=== PATIENT | female | born 1940 | race Caucasian/White ===

== ENCOUNTER 2018-08-02 14:37 | Inpatient (IN) | payer BC, MEDICARE ==
[2018-08-02] MEDS ORDERED: MAG HYDROX/AL HYDROX/SIMETH 30 ML, HYOSCYAMINE ELIXIR 10 ML, CIMETIDINE HCL 300 MG, LID... PO STA ×4 (14:54)
--- NOTE | 2018-08-02 15:10 | ED ---
General Adult HPI - General Chief complaint: Abdominal Pain Stated complaint: Abd Pain Time Seen by Provider: 08/02/18 14:54 Source: patient, EMS Mode of arrival: EMS Limitations: no limitations - History of Present Illness Initial comments: Dictation was produced using [employer] dictation software. please excuse any grammatical, word or spelling errors. Chief Complaint: 77-year-old female presents with a chief complaint of reflux symptoms. History of Present Illness: Patient is 77-year-old female she presents with worsening reflux symptoms for the last 3 weeks. Patient states that her symptoms are localized to her epigastric substernal area. She states to burning sensation. She does report that it feels like a heavy pressure over her epigastric substernal area. She has a 70 history of coronary artery disease st atus post stent. Patient does also have a history of hiatal hernia. She reports that her symptoms have been increasing in frequency and intensity over the last 3 weeks. She states she's been drinking coffee this morning which made her symptoms worse. She also states that she ate a breakfast sausage which also made her symptoms worse. She reports that she usually experiences improvement of her symptoms after drinking water however this did not improve. Patient denies any associated diaphoresis, clamminess of the skin, nausea or radiation of symptoms at the back or upper extremities. The ROS documented in this emergency department record has been reviewed and confirmed by me. Those systems with pertinent positive or negative responses have been documented in the HPI. All other systems are other negative and/or noncontributory. PHYSICAL EXAM: General Impression: Alert and oriented x3, not in acute distress HEENT: Normocephalic atraumatic, extra-ocular movements intact, pupils equal and reactive to light bilaterally, mucous membranes moist. Cardiovascular: Heart regular rate and rhythm, S1&S2 audible, no murmurs, rubs or gallops Chest: Lungs clear to auscultation bilaterally, no rhonchi, no wheeze, no rales Abdomen: Bowel sounds present, abdomen soft, non-tender, non-distended, no organomegaly Musculoskeletal: Pulses present and equal in all extremities, no peripheral e anabella Motor: no focal deficits noted Neurological: CN II-XII grossly intact, no focal motor or sensory deficits noted Skin: Intact with no visualized rashes Psych: Normal affect and mood ED course: 77-year-old female chief complaint of reflux type symptoms. She does have history of coronary artery disease. She does report atypical chest pain with typical features. As upon arrival are within acceptable limits. Patient's well-appearing at this time. She does report symptoms at this time.Lab data evaluation obtained. CBC, coag panel unremarkable. Metabolic panel is negative. Patient does have elevated troponin of 0.05. Chest x-ray is nonacute. Clinical presentation is concerning for an STEMI versus unstable angina. Patient still having some mild symptoms. Patient given aspirin and started on heparin and given Nitropaste. Patient is understandable and agreeable to being admitted to the hospital with cardiology consultation. EKG interpretation: Ventricular rate 57, sinus. Cardiac,. Interval 16, QS 84, QTC 410. No MN prolongation, no QTC prolongation, no ST or T-wave changes noted. Overall, this EKG is unremarkable - Related Data Home Medications Medication Instructions Recorded Confirmed Aspirin EC [Ecotrin Low Dose] 81 - 162 mg PO QID PRN 08/02/18 08/02/18 Davey Complex 1 tab PO DAILY 08/02/18 08/02/18 Fexofenadine HCl [Ute Allergy] 180 mg PO DAILY PRN 08/02/18 08/02/18 Metoprolol Succinate (ER) [Toprol 25 mg PO DAILY 08/02/18 08/02/18 XL] Multivitamin [Multivitamins Adult 2 tab PO DAILY 08/02/18 08/02/18 Gummies] Naproxen Sodium [Aleve] 220 mg PO DAILY PRN 08/02/18 08/02/18 Pantoprazole Sodium [Protonix] 40 mg PO DAILY 08/02/18 08/02/18 Ubidecarenone [Co Q-10] 200 mg PO DAILY 08/02/18 08/02/18 Allergies Allergy/AdvReac Type Severity Reaction Status Date / Time codeine AdvReac Nausea & Verified 08/02/18 16:24 Vomiting Review of Systems ROS Statement: Those systems with pertinent positive or pertinent negative responses have been documented in the HPI. ROS Other: All systems not noted in ROS Statement are negative. Past Medical History Past Medical History: Hyperlipidemia, Hypertension History of Any Multi-Drug Resistant Organisms: None Reported Past Surgical History: Adenoidectomy, Cholecystectomy, Heart Catheterization With Stent, Hysterectomy Past Psychological History: No Psychological Hx Reported Smoking Status: Never smoker Past Alcohol Use History: None Reported Past Drug Use History: None Reported General Exam Limitations: no limitations Course Vital Signs 08/02/18 08/02/18 14:47 16:41 Temperature 97.4 F L Pulse Rate 62 58 L Respiratory 16 16 Rate Blood Pressure 157/104 138/87 O2 Sat by Pulse 100 99 Oximetry Medical Decision Making - Lab Data Result diagrams: 08/02/18 15:20 08/02/18 15:20 Lab Results 08/02/18 08/02/18 08/02/18 Range/Units 15:20 15:20 15:20 WBC 4.3 (3.8-10.6) k/uL RBC 4.25 (3.80-5.40) m/uL Hgb 11.9 (11.4-16.0) gm/dL Hct 35.8 (34.0-46.0) % MCV 84.3 (80.0-100.0) fL MCH 28.0 (25.0-35.0) pg MCHC 33.2 (31.0-37.0) g/dL RDW 15.9 H (11.5-15.5) % Plt Count 293 (150-450) k/uL Neutrophils % 57 % Lymphocytes % 32 % Monocytes % 6 % Eosinophils % 1 % Basophils % 1 % Neutrophils # 2.4 (1.3-7.7) k/uL Lymphocytes # 1.4 (1.0-4.8) k/uL Monocytes # 0.3 (0-1.0) k/uL Eosinophils # 0.1 (0-0.7) k/uL Basophils # 0.0 (0-0.2) k/uL PT 9.7 (9.0-12.0) sec INR 0.9 (<1.2) APTT 25.1 (22.0-30.0) sec Sodium 138 (137-145) mmol/L Potassium 3.8 (3.5-5.1) mmol/L Chloride 104 (98-107) mmol/L Carbon Dioxide 25 (22-30) mmol/L Anion Gap 9 mmol/L BUN 22 H (7-17) mg/dL Creatinine 0.85 (0.52-1.04) mg/dL Est GFR (CKD-EPI)AfAm 77 (>60 ml/min/1.73 sqM) Est GFR (CKD-EPI)NonAf 67 (>60 ml/min/1.73 sqM) Glucose 95 (74-99) mg/dL Calcium 9.9 (8.4-10.2) mg/dL Magnesium 1.8 (1.6-2.3) mg/dL Total Bilirubin 0.4 (0.2-1.3) mg/dL AST 20 (14-36) U/L ALT 14 (9-52) U/L Alkaline Phosphatase 66 (38-126) U/L Troponin I (0.000-0.034) ng/mL Total Protein 6.9 (6.3-8.2) g/dL Albumin 4.2 (3.5-5.0) g/dL 08/02/18 Range/Units 15:20 WBC (3.8-10.6) k/uL RBC (3.80-5.40) m/uL Hgb (11.4-16.0) gm/dL Hct (34.0-46.0) % MCV (80.0-100.0) fL MCH (25.0-35.0) pg MCHC (31.0-37.0) g/dL RDW (11.5-15.5) % Plt Count (150-450) k/uL Neutrophils % % Lymphocytes % % Monocytes % % Eosinophils % % Basophils % % Neutrophils # (1.3-7.7) k/uL Lymphocytes # (1.0-4.8) k/uL Monocytes # (0-1.0) k/uL Eosinophils # (0-0.7) k/uL Basophils # (0-0.2) k/uL PT (9.0-12.0) sec INR (<1.2) APTT (22.0-30.0) sec Sodium (137-145) mmol/L Potassium (3.5-5.1) mmol/L Chloride (98-107) mmol/L Carbon Dioxide (22-30) mmol/L Anion Gap mmol/L BUN (7-17) mg/dL Creatinine (0.52-1.04) mg/dL Est GFR (CKD-EPI)AfAm (>60 ml/min/1.73 sqM) Est GFR (CKD-EPI)NonAf (>60 ml/min/1.73 sqM) Glucose (74-99) mg/dL Calcium (8.4-10.2) mg/dL Magnesium (1.6-2.3) mg/dL Total Bilirubin (0.2-1.3) mg/dL AST (14-36) U/L ALT (9-52) U/L Alkaline Phosphatase (38-126) U/L Troponin I 0.050 H* (0.000-0.034) ng/mL Total Protein (6.3-8.2) g/dL Albumin (3.5-5.0) g/dL Disposition Clinical Impression: NSTEMI (non-ST elevated myocardial infarction) Disposition: ADMITTED IP TO THIS HOSP Condition: Fair Referrals: Jose Miller MD [Primary Care Provider] - 1-2 days Decision Time: 16:59
[2018-08-02 15:29] LABS: Basophils % (A) 1 %; Eosinophils # (A) 0.1 k/uL (0-0.7); Eosinophils % (A) 1 %; HCT 35.8 % (34.0-46.0); HGB 11.9 gm/dL (11.4-16.0); Lymphocytes # (A) 1.4 k/uL (1.0-4.8); Lymphocytes % (A) 32 %; MCHC 33.2 g/dL (31.0-37.0); MCV 84.3 fL (80.0-100.0); Mean Platelet Volume 6.9; Monocytes # (A) 0.3 k/uL (0-1.0); Monocytes % (A) 6 %; Neutrophils # (A) 2.4 k/uL (1.3-7.7); Neutrophils % (A) 57 %; Platelet Count 293 k/uL (150-450); RBC 4.25 m/uL (3.80-5.40); RDW 15.9 % (11.5-15.5); WBC 4.3 k/uL (3.8-10.6)
[2018-08-02 15:41] LABS: INR 0.9 (<1.2); Partial Thromboplastin Time 25.1 sec (22.0-30.0); Prothrombin Time 9.7 sec (9.0-12.0)
--- NOTE | 2018-08-02 15:41 | XR ---
EXAMINATION TYPE: XR chest 2V DATE OF EXAM: 08/02/2018 COMPARISON: NONE HISTORY: Epigastric pain and chest pain TECHNIQUE: Frontal and lateral views of the chest are obtained. FINDINGS: There is no focal air space opacity, pleural effusion, or pneumothorax seen. The cardiac silhouette size is within normal limits. Mild multilevel degenerative change of the spine are seen. The osseous structures are intact. Surgical clips are present within the left breast. IMPRESSION: No acute cardiopulmonary process.
[2018-08-02 15:42] LABS: Albumin 4.2 g/dL (3.5-5.0); Calcium 9.9 mg/dL (8.4-10.2); Magnesium 1.8 mg/dL (1.6-2.3); Potassium 3.8 mmol/L (3.5-5.1); Total Bilirubin 0.4 mg/dL (0.2-1.3); Total Protein 6.9 g/dL (6.3-8.2)
[2018-08-02] MEDS ORDERED: ASPIRIN 81 MG PO STA (16:11)
[2018-08-02] MEDS ORDERED: HEPARIN SODIUM,PORCINE 5,000 UNIT/ML 1 ML VIAL IV PRN (16:11)
[2018-08-02] MEDS ORDERED: HEPARIN SODIUM,PORCINE 5,000 UNIT/ML 1 ML VIAL IV ONE (16:11)
[2018-08-02] MEDS ORDERED: HEPARIN SOD,PORK IN 0.45% NACL 25,000 UNIT in 0.45% NACL 1 250ML.BAG IV SCH (16:15)
[2018-08-02] MEDS ORDERED: NITROGLYCERIN OINT 1 INCH/GM PACKET TOPICAL STA (16:58)
[2018-08-02] MEDS ORDERED: NITROGLYCERIN SL TABS 0.4 MG TAB SUBLINGUAL PRN (16:59)
[2018-08-03 05:59] LABS: Cholesterol 226 mg/dL (<200); HDL Cholesterol 42 mg/dL (40-60); LDL Cholesterol,Calculated 159 mg/dL (0-99); Triglycerides 126 mg/dL (<150)
[2018-08-03] MEDS: PANTOPRAZOLE 40 MG TABLET PO SCH (06:31)
[2018-08-03] MEDS ORDERED: METOPROLOL SUCCINATE (ER) 25 MG TAB.ER.24H PO SCH (09:00)
[2018-08-03] MEDS: ASPIRIN 325 MG TAB PO SCH (09:19)
--- NOTE | 2018-08-03 11:39 | P.CRDCN ---
History of Present Illness Consult date: 08/03/18 History of present illness: This is a 77-year-old female with history of hypertension and hypercholesterolemia and previous stent placement done about several years ago who follows with Dr. VIELKA Landrum regularly. In fact she has seen him about a week ago and she was doing fine at the time. Over the last week. Patient has been having intermittent chest discomfort in the epigastric and chest area. At times she wakes up at night with intermittent pains which she felt could be related to her hiatal hernia. However, last night patient had a prolonged chest tightness that did not go away. Patient was brought to the emergency room by paramedics. She was treated with a GI cocktail in the emergency room without much improvement. Subsequently she was put on Nitropaste with improvement of symptoms. Her cardiac enzymes showed elevation of troponin values suggestive of possible non-STEMI/unstable angina. Patient is advised to have a cardiac catheterization for definitive diagnosis. Meanwhile patient will continue on beta blockers, nitrates, aspirin and heparin. Review of Systems As per the chart Past Medical History Past Medical History: Cancer, Chest Pain / Angina, GERD/Reflux, Hyperlipidemia, Hypertension Additional Past Medical History / Comment(s): hernia, skin cancer (arm, leg, nose, face) with removal - states they took a lymph node also. History of Any Multi-Drug Resistant Organisms: None Reported Past Surgical History: Adenoidectomy, Cholecystectomy, Heart Catheterization With Stent, Hysterectomy Additional Past Surgical History / Comment(s): 1 stent 2002. Past Anesthesia/Blood Transfusion Reactions: No Reported Reaction Additional Past Anesthesia/Blood Transfusion Reaction / Comment(s): no blood transfusion. Date of Last Stent Placement:: 2002 Past Psychological History: No Psychological Hx Reported Smoking Status: Never smoker Past Alcohol Use History: None Reported Past Drug Use History: None Reported Medications and Allergies Home Medications Medication Instructions Recorded Confirmed Type Aspirin EC [Ecotrin Low Dose] 81 - 162 mg PO QID PRN 08/02/18 08/02/18 History Davey Complex 1 tab PO DAILY 08/02/18 08/02/18 History Fexofenadine HCl [Ute Allergy] 180 mg PO DAILY PRN 08/02/18 08/02/18 History Metoprolol Succinate (ER) [Toprol 25 mg PO DAILY 08/02/18 08/02/18 History XL] Multivitamin [Multivitamins Adult 2 tab PO DAILY 08/02/18 08/02/18 History Gummies] Naproxen Sodium [Aleve] 220 mg PO DAILY PRN 08/02/18 08/02/18 History Pantoprazole Sodium [Protonix] 40 mg PO DAILY 08/02/18 08/02/18 History Ubidecarenone [Co Q-10] 200 mg PO DAILY 08/02/18 08/02/18 History Allergies Allergy/AdvReac Type Severity Reaction Status Date / Time codeine AdvReac Nausea & Verified 08/02/18 16:24 Vomiting Physical Exam Vitals: Vital Signs Temp Pulse Pulse Resp BP BP Pulse Ox 08/03/18 04:00 52 L 18 114/63 99 08/02/18 23:40 56 L 17 96/52 96 08/02/18 21:03 98 08/02/18 20:00 98.2 F 59 L 17 134/61 98 08/02/18 19:16 98.1 F 51 L 18 154/79 100 08/02/18 18:25 97.8 F 61 18 145/79 99 08/02/18 16:41 58 L 16 138/87 99 08/02/18 14:47 97.4 F L 62 16 157/104 100 Intake and Output 08/02/18 08/03/18 08/03/18 22:59 06:59 14:59 Intake Total 54.966 52.783 Output Total 400 Balance 54.966 52.783 -400 Intake: Intake, IV Titration 54.966 52.783 Amount Heparin Sod,Pork in 0.45% 54.966 52.783 NaCl 25,000 unit In 0.45 % NaCl 1 250ml.bag @ 12 UNITS/KG/HR 8.818 mls/hr IV .Q24H [facility] Rx#: [id number] Output: Urine 400 Other: Voiding Method Toilet # Voids 1 1 Weight 74.1 kg GENERAL EXAM: Patient is alert and oriented and doesn't appear to be in any acute distress HEENT: Normocephalic. Normal reaction of pupils, equal size, normal range of extraocular motion. No erythema or exudates in the throat. NECK: No masses, no nuchal rigidity. CHEST: No chest wall deformity. LUNGS: Equal air entry with no crackles or wheeze. HEART: S1 and S2 normal with no audible mumurs or gallops. Regular rhythm, femorals equal on both sides.. ABDOMEN: No hepatosplenomegaly, normal bowel sounds, no guarding or rigidity. SKIN: No rashes CENTRAL NERVOUS SYSTEM: No focal deficits. EXTREMITIES: No cyanosis, clubbing or edema. Results 08/02/18 15:20 08/02/18 15:20 Cardiac Enzymes 08/02/18 08/02/18 08/02/18 Range/Units 15:20 15:20 22:05 AST 20 (14-36) U/L Troponin I 0.050 H* 1.780 H* (0.000-0.034) ng/mL 08/03/18 08/03/18 Range/Units 04:11 05:33 AST (14-36) U/L Troponin I 3.040 H* 2.950 H* (0.000-0.034) ng/mL Coagulation 08/02/18 08/02/18 08/03/18 Range/Units 15:20 22:05 05:33 PT 9.7 (9.0-12.0) sec APTT 25.1 82.2 H 46.8 H (22.0-30.0) sec Lipids 08/03/18 Range/Units 05:33 Triglycerides 126 (<150) mg/dL Cholesterol 226 H (<200) mg/dL HDL Cholesterol 42 (40-60) mg/dL CBC 08/02/18 Range/Units 15:20 WBC 4.3 (3.8-10.6) k/uL RBC 4.25 (3.80-5.40) m/uL Hgb 11.9 (11.4-16.0) gm/dL Hct 35.8 (34.0-46.0) % Plt Count 293 (150-450) k/uL Comprehensive Metabolic Panel 08/02/18 Range/Units 15:20 Sodium 138 (137-145) mmol/L Potassium 3.8 (3.5-5.1) mmol/L Chloride 104 (98-107) mmol/L Carbon Dioxide 25 (22-30) mmol/L BUN 22 H (7-17) mg/dL Creatinine 0.85 (0.52-1.04) mg/dL Glucose 95 (74-99) mg/dL Calcium 9.9 (8.4-10.2) mg/dL AST 20 (14-36) U/L ALT 14 (9-52) U/L Alkaline Phosphatase 66 (38-126) U/L Total Protein 6.9 (6.3-8.2) g/dL Albumin 4.2 (3.5-5.0) g/dL Current Medications Generic Name Dose Route Start Last Admin Trade Name Gianq PRN Reason Stop Dose Admin Aspirin 325 mg 08/03/18 09:00 08/03/18 09:19 Aspirin PO 325 mg DAILY MICHAEL Administration Heparin Sodium (Porcine) 0 unit 08/02/18 16:11 Heparin IV PER PROTOCOL PRN Low PTT Protocol Heparin Sodium/Sodium Chloride 250 mls @ 8.818 mls/hr 08/02/18 16:15 08/03/18 06:04 25,000 unit/ Sodium Chloride IV 12 units/kg/hr .Q24H MICHAEL 8.818 mls/hr Titration Protocol 12 UNITS/KG/HR Metoprolol Succinate 25 mg 08/03/18 09:00 08/03/18 09:19 Toprol Xl PO 25 mg DAILY MICHAEL Administration Nitroglycerin 0.4 mg 08/02/18 16:59 Nitrostat SUBLINGUAL Q5M PRN Chest Pain Pantoprazole Sodium 40 mg 08/03/18 07:30 08/03/18 06:31 Protonix PO 40 mg [id number] MICHAEL Administration Intake and Output 08/02/18 08/03/18 08/03/18 22:59 06:59 14:59 Intake Total 54.966 52.783 Output Total 400 Balance 54.966 52.783 -400 Intake: Intake, IV Titration 54.966 52.783 Amount Heparin Sod,Pork in 0.45% 54.966 52.783 NaCl 25,000 unit In 0.45 % NaCl 1 250ml.bag @ 12 UNITS/KG/HR 8.818 mls/hr IV .Q24H [facility] Rx#: [id number] Output: Urine 400 Other: Voiding Method Toilet # Voids 1 1 Weight 74.1 kg 08/02/18 15:20 08/02/18 15:20 EKG Interpretations (text) Sinus rhythm Assessment and Plan (1) Ischemic heart disease Current Visit: Yes Status: Acute Code(s): I25.9 - CHRONIC ISCHEMIC HEART DISEASE, UNSPECIFIED SNOMED Code(s): 647018472 (2) NSTEMI (non-ST elevated myocardial infarction) Current Visit: Yes Status: Acute Code(s): I21.4 - NON-ST ELEVATION (NSTEMI) MYOCARDIAL INFARCTION SNOMED Code(s): 23588274 (3) Essential hypertension Current Visit: Yes Status: Acute Code(s): I10 - ESSENTIAL (PRIMARY) HYPERTENSION SNOMED Code(s): 00200072 (4) Hypercholesterolemia Current Visit: Yes Status: Acute Code(s): E78.00 - PURE HYPERCHOLESTEROLEMIA, UNSPECIFIED SNOMED Code(s): 53874954 Plan: This patient with history of hypertension, hypercholesteremia, and also previous ischemic heart disease came to the hospital with prolonged chest pain and abnormal cardiac enzymes. She is being scheduled for cardiac cath for definitive diagnosis. Further recommendations depend upon the findings on the cath.
[2018-08-03] MEDS: NITROGLYCERIN OINT 1 INCH/GM PACKET TOPICAL SCH ×3 (12:18→23:01)
[2018-08-03] MEDS ORDERED: fentaNYL (PF) 50 MCG/ML 2 ML AMP ONE (12:40)
[2018-08-03] MEDS ORDERED: VERAPAMIL 2.5 MG/ML 2 ML AMP ONE (12:40)
[2018-08-03] MEDS ORDERED: SODIUM CHLORIDE 0.9% 1,000 ML IV ONE (12:45)
[2018-08-03] MEDS ORDERED: fentaNYL (PF) 50 MCG/ML 2 ML AMP IVP ONE (12:51)
[2018-08-03] MEDS ORDERED: MIDAZOLAM (PF) 2 MG/2 ML VIAL IVP ONE (12:52)
[2018-08-03] MEDS: LIDOCAINE 2% SYG (PF) 100 MG/5 ML MISCELLANE ONE ×2 (12:56→13:18)
[2018-08-03] MEDS ORDERED: LIDOCAINE 2% INJ 20 MG/ML SQ ONE (12:56)
[2018-08-03] MEDS ORDERED: HEPARIN SODIUM 1,000 UN/ML (10ML VL) ONE (12:58)
[2018-08-03] MEDS: VERAPAMIL SYRINGE (5 MG/10 ML) INTRAARTER ONE ×2 (13:00→13:19)
[2018-08-03] MEDS ORDERED: HEPARIN SODIUM 1,000 UN/ML (10ML VL) IV ONE (13:01)
[2018-08-03] MEDS ORDERED: NITROGLYCERIN OINT 1 INCH/GM PACKET TOPICAL ONE ×2 (13:19→13:22)
[2018-08-03] MEDS ORDERED: NITROGLYCERIN SL TABS 0.4 MG TAB SUBLINGUAL ONE ×2 (13:19→13:22)
[2018-08-03] MEDS ORDERED: IOPAMIDOL-370 125ML BTL INJ ONE (13:39)
[2018-08-03] MEDS ORDERED: RX INFO: IV CONTRAST WAS GIVEN 1 EACH MISC MISCELLANE PRN (13:41)
[2018-08-03] MEDS ORDERED: HYDROcodone/APAP 5-325MG 1 EACH TAB PO PRN (15:20)
[2018-08-03] MEDS: CYCLOBENZAPRINE 10 MG TAB PO PRN (16:02)
[2018-08-03] MEDS: SODIUM CHLORIDE 0.9% 1,000 ML IV SCH (16:03)
--- NOTE | 2018-08-03 16:16 | P.HPIM ---
History of Present Illness H&P Date: 08/03/18 Chief Complaint: Chest pain 77-year-old female with history of hypertension and hypercholesterolemia and previous stent placement done about several years ago who follows with Dr. VIELKA Landrum regularly. In fact she has seen him about a week ago and she was doing fine at the time. Over the last week. Patient has been having intermittent chest discomfort in the epigastric and chest area. At times she wakes up at night with intermittent pains which she felt could be related to her hiatal hernia. However, last night patient had a prolonged chest tightness that did not go away. Patient was brought to the emergency room by paramedics. She was treated with a GI cocktail in the emergency room without much improvement. Subsequently she was put on Nitropaste with improvement of symptoms. Her cardiac enzymes showed elevation of troponin values suggestive of possible non- STEMI/unstable angina. Patient is advised to have a cardiac catheterization for definitive diagnosis. Meanwhile patient will continue on beta blockers, nitrates, aspirin and heparin. Review of Systems Constitutional: Denies chills, Denies fever Eyes: denies blurred vision Ears, nose, mouth and throat: Denies epistaxis, Denies headache, Denies hoarseness Cardiovascular: Reports chest pain, Reports shortness of breath, Denies edema, Denies rapid heart beat Respiratory: Denies cough with sputum Gastrointestinal: Denies abdominal pain, Denies nausea, Denies vomiting Genitourinary: Denies dysuria, Denies hematuria Musculoskeletal: Denies frequent falls Integumentary: Denies color changes, Denies rash, Denies sores Past Medical History Past Medical History: Cancer, Chest Pain / Angina, GERD/Reflux, Hyperlipidemia, Hypertension Additional Past Medical History / Comment(s): hernia, skin cancer (arm, leg, nose, face) with removal - states they took a lymph node also. History of Any Multi-Drug Resistant Organisms: None Reported Past Surgical History: Adenoidectomy, Cholecystectomy, Heart Catheterization With Stent, Hysterectomy Additional Past Surgical History / Comment(s): 1 stent 2002. Past Anesthesia/Blood Transfusion Reactions: No Reported Reaction Additional Past Anesthesia/Blood Transfusion Reaction / Comment(s): no blood transfusion. Date of Last Stent Placement:: 2002 Past Psychological History: No Psychological Hx Reported Smoking Status: Never smoker Past Alcohol Use History: None Reported Past Drug Use History: None Reported Medications and Allergies Home Medications Medication Instructions Recorded Confirmed Type Aspirin EC [Ecotrin Low Dose] 81 - 162 mg PO QID PRN 08/02/18 08/02/18 History Davey Complex 1 tab PO DAILY 08/02/18 08/02/18 History Fexofenadine HCl [Ute Allergy] 180 mg PO DAILY PRN 08/02/18 08/02/18 History Metoprolol Succinate (ER) [Toprol 25 mg PO DAILY 08/02/18 08/02/18 History XL] Multivitamin [Multivitamins Adult 2 tab PO DAILY 08/02/18 08/02/18 History Gummies] Naproxen Sodium [Aleve] 220 mg PO DAILY PRN 08/02/18 08/02/18 History Pantoprazole Sodium [Protonix] 40 mg PO DAILY 08/02/18 08/02/18 History Ubidecarenone [Co Q-10] 200 mg PO DAILY 08/02/18 08/02/18 History Allergies Allergy/AdvReac Type Severity Reaction Status Date / Time codeine AdvReac Nausea & Verified 08/02/18 16:24 Vomiting Physical Exam Vitals: Vital Signs Temp Pulse Pulse Resp BP BP Pulse Ox 08/03/18 04:00 52 L 18 114/63 99 08/02/18 23:40 56 L 17 96/52 96 08/02/18 21:03 98 08/02/18 20:00 98.2 F 59 L 17 134/61 98 08/02/18 19:16 98.1 F 51 L 18 154/79 100 08/02/18 18:25 97.8 F 61 18 145/79 99 08/02/18 16:41 58 L 16 138/87 99 08/02/18 14:47 97.4 F L 62 16 157/104 100 Intake and Output 08/02/18 08/03/18 08/03/18 22:59 06:59 14:59 Intake Total 54.966 52.783 Output Total 400 Balance 54.966 52.783 -400 Intake: Intake, IV Titration 54.966 52.783 Amount Heparin Sod,Pork in 0.45% 54.966 52.783 NaCl 25,000 unit In 0.45 % NaCl 1 250ml.bag @ 12 UNITS/KG/HR 8.818 mls/hr IV .Q24H [facility] Rx#: [id number] Output: Urine 400 Other: Voiding Method Toilet # Voids 1 1 Weight 74.1 kg GENERAL EXAM: Patient is alert and oriented and doesn't appear to be in any acute distress HEENT: Normocephalic. Normal reaction of pupils, equal size, normal range of extraocular motion. No erythema or exudates in the throat. NECK: No masses, no nuchal rigidity. CHEST: No chest wall deformity. LUNGS: Equal air entry with no crackles or wheeze. HEART: S1 and S2 normal with no audible mumurs or gallops. Regular rhythm, femorals equal on both sides.. ABDOMEN: No hepatosplenomegaly, normal bowel sounds, no guarding or rigidity. SKIN: No rashes CENTRAL NERVOUS SYSTEM: No focal deficits. EXTREMITIES: No cyanosis, clubbing or edema. Results CBC & Chem 7: 08/02/18 15:20 08/02/18 15:20 Labs: Abnormal Lab Results - Last 24 Hours (Table) 08/02/18 08/02/18 08/02/18 Range/Units 15:20 15:20 15:20 RDW 15.9 H (11.5-15.5) % APTT (22.0-30.0) sec BUN 22 H (7-17) mg/dL Troponin I 0.050 H* (0.000-0.034) ng/mL Cholesterol (<200) mg/dL LDL Cholesterol, Calc (0-99) mg/dL 08/02/18 08/02/18 08/03/18 Range/Units 22:05 22:05 04:11 RDW (11.5-15.5) % APTT 82.2 H (22.0-30.0) sec BUN (7-17) mg/dL Troponin I 1.780 H* 3.040 H* (0.000-0.034) ng/mL Cholesterol (<200) mg/dL LDL Cholesterol, Calc (0-99) mg/dL 08/03/18 08/03/18 08/03/18 Range/Units 05:33 05:33 05:33 RDW (11.5-15.5) % APTT 46.8 H (22.0-30.0) sec BUN (7-17) mg/dL Troponin I 2.950 H* (0.000-0.034) ng/mL Cholesterol 226 H (<200) mg/dL LDL Cholesterol, Calc 159 H (0-99) mg/dL Thrombosis Risk Factor Assmnt - Choose All That Apply Any of the Below Risk Factors Present?: Yes Each Factor Represents 1 point: Medical pt on bed rest, Obesity (BMI >25) Other Risk Factors: Yes Each Risk Factor Represents 3 Points: Age 75 years or older Other congenital or acquired thrombophilia - If yes, enter type in comment: No Thrombosis Risk Factor Assessment Total Risk Factor Score: 5 Thrombosis Risk Factor Assessment Level: High Risk Assessment and Plan Assessment: 1. Non-ST elevation OH - Patient is status post cardiac catheterization showing triple-vessel disease; cardiothoracic surgery is consulted for further recommendations - Patient remains on IV heparin per protocol; continue with aspirin and beta blockers and statin therapy in form of Lipitor 80 mg daily at bedtime - Nitro-Bid ointment 1 inch every 6 hours 2. Hypertension; fairly controlled on home dose of metoprolol 25 mg daily and lisinopril 5 mg daily 3. Hyperlipidemia - Repeat lipid profile shows a total cholesterol of 226 - Statin therapy initiated with Lipitor 80 mg by mouth daily at bedtime 4. Gastroesophageal reflux disease; continue with home dose of Protonix 5. DVT prophylaxis; IV heparin infusion CODE STATUS; full code
[2018-08-03] MEDS: HEPARIN SOD,PORK IN 0.45% NACL 25,000 UNIT in 0.45% NACL 1 250ML.BAG IV SCH ×2 (17:48→17:51)
[2018-08-03] MEDS ORDERED: MD COMMUNICATION TO PHARMACY 1 EACH MISC PO ONE ×2 (18:03)
--- NOTE | 2018-08-03 18:08 | P.CARDCATH ---
Date of Procedure: 08/03/18 Preoperative Diagnosis: Non-STEMI Postoperative Diagnosis: Triple-vessel disease Procedure(s) Performed: Left heart catheterization without left ventriculography Description of Procedure: HISTORY: This is a 77-year-old female with history of ischemic heart disease with a previous stent placement of the proximal LAD, hypertension and hypercholesterolemia who was admitted to the hospital with prolonged chest pains which are recurrent and abnormal troponin values consistent with non-ST elevation [place]. Patient is advised to have a cardiac catheterization for definitive diagnosis. CONSENT:I have discussed the risks, benefits and alternative therapies for the above-mentioned procedure and for both sedation/analgesia as well as necessary blood product administration, if indicated, as they pertain to this patient. The patient has indicated understanding and acceptance of the risks and procedures discussed. PROCEDURE: Patient was brought to the lab in a fasting state. Patient was given some IV sedation. The right wrist is infiltrated with lidocaine and right radial artery was entered using Seldinger technique. A 6-Croat[place] catheter was left in place and selective coronary arteriography was performed. Patient tole rated the procedure well. TR band was applied for hemostasis. No immediate complications were noted and patient was transferred to selective care in a stable condition Conscious Sedation: Versed 1mg Fentanyl 25 g Duration 22minutes HEMODYNAMICS: Aortic pressure is about 120/70. Left ventricular end-diastolic pressure is about 16-18. There was no gradient across the aortic valve SELECTIVE CORONARY ARTERIOGRAPHY: LEFT MAIN: Normal length and free of any significant occlusive disease. Whole left coronary system is heavily calcified THE LEFT ANTERIOR DESCENDING CORONARY ARTERY:. This is a good caliber vessel with about 50% stenosis involving the proximal LAD at the site of previous stent placement. There is about 90% stenosis of the mid LAD. Beyond that the vessel seemed to be free of any significant focal occlusive disease THE LEFT CIRCUMFLEX AND IS CORONARY ARTERY: This is a good caliber vessel giving rise to good-sized OM branch. There is diffuse plaque in the proximal circumflex. There is about 70% stenosis of the proximal portion of the OM branch. There is about 95% to 99% stenosis of the distal circumflex before the PLV branch new THE RIGHT CORONARY ARTERY: This is also calcified with about 70-80% stenosis involving the proximal portion. LEFT VENTRICULOGRAPHY: Not performed FINAL IMPRESSION:. Severe triple-vessel disease with a moderate disease involving the proximal LAD and critical lesion involving the mid LAD, critical lesion involving the OM branch and distal circumflex and also critical lesion involving the proximal RCA PLAN: Pains are reviewed with the Dr. Pulliam. At this point a surgical opinion is requested for possible bypass surgery. Multivessel angioplasty and stent placement felt to be difficult and associated with high risk PROGNOSIS: Continue current medical therapy with beta blockers, nitrates, heparin and aspirin. Obtain surgical consult. Echocardiogram
[2018-08-03 19:18] LABS: INR 0.9 (<1.2); Partial Thromboplastin Time 30.5 sec (22.0-30.0); Prothrombin Time 9.8 sec (9.0-12.0)
[2018-08-03 19:20] LABS: Magnesium 1.9 mg/dL (1.6-2.3)
[2018-08-03] MEDS: MUPIROCIN 2% OINT 22 GM TUBE NASAL SCH (20:56)
[2018-08-03] MEDS: METOPROLOL SUCCINATE (ER) 25 MG TAB.ER.24H PO SCH (20:56)
[2018-08-04 01:44] LABS: Hemoglobin A1C 5.7 % (4.0-6.0)
[2018-08-04 01:59] LABS: Hepatitis A Antibody IgM Non-Reactive (Non-Reactive); Hepatitis B Core IgM Non-Reactive (Non-Reactive)
[2018-08-04] MEDS: SODIUM CHLORIDE 0.9% 1,000 ML IV SCH ×2 (03:55→17:40)
[2018-08-04 06:30] LABS: Basophils % (A) 0 %; Eosinophils # (A) 0.1 k/uL (0-0.7); Eosinophils % (A) 2 %; HCT 33.1 % (34.0-46.0); HGB 10.9 gm/dL (11.4-16.0); Lymphocytes # (A) 1.7 k/uL (1.0-4.8); Lymphocytes % (A) 31 %; MCH 27.9 pg (25.0-35.0); MCHC 32.8 g/dL (31.0-37.0); Mean Platelet Volume 6.7; Monocytes # (A) 0.3 k/uL (0-1.0); Monocytes % (A) 5 %; Neutrophils # (A) 3.3 k/uL (1.3-7.7); Neutrophils % (A) 60 %; Platelet Count 252 k/uL (150-450); RBC 3.89 m/uL (3.80-5.40); RDW 13.4 % (11.5-15.5); WBC 5.5 k/uL (3.8-10.6)
[2018-08-04] MEDS: NITROGLYCERIN OINT 1 INCH/GM PACKET TOPICAL SCH ×4 (06:37→23:24)
[2018-08-04] MEDS: PANTOPRAZOLE 40 MG TABLET PO SCH (06:37)
[2018-08-04] MEDS: ATORVASTATIN 80 MG TAB PO SCH (08:17)
[2018-08-04] MEDS: MUPIROCIN 2% OINT 22 GM TUBE NASAL SCH ×2 (08:17→21:19)
[2018-08-04] MEDS: METOPROLOL SUCCINATE (ER) 25 MG TAB.ER.24H PO SCH ×2 (08:17→20:06)
[2018-08-04] MEDS: LISINOPRIL 5 MG TAB PO SCH (08:17)
[2018-08-04] MEDS: ASPIRIN 325 MG TAB PO SCH (08:17)
[2018-08-04 08:35] LABS: Albumin 3.7 g/dL (3.5-5.0); Calcium 10.1 mg/dL (8.4-10.2); Potassium 4.5 mmol/L (3.5-5.1); Total Bilirubin 0.6 mg/dL (0.2-1.3); Total Protein 6.2 g/dL (6.3-8.2)
[2018-08-04 09:05] LABS: Appearance,Urine Clear (Clear); Bilirubin,Urine Negative (Negative); Blood,Urine Negative (Negative); Color,Urine Yellow; Glucose,Urine (UA) Negative (Negative); Ketones,Urine Negative (Negative); Leukocyte Esterase,Urine Trace (Negative); Mucus,Urine Rare /hpf; Nitrite,Urine Negative (Negative); Protein,Urine Negative (Negative); RBC,Urine 1 /hpf (0-5); Specific Gravity,Urine 1.021 (1.001-1.035); Urobilinogen,Urine <2.0 mg/dL (<2.0); WBC,Urine 2 /hpf (0-5)
--- NOTE | 2018-08-04 10:15 | P.PN ---
Subjective Progress Note Date: 08/04/18 This is a 77-year-old female with history of hypertension and hypercholesterolemia and previous stent placement done about several years ago who follows with Dr. VIELKA Landrum regularly. In fact she has seen him about a week ago and she was doing fine at the time. Over the last week. Patient has been having intermittent chest discomfort in the epigastric and chest area. At times she wakes up at night with intermittent pains which she felt could be related to her hiatal hernia. However, last night patient had a prolonged chest tightness that did not go away. Patient was brought to the emergency room by paramedics. She was treated with a GI cocktail in the emergency room without much improvement. Subsequently she was put on Nitropaste with improvement of symptoms. Her cardiac enzymes showed elevation of troponin values suggestive of possible non-STEMI/unstable angina. Patient is advised to have a cardiac catheterization for definitive diagnosis. Meanwhile patient will continue on beta blockers, nitrates, aspirin and heparin. 08/04: Yesterday, patient underwent heart catheterization that revealed severe triple vessel disease with moderate disease involving the proximal LAD and critical lesion involving the mid LAD, critical lesion involving the OM branch and distal circumflex and also critical lesion involving the proximal RCA. Consult has been admitted for cardiothoracic surgery with tentative plan for surgery on Sunday. This morning, patient is complaining of feeling nasal congestion as she has not taken her Ute which will resume. Consult with Dr. Pérez will be added. Echocardiogram is pending. TSH is 3.150. Triglycerides 126, cholesterol 226, HDL 42 and LDL 159. Objective - Vital Signs Vital signs: Vital Signs Temp 99.7 F H 08/03/18 20:00 Pulse 58 L 08/04/18 08:00 Resp 16 08/04/18 08:00 BP 130/65 08/04/18 08:00 Pulse Ox 95 08/04/18 08:00 Intake & Output 08/03/18 08/04/18 08/04/18 18:59 06:59 18:59 Intake Total 315.367 63.631 120 Output Total 400 300 Balance -84.633 -236.369 120 Weight 74.642 kg Intake: IV 75 Intake, IV Titration 0.367 63.631 Amount Heparin Sod,Pork in 0.45% 0.367 63.631 NaCl 25,000 unit In 0.45 % NaCl 1 250ml.bag @ 13.7 UNITS/KG/HR 10.067 mls/ hr IV .Q24H [facility] Rx#: [id number] Oral 240 120 Output: Urine 400 300 Other: Voiding Method Toilet Toilet # Voids 0 # Bowel Movements 0 - Exam GENERAL EXAM: Patient is alert and oriented and doesn't appear to be in any acute distress HEENT: Normocephalic. Normal reaction of pupils, equal size, normal range of extraocular motion. No erythema or exudates in the throat. NECK: No masses, no nuchal rigidity. CHEST: No chest wall deformity. LUNGS: Equal air entry with no crackles or wheeze. HEART: S1 and S2 normal with no audible mumurs or gallops. Regular rhythm, femorals equal on both sides.. ABDOMEN: No hepatosplenomegaly, normal bowel sounds, no guarding or rigidity. SKIN: No rashes CENTRAL NERVOUS SYSTEM: No focal deficits. EXTREMITIES: No cyanosis, clubbing or edema. - Labs CBC & Chem 7: 08/04/18 06:01 08/04/18 06:01 Labs: Abnormal Lab Results - Last 24 Hours (Table) 08/03/18 08/03/18 08/04/18 Range/Units 18:33 23:39 06:01 Hgb 10.9 L (11.4-16.0) gm/dL Hct 33.1 L (34.0-46.0) % APTT 30.5 H 45.4 H (22.0-30.0) sec Chloride (98-107) mmol/L Glucose (74-99) mg/dL Troponin I (0.000-0.034) ng/mL Total Protein (6.3-8.2) g/dL Ur Leukocyte Esterase (Negative) Urine Mucus (None) /hpf 08/04/18 08/04/18 08/04/18 Range/Units 06:01 06:01 06:01 Hgb (11.4-16.0) gm/dL Hct (34.0-46.0) % APTT 64.0 H (22.0-30.0) sec Chloride 110 H (98-107) mmol/L Glucose 111 H (74-99) mg/dL Troponin I 1.460 H* (0.000-0.034) ng/mL Total Protein 6.2 L (6.3-8.2) g/dL Ur Leukocyte Esterase (Negative) Urine Mucus (None) /hpf 08/04/18 Range/Units 06:30 Hgb (11.4-16.0) gm/dL Hct (34.0-46.0) % APTT (22.0-30.0) sec Chloride (98-107) mmol/L Glucose (74-99) mg/dL Troponin I (0.000-0.034) ng/mL Total Protein (6.3-8.2) g/dL Ur Leukocyte Esterase Trace H (Negative) Urine Mucus Rare H (None) /hpf Microbiology - Last 24 Hours (Table) 08/03/18 18:30 Nasal Screen MRSA/MSSA - Preliminary Nasal Swab Assessment and Plan Plan: (1) Ischemic heart disease Current Visit: Yes Status: Acute Code(s): I25.9 - CHRONIC ISCHEMIC HEART DISEASE, UNSPECIFIED SNOMED Code(s): 540809896 (2) NSTEMI (non-ST elevated myocardial infarction) with triple-vessel disease Current Visit: Yes Status: Acute Code(s): I21.4 - NON-ST ELEVATION (NSTEMI) MYOCARDIAL INFARCTION SNOMED Code(s): 42485451 (3) Essential hypertension Current Visit: Yes Status: Acute Code(s): I10 - ESSENTIAL (PRIMARY) HYPERTEN MAUREEN SNOMED Code(s): 82368990 (4) Hypercholesterolemia Current Visit: Yes Status: Acute Code(s): E78.00 - PURE HYPERCHOLESTEROLEMIA, UNSPECIFIED SNOMED Code(s): 23000728 Plan: Consult with cardiothoracic surgery with plan for surgical intervention on Sunday. Consult with Dr. Pérez for pulmonary coverage. Continue heparin drip, metoprolol succinate 25 mg twice daily, atorvastatin 80 mg daily, lisinopril 5 mg daily, aspirin 325 mg daily. There is practitioner has been reviewed, I agree with documented findings and plan of care. Patient was seen and examined.
--- NOTE | 2018-08-04 10:40 | US ---
EXAMINATION TYPE: US carotid duplex BILAT DATE OF EXAM: 08/04/2018 COMPARISON: NONE CLINICAL HISTORY: Pre-Op Cardiac Surgery. EXAM MEASUREMENTS: RIGHT: Peak Systolic Velocity (PSV) cm/sec ----- Right CCA: 90.0 ----- Right ICA: 75.3 ----- Right ECA: 107.9 ICA/CCA ratio: 0.8 RIGHT: End Diastole cm/sec ----- Right CCA: 17.1 ----- Right ICA: 20.3 ----- Right ECA: 14.9 LEFT: Peak Systolic Velocity (PSV) cm/sec ----- Left CCA: 81.5 ----- Left ICA: 70.6 ----- Left ECA: 72.9 ICA/CCA ratio: 0.9 LEFT: End Diastole cm/sec ----- Left CCA: 19.3 ----- Left ICA: 15.0 ----- Left ECA: 7.1 VERTEBRALS (direction of flow): Right Vertebral: Antegrade Left Vertebral: Antegrade Rhythm: Arrhythmia Mild atherosclerotic changes with no significant velocity elevations. IMPRESSION: I DO NOT SEE EVIDENCE OF A HEMODYNAMICALLY SIGNIFICANT STENOSIS IN EITHER CAROTID SYSTEM. Criteria for Assigning % of Stenosis / Diameter reduction (Estimation based on the indirect measurements of the internal carotid artery velocities (ICA PSV). 1. Normal (no stenosis)=ICA PSV < 125 cm/s: ratio < 2.0: ICA EDV<40 cm/s. 2. Less than 50% stenosis=ICA PSV < 125 cm/s: ratio < 2.0: ICA EDV<40 cm/s. 3. 50 to 69% stenosis=ICA PSV of 125 to 230 cm/s: ration 2.0 ? 4.0: ICA EDV 40-100 cm/s. 4. Greater than 70% stenosis to near occlusion= ICA PSV > 230 cm/s: ratio > 4.0: ICA EDV > 100 cm/s. 5. Near occlusion= ICA PSV velocities may be low or undetectable: variable ratio and ICA EDV. 6. Total occlusion=unable to detect flow.
[2018-08-04] MEDS: IPRATROPIUM-ALBUTEROL 3 ML NEB INHALATION SCH ×3 (10:56→21:13)
--- NOTE | 2018-08-04 11:01 | P.GSCN ---
History of Present Illness Consult date: 08/04/18 Reason for Consult: Triple-vessel coronary artery disease, non-STEMI. Requesting physician: Vlad Au History of present illness: This is a 77-year-old female patient who is followed by Dr. Jose Miller on an outpatient basis. She is a past medical history significant for coronary artery disease with a stent placed to her mid left anterior descending coronary artery in 2002, hypertension, hyperlipidemia, gastroesophageal reflux disease, hiatal hernia and melanoma skin cancer to her left arm which was removed in September 2017. The patient reports that for the last week she has been having episodes of epigastric type pain and pressure, nausea and episodes of lightheadedness. She denies any syncope, vomiting, diaphoresis, or palpitations. She also reports that due to her history of hiatal hernia she was associating this discomfort with indigestion. The patient is also complaining of some sinus co ngestion and lung congestion with frequent cough. Currently the patient denies any complaints of pain or shortness of breath. Due to the above-mentioned symptoms she presented to the emergency department here at [facility] via EMS. She was initially treated with a GI cocktail in the emergency department with no improvements to her symptoms. For further evaluation the patient underwent a 12-lead EKG which showed sinus bradycardia with heart rate of 57 BPM. Nitro paste was initiated which did give some improvements to her symptoms. Her lab work demonstrated a WBC count of 4.3, hemoglobin 11.9, platelets 293, BUN 22, creatinine 0.85 and an elevated troponin of 0.50 which peaked at 3.040. Due to her presenting symptoms and elevated troponins a consult was placed to Dr. Au from [facility]ology associates. Dr. Dr. Au evaluated the patient and an urgent cardiac catheterization was recommended. After obtaining consent performed a left heart catheterization without left ventriculography which demonstrated her left main coronary artery to be free from any significant occlusive disease, a 50% stenosis involving the proximal left anterior descending coronary artery, a 90% stenosis to her mid left anterior descending coronary artery at the site of her previous stent placement, diffuse plaque in the proximal circumflex coronary artery, a 70% stenosis to the proximal portion of the obtuse marginal branch, a 95 to 99% stenosis to the distal circumflex coronary artery and a 70-80% stenosis involving the proximal portion of her right coronary artery. Subsequently due to her cardiac catheterization findings a consult was placed to Dr. Steph Zelaya from cardiothoracic surgery for further evaluation and recommendations on myocardial revascularization surgery. Review of Systems A 14 point review of systems was completed and was negative except as mentioned in the HPI. Past Medical History Past Medical History: Cancer, Chest Pain / Angina, GERD/Reflux, Hyperlipidemia, Hypertension, Skin Disorder Additional Past Medical History / Comment(s): hernia, skin cancer (arm, leg, nose, face) with removal - states they took a lymph node also. States she had melanoma removed from her left arm in September 2017. History of Any Multi-Drug Resistant Organisms: None Reported Past Surgical History: Adenoidectomy, Cholecystectomy, Heart Catheterization With Stent, Hysterectomy Additional Past Surgical History / Comment(s): 1 stent 2002. Bilateral cataract surgery, skin cancer removed from her left arm, right leg, right ear and to her face. Past Anesthesia/Blood Transfusion Reactions: No Reported Reaction Additional Past Anesthesia/Blood Transfusion Reaction / Comm: no blood transfusion. Date of Last Stent Placement:: 2002 Past Psychological History: Anxiety Smoking Status: Former smoker (She reports she quit smoking at age 17) Past Alcohol Use History: Occasional (She drinks about 3 glasses of wine a month.) Past Drug Use History: None Reported - Past Family History Mother Family Medical History: Myocardial Infarction (VT) (Myocardial infarction at age 97) Father Family Medical History: Myocardial Infarction (VT) Additional Family Medical History / Comment(s): Her father at age 55 from a myocardial infarction. Medications and Allergies Home Medications Medication Instructions Recorded Confirmed Type Aspirin EC [Ecotrin Low Dose] 81 - 162 mg PO QID PRN 08/02/18 08/02/18 History Davey Complex 1 tab PO DAILY 08/02/18 08/02/18 History Fexofenadine HCl [Ute Allergy] 180 mg PO DAILY PRN 08/02/18 08/02/18 History Metoprolol Succinate (ER) [Toprol 25 mg PO DAILY 08/02/18 08/02/18 History XL] Multivitamin [Multivitamins Adult 2 tab PO DAILY 08/02/18 08/02/18 History Gummies] Naproxen Sodium [Aleve] 220 mg PO DAILY PRN 08/02/18 08/02/18 History Pantoprazole Sodium [Protonix] 40 mg PO DAILY 08/02/18 08/02/18 History Ubidecarenone [Co Q-10] 200 mg PO DAILY 08/02/18 08/02/18 History Allergies Allergy/AdvReac Type Severity Reaction Status Date / Time codeine AdvReac Nausea & Verified 08/02/18 16:24 Vomiting Surgical - Exam Vital Signs Temp Pulse Resp BP Pulse Ox 97.4 F L 62 16 157/104 100 08/02/18 14:47 08/02/18 14:47 08/02/18 14:47 08/02/18 14:47 08/02/18 14:47 - General well developed, well nourished, no distress, no pain, obese - Eyes PERRL, normal ocular movement - ENT normal pinna, normal nares, normal mucosa, decreased hearing (Decreased hearing to her left ear) - Neck Neck is supple, no lymphadenopathy. No thyroidomegaly. no masses, trachea midline, no venous distension carotid bruit: right - Respiratory Lung sounds with few scattered crackles throughout, diminished bilateral bases. Respirations are symmetrical and nonlabored. Achieving 1850 mL on her incentive spirometry. - Cardiovascular Regular rhythm and rate. S1 and S2 present, negative for S3 or gallop, positive systolic murmur 3/6 heard best to her right sternal border. No edema present. - Abdomen Abdomen is soft, nontender and nondistended. Active bowel sounds all 4, quadrant. No guarding or rigidity. No organomegaly. - Genitourinary Deferred - Rectum Deferred - Integumentary no rash, no growths, no abnormal pigmentation - Neurologic normal coordination, normal sensation - Musculoskeletal normal gait, normal posture - Psychiatric oriented to time, oriented to person, oriented to place, speech is normal, memory intact Results - Labs 08/04/18 06:01 08/04/18 06:01 Abnormal Lab Results - Last 24 Hours (Table) 08/03/18 08/03/18 08/04/18 Range/Units 18:33 23:39 06:01 Hgb 10.9 L (11.4-16.0) gm/dL Hct 33.1 L (34.0-46.0) % APTT 30.5 H 45.4 H (22.0-30.0) sec Chloride (98-107) mmol/L Glucose (74-99) mg/dL Troponin I (0.000-0.034) ng/mL Total Protein (6.3-8.2) g/dL Ur Leukocyte Esterase (Negative) Urine Mucus (None) /hpf 08/04/18 08/04/18 08/04/18 Range/Units 06:01 06:01 06:01 Hgb (11.4-16.0) gm/dL Hct (34.0-46.0) % APTT 64.0 H (22.0-30.0) sec Chloride 110 H (98-107) mmol/L Glucose 111 H (74-99) mg/dL Troponin I 1.460 H* (0.000-0.034) ng/mL Total Protein 6.2 L (6.3-8.2) g/dL Ur Leukocyte Esterase (Negative) Urine Mucus (None) /hpf 08/04/18 Range/Units 06:30 Hgb (11.4-16.0) gm/dL Hct (34.0-46.0) % APTT (22.0-30.0) sec Chloride (98-107) mmol/L Glucose (74-99) mg/dL Troponin I (0.000-0.034) ng/mL Total Protein (6.3-8.2) g/dL Ur Leukocyte Esterase Trace H (Negative) Urine Mucus Rare H (None) /hpf Microbiology - Last 24 Hours (Table) 08/03/18 18:30 Nasal Screen MRSA/MSSA - Preliminary Nasal Swab Diabetes panel 08/03/18 08/04/18 Range/Units 18:33 06:01 Sodium 138 (137-145) mmol/L Potassium 4.5 (3.5-5.1) mmol/L Chloride 110 H (98-107) mmol/L Carbon Dioxide 24 (22-30) mmol/L BUN 14 (7-17) mg/dL Creatinine 0.94 (0.52-1.04) mg/dL Glucose 111 H (74-99) mg/dL Hemoglobin A1c 5.7 (4.0-6.0) % Calcium 10.1 (8.4-10.2) mg/dL AST 31 (14-36) U/L ALT 21 (9-52) U/L Alkaline Phosphatase 71 (38-126) U/L Total Protein 6.2 L (6.3-8.2) g/dL Albumin 3.7 (3.5-5.0) g/dL Thyroid panel 08/03/18 Range/Units 18:33 TSH 3.150 (0.465-4.680) mIU/L Calcium panel 08/04/18 Range/Units 06:01 Calcium 10.1 (8.4-10.2) mg/dL Albumin 3.7 (3.5-5.0) g/dL Pituitary panel 08/03/18 08/04/18 Range/Units 18:33 06:01 Sodium 138 (137-145) mmol/L Potassium 4.5 (3.5-5.1) mmol/L Chloride 110 H (98-107) mmol/L Carbon Dioxide 24 (22-30) mmol/L BUN 14 (7-17) mg/dL Creatinine 0.94 (0.52-1.04) mg/dL Glucose 111 H (74-99) mg/dL Calcium 10.1 (8.4-10.2) mg/dL TSH 3.150 (0.465-4.680) mIU/L Adrenal panel 08/04/18 Range/Units 06:01 Sodium 138 (137-145) mmol/L Potassium 4.5 (3.5-5.1) mmol/L Chloride 110 H (98-107) mmol/L Carbon Dioxide 24 (22-30) mmol/L BUN 14 (7-17) mg/dL Creatinine 0.94 (0.52-1.04) mg/dL Glucose 111 H (74-99) mg/dL Calcium 10.1 (8.4-10.2) mg/dL Total Bilirubin 0.6 (0.2-1.3) mg/dL AST 31 (14-36) U/L ALT 21 (9-52) U/L Alkaline Phosphatase 71 (38-126) U/L Total Protein 6.2 L (6.3-8.2) g/dL Albumin 3.7 (3.5-5.0) g/dL - Imaging Chest x-ray: report reviewed, image reviewed EKG: image reviewed Assessment and Plan Assessment: 1. Severe triple-vessel coronary artery disease 2. Non-ST elevated myocardial infarction 3. Ischemic heart disease 4. History of coronary artery disease with previous stent placement to her mid left anterior setting coronary artery in 2002 5. Hypertension 6. Hyperlipidemia 7. Gastroesophageal reflux disease 8. History of hiatal hernia 9. History of skin cancer Plan: The patient was seen and examined at the bedside on the cardiac stepdown unit. Her chart and diagnostics were reviewed. Her case was discussed in detail with Dr. Steph Zelaya from cardiothoracic surgery. The usual perioperative course was discussed in detail with the patient and her daughter. Preop testing and preoperative teaching has been initiated. Current recommendations are to continue to maximize medical therapy with aspirin, statin, beta taina and heparin drip. Once her preoperative testing has been collected and reviewed a STS risk score will be calculated. We will also obtain a [address] Pérez from pulmonary medicine has been consulted for preoperative pulmonary evaluation. Encourage use of her incentive spirometry every hour while awake. The patient does have a systolic murmur heard best to her right sternal border, 2-D echocardiogram report pending. She also has a right carotid bruit, carotid duplex study report pending. Once her preoperative testing has been completed, the risks and benefits of myocardial revascularization surgery will be discussed with the patient and her family and she will potentially be scheduled for myocardial vascularization surgery. Thank you Dr. Au for this consult and we look forward to working with you in the care of your patient. Time with Patient: Greater than 30
--- NOTE | 2018-08-04 11:03 | P.CNPUL ---
History of Present Illness Consult date: 08/04/18 Chief complaint: Symptomatic multivessel coronary artery disease, possible bypass surgery History of present illness: 77-year-old female patient who presented with some intermittent chest pain and the patient ruled in for an acute non-STEMI. The patient underwent a cardiac catheterization and the patient was found to have extensive triple-vessel disease. She is known to have hypertension and hyperlipidemia and she has undergone previous coronary stenting. The plan is to proceed with cardiac bypass surgery and for that reason a pulmonary consultation was requested. She is a nonsmoker. Most of asthma. Most of emphysema. No long-term oxygen use. She has involvement of ALLERGIES and the patient typically gets worse during this time of the year for which she takes Zyrtec. She is quite congested at this point in time she describes nasal congestion and some occasional cough . No pleurisy and no hemoptysis. The patient has no focal airspace disease on the chest x-ray that was done time of admission and currently she is on room air oxygen. Was at 10.9. Troponin peaked at 2.9. Review of Systems Constitutional: Denies chills, Denies fever Eyes: denies as per HPI, denies blurred vision, denies bulging eye, denies decreased vision, denies diplopia, denies discharge, denies dry eye, denies irritation, denies itching, denies pain, denies photophobia, denies loss of peripheral vision, denies loss of vision, denies tunnel vision/blind spots Ears: deny: decreased hearing, ear discharge, earache, tinnitus Ears, nose, mouth and throat: Reports nasal congestion, Reports nasal discharge, Reports sinus pressure Breasts: absent: as per HPI, change in shape, gynecomastia, masses, nipple discharge, pain, skin changes, swelling Cardiovascular: Reports chest pain Respiratory: Reports dyspnea Gastrointestinal: Reports as per HPI Genitourinary: Reports as per HPI Musculoskeletal: Reports as per HPI Musculoskeletal: absent: ankle pain, ankle stiffness, ankle swelling, as per HPI, elbow pain, elbow stiffness, elbow swelling, foot pain, foot stiffness, foot swelling, hand pain, hand stiffness, hand swelling, hip pain, hip stiffness, hip swelling, knee pain, knee stiffness, knee swelling, shoulder pain, shoulder stiffness, shoulder swelling, wrist pain, wrist stiffness, wrist swelling Integumentary: Reports as per HPI Neurological: Reports as per HPI Psychiatric: Reports as per HPI Endocrine: Reports as per HPI Hematologic/Lymphatic: Reports as per HPI Past Medical History Past Medical History: Cancer, Chest Pain / Angina, GERD/Reflux, Hyperlipidemia, Hypertension, Skin Disorder Additional Past Medical History / Comment(s): hernia, skin cancer (arm, leg, nose, face) with removal - states they took a lymph node also. States she had melanoma removed from her left arm in September 2017. History of Any Multi-Drug Resistant Organisms: None Reported Past Surgical History: Adenoidectomy, Cholecystectomy, Heart Catheterization With Stent, Hysterectomy Additional Past Surgical History / Comment(s): 1 stent 2002. Bilateral cataract surgery, skin cancer removed from her left arm, right leg, right ear and to her face. Past Anesthesia/Blood Transfusion Reactions: No Reported Reaction Additional Past Anesthesia/Blood Transfusion Reaction / Comment(s): no blood transfusion. Date of Last Stent Placement:: 2002 Past Psychological History: Anxiety Smoking Status: Former smoker (She reports she quit smoking at age 17) Past Alcohol Use History: Occasional (She drinks about 3 glasses of wine a month.) Past Drug Use History: None Reported - Past Family History Mother Family Medical History: Myocardial Infarction (VT) (Myocardial infarction at age 97) Father Family Medical History: Myocardial Infarction (VT) Additional Family Medical History / Comment(s): Her father at age 55 from a myocardial infarction. Medications and Allergies Home Medications Medication Instructions Recorded Confirmed Type Aspirin EC [Ecotrin Low Dose] 81 - 162 mg PO QID PRN 08/02/18 08/02/18 History Davey Complex 1 tab PO DAILY 08/02/18 08/02/18 History Fexofenadine HCl [Ute Allergy] 180 mg PO DAILY PRN 08/02/18 08/02/18 History Metoprolol Succinate (ER) [Toprol 25 mg PO DAILY 08/02/18 08/02/18 History XL] Multivitamin [Multivitamins Adult 2 tab PO DAILY 08/02/18 08/02/18 History Gummies] Naproxen Sodium [Aleve] 220 mg PO DAILY PRN 08/02/18 08/02/18 History Pantoprazole Sodium [Protonix] 40 mg PO DAILY 08/02/18 08/02/18 History Ubidecarenone [Co Q-10] 200 mg PO DAILY 08/02/18 08/02/18 History Allergies Allergy/AdvReac Type Severity Reaction Status Date / Time codeine AdvReac Nausea & Verified 08/02/18 16:24 Vomiting Physical Exam Vitals: Vital Signs Temp Pulse Resp BP Pulse Ox 08/04/18 08:00 58 L 16 130/65 95 08/04/18 03:53 59 L 15 114/55 94 L 08/03/18 23:26 54 L 15 102/58 94 L 08/03/18 20:00 99.7 F H 57 L 18 111/53 95 08/03/18 17:55 55 L 18 158/81 95 08/03/18 16:55 62 18 157/73 95 08/03/18 16:00 51 L 08/03/18 15:55 54 L 18 145/65 99 08/03/18 15:25 54 L 18 148/70 95 08/03/18 14:55 51 L 18 148/69 95 08/03/18 14:40 51 L 18 134/64 94 L 08/03/18 14:25 51 L 18 130/66 95 08/03/18 14:10 53 L 18 138/67 95 08/03/18 11:30 98.6 F 66 18 128/71 95 Intake and Output 08/03/18 08/04/18 08/04/18 22:59 06:59 14:59 Intake Total 256.165 47.833 120 Output Total 300 Balance 256.165 -252.167 120 Intake: Intake, IV Titration 16.165 47.833 Amount Heparin Sod,Pork in 0.45% 16.165 47.833 NaCl 25,000 unit In 0.45 % NaCl 1 250ml.bag @ 13.7 UNITS/KG/HR 10.067 mls/ hr IV .Q24H [facility] Rx#: [id number] Oral 240 120 Output: Urine 300 Other: Voiding Method Toilet Toilet # Voids 1 0 # Bowel Movements 0 Weight 74.642 kg The patient appeared well nourished and normally developed. Vital signs as documented. Head exam is unremarkable. No scleral icterus or corneal arcus noted. Neck is without jugular venous distension, thyromegaly, or carotid bruits. Carotid upstrokes are brisk bilaterally. Lungs are clear to auscultation and percussion. Cardiac exam reveals the PMI to be normally sized and situated. Rhythm is regular. First and second heart sounds normal. No murmurs, rubs or gallops. Abdominal exam reveals normal bowel sounds, no masses, no organomegaly and no aortic enlargement. Extremities are nonedematous and both femoral and pedal pulses are normal.Examination of the skin revealed no evidence of significant rashes, suspicious appearing nevi or other concerning lesions. Results - Laboratory Findings CBC and BMP: 08/04/18 06:01 08/04/18 06:01 PT/INR, D-dimer PT 9.8 sec (9.0-12.0) 08/03/18 18:33 INR 0.9 (<1.2) 08/03/18 18:33 Abnormal lab findings: Abnormal Labs 08/02/18 08/02/18 08/02/18 15:20 15:20 15:20 Hgb Hct RDW 15.9 H APTT Chloride BUN 22 H Glucose Troponin I 0.050 H* Total Protein Cholesterol LDL Cholesterol, Calc Ur Leukocyte Esterase Urine Mucus 08/02/18 08/02/18 08/03/18 22:05 22:05 04:11 Hgb Hct RDW APTT 82.2 H Chloride BUN Glucose Troponin I 1.780 H* 3.040 H* Total Protein Cholesterol LDL Cholesterol, Calc Ur Leukocyte Esterase Urine Mucus 08/03/18 08/03/18 08/03/18 05:33 05:33 05:33 Hgb Hct RDW APTT 46.8 H Chloride BUN Glucose Troponin I 2.950 H* Total Protein Cholesterol 226 H LDL Cholesterol, Calc 159 H Ur Leukocyte Esterase Urine Mucus 08/03/18 08/03/18 08/04/18 18:33 23:39 06:01 Hgb 10.9 L Hct 33.1 L RDW APTT 30.5 H 45.4 H Chloride BUN Glucose Troponin I Total Protein Cholesterol LDL Cholesterol, Calc Ur Leukocyte Esterase Urine Mucus 08/04/18 08/04/18 08/04/18 06:01 06:01 06:01 Hgb Hct RDW APTT 64.0 H Chloride 110 H BUN Glucose 111 H Troponin I 1.460 H* Total Protein 6.2 L Cholesterol LDL Cholesterol, Calc Ur Leukocyte Esterase Urine Mucus 08/04/18 06:30 Hgb Hct RDW APTT Chloride BUN Glucose Troponin I Total Protein Cholesterol LDL Cholesterol, Calc Ur Leukocyte Esterase Trace H Urine Mucus Rare H - Diagnostic Findings Chest x-ray: image reviewed Assessment and Plan Plan: 1 multivessel symptomatic coronary artery disease post acute non-STEMI. Cardiac catheterization was done and the patient was found to have left main coronary artery to be free from any significant occlusive disease, a 50% stenosis involving the proximal left anterior descending coronary artery, a 90% stenosis to her mid left anterior descending coronary artery at the site of her previous stent placement, diffuse plaque in the proximal circumflex coronary artery, a 70% stenosis to the proximal portion of the obtuse marginal branch, a 95 to 99% stenosis to the distal circumflex coronary artery and a 70-80% stenosis involving the proximal portion of her right coronary artery. Subsequently due to her cardiac catheterization findings a consult was placed to Dr. Steph Zelaya from cardiothoracic surgery for further evaluation and recommendations on myocardial revascularization surgery. 2 acute non-STEMI 3 environmental ALLERGIES with postnasal drainage 4 hypertension 5 hyperlipidemia 6 history of melanoma resected back in September 2017 Plan Add Zyrtec. Give the patient does of IV Solu-Medrol. Start the patient on DuoNeb about treatments around the clock. Proceed with a bedside spirometry. Provide the patient incentive spirometer. CT surgery evaluation regarding possibility of cardiac revascularization surgery. We'll continue to follow. Preop workup is in progress.
[2018-08-04] MEDS ORDERED: ALPRAZolam 0.25 MG TAB PO PRN (11:30)
[2018-08-04] MEDS: methylPREDNISolone SOD SUCCI 125 MG/2 ML VIAL IV SCH ×2 (11:43→20:06)
[2018-08-04] MEDS: LORATADINE 10 MG TAB PO SCH (11:45)
--- NOTE | 2018-08-04 14:54 | P.PN ---
Subjective Progress Note Date: 08/04/18 Principal diagnosis: Severe triple-vessel coronary artery disease 08/04/2018: Yesterday, patient underwent heart catheterization that revealed severe triple vessel disease with moderate disease involving the proximal LAD and critical lesion involving the mid LAD, critical lesion involving the OM branch and distal circumflex and also critical lesion involving the proximal RCA. Consult has been admitted for cardiothoracic surgery with tentative plan for surgery on Sunday. This morning, patient is complaining of feeling nasal congestion as she has not taken her Ute which will resume. Consult with Dr. Pérez will be added. Echocardiogram is pending. TSH is 3.150. Triglycerides 126, cholesterol 226, HDL 42 and LDL 159. Objective - Vital Signs Vital signs: Vital Signs Temp 99.7 F H 08/03/18 20:00 Pulse 60 08/04/18 11:10 Resp 16 08/04/18 08:00 BP 130/65 08/04/18 08:00 Pulse Ox 95 08/04/18 08:00 Intake & Output 08/03/18 08/04/18 08/04/18 18:59 06:59 18:59 Intake Total 315.367 63.631 120 Output Total 400 300 Balance -84.633 -236.369 120 Weight 74.642 kg Intake: IV 75 Intake, IV Titration 0.367 63.631 Amount Heparin Sod,Pork in 0.45% 0.367 63.631 NaCl 25,000 unit In 0.45 % NaCl 1 250ml.bag @ 13.7 UNITS/KG/HR 10.067 mls/ hr IV .Q24H [facility] Rx#: [id number] Oral 240 120 Output: Urine 400 300 Other: Voiding Method Toilet Toilet # Voids 0 # Bowel Movements 0 - Exam HEENT: Normocephalic. Normal reaction of pupils, equal size, normal range of extraocular motion. No erythema or exudates in the throat. NECK: No masses, no nuchal rigidity. CHEST: No chest wall deformity. LUNGS: Equal air entry with no crackles or wheeze. HEART: S1 and S2 normal with no audible mumurs or gallops. Regular rhythm, femorals equal on both sides.. ABDOMEN: No hepatosplenomegaly, normal bowel sounds, no guarding or rigidity. SKIN: No rashes CENTRAL NERVOUS SYSTEM: No focal deficits. EXTREMITIES: No cyanosis, clubbing or edema. - Labs CBC & Chem 7: 08/04/18 06:01 08/04/18 06:01 Labs: Abnormal Lab Results - Last 24 Hours (Table) 08/03/18 08/03/18 08/04/18 Range/Units 18:33 23:39 06:01 Hgb 10.9 L (11.4-16.0) gm/dL Hct 33.1 L (34.0-46.0) % APTT 30.5 H 45.4 H (22.0-30.0) sec Chloride (98-107) mmol/L Glucose (74-99) mg/dL Troponin I (0.000-0.034) ng/mL Total Protein (6.3-8.2) g/dL Ur Leukocyte Esterase (Negative) Urine Mucus (None) /hpf 08/04/18 08/04/18 08/04/18 Range/Units 06:01 06:01 06:01 Hgb (11.4-16.0) gm/dL Hct (34.0-46.0) % APTT 64.0 H (22.0-30.0) sec Chloride 110 H (98-107) mmol/L Glucose 111 H (74-99) mg/dL Troponin I 1.460 H* (0.000-0.034) ng/mL Total Protein 6.2 L (6.3-8.2) g/dL Ur Leukocyte Esterase (Negative) Urine Mucus (None) /hpf 08/04/18 Range/Units 06:30 Hgb (11.4-16.0) gm/dL Hct (34.0-46.0) % APTT (22.0-30.0) sec Chloride (98-107) mmol/L Glucose (74-99) mg/dL Troponin I (0.000-0.034) ng/mL Total Protein (6.3-8.2) g/dL Ur Leukocyte Esterase Trace H (Negative) Urine Mucus Rare H (None) /hpf Microbiology - Last 24 Hours (Table) 08/03/18 18:30 Nasal Screen MRSA/MSSA - Preliminary Nasal Swab Assessment and Plan Assessment: 1. Non-ST elevation MS - Patient is status post cardiac catheterization showing triple-vessel disease; cardiothoracic surgery is consulted for further recommendations - Patient remains on IV heparin per protocol; continue with aspirin and beta blockers and statin therapy in form of Lipitor 80 mg daily at bedtime - Nitro-Bid ointment 1 inch every 6 hours 2. Hypertension; fairly controlled on home dose of metoprolol 25 mg daily and lisinopril 5 mg daily 3. Hyperlipidemia - Repeat lipid profile shows a total cholesterol of 226 - Statin therapy initiated with Lipitor 80 mg by mouth daily at bedtime 4. Gastroesophageal reflux disease; continue with home dose of Protonix 5. DVT prophylaxis; IV heparin infusion CODE STATUS; full code Time with Patient: Greater than 30
[2018-08-04] MEDS: HEPARIN SOD,PORK IN 0.45% NACL 25,000 UNIT in 0.45% NACL 1 250ML.BAG IV SCH (17:35)
[2018-08-05] MEDS: SODIUM CHLORIDE 0.9% 1,000 ML IV SCH (06:27)
[2018-08-05] MEDS: PANTOPRAZOLE 40 MG TABLET PO SCH (06:38)
[2018-08-05] MEDS: NITROGLYCERIN OINT 1 INCH/GM PACKET TOPICAL SCH ×4 (06:38→22:29)
[2018-08-05 07:03] LABS: Basophils % (A) 0 %; Eosinophils % (A) 0 %; HCT 32.9 % (34.0-46.0); HGB 10.9 gm/dL (11.4-16.0); Lymphocytes # (A) 1.2 k/uL (1.0-4.8); Lymphocytes % (A) 16 %; MCH 27.9 pg (25.0-35.0); MCHC 33.3 g/dL (31.0-37.0); MCV 83.9 fL (80.0-100.0); Mean Platelet Volume 7.3; Monocytes # (A) 0.2 k/uL (0-1.0); Monocytes % (A) 2 %; Neutrophils # (A) 6.2 k/uL (1.3-7.7); Neutrophils % (A) 82 %; Platelet Count 265 k/uL (150-450); RBC 3.92 m/uL (3.80-5.40); RDW 14.4 % (11.5-15.5); WBC 7.5 k/uL (3.8-10.6)
[2018-08-05 07:33] LABS: Calcium 10.2 mg/dL (8.4-10.2); Potassium 4.1 mmol/L (3.5-5.1)
[2018-08-05] MEDS: IPRATROPIUM-ALBUTEROL 3 ML NEB INHALATION SCH ×4 (07:44→20:06)
[2018-08-05] MEDS: LORATADINE 10 MG TAB PO SCH (08:59)
[2018-08-05] MEDS: ASPIRIN 325 MG TAB PO SCH (09:03)
[2018-08-05] MEDS: METOPROLOL SUCCINATE (ER) 25 MG TAB.ER.24H PO SCH ×2 (09:03→21:13)
[2018-08-05] MEDS: LISINOPRIL 5 MG TAB PO SCH (09:04)
[2018-08-05] MEDS: ATORVASTATIN 80 MG TAB PO SCH (09:04)
[2018-08-05] MEDS: MUPIROCIN 2% OINT 22 GM TUBE NASAL SCH ×2 (09:04→21:13)
--- NOTE | 2018-08-05 13:17 | ECHOF ---
Referral Reason:Chest pain and cardiomyopathy MEASUREMENTS -------- HEIGHT: 152.4 cm WEIGHT: 75.3 kg BP: 146/68 IVSd: 1.4 cm (0.6 - 1.1) LVIDd: 4.6 cm (3.9 - 5.3) LVPWd: 0.9 cm (0.6 - 1.1) IVSs: 1.9 cm LVIDs: 3.0 cm LVPWs: 1.4 cm LA Diam: 3.6 cm (2.7 - 3.8) Ao Diam: 2.8 cm (2.0 - 3.7) AV Cusp: 1.9 cm (1.5 - 2.6) LA Diam: 3.5 cm (2.7 - 3.8) MV EXCURSION: 11.714 mm (> 18.000) MV EF SLOPE: 69 mm/s (70 - 150) EPSS: 0.6 cm MV E Scott: 1.16 m/s MV DecT: 417 ms MV A Scott: 1.03 m/s MV E/A Ratio: 1.13 AV maxP.24 mmHg AV meanP.37 mmHg RAP: 10.00 mmHg RVSP: 32.13 mmHg FINDINGS -------- Sinus rhythm. This was a technically good study. The left ventricular size is normal. There is borderline concentric left ventricular hypertrophy. Overall left ventricular systolic function is normal with, an EF between 55 - 60 %. The right ventricle is normal in size. The left atrium is normal in size. The right atrial size is normal. Interatrial and interventricular septum intact. There is mild aortic valve sclerosis. There is no evidence of aortic regurgitation. There is mild aortic stenosis present. Peak/mean gradient across the Aortic Valve is 18.24mmHg / 8.37mmHg. Mild mitral annular calcification present. Mild mitral regurgitation is present. Mild tricuspid regurgitation present. There is no evidence of pulmonary hypertension. The right v entricular systolic pressure, as measured by Doppler, is 32.13mmHg. Trace/mild (physiologic) pulmonic regurgitation. There is no pericardial effusion. CONCLUSIONS -------- 1. Sinus rhythm. 2. This was a technically good study. 3. The left ventricular size is normal. 4. There is borderline concentric left ventricular hypertrophy. 5. Overall left ventricular systolic function is normal with, an EF between 55 - 60 %. 6. The left atrium is normal in size. 7. There is mild aortic valve sclerosis. 8. There is mild aortic stenosis present. 9. Peak/mean gradient across the Aortic Valve is 18.24mmHg / 8.37mmHg. 10. Mild mitral annular calcification present. 11. Mild mitral regurgitation is present. 12. Mild tricuspid regurgitation present. 13. There is no evidence of pulmonary hypertension. 14. Trace/mild (physiologic) pulmonic regurgitation. 15. There is no pericardial effusion. TRACK SURFACING MACHINE OPERATOR: Scott Cleveland RDCS T
[2018-08-05] MEDS ORDERED: MD COMMUNICATION TO PHARMACY 1 EACH MISC PO ONE ×2 (14:13)
--- NOTE | 2018-08-05 14:19 | P.PN ---
Subjective Progress Note Date: 08/05/18 Principal diagnosis: Symptomatic multivessel coronary artery disease 77-year-old female patient who presented with some intermittent chest pain and the patient ruled in for an acute non-STEMI. The patient underwent a cardiac catheterization and the patient was found to have extensive triple-vessel disease. She is known to have hypertension and hyperlipidemia and she has unde rgone previous coronary stenting. The plan is to proceed with cardiac bypass surgery and for that reason a pulmonary consultation was requested. She is a nonsmoker. Most of asthma. Most of emphysema. No long-term oxygen use. She has involvement of ALLERGIES and the patient typically gets worse during this time of the year for which she takes Zyrtec. She is quite congested at this point in time she describes nasal congestion and some occasional cough . No pleurisy and no hemoptysis. The patient has no focal airspace disease on the chest x-ray that was done time of admission and currently she is on room air oxygen. Was at 10.9. Troponin peaked at 2.9. The patient is seen today 08/05/2018 in follow-up on the cardiac care unit. She is sitting up at the bedside. Awake and alert in no acute distress. She is breathing quite a bit easier today as compared to yesterday. Did receive 2 doses of IV Solu-Medrol. Receiving bronchodilators. Denies any chest pain. Remains on a heparin drip. The plan is for probable bypass surgery tomorrow. FEV1 value 106%. Carotid Doppler showed no significant stenosis. A cardiogram reveals preserved left ventricular systolic function with ejection fraction 55- 60%. No significant valvular disease. White count 7.5. Hemoglobin 10.9. Crea tinine 0.76. Objective - Vital Signs Vital signs: Vital Signs Temp 98.0 F 08/04/18 20:00 Pulse 72 08/05/18 12:10 Resp 16 08/05/18 12:00 BP 129/69 08/05/18 12:00 Pulse Ox 100 08/05/18 12:00 Intake & Output 08/04/18 08/05/18 08/05/18 18:59 06:59 18:59 Intake Total 1186.369 200 304.33 Output Total 900 1450 850 Balance 286.369 -1250 -545.67 Weight 75.6 kg Intake: Intake, IV Titration 866.369 179.33 Amount Heparin Sod,Pork in 0.45% 186.369 179.33 NaCl 25,000 unit In 0.45 % NaCl 1 250ml.bag @ 13.7 UNITS/KG/HR 10.067 mls/ hr IV .Q24H [facility] Rx#: [id number] Sodium Chloride 0.9% 1, 600 000 ml @ 0 mls/hr IV .[facility] Rx#:[id number] Sodium Chloride 0.9% 1, 80 000 ml @ 75 mls/hr IV . [id number] [facility] Rx#:[id number] Oral 320 200 125 Output: Urine 900 1450 850 Other: Voiding Method Toilet Toilet # Voids 0 1 # Bowel Movements 0 0 - Exam GENERAL EXAM: Alert, active, comfortable in no apparent distress. On room air. Saturation 100%. HEAD: Normocephalic. EYES: Normal reaction of pupils, equal size. NOSE: Clear with pink turbinates. THROAT: No erythema or exudates. NECK: No masses, no JVD. CHEST: No chest wall deformity. LUNGS: Equal air entry with no crackles, wheeze, rhonchi or dullness. CVS: S1 and S2 normal with an audible murmur, regular rhythm. ABDOMEN: No hepatosplenomegaly, normal bowel sounds, no guarding or rigidity. SPINE: No scoliosis or deformity SKIN: No rashes CENTRAL NERVOUS SYSTEM: No focal deficits, tone is normal in all 4 extremities. EXTREMITIES: There is no peripheral edema. No clubbing, no cyanosis. Peripheral pulses are intact. - Labs CBC & Chem 7: 08/05/18 05:55 08/05/18 05:55 Labs: Abnormal Lab Results - Last 24 Hours (Table) 08/05/18 08/05/18 08/05/18 Range/Units 05:55 05:55 07:56 Hgb 10.9 L (11.4-16.0) gm/dL Hct 32.9 L (34.0-46.0) % APTT 110.7 H* (22.0-30.0) sec Chloride 110 H (98-107) mmol/L Carbon Dioxide 21 L (22-30) mmol/L BUN 18 H (7-17) mg/dL Glucose 134 H (74-99) mg/dL Microbiology - Last 24 Hours (Table) 08/04/18 06:30 Urine Culture - Preliminary Urine,Voided Assessment and Plan Assessment: Impression: 1 multivessel symptomatic coronary artery disease post acute non-STEMI. Cardiac catheterization was done and the patient was found to have left main coronary artery to be free from any significant occlusive disease, a 50% stenosis involving the proximal left anterior descending coronary artery, a 90% stenosis to her mid left anterior descending coronary artery at the site of her previous stent placement, diffuse plaque in the proximal circumflex coronary artery, a 70% stenosis to the proximal portion of the obtuse marginal branch, a 95 to 99% stenosis to the distal circumflex coronary artery and a 70-80% stenosis involving the proximal portion of her right coronary artery. Subsequently due to her cardiac catheterization findings a consult was placed to Dr. Steph Zelaya from cardiothoracic surgery for further evaluation and recommendations on myocardial revascularization surgery. 2 acute non-STEMI 3 environmental ALLERGIES with postnasal drainage 4 hypertension 5 hyperlipidemia 6 history of melanoma resected back in September 2017 Plan: The patient was seen and evaluated by Dr. Garcia. Bedside spirometry reviewed. FEV1 value 106%. The plan is for possible coronary revascularization surgery tomorrow. We'll follow her in the immediate postoperative stage and plan to extubate within 6 hours if possible. She has been educated regarding the use of the incentive spirometer and cough and deep breathing exercises. Will increase her activity as tolerated. We'll continue to follow. I, the cosigning physician, performed a history & physical examination of the patient. Lungs sounds are clear. Maintaining good O2 saturations in the 90s on room air. I discussed the assessment and plan of care with my nurse practitioner, Elvia Leonard. I attest to the above note as dictated by her.
--- NOTE | 2018-08-05 14:36 | P.PN ---
Subjective Progress Note Date: 08/05/18 Principal diagnosis: Triple-vessel coronary artery disease, non-ST elevated myocardial infarction this admission, hypertension, hyperlipidemia, gastroesophageal reflux disease, hiatal hernia, history of coronary artery disease with stent placement to her mid left anterior descending coronary artery in 2002, family history of early onset coronary artery disease with her father being diagnosed at age 55 with a myocardial infarction and history of melanoma skin cancer to her left arm which was removed in September 2017. The patient is currently sitting up to bedside edge. She denies any complaints of pain or shortness of breath. She reports her ALLERGY-type symptoms and nasal congestion is much improved this morning. She did receive 2 doses of 60 mg IV Solu-Medrol ordered by Dr. Pérez from pulmonary medicine. Oxygen saturations 98% on room air, she is achieving 2000 mL on her incentive spirometry. Heparin drip remains infusing per protocol. Objective - Vital Signs Vital signs: Vital Signs Temp 98.0 F 08/04/18 20:00 Pulse 72 08/05/18 08:00 Resp 16 08/05/18 08:00 BP 145/74 08/05/18 08:00 Pulse Ox 98 08/05/18 08:00 Intake & Output 08/04/18 08/05/18 08/05/18 18:59 06:59 18:59 Intake Total 1186.369 200 304.33 Output Total 900 1450 450 Balance 286.369 -1250 -145.67 Weight 75.6 kg Intake: Intake, IV Titration 866.369 179.33 Amount Heparin Sod,Pork in 0.45% 186.369 179.33 NaCl 25,000 unit In 0.45 % NaCl 1 250ml.bag @ 13.7 UNITS/KG/HR 10.067 mls/ hr IV .Q24H [facility] Rx#: [id number] Sodium Chloride 0.9% 1, 600 000 ml @ 0 mls/hr IV .STK -[facility] Rx#:[id number] Sodium Chloride 0.9% 1, 80 000 ml @ 75 mls/hr IV . [id number] [facility] Rx#:[id number] Oral 320 200 125 Output: Urine 900 1450 450 Other: Voiding Method Toilet # Voids 0 1 # Bowel Movements 0 0 - Constitutional General appearance: Present: cooperative, no acute distress, obese - Respiratory Details: Lung sounds are essentially clear throughout. Respirations are symmetrical and nonlabored. Oxygen saturation 98% on room air. Chief in 2010 L on her incentive spirometry. - Cardiovascular Details: Regular rhythm and rate. S1 and S2 present, negative for S3, positive systolic murmur 3/6 her best to her right sternal border. No edema present. Remote telemetry showing normal sinus rhythm heart rate 64. - Gastrointestinal Gastrointestinal Comment(s): Abdomen is soft, nontender nondistended. Active bowel sounds all 4 abdominal quadrants. No guarding or rigidity. No organomegaly. - Genitourinary Genitourinary Comment(s): Voiding clear yellow urine. - Integumentary Integumentary Comment(s): Skin is warm and dry. No clubbing or cyanosis present. No rash or abnormal pigmentation present. - Neurologic Neurologic: Present: CNII-XII intact - Musculoskeletal Musculoskeletal: Present: gait normal, strength equal bilaterally - Psychiatric Psychiatric: Present: A&O x's 3, appropriate affect, intact judgment & insight - Allied health notes Allied health notes reviewed: nursing - Labs CBC & Chem 7: 08/05/18 05:55 08/05/18 05:55 Labs: Abnormal Lab Results - Last 24 Hours (Table) 08/05/18 08/05/18 08/05/18 Range/Units 05:55 05:55 07:56 Hgb 10.9 L (11.4-16.0) gm/dL Hct 32.9 L (34.0-46.0) % APTT 110.7 H* (22.0-30.0) sec Chloride 110 H (98-107) mmol/L Carbon Dioxide 21 L (22-30) mmol/L BUN 18 H (7-17) mg/dL Glucose 134 H (74-99) mg/dL Microbiology - Last 24 Hours (Table) 08/04/18 06:30 Urine Culture - Preliminary Urine,Voided - Imaging and Cardiology Carotid duplex results reviewed and noted, vein mapping results reviewed and noted. Assessment and Plan Assessment: 1. Severe triple-vessel coronary artery disease 2. Non-ST elevated myocardial infarction 3. Ischemic heart disease 4. History of coronary artery disease with previous stent placement to her mid left anterior setting coronary artery in 2002 5. Hypertension 6. Hyperlipidemia 7. Gastroesophageal reflux disease 8. History of hiatal hernia 9. History of skin cancer 10. Right carotid bruit Plan: 1. Myocardial revascularization preoperative teaching and preoperative testing in progress. 2. Encourage use of their incentive spirometry every hour while awake. 3. GI and DVT prophylaxis. 4. 5 m to walk test completed time 1:3.50 seconds, time 2: 3.48 seconds, time 3:3.28 seconds. 5. 2-D echocardiogram results reviewed, Normal LV systolic function with an EF 55-60%, Mild MR, Mild TR. 6. STS risk score has been calculated and discussed with the patient, and the patient will be scheduled for myocardial revascularization surgery with LEONEL THOMAS and intraoperative TRISTON to be performed by Dr. Martin tomorrow 08/06/2018. 7. Encourage activity as tolerated. 8. Preoperative FEV1 has been completed and show a predicted value of 106%. 9. More recommendations to follow based on patient's clinical course. Time with Patient: Greater than 30
--- NOTE | 2018-08-05 14:47 | P.PN ---
Subjective Progress Note Date: 08/05/18 This is a 77-year-old female with history of hypertension and hypercholesterolemia and previous stent placement done about several years ago who follows with Dr. VIELKA Landrum regularly. In fact she has seen him about a week ago and she was doing fine at the time. Over the last week. Patient has been having intermittent chest discomfort in the epigastric and chest area. At times she wakes up at night with intermittent pains which she felt could be related to her hiatal hernia. However, last night patient had a prolonged chest tightness that did not go away. Patient was brought to the emergency room by paramedics. She was treated with a GI cocktail in the emergency room without much improvement. Subsequently she was put on Nitropaste with improvement of symptoms. Her cardiac enzymes showed elevation of troponin values suggestive of possible non-STEMI/unstable angina. Patient is advised to have a cardiac catheterization for definitive diagnosis. Meanwhile patient will continue on beta blockers, nitrates, aspirin and heparin. Patient underwent heart catheterization that revealed severe triple vessel disease with moderate disease involving the proximal LAD and critical lesion involving the mid LAD, critical lesion involving the OM branch and distal circumflex and also critical lesion involving the proximal RCA. Consult has been requested for cardiothoracic surgery with tentative plan for surgery on Sunday. This morning, patient is complaining of feeling nasal congestion Echocardiogram is pending. Objective - Vital Signs Vital signs: Vital Signs Temp 98.0 F 08/04/18 20:00 Pulse 72 08/05/18 12:10 Resp 16 08/05/18 12:00 BP 129/69 08/05/18 12:00 Pulse Ox 100 08/05/18 12:00 Intake & Output 08/04/18 08/05/18 08/05/18 18:59 06:59 18:59 Intake Total 1186.369 200 304.33 Output Total 900 1450 850 Balance 286.369 -1250 -545.67 Weight 75.6 kg Intake: Intake, IV Titration 866.369 179.33 Amount Heparin Sod,Pork in 0.45% 186.369 179.33 NaCl 25,000 unit In 0.45 % NaCl 1 250ml.bag @ 13.7 UNITS/KG/HR 10.067 mls/ hr IV .Q24H [facility] Rx#: [id number] Sodium Chloride 0.9% 1, 600 000 ml @ 0 mls/hr IV .[facility]on[facility] Rx#:[id number] Sodium Chloride 0.9% 1, 80 000 ml @ 75 mls/hr IV . [id number] [facility] Rx#:[id number] Oral 320 200 125 Output: Urine 900 1450 850 Other: Voiding Method Toilet Toilet # Voids 0 1 # Bowel Movements 0 0 - Exam GENERAL EXAM: Patient is alert and oriented and doesn't appear to be in any acute distress HEENT: Normocephalic. Normal reaction of pupils, equal size, normal range of extraocular motion. No erythema or exudates in the throat. NECK: No masses, no nuchal rigidity. CHEST: No chest wall deformity. LUNGS: Equal air entry with no crackles or wheeze. HEART: S1 and S2 normal with no audible mumurs or gallops. Regular rhythm, femorals equal on both sides.. ABDOMEN: No hepatosplenomegaly, normal bowel sounds, no guarding or rigidity. SKIN: No rashes CENTRAL NERVOUS SYSTEM: No focal deficits. EXTREMITIES: No cyanosis, clubbing or edema. - Labs CBC & Chem 7: 08/05/18 05:55 08/05/18 05:55 Labs: Abnormal Lab Results - Last 24 Hours (Table) 08/04/18 08/05/18 08/05/18 Range/Units 06:01 05:55 05:55 Hgb 10.9 L (11.4-16.0) gm/dL Hct 32.9 L (34.0-46.0) % APTT (22.0-30.0) sec Chloride 110 H (98-107) mmol/L Carbon Dioxide 21 L (22-30) mmol/L BUN 18 H (7-17) mg/dL Glucose 134 H (74-99) mg/dL Crossmatch See Detail 08/05/18 Range/Units 07:56 Hgb (11.4-16.0) gm/dL Hct (34.0-46.0) % APTT 110.7 H* (22.0-30.0) sec Chloride (98-107) mmol/L Carbon Dioxide (22-30) mmol/L BUN (7-17) mg/dL Glucose (74-99) mg/dL Crossmatch Microbiology - Last 24 Hours (Table) 06/16/19 06:30 Urine Culture - Preliminary Urine,Voided Gram Neg Bacilli Assessment and Plan Plan: 1 multivessel symptomatic coronary artery disease post acute non-STEMI. Cardiac catheterization was done and the patient was found to have left main coronary artery to be free from any significant occlusive disease, a 50% stenosis involving the proximal left anterior descending coronary artery, a 90% stenosis to her mid left anterior descending coronary artery at the site of her previous stent placement, diffuse plaque in the proximal circumflex coronary artery, a 70% stenosis to the proximal portion of the obtuse marginal branch, a 95 to 99% stenosis to the distal circumflex coronary artery and a 70-80% stenosis involving the proximal portion of her right coronary artery. Subsequently due to her cardiac catheterization findings a consult was placed to Dr. Steph Zelaya from cardiothoracic surgery for further evaluation and recommendations on jose cardial revascularization surgery. 2 acute non-STEMI 3 environmental ALLERGIES with postnasal drainage 4 hypertension 5 hyperlipidemia 6 history of melanoma resected back in September 2017 Plan We will review the echo. Patient will be scheduled to undergo coronary artery bypass grafting surgery tomorrow. We will continue to follow. DNP note has been reviewed, I agree with a documented findings and plan of care. Patient was seen and examined.
--- NOTE | 2018-08-05 20:01 | PN ---
PROGRESS NOTE DATE OF SERVICE: 08/05/2018 This 77-year-old woman was admitted with chest pain. She underwent cardiac catheterization which showed triple-vessel disease. The patient is slated to undergo CABG tomorrow by Cardiothoracic Surgery. No chest pain. No palpitations. No fever. Patient is on bronchodilators. Pulmonary is following the patient closely. The patient is followed by Dr. Jose Miller in the outpatient setting. On exam, alert and oriented x3. Pulse 58, blood pressure 129/69, respiration 16, temperature normal, pulse ox 100% on room air. HEENT: Conjunctivae normal. Oral mucosa moist. NECK: No jugular venous distention. No carotid bruit. No lymph node enlargement. CARDIOVASCULAR SYSTEM: S1, S2 muffled. RESPIRATORY SYSTEM: Breath sounds diminished at the bases. A few scattered rhonchi. No crackles. ABDOMEN: Soft, non-tender. LEGS: No edema. No swelling. NERVOUS SYSTEM: No focal deficit. LABS: WBC 7.5, hemoglobin 10.9. Sodium 140, potassium 4.1. Troponins are noted. ASSESSMENT: 1. Acute fhc-[id number]-elevation myocardial infarction, status post cardiac catheterization showing triple-vessel coronary disease for coronary artery bypass grafting. 2. Hypertension. 3. Hyperlipidemia. 4. Gastroesophageal reflux disease. 5. Anemia; normocytic anemia of chronic disease, present on admission. 6. History of hernia. 7. History of skin cancer. 8. Adenoidectomy. 9. History of coronary artery disease, stent. 10.History of anxiety. 11.Remote history of nicotine dependence. RECOMMENDATIONS AND DISCUSSION: I recommend to continue current medications, continue with the monitoring, symptomatic treatment. Optimize the bronchodilator treatment. Continue the rest of the medications. Closely monitor. Incentive spirometry. Further recommendations to follow. MMODL / IJN: [id number] /
[2018-08-06] MEDS ORDERED: DEXTROSE 5% IN WATER 1,000 ML with POTASSIUM CHLORIDE 110 MEQ, MAGNESIUM SULFATE 16 MEQ... IV SCH ×5 (05:00)
[2018-08-06] MEDS ORDERED: DEXTROSE 5% IN WATER 1,000 ML with POTASSIUM CHLORIDE 25 MEQ, SODIUM CHLORIDE 2.5MEQ/ML... IV SCH ×6 (05:00)
[2018-08-06] MEDS ORDERED: PHENYLEPHRINE 40 MG in SODIUM CHLORIDE 0.9% 250 ML IV ONE (05:00)
[2018-08-06] MEDS ORDERED: ATORVASTATIN 10 MG TAB PO ONE (05:00)
[2018-08-06] MEDS ORDERED: HEPARIN SODIUM 1,000 UN/ML (10ML VL) IV ONE (05:00)
[2018-08-06] MEDS ORDERED: ceFAZolin 1,000 MG in SODIUM CHLORIDE 0.9% IRRIGATIO 1,000 ML IRRIGATION ONE (05:00)
[2018-08-06] MEDS ORDERED: NOREPINEPHRINE 4 MG in SODIUM CHLORIDE 0.9% 250 ML IV SCH (05:00)
[2018-08-06] MEDS ORDERED: PROTAMINE SULFATE 250 MG in EMPTY BAG 1 BAG IV ONE (05:00)
[2018-08-06] MEDS ORDERED: CHLORHEXIDINE GLUCONATE 15 ML CUP MUCOUS MEM ONE (05:00)
[2018-08-06] MEDS ORDERED: SODIUM BICARB 8.4% 50 ML SYR (1 MEQ/ML) IV ONE (05:00)
[2018-08-06] MEDS ORDERED: CLEVIDIPINE BUTYRATE 25 MG in EMPTY BAG 1 BAG IV SCH ×2 (05:00→15:30)
[2018-08-06] MEDS ORDERED: MANNITOL 25% 12.5 GM/50 ML VIAL IV ONE ×2 (05:00)
[2018-08-06] MEDS ORDERED: ASPIRIN 325 MG TAB PO ONE (05:00)
[2018-08-06] MEDS ORDERED: PROPOFOL 1,000 MG in EMPTY BAG 1 BAG IV PRN (05:00)
[2018-08-06] MEDS ORDERED: ceFAZolin 2 GM in SODIUM CHLORIDE 0.9% 30 ML IVPB ONE (05:00)
[2018-08-06] MEDS ORDERED: ALBUMIN HUMAN 25% 50 ML in EMPTY BAG 1 BAG IVPB ONE (05:00)
[2018-08-06] MEDS ORDERED: CALCIUM CHLORIDE 100 MG/ML 10 ML SYRINGE IVP ONE (05:00)
[2018-08-06] MEDS ORDERED: ceFAZolin 2,000 MG in SODIUM CHLORIDE 0.9% 30 ML IVPB ONE (05:00)
[2018-08-06] MEDS ORDERED: MAGNESIUM SULFATE SYG 4.06 MEQ/ML SYRINGE IV ONE (05:00)
[2018-08-06] MEDS ORDERED: METOPROLOL TARTRATE 12.5 MG TAB PO ONE (05:00)
[2018-08-06] MEDS ORDERED: NITROGLYCERIN-D5W PMX 25 MG/250 ML BTL IV ONE (05:00)
[2018-08-06] MEDS ORDERED: PROTAMINE SULFATE 10 MG/ML 25 ML VIAL IV ONE ×2 (05:00→08:02)
[2018-08-06] MEDS ORDERED: INSULIN REGULAR 100 UNIT in SODIUM CHLORIDE 0.9% 100 ML IV SCH ×2 (05:00→17:15)
[2018-08-06] MEDS ORDERED: PAPAVERINE 360 MG in SODIUM CHLORIDE 0.9% 90 ML IV ONE (05:00)
[2018-08-06] MEDS ORDERED: HEPARIN SODIUM,PORCINE 5,000 UNIT in SODIUM CHLORIDE 0.9% 500 ML 500 ML IV ONE (05:00)
[2018-08-06] MEDS ORDERED: PHENYLEPHRINE 10 MG/ML VIAL IV ONE (05:00)
[2018-08-06] MEDS ORDERED: ALBUMIN HUMAN 5% 500 ML in EMPTY BAG 1 BAG IVPB ONE ×6 (05:00)
[2018-08-06] MEDS ORDERED: TRANEXAMIC ACID 2,000 MG in SODIUM CHLORIDE 0.9% 80 ML IV ONE (05:00)
[2018-08-06 05:59] LABS: Basophils % (A) 0 %; Eosinophils # (A) 0.1 k/uL (0-0.7); Eosinophils % (A) 0 %; HCT 33.3 % (34.0-46.0); HGB 10.6 gm/dL (11.4-16.0); Lymphocytes # (A) 1.9 k/uL (1.0-4.8); Lymphocytes % (A) 19 %; MCH 27.6 pg (25.0-35.0); MCV 86.3 fL (80.0-100.0); Mean Platelet Volume 7.3; Monocytes # (A) 0.4 k/uL (0-1.0); Monocytes % (A) 4 %; Neutrophils # (A) 7.6 k/uL (1.3-7.7); Neutrophils % (A) 76 %; Platelet Count 291 k/uL (150-450); RBC 3.85 m/uL (3.80-5.40); RDW 14.3 % (11.5-15.5); WBC 10.1 k/uL (3.8-10.6)
[2018-08-06 06:14] LABS: Albumin 4.1 g/dL (3.5-5.0); Calcium 10.2 mg/dL (8.4-10.2); Potassium 3.7 mmol/L (3.5-5.1); Total Bilirubin 0.4 mg/dL (0.2-1.3); Total Protein 6.7 g/dL (6.3-8.2)
[2018-08-06] MEDS ORDERED: LACTATED RINGERS 1,000 ML IV ONE (06:32)
[2018-08-06] MEDS ORDERED: NITROGLYCERIN-D5W PMX 50 MG/250 ML BOTTLE IV ONE (08:02)
[2018-08-06] MEDS ORDERED: TRANEXAMIC ACID 1,000 MG/10 ML VIAL ONE (08:02)
[2018-08-06] MEDS ORDERED: WATER FOR INJECTION, STERILE 10 ML VIAL IV ONE (08:02)
[2018-08-06] MEDS ORDERED: VECURONIUM 10 MG VIAL IV ONE (08:02)
[2018-08-06] MEDS ORDERED: HEPARIN SODIUM,PORCINE 10,000 UNIT/ML 1 ML VIAL ONE (08:02)
[2018-08-06] MEDS ORDERED: SODIUM CHLORIDE 0.9% IRRIG 1,000 ML BTL IRRIGATION ONE (08:02)
[2018-08-06] MEDS ORDERED: SODIUM CHLORIDE 0.9% 250 ML BAG ONE (08:02)
[2018-08-06] MEDS ORDERED: ALBUMIN HUMAN 5% (12.5gm) 250 ML BOTTLE IVPB ONE (08:02)
[2018-08-06] MEDS ORDERED: fentaNYL (PF) 50 MCG/ML 2 ML AMP ONE (08:02)
[2018-08-06] MEDS ORDERED: MAGNESIUM SULFATE 4 MEQ/ML 10ML VIAL ONE (08:02)
[2018-08-06] MEDS ORDERED: GENTAMICIN 40 MG/ML 2 ML VIAL ONE (08:02)
[2018-08-06] MEDS ORDERED: fentaNYL (PF) 50 MCG/ML 50 ML VIAL ONE (08:02)
[2018-08-06] MEDS ORDERED: MIDAZOLAM 2 MG/2 ML VIAL ONE (08:02)
[2018-08-06] MEDS ORDERED: ELECTROLYTE-R (PH 7.4) 1,000 ML IV.SOLN IV ONE (08:02)
[2018-08-06] MEDS ORDERED: PROPOFOL 10 MG/ML 20 ML VIAL IV ONE (08:02)
[2018-08-06] MEDS ORDERED: LIDOCAINE 1% INJ 10MG/ML (20 ML MDV) ONE (08:02)
[2018-08-06] MEDS ORDERED: ePHEDrine SULFATE/0.9% NACL/PF 50 MG/5 ML SYRINGE IV ONE (08:02)
[2018-08-06] MEDS: IPRATROPIUM-ALBUTEROL 3 ML NEB INHALATION SCH ×5 (08:04→20:20)
[2018-08-06 08:57] LABS: ABG Glucose Whole Blood 99 mg/dL (75-99); ABG HCO3 22 mmol/L (21-25); ABG Hematocrit 31 % (34.0-46.0); ABG Ionized Calcium 5.1 mg/dL (4.5-5.3); ABG Lactic Acid Whole Blood 1.7 mmol/L (0.5-1.6); ABG PCO2 32 mmHg (35-45); ABG PH 7.46 (7.35-7.45); ABG PO2 390 mmHg (83-108); ABG Potassium Whole Blood 3.9 mmol/L (3.4-4.5); ABG Sodium Whole Blood 140 mmol/L (135-146); ABG TCO2 23 mmol/L (19-24)
[2018-08-06 10:11] LABS: ABG Base Excess -2.8 mmol/L; ABG Glucose Whole Blood 106 mg/dL (75-99); ABG HCO3 22 mmol/L (21-25); ABG Hematocrit 29 % (34.0-46.0); ABG Ionized Calcium 5.3 mg/dL (4.5-5.3); ABG Lactic Acid Whole Blood 1.4 mmol/L (0.5-1.6); ABG PCO2 39 mmHg (35-45); ABG PH 7.36 (7.35-7.45); ABG PO2 230 mmHg (83-108); ABG Potassium Whole Blood 3.9 mmol/L (3.4-4.5); ABG Sodium Whole Blood 140 mmol/L (135-146); ABG TCO2 24 mmol/L (19-24)
[2018-08-06 11:20] LABS: ABG Base Excess -3.4 mmol/L; ABG Glucose Whole Blood 191 mg/dL (75-99); ABG HCO3 22 mmol/L (21-25); ABG Ionized Calcium 4.7 mg/dL (4.5-5.3); ABG Lactic Acid Whole Blood 1.5 mmol/L (0.5-1.6); ABG PCO2 40 mmHg (35-45); ABG PH 7.35 (7.35-7.45); ABG PO2 331 mmHg (83-108); ABG Potassium Whole Blood 4.6 mmol/L (3.4-4.5); ABG Sodium Whole Blood 134 mmol/L (135-146); ABG TCO2 23 mmol/L (19-24)
[2018-08-06 11:55] LABS: ABG Base Excess -3.7 mmol/L; ABG Glucose Whole Blood 165 mg/dL (75-99); ABG HCO3 22 mmol/L (21-25); ABG Ionized Calcium 4.9 mg/dL (4.5-5.3); ABG PCO2 44 mmHg (35-45); ABG PH 7.31 (7.35-7.45); ABG PO2 299 mmHg (83-108); ABG Potassium Whole Blood 4.7 mmol/L (3.4-4.5); ABG Sodium Whole Blood 136 mmol/L (135-146); ABG TCO2 24 mmol/L (19-24)
[2018-08-06 12:26] LABS: ABG Base Excess -1.5 mmol/L; ABG Glucose Whole Blood 131 mg/dL (75-99); ABG HCO3 24 mmol/L (21-25); ABG Ionized Calcium 4.8 mg/dL (4.5-5.3); ABG PCO2 47 mmHg (35-45); ABG PH 7.33 (7.35-7.45); ABG PO2 384 mmHg (83-108); ABG Potassium Whole Blood 4.4 mmol/L (3.4-4.5); ABG Sodium Whole Blood 139 mmol/L (135-146); ABG TCO2 26 mmol/L (19-24)
[2018-08-06 13:33] LABS: ABG Hematocrit 23 % (34.0-46.0)
[2018-08-06 13:34] LABS: ABG Hematocrit 23 % (34.0-46.0); ABG Lactic Acid Whole Blood 2.3 mmol/L (0.5-1.6)
[2018-08-06 13:34] LABS: ABG Hematocrit 23 % (34.0-46.0)
[2018-08-06 13:41] LABS: ABG Base Excess -0.7 mmol/L; ABG Glucose Whole Blood 74 mg/dL (75-99); ABG HCO3 24 mmol/L (21-25); ABG Hematocrit 25 % (34.0-46.0); ABG Ionized Calcium 5.4 mg/dL (4.5-5.3); ABG Lactic Acid Whole Blood 1.9 mmol/L (0.5-1.6); ABG PCO2 37 mmHg (35-45); ABG PH 7.42 (7.35-7.45); ABG PO2 187 mmHg (83-108); ABG Sodium Whole Blood 138 mmol/L (135-146); ABG TCO2 25 mmol/L (19-24)
[2018-08-06] MEDS ORDERED: AMIODARONE 360 MG in DEXTROSE 5% IN WATER 200 ML IV PRN ×2 (14:26)
[2018-08-06] MEDS ORDERED: Phosphorus Replacement Protoco 1 EACH MISC MISCELLANE PRN (14:26)
[2018-08-06] MEDS ORDERED: BENZOCAINE/MENTHOL LOZENG 1 EACH LOZENGE MUCOUS MEM PRN (14:26)
[2018-08-06] MEDS ORDERED: AMIODARONE 300 MG in DEXTROSE 5% IN WATER 250 ML IV PRN ×2 (14:26)
[2018-08-06] MEDS ORDERED: ONDANSETRON 4 MG/2 ML VIAL IVP PRN (14:26)
[2018-08-06] MEDS ORDERED: PROPOFOL 1,000 MG in EMPTY BAG 1 BAG IV SCH (14:26)
[2018-08-06] MEDS ORDERED: CALCIUM GLUCONATE 2 GM in SODIUM CHLORIDE 0.9% 100 ML IVPB PRN (14:26)
[2018-08-06] MEDS ORDERED: Magnesium Replacement Protocol 1 EACH MISC MISCELLANE PRN (14:26)
[2018-08-06] MEDS ORDERED: Potassium Replacement Protocol 1 EACH MISC MISCELLANE PRN (14:26)
[2018-08-06] MEDS ORDERED: IPRATROPIUM-ALBUTEROL 3 ML NEB INHALATION PRN (14:26)
[2018-08-06] MEDS ORDERED: DEXTROSE 5% IN WATER 100 ML with AMIODARONE 150 MG IV PRN (14:26)
--- NOTE | 2018-08-06 14:53 | P.ANPRN ---
Procedure Note - Anesthesia - Invasive Line Central Line Time Out Performed: Yes Date of Procedure: 08/06/18 Location of Patient Procedure: PreOp Preparation: Sterile Prep, Sterile Dressing Ultrasound Used: Yes Narrative: Informed consent obtained. Central line placement per sterile protocol utilized. Right Internal jugular vein cannulated under aseptic precautions. 3cc 1% li docaine infiltrated initially after cleaning with iodine based prep and draping. Ultrasound used to locate the vein and selginger technique used. 9Fr introduced sheath inserted and after the finding the needle with remotely piloted vehicle controller needle/catheter. After the insertion of PA Catheter the line is dressed with biopatch and tegaderm. Patient tolerated the procedure well. [place] [facility] Date of Procedure: 08/06/18 Location of Patient Procedure: PreOp Preparation: Sterile Prep, Sterile Dressing Ultrasound Used: Yes Narrative: Central line placement per sterile protocol utilized. 8Ff PA catheter threaded through the Right IJ introducer sheath under asepsis with continuous waveform monitoring. Catheter at 48 cms lizz. Arterial Line Date of Procedure: 08/06/18 Location of Patient Procedure: PreOp Preparation: Sterile Prep, Sterile Dressing Arterial Line Location: Radial Narrative: Informed consent obtained from the patient. Procedure was performed under complete aseptic precautions. The right wrist is slightly extended and placed on a roll of cloth. Radial artery palpated and appeared to have a intact collateral circulation. Front of the wrist was cleaned with ChloraPrep. It was draped and 2 mL of 1% lidocaine was infiltrated and ability into the front of the wrist. A 20-gauge two and half inch Arrow arterial catheter was inserted and a bright red blood/back was noticed. It was connected to the pressure monitoring line and the flashback was confirmed. The line was sutured into the skin. Tegaderm dressing was applied. Patient tolerated the procedure very well with no apparent complications.
[2018-08-06 14:54] LABS: Glucose,Whole Blood 72 mg/dL (75-99)
--- NOTE | 2018-08-06 14:57 | P.VSCSTY ---
Greater Saphenous Vein Mapping This is bilateral lower extremity greater saphenous vein mapping. Date of service 08/03/2018 Vein quality and ultrasound appearance no wall changes or endoluminal thrombus are seen.. Vein size groin right 7.3 x 5.8 groin left 7.8 x 6.3 High thigh right 3.5 x 3.1 high thigh left 6.6 x 6.2 Mid thigh right 2.8 x 2.9 mid thigh left 4.3 x 4.6 Above-knee right 3.9 x 3.4 above-knee left 3.8 x 4.1 Below knee right 2.9 x 2.5 below-knee left 2.9 x 3.6 Mid calf right 2.7 x 2.3 mid calf left to 2.1 x 1.6 Ankle right 2.7 x 2.3 ankle left 1.7 x 1.6 Impression usable bilateral greater saphenous vein. Lower leg on the left may be a bit small for use..
--- NOTE | 2018-08-06 14:58 | P.ARTDOP ---
Arterial Doppler LOWER EXTREMITY ARTERIAL DOPPLER: DATE OF SERVICE: 08/04/2018 Reason for study: Preop CABG. Doppler waveforms: Multiphasic bilaterally throughout. Pulse volume recording: []. Pressure gradients: None. Ankle-brachial indices: Greater than 1 bilaterally. Toe pressures: [] on the right, [] on the left Impression: Normal study.
--- NOTE | 2018-08-06 14:58 | P.PN ---
Progress Note - Text Procedure performed: Transesophageal echocardiography Indication for the procedure: Coronary artery bypass graft surgery, ischemia monitoring, assessment of valvular function, intracardiac air monitoring, assessment of regional wall motion abnormalities and hemodynamic monitoring. Probe insertion: Under general anesthesia, uneventful. Pre-bypass findings: Left ventricle normal in dimension and LV ejection fraction is approximately 55 - 60%. Mild LVH present. No regional wall motion abnormalities seen. Left atrium Normal in size. No thrombus seen in the appendage. Right atrium normal in size. No patent foramen ovale or ASD seen. Right ventricle normal in structure and function. Aortic valve appears to be calcified (sclerosis) .No Aortic Regurgitation seen. Peak gradient 6 mm of Hg and Mean gradient of 4 mm of Hg Mitral valve normal in anatomy. Mild mitral regurgitation seen. Trivial tricuspid regurgitation seen. Pulmonic valve appears to be normal. Descending aorta grade 2 atheroma seen. No pericardial effusion seen. Post-bypass findings: LV ejection fraction is 55-60%. No new regional wall motion abnormalities seen. Rest of the examination is same as pre-bypass.The rest of the exam is same as pre-bypass.
[2018-08-06 15:02] LABS: Ionized Calcium 5.8 mg/dL (4.5-5.3)
[2018-08-06 15:04] LABS: Basophils % (A) 0 %; Eosinophils # (A) 0.1 k/uL (0-0.7); Eosinophils % (A) 2 %; HCT 24.4 % (34.0-46.0); Lymphocytes # (A) 1.3 k/uL (1.0-4.8); Lymphocytes % (A) 29 %; MCH 27.9 pg (25.0-35.0); MCV 87.1 fL (80.0-100.0); Monocytes # (A) 0.2 k/uL (0-1.0); Monocytes % (A) 4 %; Neutrophils # (A) 2.9 k/uL (1.3-7.7); Neutrophils % (A) 65 %; Platelet Count 160 k/uL (150-450); RDW 14.4 % (11.5-15.5); WBC 4.5 k/uL (3.8-10.6)
[2018-08-06] MEDS: LORATADINE 10 MG TAB PO SCH (15:04)
[2018-08-06] MEDS: NITROGLYCERIN-D5W PMX 50 MG in DEXTROSE/WATER 1 250ML.BAG IV SCH (15:04)
[2018-08-06 15:05] LABS: ABG Base Excess -3.9 mmol/L; ABG HCO3 22 mmol/L (21-25); ABG Oxygen Saturation 99.5 % (94-97); ABG PCO2 42 mmHg (35-45); ABG PH 7.33 (7.35-7.45); ABG PO2 284 mmHg (83-108); ABG TCO2 23 mmol/L (19-24); Allen Test Performed? Yes
[2018-08-06] MEDS: ceFAZolin IN SWFI 2 GM/20 ML SYRINGE IVP SCH ×2 (15:05→23:32)
[2018-08-06] MEDS: LACTATED RINGERS 1,000 ML IV SCH (15:05)
[2018-08-06 15:09] LABS: Albumin 2.7 g/dL (3.5-5.0); Calcium 8.9 mg/dL (8.4-10.2); Magnesium 2.6 mg/dL (1.6-2.3); Potassium 4.2 mmol/L (3.5-5.1); Total Bilirubin 0.8 mg/dL (0.2-1.3); Total Protein 4.6 g/dL (6.3-8.2)
[2018-08-06 15:10] LABS: HGB 7.8 gm/dL (11.4-16.0)
[2018-08-06 15:12] LABS: Prothrombin Time 10.7 sec (9.0-12.0)
[2018-08-06 15:23] LABS: Glucose,Whole Blood 89 mg/dL (75-99)
--- NOTE | 2018-08-06 15:38 | XR ---
EXAMINATION TYPE: XR chest 1V portable DATE OF EXAM: 08/06/2018 COMPARISON: Prior chest x-ray 08/02/2018 HISTORY: Postop cardiac surgery TECHNIQUE: Single frontal view of the chest is obtained. FINDINGS: Patient is post median sternotomy. Endotracheal tube shows the distal tip in close proximi ty to the fday level. Orogastric tube is in place, distal aspect courses to the region of the stoma ch but is not included. Epicardial pacing leads, median sternal drains, left chest tube, right jugula r central sheath and coaxial [place]-[employer] catheter are in place. There is retrocardiac density with obsc ured left hemidiaphragm. No sizable pneumothorax. Patchy bibasilar density is noted most typical of s ubsegmental atelectatic change. Heart size is likely stable. Patient is rotated. Surgical clips are p resent over the left breast. IMPRESSION: Endotracheal tube in close proximity to the fady. Report relayed to intensive care uni t at the time of interpretation to Pat. Expiratory rotated exam. Probable left lower lobe atelectas is and associated effusion.
[2018-08-06 16:22] LABS: Glucose,Whole Blood 130 mg/dL (75-99)
[2018-08-06 16:53] LABS: ABG Base Excess -0.1 mmol/L; ABG HCO3 25 mmol/L (21-25); ABG PCO2 40 mmHg (35-45); ABG PO2 89 mmHg (83-108); ABG TCO2 26 mmol/L (19-24); Allen Test Performed? Yes
--- NOTE | 2018-08-06 17:14 | P.PN ---
Subjective Progress Note Date: 08/06/18 Principal diagnosis: Symptomatic multivessel coronary artery disease 77-year-old female patient who presented with some intermittent chest pain and the patient ruled in for an acute non-STEMI. The patient underwent a cardiac catheterization and the patient was found to have extensive triple-vessel disease. She is known to have hypertension and hyperlipidemia and she has unde rgone previous coronary stenting. The plan is to proceed with cardiac bypass surgery and for that reason a pulmonary consultation was requested. She is a nonsmoker. Most of asthma. Most of emphysema. No long-term oxygen use. She has involvement of ALLERGIES and the patient typically gets worse during this time of the year for which she takes Zyrtec. She is quite congested at this point in time she describes nasal congestion and some occasional cough . No pleurisy and no hemoptysis. The patient has no focal airspace disease on the chest x-ray that was done time of admission and currently she is on room air oxygen. Was at 10.9. Troponin peaked at 2.9. The patient is seen today 08/05/2018 in follow-up on the cardiac care unit. She is sitting up at the bedside. Awake and alert in no acute distress. She is breathing quite a bit easier today as compared to yesterday. Did receive 2 doses of IV Solu-Medrol. Receiving bronchodilators. Denies any chest pain. Remains on a heparin drip. The plan is for probable bypass surgery tomorrow. FEV1 value 106%. Carotid Doppler showed no significant stenosis. A cardiogram reveals preserved left ventricular systolic function with ejection fraction 55- 60%. No significant valvular disease. White count 7.5. Hemoglobin 10.9. Crea tinine 0.76. The patient is seen today 08/06/2018 in follow-up in the intensive care unit in the postoperative period. She did undergo a coronary artery bypass surgery including a THOMAS to the LAD, saphenous vein grafts to the OM1, OM 2, PDA. She is currently intubated on mechanical ventilator with settings of SIMV at a rate of 12, tidal volume 350, FiO2 100% and a PEEP of 5. FiO2 gradually being decreased. Blood gases reveal a P O2 of 284, pCO2 42, pH 7.33. White count 4.5. Hemoglobin 7.4. Sodium 138. Potassium 4.2. Creatinine 0.82. AST 621, ALT 312. PA pressure 27/12. CVP 8. Cardiac output 4.6. Cardiac index 2.7. Currently in sinus rhythm. Chest x-ray reveals left lower lobe atelectasis/effusion. Mediastinal and left pleural chest tubes in place. Lactated Ringer's at 50 MLS per hour. Nitroglycerin drip at 5 g/m. Hemodynamically stable. Objective - Vital Signs Vital signs: Vital Signs Temp 96.8 F L 08/06/18 16:00 Pulse 80 08/06/18 16:00 Resp 18 08/06/18 16:00 BP 131/61 08/06/18 06:26 Pulse Ox 99 08/06/18 16:00 Intake & Output 08/05/18 08/06/18 08/06/18 18:59 06:59 18:59 Intake Total 1084.33 200 42.267 Output Total 1300 1900 2375 Balance -215.67 -1700 -2332.733 Weight 75.6 kg Intake: IV 200 42 LR 30 Pressure Bags 9 Intake, IV Titration 779.33 0.267 Amount Clevidipine Butyrate 25 0.267 mg In Empty Bag 1 bag @ 1 MG/HR 2 mls/hr IV .Q24H MICHAEL Rx#:[id number] Heparin Sod,Pork in 0.45% 179.33 NaCl 25,000 unit In 0.45 % NaCl 1 250ml.bag @ 13.7 UNITS/KG/HR 10.067 mls/ hr IV .Q24H MICHAEL Rx#: [id number] Sodium Chloride 0.9% 1, 600 000 ml @ 75 mls/hr IV . [id number] MICHAEL Rx#:[id number] Oral 305 Output: Urine 1300 1900 1175 Estimated Blood Loss 1200 Other: Voiding Method Toilet Toilet # Voids 1 # Bowel Movements 0 ABP, PAP, CO, CI - Last Documented Arterial Blood Pressure 101/50 Pulmonary Artery Pressure 34/18 Cardiac Output 4.6 Cardiac Index 2.7 - Exam GENERAL EXAM: Intubated, sedated on the mechanical ventilator. HEAD: Normocephalic. EYES: Normal reaction of pupils, equal size. NOSE: Clear with pink turbinates. THROAT: No erythema or exudates. NECK: No masses, no JVD. CHEST: Sternal dressing dry and intact. Heart hugger in place. Pacer wires in place. Chest tubes in place. LUNGS: Equal air entry with crackles in the left base CVS: S1 and S2 normal with an audible murmur, regular rhythm. ABDOMEN: No hepatosplenomegaly, normal bowel sounds, no guarding or rigidity. SPINE: No scoliosis or deformity SKIN: No rashes CENTRAL NERVOUS SYSTEM: Sedated tone is normal in all 4 extremities. EXTREMITIES: There is no peripheral edema. No clubbing, no cyanosis. Peripheral pulses are intact. - Labs CBC & Chem 7: 08/06/18 14:43 08/06/18 14:43 Labs: Abnormal Lab Results - Last 24 Hours (Table) 08/04/18 08/05/18 08/06/18 Range/Units 06:01 17:06 05:33 RBC (3.80-5.40) m/uL Hgb (11.4-16.0) gm/dL Hct (34.0-46.0) % APTT 55.9 H (22.0-30.0) sec ABG pH (7.35-7.45) ABG pCO2 (35-45) mmHg ABG pO2 (83-108) mmHg ABG Total CO2 (19-24) mmol/L ABG O2 Saturation (94-97) % ABG Hematocrit (34.0-46.0) % ABG Sodium (135-146) mmol/L ABG Potassium (3.4-4.5) mmol/L ABG Ionized Calcium (4.5-5.3) mg/dL ABG Glucose (75-99) mg/dL ABG Lactic Acid (0.5-1.6) mmol/L Hemoglobin (11.4-16.0) gm/dL Chloride 108 H (98-107) mmol/L BUN 22 H (7-17) mg/dL Glucose (74-99) mg/dL POC Glucose (mg/dL) (75-99) mg/dL Ionized Calcium Khloe (4.5-5.3) mg/dL Magnesium (1.6-2.3) mg/dL AST 58 H (14-36) U/L ALT (9-52) U/L Total Protein (6.3-8.2) g/dL Albumin (3.5-5.0) g/dL Arterial Blood Potassium (3.4-4.5) mmol/L Arterial Blood Glucose (75-99) mg/dL Crossmatch See Detail 08/06/18 08/06/18 08/06/18 Range/Units 05:33 08:58 10:12 RBC (3.80-5.40) m/uL Hgb 10.6 L (11.4-16.0) gm/dL Hct 33.3 L (34.0-46.0) % APTT (22.0-30.0) sec ABG pH 7.46 H (7.35-7.45) ABG pCO2 32 L (35-45) mmHg ABG pO2 390 H 230 H (83-108) mmHg ABG Total CO2 (19-24) mmol/L ABG O2 Saturation 100.0 H 100.0 H (94-97) % ABG Hematocrit 31 L 29 L (34.0-46.0) % ABG Sodium (135-146) mmol/L ABG Potassium (3.4-4.5) mmol/L ABG Ionized Calcium (4.5-5.3) mg/dL ABG Glucose 106 H (75-99) mg/dL ABG Lactic Acid 1.7 H (0.5-1.6) mmol/L Hemoglobin 10.2 L 9.6 L (11.4-16.0) gm/dL Chloride (98-107) mmol/L BUN (7-17) mg/dL Glucose (74-99) mg/dL POC Glucose (mg/dL) (75-99) mg/dL Ionized Calcium Khloe (4.5-5.3) mg/dL Magnesium (1.6-2.3) mg/dL AST (14-36) U/L ALT (9-52) U/L Total Protein (6.3-8.2) g/dL Albumin (3.5-5.0) g/dL Arterial Blood Potassium (3.4-4.5) mmol/L Arterial Blood Glucose 106 H (75-99) mg/dL Crossmatch 08/06/18 08/06/18 08/06/18 Range/Units 10:21 11:56 12:26 RBC (3.80-5.40) m/uL Hgb (11.4-16.0) gm/dL Hct (34.0-46.0) % APTT (22.0-30.0) sec ABG pH 7.31 L 7.33 L (7.35-7.45) ABG pCO2 47 H (35-45) mmHg ABG pO2 331 H 299 H 384 H (83-108) mmHg ABG Total CO2 26 H (19-24) mmol/L ABG O2 Saturation 100.0 H 100.0 H 100.0 H (94-97) % ABG Hematocrit 23 L 23 L 23 L (34.0-46.0) % ABG Sodium 134 L (135-146) mmol/L ABG Potassium 4.6 H 4.7 H (3.4-4.5) mmol/L ABG Ionized Calcium (4.5-5.3) mg/dL ABG Glucose 191 H 165 H 131 H (75-99) mg/dL ABG Lactic Acid 2.0 H 2.3 H* (0.5-1.6) mmol/L Hemoglobin 7.4 L 7.5 L 7.5 L (11.4-16.0) gm/dL Chloride (98-107) mmol/L BUN (7-17) mg/dL Glucose (74-99) mg/dL POC Glucose (mg/dL) (75-99) mg/dL Ionized Calcium Khloe (4.5-5.3) mg/dL Magnesium (1.6-2.3) mg/dL AST (14-36) U/L ALT (9-52) U/L Total Protein (6.3-8.2) g/dL Albumin (3.5-5.0) g/dL Arterial Blood Potassium 4.6 H 4.7 H (3.4-4.5) mmol/L Arterial Blood Glucose 191 H 165 H 131 H (75-99) mg/dL Crossmatch 08/06/18 08/06/18 08/06/18 Range/Units 13:42 14:42 14:43 RBC 2.80 L (3.80-5.40) m/uL Hgb 7.8 L D (11.4-16.0) gm/dL Hct 24.4 L (34.0-46.0) % APTT (22.0-30.0) sec ABG pH (7.35-7.45) ABG pCO2 (35-45) mmHg ABG pO2 187 H (83-108) mmHg ABG Total CO2 25 H (19-24) mmol/L ABG O2 Saturation 100.0 H (94-97) % ABG Hematocrit 25 L (34.0-46.0) % ABG Sodium (135-146) mmol/L ABG Potassium (3.4-4.5) mmol/L ABG Ionized Calcium 5.4 H (4.5-5.3) mg/dL ABG Glucose 74 L (75-99) mg/dL ABG Lactic Acid 1.9 H (0.5-1.6) mmol/L Hemoglobin 8.1 L (11.4-16.0) gm/dL Chloride (98-107) mmol/L BUN (7-17) mg/dL Glucose (74-99) mg/dL POC Glucose (mg/dL) 72 L (75-99) mg/dL Ionized Calcium Khloe (4.5-5.3) mg/dL Magnesium (1.6-2.3) mg/dL AST (14-36) U/L ALT (9-52) U/L Total Protein (6.3-8.2) g/dL Albumin (3.5-5.0) g/dL Arterial Blood Potassium (3.4-4.5) mmol/L Arterial Blood Glucose 74 L (75-99) mg/dL Crossmatch 08/06/18 08/06/18 08/06/18 Range/Units 14:43 14:43 15:03 RBC (3.80-5.40) m/uL Hgb (11.4-16.0) gm/dL Hct (34.0-46.0) % APTT 34.0 H (22.0-30.0) sec ABG pH 7.33 L (7.35-7.45) ABG pCO2 (35-45) mmHg ABG pO2 284 H (83-108) mmHg ABG Total CO2 (19-24) mmol/L ABG O2 Saturation 99.5 H (94-97) % ABG Hematocrit (34.0-46.0) % ABG Sodium (135-146) mmol/L ABG Potassium (3.4-4.5) mmol/L ABG Ionized Calcium (4.5-5.3) mg/dL ABG Glucose (75-99) mg/dL ABG Lactic Acid (0.5-1.6) mmol/L Hemoglobin (11.4-16.0) gm/dL Chloride 110 H (98-107) mmol/L BUN 18 H (7-17) mg/dL Glucose 66 L (74-99) mg/dL POC Glucose (mg/dL) (75-99) mg/dL Ionized Calcium Khloe 5.8 H (4.5-5.3) mg/dL Magnesium 2.6 H (1.6-2.3) mg/dL AST 621 H (14-36) U/L ALT 312 H (9-52) U/L Total Protein 4.6 L (6.3-8.2) g/dL Albumin 2.7 L (3.5-5.0) g/dL Arterial Blood Potassium (3.4-4.5) mmol/L Arterial Blood Glucose (75-99) mg/dL Crossmatch 08/06/18 Range/Units 16:11 RBC (3.80-5.40) m/uL Hgb (11.4-16.0) gm/dL Hct (34.0-46.0) % APTT (22.0-30.0) sec ABG pH (7.35-7.45) ABG pCO2 (35-45) mmHg ABG pO2 (83-108) mmHg ABG Total CO2 (19-24) mmol/L ABG O2 Saturation (94-97) % ABG Hematocrit (34.0-46.0) % ABG Sodium (135-146) mmol/L ABG Potassium (3.4-4.5) mmol/L ABG Ionized Calcium (4.5-5.3) mg/dL ABG Glucose (75-99) mg/dL ABG Lactic Acid (0.5-1.6) mmol/L Hemoglobin (11.4-16.0) gm/dL Chloride (98-107) mmol/L BUN (7-17) mg/dL Glucose (74-99) mg/dL POC Glucose (mg/dL) 130 H (75-99) mg/dL Ionized Calcium Khloe (4.5-5.3) mg/dL Magnesium (1.6-2.3) mg/dL AST (14-36) U/L ALT (9-52) U/L Total Protein (6.3-8.2) g/dL Albumin (3.5-5.0) g/dL Arterial Blood Potassium (3.4-4.5) mmol/L Arterial Blood Glucose (75-99) mg/dL Crossmatch Microbiology - Last 24 Hours (Table) 08/04/18 06:30 Urine Culture - Final Urine,Voided Escherichia coli 08/03/18 18:30 Nasal Screen MRSA/MSSA - Final Nasal Swab Assessment and Plan Assessment: Impression: 1 multivessel symptomatic coronary artery disease post acute non-STEMI. Status post coronary artery bypass grafting utilizing a THOMAS to the LAD, saphenous vein grafts to the OM1, OM 2, PDA. Postoperative day #0. 2 acute non-STEMI 3 environmental ALLERGIES with postnasal drainage 4 hypertension 5 hyperlipidemia 6 history of melanoma resected back in September 2017 Plan: The patient was seen and evaluated by Dr. Garcia. Postop chest x-ray, ABGs and labs reviewed. Currently intubated on mechanical ventilator. We will utilize the early extubation protocol as tolerated. Continue to monitor her here closely in the intensive care unit. We'll continue to follow and make further recommendations based on her clinical status. I, the cosigning physician, performed a history & physical examination of the patient. Lungs sounds crackles in the left base. Maintaining good O2 saturations in the 90s on 50% FiO2 intubated on mechanical ventilator. I discussed the assessment and plan of care with my nurse practitioner, Elvia Leonard. I attest to the above note as dictated by her.
[2018-08-06 17:15] LABS: Glucose,Whole Blood 144 mg/dL (75-99)
[2018-08-06 17:46] LABS: Basophils % (A) 0 %; Eosinophils # (A) 0.1 k/uL (0-0.7); Eosinophils % (A) 1 %; HCT 28.1 % (34.0-46.0); Lymphocytes # (A) 1.1 k/uL (1.0-4.8); Lymphocytes % (A) 22 %; MCH 27.6 pg (25.0-35.0); MCHC 32.9 g/dL (31.0-37.0); MCV 83.9 fL (80.0-100.0); Mean Platelet Volume 7.5; Monocytes # (A) 0.3 k/uL (0-1.0); Monocytes % (A) 6 %; Neutrophils # (A) 3.4 k/uL (1.3-7.7); Neutrophils % (A) 70 %; Platelet Count 187 k/uL (150-450); RBC 3.36 m/uL (3.80-5.40)
[2018-08-06] MEDS: KETOROLAC 30 MG/ML 1 ML VIAL IVP SCH ×2 (17:52→23:31)
[2018-08-06 18:05] LABS: HGB 9.3 gm/dL (11.4-16.0)
[2018-08-06 18:17] LABS: Glucose,Whole Blood 136 mg/dL (75-99)
[2018-08-06] MEDS: ACETAMINOPHEN IV (For NPO) 1,000 MG in EMPTY BAG 1 BAG IVPB SCH ×2 (19:09→23:32)
[2018-08-06 19:19] LABS: Glucose,Whole Blood 123 mg/dL (75-99)
[2018-08-06] MEDS: MUPIROCIN 2% OINT 22 GM TUBE NASAL SCH (19:59)
[2018-08-06 20:27] LABS: Basophils % (A) 0 %; Eosinophils % (A) 1 %; HCT 27.6 % (34.0-46.0); Lymphocytes # (A) 1.1 k/uL (1.0-4.8); Lymphocytes % (A) 20 %; MCHC 32.5 g/dL (31.0-37.0); MCV 86.2 fL (80.0-100.0); Mean Platelet Volume 8.8; Monocytes # (A) 0.3 k/uL (0-1.0); Monocytes % (A) 5 %; Neutrophils # (A) 3.7 k/uL (1.3-7.7); Neutrophils % (A) 72 %; Platelet Count 191 k/uL (150-450); RDW 14.3 % (11.5-15.5); WBC 5.2 k/uL (3.8-10.6)
[2018-08-06 20:29] LABS: Glucose,Whole Blood 120 mg/dL (75-99)
[2018-08-06 21:19] LABS: Glucose,Whole Blood 130 mg/dL (75-99)
[2018-08-06 22:20] LABS: Glucose,Whole Blood 118 mg/dL (75-99)
[2018-08-06 23:07] LABS: Glucose,Whole Blood 128 mg/dL (75-99)
--- NOTE | 2018-08-06 23:13 | PN ---
PROGRESS NOTE DATE OF SERVICE: 08/06/2018 This 77-year-old woman who was admitted with triple-vessel disease underwent CABG x4 today. The patient was extubated today. No chest pain. No palpitations. No fever. The patient is on insulin drip at 0.5 units/hour. On exam, alert and oriented x3. Pulse 67, blood pressure 124/53, respiration 15, temperature normal, pulse ox 97% on 2 L. HEENT: Conjunctivae normal. NECK: No jugular venous distention. CARDIOVASCULAR SYSTEM: S1, S2 muffled. RESPIRATORY SYSTEM: Breath sounds diminished at the bases. A few scattered rhonchi. ABDOMEN: Soft. NERVOUS SYSTEM: No focal deficit. LABS: WBC 5.2, hemoglobin 9.0. Accu-Cheks noted: 136 and 123. ASSESSMENT: 1. Acute eif-CC-xputynq-elevation myocardial infarction, present on admission, status post cardiac catheterization and triple-vessel disease and status post coronary artery bypass grafting x4. 2. Hypertension. 3. Hyperlipidemia. 4. Gastroesophageal reflux disease. 5. Anemia; normocytic anemia of chronic disease, present on admission. 6. History of hernia. 7. History of skin cancer. 8. History of adenoidectomy. 9. History of coronary artery disease, stent. 10.History of anxiety. 11.Remote history of nicotine dependence. RECOMMENDATIONS AND DISCUSSION: I recommend to continue current medications, continue with the monitoring, symptomatic treatment. Otherwise at this time I recommend continuing with insulin drip. Monitor blood sugars closely. Incentive spirometer. Bronchodilators. The rest of the medications per Cardiothoracic Surgery. Closely monitor in ICU. Further recommendations to follow. MMODL / IJN: [id number] /
[2018-08-06] MEDS: HEPARIN SODIUM,PORCINE 5,000 UNIT/ML 1 ML VIAL SQ SCH (23:31)
[2018-08-06 23:56] LABS: Glucose,Whole Blood 136 mg/dL (75-99)
[2018-08-07] MEDS ORDERED: HYDROcodone/APAP 5-325MG 1 EACH TAB PO PRN ×2 (02:12→16:27)
[2018-08-07 02:13] LABS: Glucose,Whole Blood 120 mg/dL (75-99)
[2018-08-07] MEDS: HYDROcodone/APAP 5-325MG 1 EACH TAB PO PRN ×4 (02:22→20:40)
[2018-08-07] MEDS: ALBUMIN HUMAN 5% 250 ML in EMPTY BAG 1 BAG IVPB PRN ×5 (02:54→08:38)
[2018-08-07 04:12] LABS: Glucose,Whole Blood 112 mg/dL (75-99)
[2018-08-07 04:16] LABS: Ionized Calcium 5.3 mg/dL (4.5-5.3)
[2018-08-07 04:18] LABS: Basophils % (A) 0 %; Eosinophils % (A) 1 %; HCT 24.1 % (34.0-46.0); HGB 7.7 gm/dL (11.4-16.0); Lymphocytes % (A) 24 %; MCH 27.7 pg (25.0-35.0); MCV 86.6 fL (80.0-100.0); Mean Platelet Volume 7.6; Monocytes # (A) 0.2 k/uL (0-1.0); Monocytes % (A) 6 %; Neutrophils # (A) 2.8 k/uL (1.3-7.7); Neutrophils % (A) 68 %; Platelet Count 155 k/uL (150-450); RBC 2.79 m/uL (3.80-5.40); RDW 14.5 % (11.5-15.5); WBC 4.2 k/uL (3.8-10.6)
[2018-08-07 04:30] LABS: Calcium 8.9 mg/dL (8.4-10.2); Potassium 4.7 mmol/L (3.5-5.1); Total Bilirubin 0.5 mg/dL (0.2-1.3)
[2018-08-07] MEDS: NITROGLYCERIN-D5W PMX 50 MG in DEXTROSE/WATER 1 250ML.BAG IV SCH (06:12)
[2018-08-07] MEDS: KETOROLAC 30 MG/ML 1 ML VIAL IVP SCH (06:16)
[2018-08-07 06:21] LABS: Glucose,Whole Blood 102 mg/dL (75-99)
--- NOTE | 2018-08-07 07:58 | OP ---
OPERATIVE REPORT DATE OF SURGERY: 08/06/2018 PREOPERATIVE DIAGNOSIS: Coronary artery disease. POSTOPERATIVE DIAGNOSIS: Coronary artery disease. PROCEDURE: 1. Coronary artery bypass grafting x4 vessels (left internal mammary artery to left anterior descending artery, saphenous vein graft to obtuse marginal artery, saphenous vein graft to distal OM, saphenous vein graft to distal RCA). 2. Endoscopic vein harvest right greater saphenous vein. 3. Epiaortic ultrasound. 4. Transesophageal echocardiogram. SURGEON: Aaron Martin MD. ALUM MIXER: 1. YVETTE Bear. 2. Rob Jacobo NP. ANESTHESIA: General. SPECIMEN: None. COMPLICATIONS: None. INDICATION: The patient is a 77-year-old female with a past medical history significant for GERD, hyperlipidemia, hypertension, melanoma, and a remote history of tobacco use who presented to the hospital with epigastric pain and pressure along with nausea. Workup revealed a non ST elevation myocardial infarction. Cardiac catheterization revealed multivessel coronary artery disease. A coronary artery bypass was recommended. The risks, benefits, and alternatives to this procedure were discussed with the patient and her grandson. All their questions answered. Consent was obtained. FINDINGS: The left internal mammary artery was a good conduit with brisk flow. The saphenous vein was a good conduit. The left anterior descending artery measured 1.3 mm and contained diffuse disease. The OM1 measured 1.5 mm and contained diffuse disease. The distal obtuse marginal artery branch measured 1.3 mm. The right coronary artery measured 1.5 mm. The PDA was too small for bypass. PROCEDURE IN DETAIL: The patient was taken to the operating room and placed supine on the operating table. After the induction of general anesthesia, she was prepped and draped in the usual sterile fashion. Preoperative transesophageal echocardiogram confirmed a preserved ejection fraction with trace to mild mitral regurgitation. A median sternotomy was performed. The left internal mammary artery was harvested in the standard fashion taking care to clip all branches. Intravenous heparin was administered. The vessel was transected distally revealing brisk flow. Simultaneously, greater saphenous vein was harvested from the right lower extremity using endoscopic technique. All branches were tied. Both the mammary artery and vein were good conduits. A pericardial cradle was created. The ascending aorta was palpated. There was no significant calcific plaque noted. Epiaortic ultrasound was then performed on the ascending aorta. Again no calcific plaque or atheromatous disease was identified. An arterial cannula was placed in the distal ascending aorta. A venous scan was placed through the right atrial appendage and directed into the IVC. Both antegrade and retrograde catheters were placed as well. The patient was then placed on cardiopulmonary bypass with good decompression of the heart. The aortic cross- clamp was applied. Cold blood potassium cardioplegia was delivered in both antegrade and retrograde fashion to achieve arrest of the heart. Of note, cardioplegia was delivered every 15 to 20 minutes while the patient remained under cross-clamp. We began by inspecting the inferior wall. No significant posterior descending artery amenable for bypass was identified. The distal right coronary artery was then dissected free. A small arteriotomy was created. This vessel accepted 1.5 mm probe. Using the saphenous vein in a reverse fashion, an end-to-side anastomosis was created. This was performed using running 7-0 Prolene suture. The graft was hemostatic and had good flow. Next, the lateral wall was inspected. The OM1 was identified. It was dissected free. It did contain diffuse areas of calcific disease. A soft spot for bypass was chosen. This vessel accepted a 1 mm probe. Using saphenous vein in a reverse fashion, an end-to-side anastomosis was created. This was performed using running 7-0 Prolene suture. The graft was hemostatic and had good flow. Next, the distal obtuse marginal artery branch was identified. It was dissected free. A small arteriotomy was created. Using saphenous vein in a reverse fashion, an end-to-side anastomosis was created. This was performed using running 7-0 Prolene suture. The graft was hemostatic and had good flow. Finally the left anterior descending artery was identified. It contained diffuse calcific disease throughout its course. A soft spot amenable for bypass was noted in its mid region. Using the left internal mammary artery, an end-to-side anastomosis was created. This was performed using running 8-0 Prolene suture. The graft was hemostatic. The mammary pedicle was then tacked down to the anterior surface of the heart. Attention was then turned to the proximal anastomoses. These were all performed in an end-to-side fashion using running 6-0 Prolene sutures to the ascending aorta. One liter of warm blood was delivered in retrograde fashion. Both lidocaine and magnesium were administered as well. The aortic cross-clamp was removed. The vein grafts were de-aired in the standard fashion. Temporary atrial and ventricular pacing wires were placed and brought through the skin. The retrograde catheter was removed. The patient was then weaned off cardiopulmonary bypass. She without difficulty. Followup transesophageal echocardiogram confirmed good left ventricular ejection fraction and no change in valvular pathology. Protamine was administered. There were no adverse reactions. The remaining cannulas were then removed. The mediastinum was copiously irrigated with warm saline solution. All surgical sites were inspected and appeared to be hemostatic. Soft tissues were reapproximated over the ascending aorta as well as over the apex of the heart. Straight 32-[place] chest tubes were placed and directed into the left pleural space as well as the mediastinum. These were all secured to the skin using sutures. The sternum was then reapproximated using stainless steel wires in a figure-of- eight fashion. At the completion of the closure, the sternum was well aligned. The remainder of the wound was then closed in layers. A sterile dressing was applied. The patient appeared to tolerate the procedure well. There were no immediate complications. She returned to the ICU in critical but stable condition. She did not require any pressor support and did not receive any blood products. MMODL / IJN: [id number] / MTDD
[2018-08-07] MEDS: IPRATROPIUM-ALBUTEROL 3 ML NEB INHALATION SCH ×4 (08:06→19:04)
[2018-08-07 08:24] LABS: Glucose,Whole Blood 92 mg/dL (75-99)
[2018-08-07] MEDS: PANTOPRAZOLE 40 MG TABLET PO SCH ×2 (08:25→18:32)
[2018-08-07] MEDS: HEPARIN SODIUM,PORCINE 5,000 UNIT/ML 1 ML VIAL SQ SCH ×2 (08:25→16:12)
[2018-08-07] MEDS: ASPIRIN 325 MG TAB PO SCH (08:25)
[2018-08-07] MEDS: ceFAZolin IN SWFI 2 GM/20 ML SYRINGE IVP SCH (08:25)
[2018-08-07] MEDS: CLOPIDOGREL 75 MG TAB PO SCH (08:25)
[2018-08-07] MEDS: METOPROLOL TARTRATE 12.5 MG TAB PO SCH ×2 (08:26→20:44)
[2018-08-07] MEDS: LORATADINE 10 MG TAB PO SCH (08:26)
[2018-08-07] MEDS: MUPIROCIN 2% OINT 22 GM TUBE NASAL SCH ×2 (08:26→20:49)
--- NOTE | 2018-08-07 08:45 | XR ---
EXAMINATION TYPE: XR chest 1V portable DATE OF EXAM: 08/07/2018 Comparison: 08/06/2018 Clinical History: 77-year-old female Post Operative Cardiac Surgery Findings: Right IJ [place]-Ag catheter with tip at the proximal right main pulmonary artery. Mediastinal drains are present with left-sided chest tube. No appreciable pneumothorax. Heart upper limits of normal in size with patchy bibasilar densities. Additional strands of atelectasis at the left midlung. Patient has been extubated in the interval. Impression: Interval extubation. Bibasilar patchy and strandy areas of atelectasis.
[2018-08-07] MEDS ORDERED: PANTOPRAZOLE 40 MG/10 ML VIAL IVP SCH (09:00)
[2018-08-07] MEDS ORDERED: BISACODYL 10 MG SUPP RECTAL PRN (09:00)
[2018-08-07] MEDS ORDERED: MAGNESIUM HYDROXIDE 2,400 MG/10 ML CUP PO PRN (09:00)
[2018-08-07] MEDS ORDERED: ATORVASTATIN 40 MG TAB PO SCH (09:00)
[2018-08-07 09:29] VITALS: BMI 34.8
[2018-08-07 10:09] LABS: Glucose,Whole Blood 115 mg/dL (75-99)
--- NOTE | 2018-08-07 10:23 | P.PN ---
Subjective Progress Note Date: 08/07/18 Principal diagnosis: Triple-vessel coronary artery disease, non-ST elevated myocardial infarction this admission, hypertension, hyperlipidemia, gastroesophageal reflux disease, hiatal hernia, history of coronary artery disease with stent placement to her mid left anterior descending coronary artery in 2002, family history of early onset coronary artery disease with her father being diagnosed at age 55 with a myocardial infarction and history of melanoma skin cancer to her left arm which was removed in September 2017. POD #1 coronary artery bypass grafting 4 vessels with placement of her left internal mammary artery to her left anterior descending coronary artery, a reverse greater saphenous vein graft to the obtuse marginal coronary artery, a reverse greater saphenous vein graft to the distal obtuse marginal coronary artery and a reverse greater saphenous vein graft to the distal right coronary artery. Endoscopic vein harvest of the right greater saphenous vein, int raoperative transesophageal echocardiogram and epi-aortic ultrasound. Postoperative elevation in her transaminase liver enzymes, an unexpected outcome of surgery. Postoperative acute blood loss anemia, an expected outcome due to her cardiopulmonary bypass and hemodilution. The patient is sitting up to the bedside chair in the intensive care unit in no acute distress. She is complaining of surgical type pain to her chest tube insertion sites rating her pain 6 out of 10 on the pain scale. Denies any complaints of shortness of breath. She remains hemodynamically stable and is currently on no inotropic or pressor support. Currently she is on a DDD pacing mode at a heart rate of 80, her underlying rhythm is sinus bradycardia rhythm with occasional junctional rhythm heart rate 55. Current cardiac output 3.8, cardiac index 2.2, PA pressures 31/12, CVP is 8. She did have some low urine output and some hypotension this morning which was treated with 500 mL of albumin. She is on 2 L nasal cannula with oxygen saturations 98%. Achieving 1000 mL on her incentive spirometry. Objective - Vital Signs Vital signs: Vital Signs Temp 98.2 F 08/07/18 08:00 Pulse 80 08/07/18 08:16 Resp 15 08/07/18 08:00 BP 95/54 08/07/18 08:00 Pulse Ox 96 08/07/18 08:00 Intake & Output 08/06/18 08/07/18 08/07/18 18:59 06:59 18:59 Intake Total 238.230 907.624 138 Output Total 2895 1044 35 Balance -2656.770 -136.376 103 Weight 80.9 kg 80.9 kg Intake: IV 230 901 138 CO/CI 90 270 20 LR 110 550 100 Pressure Bags 27 81 18 Intake, IV Titration 8.230 6.624 Amount Clevidipine Butyrate 25 0.267 mg In Empty Bag 1 bag @ 1 MG/HR 2 mls/hr IV .Q24H MICHAEL Rx#:[id number] Insulin Regular 100 unit 0.025 6.624 In Sodium Chloride 0.9% 100 ml @ Per Protocol IV .Q0M MICHAEL Rx#:[id number] Propofol 1,000 mg In 7.938 Empty Bag 1 bag @ Titrate IV .Q0M MICHAEL Rx#: [id number] Output: Chest Tube Drainage 90 274 30 Chest Tube Left Left 30 104 0 Pleural/Mediastinal Chest Tube Mediastinal 60 170 30 Urine 1605 770 5 Estimated Blood Loss 1200 Other: Voiding Method Indwelling Catheter Indwelling Catheter ABP, PAP, CO, CI - Last Documented Arterial Blood Pressure 79/39 Pulmonary Artery Pressure 28/11 Cardiac Output 4.6 Cardiac Index 2.7 - Constitutional General appearance: Present: cooperative, no acute distress, obese - Respiratory Details: Lung sounds are essentially clear throughout, diminished bilateral bases. Respirations are symmetrical and nonlabored. Oxygen saturation are 98% on 2 L nasal cannula. The tubing 1000 mL on her incentive spirometry. Left pleural and mediastinal chest tubes in place to low continuous wall suction -20 cm H2O. No air leak is present. Draining thin serosanguineous drainage. Mediastinal chest tubes drained 300 mL output since surgery. Left pleural chest tube drained 160 mL output since surgery. - Cardiovascular Details: Regular rhythm and rate. S1 and S2 present, negative for S3, gallop or murmur. Sternum is stable. Bedside telemetry showing DDD paced rhythm at 80. Underlying rhythm showing sinus bradycardia with some occasional junctional beats heart rate in the 50s. Atrial and ventricular epicardial pacemaker wires intact and connected to back up pacemaker generator. Right IJ [place]-Ag and Cordis ca theter in place and functioning. Right radial arterial line in place and functioning. Knee-high JESUS MANUEL hose and sequential compression devices in place to bilateral lower extremities. - Gastrointestinal Gastrointestinal Comment(s): Abdomen is soft, nontender and nondistended. Active bowel sounds all 4 abdominal quadrants. No guarding or rigidity. No organomegaly. Passing flatus. Tolerating oral intake. - Genitourinary Genitourinary Comment(s): Arias catheter for accurate I&O draining clear jada urine. 315 mL output in the last 8 hours. - Integumentary Integumentary Comment(s): Skin is warm and dry. No clubbing or cyanosis is present. Midline sternal incision is clean, dry and approximated. No drainage or redness is present. Exofin dressing is clean, dry and intact. Right lower extremity EVH site is clean, dry and approximated. No drainage or redness is present. No rash or abnormal pigmentation is present. - Neurologic Neurologic: Present: CNII-XII intact - Musculoskeletal Musculoskeletal: Present: gait normal, generalized weakness, strength equal bilaterally - Psychiatric Psychiatric: Present: appropriate affect, intact judgment & insight - Allied health notes Allied health notes reviewed: nursing - Labs CBC & Chem 7: 08/07/18 04:00 08/07/18 04:00 Labs: Abnormal Lab Results - Last 24 Hours (Table) 08/04/18 08/06/18 08/06/18 Range/Units 06:01 08:58 10:12 RBC (3.80-5.40) m/uL Hgb (11.4-16.0) gm/dL Hct (34.0-46.0) % APTT (22.0-30.0) sec ABG pH 7.46 H (7.35-7.45) ABG pCO2 32 L (35-45) mmHg ABG pO2 390 H 230 H (83-108) mmHg ABG Total CO2 (19-24) mmol/L ABG O2 Saturation 100.0 H 100.0 H (94-97) % ABG Hematocrit 31 L 29 L (34.0-46.0) % ABG Sodium (135-146) mmol/L ABG Potassium (3.4-4.5) mmol/L ABG Ionized Calcium (4.5-5.3) mg/dL ABG Glucose 106 H (75-99) mg/dL ABG Lactic Acid 1.7 H (0.5-1.6) mmol/L Hemoglobin 10.2 L 9.6 L (11.4-16.0) gm/dL Sodium (137-145) mmol/L Chloride (98-107) mmol/L BUN (7-17) mg/dL Glucose (74-99) mg/dL POC Glucose (mg/dL) (75-99) mg/dL Ionized Calcium Khloe (4.5-5.3) mg/dL Magnesium (1.6-2.3) mg/dL AST (14-36) U/L ALT (9-52) U/L Total Protein (6.3-8.2) g/dL Albumin (3.5-5.0) g/dL Arterial Blood Potassium (3.4-4.5) mmol/L Arterial Blood Glucose 106 H (75-99) mg/dL Crossmatch See Detail 08/06/18 08/06/18 08/06/18 Range/Units 10:21 11:56 12:26 RBC (3.80-5.40) m/uL Hgb (11.4-16.0) gm/dL Hct (34.0-46.0) % APTT (22.0-30.0) sec ABG pH 7.31 L 7.33 L (7.35-7.45) ABG pCO2 47 H (35-45) mmHg ABG pO2 331 H 299 H 384 H (83-108) mmHg ABG Total CO2 26 H (19-24) mmol/L ABG O2 Saturation 100.0 H 100.0 H 100.0 H (94-97) % ABG Hematocrit 23 L 23 L 23 L (34.0-46.0) % ABG Sodium 134 L (135-146) mmol/L ABG Potassium 4.6 H 4.7 H (3.4-4.5) mmol/L ABG Ionized Calcium (4.5-5.3) mg/dL ABG Glucose 191 H 165 H 131 H (75-99) mg/dL ABG Lactic Acid 2.0 H 2.3 H* (0.5-1.6) mmol/L Hemoglobin 7.4 L 7.5 L 7.5 L (11.4-16.0) gm/dL Sodium (137-145) mmol/L Chloride (98-107) mmol/L BUN (7-17) mg/dL Glucose (74-99) mg/dL POC Glucose (mg/dL) (75-99) mg/dL Ionized Calcium Khloe (4.5-5.3) mg/dL Magnesium (1.6-2.3) mg/dL AST (14-36) U/L ALT (9-52) U/L Total Protein (6.3-8.2) g/dL Albumin (3.5-5.0) g/dL Arterial Blood Potassium 4.6 H 4.7 H (3.4-4.5) mmol/L Arterial Blood Glucose 191 H 165 H 131 H (75-99) mg/dL Crossmatch 08/06/18 08/06/18 08/06/18 Range/Units 13:42 14:42 14:43 RBC 2.80 L (3.80-5.40) m/uL Hgb 7.8 L D (11.4-16.0) gm/dL Hct 24.4 L (34.0-46.0) % APTT (22.0-30.0) sec ABG pH (7.35-7.45) ABG pCO2 (35-45) mmHg ABG pO2 187 H (83-108) mmHg ABG Total CO2 25 H (19-24) mmol/L ABG O2 Saturation 100.0 H (94-97) % ABG Hematocrit 25 L (34.0-46.0) % ABG Sodium (135-146) mmol/L ABG Potassium (3.4-4.5) mmol/L ABG Ionized Calcium 5.4 H (4.5-5.3) mg/dL ABG Glucose 74 L (75-99) mg/dL ABG Lactic Acid 1.9 H (0.5-1.6) mmol/L Hemoglobin 8.1 L (11.4-16.0) gm/dL Sodium (137-145) mmol/L Chloride (98-107) mmol/L BUN (7-17) mg/dL Glucose (74-99) mg/dL POC Glucose (mg/dL) 72 L (75-99) mg/dL Ionized Calcium Khloe (4.5-5.3) mg/dL Magnesium (1.6-2.3) mg/dL AST (14-36) U/L ALT (9-52) U/L Total Protein (6.3-8.2) g/dL Albumin (3.5-5.0) g/dL Arterial Blood Potassium (3.4-4.5) mmol/L Arterial Blood Glucose 74 L (75-99) mg/dL Crossmatch 08/06/18 08/06/18 08/06/18 Range/Units 14:43 14:43 15:03 RBC (3.80-5.40) m/uL Hgb (11.4-16.0) gm/dL Hct (34.0-46.0) % APTT 34.0 H (22.0-30.0) sec ABG pH 7.33 L (7.35-7.45) ABG pCO2 (35-45) mmHg ABG pO2 284 H (83-108) mmHg ABG Total CO2 (19-24) mmol/L ABG O2 Saturation 99.5 H (94-97) % ABG Hematocrit (34.0-46.0) % ABG Sodium (135-146) mmol/L ABG Potassium (3.4-4.5) mmol/L ABG Ionized Calcium (4.5-5.3) mg/dL ABG Glucose (75-99) mg/dL ABG Lactic Acid (0.5-1.6) mmol/L Hemoglobin (11.4-16.0) gm/dL Sodium (137-145) mmol/L Chloride 110 H (98-107) mmol/L BUN 18 H (7-17) mg/dL Glucose 66 L (74-99) mg/dL POC Glucose (mg/dL) (75-99) mg/dL Ionized Calcium Khloe 5.8 H (4.5-5.3) mg/dL Magnesium 2.6 H (1.6-2.3) mg/dL AST 621 H (14-36) U/L ALT 312 H (9-52) U/L Total Protein 4.6 L (6.3-8.2) g/dL Albumin 2.7 L (3.5-5.0) g/dL Arterial Blood Potassium (3.4-4.5) mmol/L Arterial Blood Glucose (75-99) mg/dL Crossmatch 08/06/18 08/06/18 08/06/18 Range/Units 16:11 16:51 17:04 RBC (3.80-5.40) m/uL Hgb (11.4-16.0) gm/dL Hct (34.0-46.0) % APTT (22.0-30.0) sec ABG pH (7.35-7.45) ABG pCO2 (35-45) mmHg ABG pO2 (83-108) mmHg ABG Total CO2 26 H (19-24) mmol/L ABG O2 Saturation (94-97) % ABG Hematocrit (34.0-46.0) % ABG Sodium (135-146) mmol/L ABG Potassium (3.4-4.5) mmol/L ABG Ionized Calcium (4.5-5.3) mg/dL ABG Glucose (75-99) mg/dL ABG Lactic Acid (0.5-1.6) mmol/L Hemoglobin (11.4-16.0) gm/dL Sodium (137-145) mmol/L Chloride (98-107) mmol/L BUN (7-17) mg/dL Glucose (74-99) mg/dL POC Glucose (mg/dL) 130 H 144 H (75-99) mg/dL Ionized Calcium Khloe (4.5-5.3) mg/dL Magnesium (1.6-2.3) mg/dL AST (14-36) U/L ALT (9-52) U/L Total Protein (6.3-8.2) g/dL Albumin (3.5-5.0) g/dL Arterial Blood Potassium (3.4-4.5) mmol/L Arterial Blood Glucose (75-99) mg/dL Crossmatch 08/06/18 08/06/18 08/06/18 Range/Units 17:24 18:06 19:07 RBC 3.36 L (3.80-5.40) m/uL Hgb 9.3 L D (11.4-16.0) gm/dL Hct 28.1 L (34.0-46.0) % APTT (22.0-30.0) sec ABG pH (7.35-7.45) ABG pCO2 (35-45) mmHg ABG pO2 (83-108) mmHg ABG Total CO2 (19-24) mmol/L ABG O2 Saturation (94-97) % ABG Hematocrit (34.0-46.0) % ABG Sodium (135-146) mmol/L ABG Potassium (3.4-4.5) mmol/L ABG Ionized Calcium (4.5-5.3) mg/dL ABG Glucose (75-99) mg/dL ABG Lactic Acid (0.5-1.6) mmol/L Hemoglobin (11.4-16.0) gm/dL Sodium (137-145) mmol/L Chloride (98-107) mmol/L BUN (7-17) mg/dL Glucose (74-99) mg/dL POC Glucose (mg/dL) 136 H 123 H (75-99) mg/dL Ionized Calcium Khloe (4.5-5.3) mg/dL Magnesium (1.6-2.3) mg/dL AST (14-36) U/L ALT (9-52) U/L Total Protein (6.3-8.2) g/dL Albumin (3.5-5.0) g/dL Arterial Blood Potassium (3.4-4.5) mmol/L Arterial Blood Glucose (75-99) mg/dL Crossmatch 08/06/18 08/06/18 08/06/18 Range/Units 20:15 20:16 21:08 RBC 3.20 L (3.80-5.40) m/uL Hgb 9.0 L (11.4-16.0) gm/dL Hct 27.6 L (34.0-46.0) % APTT (22.0-30.0) sec ABG pH (7.35-7.45) ABG pCO2 (35-45) mmHg ABG pO2 (83-108) mmHg ABG Total CO2 (19-24) mmol/L ABG O2 Saturation (94-97) % ABG Hematocrit (34.0-46.0) % ABG Sodium (135-146) mmol/L ABG Potassium (3.4-4.5) mmol/L ABG Ionized Calcium (4.5-5.3) mg/dL ABG Glucose (75-99) mg/dL ABG Lactic Acid (0.5-1.6) mmol/L Hemoglobin (11.4-16.0) gm/dL Sodium (137-145) mmol/L Chloride (98-107) mmol/L BUN (7-17) mg/dL Glucose (74-99) mg/dL POC Glucose (mg/dL) 120 H 130 H (75-99) mg/dL Ionized Calcium Khloe (4.5-5.3) mg/dL Magnesium (1.6-2.3) mg/dL AST (14-36) U/L ALT (9-52) U/L Total Protein (6.3-8.2) g/dL Albumin (3.5-5.0) g/dL Arterial Blood Potassium (3.4-4.5) mmol/L Arterial Blood Glucose (75-99) mg/dL Crossmatch 08/06/18 08/06/18 08/06/18 Range/Units 22:09 22:54 23:45 RBC (3.80-5.40) m/uL Hgb (11.4-16.0) gm/dL Hct (34.0-46.0) % APTT (22.0-30.0) sec ABG pH (7.35-7.45) ABG pCO2 (35-45) mmHg ABG pO2 (83-108) mmHg ABG Total CO2 (19-24) mmol/L ABG O2 Saturation (94-97) % ABG Hematocrit (34.0-46.0) % ABG Sodium (135-146) mmol/L ABG Potassium (3.4-4.5) mmol/L ABG Ionized Calcium (4.5-5.3) mg/dL ABG Glucose (75-99) mg/dL ABG Lactic Acid (0.5-1.6) mmol/L Hemoglobin (11.4-16.0) gm/dL Sodium (137-145) mmol/L Chloride (98-107) mmol/L BUN (7-17) mg/dL Glucose (74-99) mg/dL POC Glucose (mg/dL) 118 H 128 H 136 H (75-99) mg/dL Ionized Calcium Khloe (4.5-5.3) mg/dL Magnesium (1.6-2.3) mg/dL AST (14-36) U/L ALT (9-52) U/L Total Protein (6.3-8.2) g/dL Albumin (3.5-5.0) g/dL Arterial Blood Potassium (3.4-4.5) mmol/L Arterial Blood Glucose (75-99) mg/dL Crossmatch 08/07/18 08/07/18 08/07/18 Range/Units 02:02 04:00 04:00 RBC 2.79 L (3.80-5.40) m/uL Hgb 7.7 L (11.4-16.0) gm/dL Hct 24.1 L (34.0-46.0) % APTT (22.0-30.0) sec ABG pH (7.35-7.45) ABG pCO2 (35-45) mmHg ABG pO2 (83-108) mmHg ABG Total CO2 (19-24) mmol/L ABG O2 Saturation (94-97) % ABG Hematocrit (34.0-46.0) % ABG Sodium (135-146) mmol/L ABG Potassium (3.4-4.5) mmol/L ABG Ionized Calcium (4.5-5.3) mg/dL ABG Glucose (75-99) mg/dL ABG Lactic Acid (0.5-1.6) mmol/L Hemoglobin (11.4-16.0) gm/dL Sodium 134 L (137-145) mmol/L Chloride (98-107) mmol/L BUN (7-17) mg/dL Glucose 105 H (74-99) mg/dL POC Glucose (mg/dL) 120 H (75-99) mg/dL Ionized Calcium Khloe (4.5-5.3) mg/dL Magnesium (1.6-2.3) mg/dL AST 306 H (14-36) U/L ALT 253 H (9-52) U/L Total Protein 5.0 L (6.3-8.2) g/dL Albumin 3.0 L (3.5-5.0) g/dL Arterial Blood Potassium (3.4-4.5) mmol/L Arterial Blood Glucose (75-99) mg/dL Crossmatch 08/07/18 08/07/18 Range/Units 04:01 06:09 RBC (3.80-5.40) m/uL Hgb (11.4-16.0) gm/dL Hct (34.0-46.0) % APTT (22.0-30.0) sec ABG pH (7.35-7.45) ABG pCO2 (35-45) mmHg ABG pO2 (83-108) mmHg ABG Total CO2 (19-24) mmol/L ABG O2 Saturation (94-97) % ABG Hematocrit (34.0-46.0) % ABG Sodium (135-146) mmol/L ABG Potassium (3.4-4.5) mmol/L ABG Ionized Calcium (4.5-5.3) mg/dL ABG Glucose (75-99) mg/dL ABG Lactic Acid (0.5-1.6) mmol/L Hemoglobin (11.4-16.0) gm/dL Sodium (137-145) mmol/L Chloride (98-107) mmol/L BUN (7-17) mg/dL Glucose (74-99) mg/dL POC Glucose (mg/dL) 112 H 102 H (75-99) mg/dL Ionized Calcium Khloe (4.5-5.3) mg/dL Magnesium (1.6-2.3) mg/dL AST (14-36) U/L ALT (9-52) U/L Total Protein (6.3-8.2) g/dL Albumin (3.5-5.0) g/dL Arterial Blood Potassium (3.4-4.5) mmol/L Arterial Blood Glucose (75-99) mg/dL Crossmatch Microbiology - Last 24 Hours (Table) 08/04/18 06:30 Urine Culture - Final Urine,Voided Escherichia coli - Imaging and Cardiology Chest x-ray: report reviewed, image reviewed Assessment and Plan Assessment: 1. Severe triple-vessel coronary artery disease, status post urgent coronary artery bypass grafting 4 vessels 2. Non-ST elevated myocardial infarction 3. Ischemic heart disease 4. History of coronary artery disease with previous stent placement to her mid left anterior setting coronary artery in 2002 5. Hypertension 6. Hyperlipidemia 7. Gastroesophageal reflux disease 8. History of hiatal hernia 9. History of skin cancer 10. Right carotid bruit 11. Postoperative elevation in her transaminases liver enzymes, an unexpected outcome 12. Postoperative acute blood loss anemia, an expected outcome Plan: 1. Continue aspirin and Plavix. Hold beta taina this morning due to her bradycardia. 2. Wean O2 as tolerated. Encourage use of their incentive spirometry every hour while awake. 3. GI and DVT prophylaxis. 4. Hold Lipitor today as her liver enzymes are elevated. Once her liver enzy mes have normalized we will restart her on the Lipitor. 5. Remove [place]-Ag catheter, keep right IJ Cordis and placed to continuous CVP monitoring. 6. Remove right radial arterial line. 7. Increase activity as tolerated. PT/OT/cardiac rehab following. 8. albumin 5% 500 mL 1 now for low urine output and hypotension. 9. Bronchodilator management per pulmonology service. 10. Keep mediastinal and left pleural chest tubes, Arias catheter and A/V epicardial pacemaker wires in place for now. 11. Insulin management per primary care service. 12. Pain control per current medication regimen. Discontinue Toradol. 13. More recommendations to follow based on patient's clinical course. Time with Patient: Greater than 30
[2018-08-07] MEDS: LACTATED RINGERS 1,000 ML IV SCH (11:13)
--- NOTE | 2018-08-07 13:33 | P.PN ---
Subjective Progress Note Date: 08/07/18 Principal diagnosis: Triple-vessel coronary artery disease, non-ST elevation myocardial infarction, status post CABG 4 vessels postoperative day #1 77-year-old female with non-ST elevation myocardial infarction on admission, hypertension, GERD, coronary artery disease, patient underwent four-vessel CABG, and I saw her yesterday while on mechanical ventilation. Patient was extubated uneventfully within a few hours after she arrived to the ICU. Her postoperative course has been basically uneventful. Except for slightly elevated liver enzymes/transaminases. And this was unexpected. Patient is relatively asymptomatic, she is in the ICU, sitting at a bedside chair, has minimal pain at the surgical site, and the tube insertion sites. Denies any shortness of breath, she is hemodynamically stable not requiring any inotropes or process. Cardiac output is 3.8 cardiac index is 2.2. CVP is 8. Urine output has been marginal, patient was given 500 mL of albumin. And that seems to be helping. Objective - Vital Signs Vital signs: Vital Signs Temp 98.2 F 08/07/18 08:00 Pulse 77 08/07/18 11:35 Resp 18 08/07/18 10:00 BP 104/58 08/07/18 10:00 Pulse Ox 98 08/07/18 10:00 Intake & Output 08/06/18 08/07/18 08/07/18 18:59 06:59 18:59 Intake Total 238.230 907.624 213 Output Total 2895 1044 185 Balance -2656.770 -136.376 28 Weight 80.9 kg 80.9 kg Intake: IV 230 901 213 CO/CI 90 270 20 LR 110 550 160 Pressure Bags 27 81 33 Intake, IV Titration 8.230 6.624 0 Amount Clevidipine Butyrate 25 0.267 mg In Empty Bag 1 bag @ 1 MG/HR 2 mls/hr IV .Q24H MICHAEL Rx#:[id number] Insulin Regular 100 unit 0.025 6.624 0 In Sodium Chloride 0.9% 100 ml @ Per Protocol IV .Q0M MICHAEL Rx#:[id number] Propofol 1,000 mg In 7.938 Empty Bag 1 bag @ Titrate IV .Q0M MICHAEL Rx#: [id number] Output: Chest Tube Drainage 90 274 80 Chest Tube Left Left 30 104 20 Pleural/Mediastinal Chest Tube Mediastinal 60 170 60 Urine 1605 770 105 Estimated Blood Loss 1200 Other: Voiding Method Indwelling Catheter Indwelling Catheter Indwelling Catheter ABP, PAP, CO, CI - Last Documented Arterial Blood Pressure 112/102 Pulmonary Artery Pressure 34/15 Cardiac Output 4.6 Cardiac Index 2.7 - Exam Physical Exam: Revealed a 77-year-old female in no distress. On 2 L nasal can nula, O2 saturation is 98%. Head: Atraumatic, normocephalic. HEENT:[Neck is supple.] [No neck masses.] [No thyromegaly.] [No JVD.] Moist mucous membranes noted. Chest: [Diminished breath sounds at the bases, no crackles or rhonchi or wheezes.] Cardiac Exam: Regular rhythm and rate. S1 and S2 present, negative for S3, gallop or murmur. Sternum is stable. Bedside telemetry showing DDD paced rhythm at 80. Underlying rhythm showing sinus bradycardia with some occasional junctional beats heart rate in the 50s. Atrial and ventricular epicardial pacemaker wires intact and connected to back up pacemaker generator. Right IJ [place]-Ag and Cordis catheter in place and functioning. Abdomen: [Soft, nontender, no megaly, no rebound, no guarding, normal bowel sounds.] Extremities: [No clubbing, no edema, no cyanosis.] Neurological Exam: [No focal neurologic deficit.], Alert oriented 3. - Labs CBC & Chem 7: 08/07/18 04:00 08/07/18 04:00 Labs: Abnormal Lab Results - Last 24 Hours (Table) 08/04/18 08/06/18 08/06/18 Range/Units 06:01 08:58 10:12 RBC (3.80-5.40) m/uL Hgb (11.4-16.0) gm/dL Hct (34.0-46.0) % APTT (22.0-30.0) sec ABG pH 7.46 H (7.35-7.45) ABG pCO2 32 L (35-45) mmHg ABG pO2 390 H 230 H (83-108) mmHg ABG Total CO2 (19-24) mmol/L ABG O2 Saturation 100.0 H 100.0 H (94-97) % ABG Hematocrit 31 L 29 L (34.0-46.0) % ABG Sodium (135-146) mmol/L ABG Potassium (3.4-4.5) mmol/L ABG Ionized Calcium (4.5-5.3) mg/dL ABG Glucose 106 H (75-99) mg/dL ABG Lactic Acid 1.7 H (0.5-1.6) mmol/L Hemoglobin 10.2 L 9.6 L (11.4-16.0) gm/dL Sodium (137-145) mmol/L Chloride (98-107) mmol/L BUN (7-17) mg/dL Glucose (74-99) mg/dL POC Glucose (mg/dL) (75-99) mg/dL Ionized Calcium Khloe (4.5-5.3) mg/dL Magnesium (1.6-2.3) mg/dL AST (14-36) U/L ALT (9-52) U/L Total Protein (6.3-8.2) g/dL Albumin (3.5-5.0) g/dL Arterial Blood Potassium (3.4-4.5) mmol/L Arterial Blood Glucose 106 H (75-99) mg/dL Crossmatch See Detail 08/06/18 08/06/18 08/06/18 Range/Units 10:21 11:56 12:26 RBC (3.80-5.40) m/uL Hgb (11.4-16.0) gm/dL Hct (34.0-46.0) % APTT (22.0-30.0) sec ABG pH 7.31 L 7.33 L (7.35-7.45) ABG pCO2 47 H (35-45) mmHg ABG pO2 331 H 299 H 384 H (83-108) mmHg ABG Total CO2 26 H (19-24) mmol/L ABG O2 Saturation 100.0 H 100.0 H 100.0 H (94-97) % ABG Hematocrit 23 L 23 L 23 L (34.0-46.0) % ABG Sodium 134 L (135-146) mmol/L ABG Potassium 4.6 H 4.7 H (3.4-4.5) mmol/L ABG Ionized Calcium (4.5-5.3) mg/dL ABG Glucose 191 H 165 H 131 H (75-99) mg/dL ABG Lactic Acid 2.0 H 2.3 H* (0.5-1.6) mmol/L Hemoglobin 7.4 L 7.5 L 7.5 L (11.4-16.0) gm/dL Sodium (137-145) mmol/L Chloride (98-107) mmol/L BUN (7-17) mg/dL Glucose (74-99) mg/dL POC Glucose (mg/dL) (75-99) mg/dL Ionized Calcium Khloe (4.5-5.3) mg/dL Magnesium (1.6-2.3) mg/dL AST (14-36) U/L ALT (9-52) U/L Total Protein (6.3-8.2) g/dL Albumin (3.5-5.0) g/dL Arterial Blood Potassium 4.6 H 4.7 H (3.4-4.5) mmol/L Arterial Blood Glucose 191 H 165 H 131 H (75-99) mg/dL Crossmatch 08/06/18 08/06/18 08/06/18 Range/Units 13:42 14:42 14:43 RBC 2.80 L (3.80-5.40) m/uL Hgb 7.8 L D (11.4-16.0) gm/dL Hct 24.4 L (34.0-46.0) % APTT (22.0-30.0) sec ABG pH (7.35-7.45) ABG pCO2 (35-45) mmHg ABG pO2 187 H (83-108) mmHg ABG Total CO2 25 H (19-24) mmol/L ABG O2 Saturation 100.0 H (94-97) % ABG Hematocrit 25 L (34.0-46.0) % ABG Sodium (135-146) mmol/L ABG Potassium (3.4-4.5) mmol/L ABG Ionized Calcium 5.4 H (4.5-5.3) mg/dL ABG Glucose 74 L (75-99) mg/dL ABG Lactic Acid 1.9 H (0.5-1.6) mmol/L Hemoglobin 8.1 L (11.4-16.0) gm/dL Sodium (137-145) mmol/L Chloride (98-107) mmol/L BUN (7-17) mg/dL Glucose (74-99) mg/dL POC Glucose (mg/dL) 72 L (75-99) mg/dL Ionized Calcium Khloe (4.5-5.3) mg/dL Magnesium (1.6-2.3) mg/dL AST (14-36) U/L ALT (9-52) U/L Total Protein (6.3-8.2) g/dL Albumin (3.5-5.0) g/dL Arterial Blood Potassium (3.4-4.5) mmol/L Arterial Blood Glucose 74 L (75-99) mg/dL Crossmatch 08/06/18 08/06/18 08/06/18 Range/Units 14:43 14:43 15:03 RBC (3.80-5.40) m/uL Hgb (11.4-16.0) gm/dL Hct (34.0-46.0) % APTT 34.0 H (22.0-30.0) sec ABG pH 7.33 L (7.35-7.45) ABG pCO2 (35-45) mmHg ABG pO2 284 H (83-108) mmHg ABG Total CO2 (19-24) mmol/L ABG O2 Saturation 99.5 H (94-97) % ABG Hematocrit (34.0-46.0) % ABG Sodium (135-146) mmol/L ABG Potassium (3.4-4.5) mmol/L ABG Ionized Calcium (4.5-5.3) mg/dL ABG Glucose (75-99) mg/dL ABG Lactic Acid (0.5-1.6) mmol/L Hemoglobin (11.4-16.0) gm/dL Sodium (137-145) mmol/L Chloride 110 H (98-107) mmol/L BUN 18 H (7-17) mg/dL Glucose 66 L (74-99) mg/dL POC Glucose (mg/dL) (75-99) mg/dL Ionized Calcium Khloe 5.8 H (4.5-5.3) mg/dL Magnesium 2.6 H (1.6-2.3) mg/dL AST 621 H (14-36) U/L ALT 312 H (9-52) U/L Total Protein 4.6 L (6.3-8.2) g/dL Albumin 2.7 L (3.5-5.0) g/dL Arterial Blood Potassium (3.4-4.5) mmol/L Arterial Blood Glucose (75-99) mg/dL Crossmatch 08/06/18 08/06/18 08/06/18 Range/Units 16:11 16:51 17:04 RBC (3.80-5.40) m/uL Hgb (11.4-16.0) gm/dL Hct (34.0-46.0) % APTT (22.0-30.0) sec ABG pH (7.35-7.45) ABG pCO2 (35-45) mmHg ABG pO2 (83-108) mmHg ABG Total CO2 26 H (19-24) mmol/L ABG O2 Saturation (94-97) % ABG Hematocrit (34.0-46.0) % ABG Sodium (135-146) mmol/L ABG Potassium (3.4-4.5) mmol/L ABG Ionized Calcium (4.5-5.3) mg/dL ABG Glucose (75-99) mg/dL ABG Lactic Acid (0.5-1.6) mmol/L Hemoglobin (11.4-16.0) gm/dL Sodium (137-145) mmol/L Chloride (98-107) mmol/L BUN (7-17) mg/dL Glucose (74-99) mg/dL POC Glucose (mg/dL) 130 H 144 H (75-99) mg/dL Ionized Calcium Khloe (4.5-5.3) mg/dL Magnesium (1.6-2.3) mg/dL AST (14-36) U/L ALT (9-52) U/L Total Protein (6.3-8.2) g/dL Albumin (3.5-5.0) g/dL Arterial Blood Potassium (3.4-4.5) mmol/L Arterial Blood Glucose (75-99) mg/dL Crossmatch 08/06/18 08/06/18 08/06/18 Range/Units 17:24 18:06 19:07 RBC 3.36 L (3.80-5.40) m/uL Hgb 9.3 L D (11.4-16.0) gm/dL Hct 28.1 L (34.0-46.0) % APTT (22.0-30.0) sec ABG pH (7.35-7.45) ABG pCO2 (35-45) mmHg ABG pO2 (83-108) mmHg ABG Total CO2 (19-24) mmol/L ABG O2 Saturation (94-97) % ABG Hematocrit (34.0-46.0) % ABG Sodium (135-146) mmol/L ABG Potassium (3.4-4.5) mmol/L ABG Ionized Calcium (4.5-5.3) mg/dL ABG Glucose (75-99) mg/dL ABG Lactic Acid (0.5-1.6) mmol/L Hemoglobin (11.4-16.0) gm/dL Sodium (137-145) mmol/L Chloride (98-107) mmol/L BUN (7-17) mg/dL Glucose (74-99) mg/dL POC Glucose (mg/dL) 136 H 123 H (75-99) mg/dL Ionized Calcium Khloe (4.5-5.3) mg/dL Magnesium (1.6-2.3) mg/dL AST (14-36) U/L ALT (9-52) U/L Total Protein (6.3-8.2) g/dL Albumin (3.5-5.0) g/dL Arterial Blood Potassium (3.4-4.5) mmol/L Arterial Blood Glucose (75-99) mg/dL Crossmatch 08/06/18 08/06/18 08/06/18 Range/Units 20:15 20:16 21:08 RBC 3.20 L (3.80-5.40) m/uL Hgb 9.0 L (11.4-16.0) gm/dL Hct 27.6 L (34.0-46.0) % APTT (22.0-30.0) sec ABG pH (7.35-7.45) ABG pCO2 (35-45) mmHg ABG pO2 (83-108) mmHg ABG Total CO2 (19-24) mmol/L ABG O2 Saturation (94-97) % ABG Hematocrit (34.0-46.0) % ABG Sodium (135-146) mmol/L ABG Potassium (3.4-4.5) mmol/L ABG Ionized Calcium (4.5-5.3) mg/dL ABG Glucose (75-99) mg/dL ABG Lactic Acid (0.5-1.6) mmol/L Hemoglobin (11.4-16.0) gm/dL Sodium (137-145) mmol/L Chloride (98-107) mmol/L BUN (7-17) mg/dL Glucose (74-99) mg/dL POC Glucose (mg/dL) 120 H 130 H (75-99) mg/dL Ionized Calcium Khloe (4.5-5.3) mg/dL Magnesium (1.6-2.3) mg/dL AST (14-36) U/L ALT (9-52) U/L Total Protein (6.3-8.2) g/dL Albumin (3.5-5.0) g/dL Arterial Blood Potassium (3.4-4.5) mmol/L Arterial Blood Glucose (75-99) mg/dL Crossmatch 08/06/18 08/06/18 08/06/18 Range/Units 22:09 22:54 23:45 RBC (3.80-5.40) m/uL Hgb (11.4-16.0) gm/dL Hct (34.0-46.0) % APTT (22.0-30.0) sec ABG pH (7.35-7.45) ABG pCO2 (35-45) mmHg ABG pO2 (83-108) mmHg ABG Total CO2 (19-24) mmol/L ABG O2 Saturation (94-97) % ABG Hematocrit (34.0-46.0) % ABG Sodium (135-146) mmol/L ABG Potassium (3.4-4.5) mmol/L ABG Ionized Calcium (4.5-5.3) mg/dL ABG Glucose (75-99) mg/dL ABG Lactic Acid (0.5-1.6) mmol/L Hemoglobin (11.4-16.0) gm/dL Sodium (137-145) mmol/L Chloride (98-107) mmol/L BUN (7-17) mg/dL Glucose (74-99) mg/dL POC Glucose (mg/dL) 118 H 128 H 136 H (75-99) mg/dL Ionized Calcium Khloe (4.5-5.3) mg/dL Magnesium (1.6-2.3) mg/dL AST (14-36) U/L ALT (9-52) U/L Total Protein (6.3-8.2) g/dL Albumin (3.5-5.0) g/dL Arterial Blood Potassium (3.4-4.5) mmol/L Arterial Blood Glucose (75-99) mg/dL Crossmatch 08/07/18 08/07/18 08/07/18 Range/Units 02:02 04:00 04:00 RBC 2.79 L (3.80-5.40) m/uL Hgb 7.7 L (11.4-16.0) gm/dL Hct 24.1 L (34.0-46.0) % APTT (22.0-30.0) sec ABG pH (7.35-7.45) ABG pCO2 (35-45) mmHg ABG pO2 (83-108) mmHg ABG Total CO2 (19-24) mmol/L ABG O2 Saturation (94-97) % ABG Hematocrit (34.0-46.0) % ABG Sodium (135-146) mmol/L ABG Potassium (3.4-4.5) mmol/L ABG Ionized Calcium (4.5-5.3) mg/dL ABG Glucose (75-99) mg/dL ABG Lactic Acid (0.5-1.6) mmol/L Hemoglobin (11.4-16.0) gm/dL Sodium 134 L (137-145) mmol/L Chloride (98-107) mmol/L BUN (7-17) mg/dL Glucose 105 H (74-99) mg/dL POC Glucose (mg/dL) 120 H (75-99) mg/dL Ionized Calcium Khloe (4.5-5.3) mg/dL Magnesium (1.6-2.3) mg/dL AST 306 H (14-36) U/L ALT 253 H (9-52) U/L Total Protein 5.0 L (6.3-8.2) g/dL Albumin 3.0 L (3.5-5.0) g/dL Arterial Blood Potassium (3.4-4.5) mmol/L Arterial Blood Glucose (75-99) mg/dL Crossmatch 08/07/18 08/07/18 08/07/18 Range/Units 04:01 06:09 09:58 RBC (3.80-5.40) m/uL Hgb (11.4-16.0) gm/dL Hct (34.0-46.0) % APTT (22.0-30.0) sec ABG pH (7.35-7.45) ABG pCO2 (35-45) mmHg ABG pO2 (83-108) mmHg ABG Total CO2 (19-24) mmol/L ABG O2 Saturation (94-97) % ABG Hematocrit (34.0-46.0) % ABG Sodium (135-146) mmol/L ABG Potassium (3.4-4.5) mmol/L ABG Ionized Calcium (4.5-5.3) mg/dL ABG Glucose (75-99) mg/dL ABG Lactic Acid (0.5-1.6) mmol/L Hemoglobin (11.4-16.0) gm/dL Sodium (137-145) mmol/L Chloride (98-107) mmol/L BUN (7-17) mg/dL Glucose (74-99) mg/dL POC Glucose (mg/dL) 112 H 102 H 115 H (75-99) mg/dL Ionized Calcium Khloe (4.5-5.3) mg/dL Magnesium (1.6-2.3) mg/dL AST (14-36) U/L ALT (9-52) U/L Total Protein (6.3-8.2) g/dL Albumin (3.5-5.0) g/dL Arterial Blood Potassium (3.4-4.5) mmol/L Arterial Blood Glucose (75-99) mg/dL Crossmatch Microbiology - Last 24 Hours (Table) 08/04/18 06:30 Urine Culture - Final Urine,Voided Escherichia coli Assessment and Plan Assessment: Impression: 1 status post CABG 4, postoperative day #1. 2 non-ST elevation myocardial infarction 3 multiple comorbidities including hypertension, hiatal hernia, GERD without esophagitis, and coronary artery disease. 4 postoperative atelectasis, expected after CABG. Recommendation: Continue incentive spirometry. Wean O2 as tolerated. Encourage deep coughing and deep breathing, early ambulation, GI and DVT prophylaxis, aspirin and Plavix, increase activity as tolerated, continue bronchodilators, and daily assessment of chest x-ray, pain control, will continue to follow. Time with Patient: Less than 30
[2018-08-07] MEDS ORDERED: HYDROcodone/APAP 5-325MG 1 EACH TAB PO STA (16:25)
[2018-08-07] MEDS ORDERED: FUROSEMIDE 10 MG/ML 2 ML VIAL IV STA (16:30)
--- NOTE | 2018-08-07 16:31 | PN ---
PROGRESS NOTE DATE OF SERVICE: 08/07/2018 This 77 -year-old woman was admitted after triple vessel disease, had CAD/CABG x4. The patient being closely monitored. The patient is still on insulin drip. No chest pain. No palpitations. Blood sugars are well controlled with 102/92. PHYSICAL EXAM: Alert and oriented x3. Pulse 80. Blood pressure 107/60, respiration 18, temperature 98.2, pulse ox 99% on room air. HEENT: Conjunctivae normal. NECK: No jugular venous distention. CARDIOVASCULAR: S1, S2 muffled. RESPIRATORY: Breath sounds diminished at the bases. A few scattered rhonchi and crackles. ABDOMEN is soft, nontender. LEGS are no edema. No swelling. CENTRAL NERVOUS SYSTEM: No focal deficits. LAB STUDIES: WBC 4.8, hemoglobin 7.7, sodium is 134, and AST 306 and ALT is 253. ASSESSMENT: 1. Acute non ST segment elevation myocardial infarction present on admission, status post cardiac catheterization, triple-vessel disease and status post acute coronary artery bypass grafting x4. 2. Hypertension. 3. Hyperlipidemia. 4. Gastroesophageal reflux disease. 5. Anemia, normocytic anemia of chronic disease, present on admission. 6. History of hernia. 7. History of skin cancer. 8. History of adenoidectomy. 9. History of coronary artery disease, stent. 10.History of anxiety. 11.Remote history of nicotine dependence. 12.Elevated LFTs. RECOMMENDATIONS AND DISCUSSION: Continue current medications, management and symptomatic treatment. Continue to monitor. Otherwise, at this time, recommend to continue with incentive spirometer, bronchodilators. Stop the insulin drip and Accu-Cheks a.c. and at bedtime and continue to monitor. Closely follow with multiple consultants. Further recommendations to follow. MMODL / IJN: [id number] /
--- NOTE | 2018-08-07 17:09 | P.PN ---
Subjective Progress Note Date: 08/07/18 This is a 77-year-old female with history of ischemic heart disease with previous stent placement of the proximal LAD who came to the hospital with complaints of a chest pain and unstable angina. Patient had a cardiac catheterization and was found to have triple-vessel disease. Patient underwent aorto coronary bypass surgery yesterday. Patient is sitting up in the chair. No arrhythmias. He will dynamically relatively stable. Urine output is on the low side. Patient is going to get albumin. Patient seemed to be atrial pacing. Otherwise clinically stable Objective - Vital Signs Vital signs: Vital Signs Temp 98.1 F 08/07/18 16:00 Pulse 80 08/07/18 16:03 Resp 11 L 08/07/18 16:00 BP 112/62 08/07/18 16:00 Pulse Ox 99 08/07/18 16:00 Intake & Output 08/06/18 08/07/18 08/07/18 18:59 06:59 18:59 Intake Total 238.230 907.624 397 Output Total 2895 1044 490 Balance -2656.770 -136.376 -93 Weight 80.9 kg 80.9 kg Intake: IV 230 901 397 CO/CI 90 270 20 LR 110 550 320 Pressure Bags 27 81 57 Intake, IV Titration 8.230 6.624 0 Amount Clevidipine Butyrate 25 0.267 mg In Empty Bag 1 bag @ 1 MG/HR 2 mls/hr IV .Q24H MICHAEL Rx#:[id number] Insulin Regular 100 unit 0.025 6.624 0 In Sodium Chloride 0.9% 100 ml @ Per Protocol IV .Q0M MICHAEL Rx#:[id number] Propofol 1,000 mg In 7.938 Empty Bag 1 bag @ Titrate IV .Q0M MICHAEL Rx#: [id number] Output: Chest Tube Drainage 90 274 230 Chest Tube Left Left 30 104 80 Pleural/Mediastinal Chest Tube Mediastinal 60 170 150 Urine 1605 770 260 Estimated Blood Loss 1200 Other: Voiding Method Indwelling Catheter Indwelling Catheter Indwelling Catheter ABP, PAP, CO, CI - Last Documented Arterial Blood Pressure 112/102 Pulmonary Artery Pressure 34/15 Cardiac Output 4.6 Cardiac Index 2.7 - Exam GENERAL EXAM: Patient is alert and oriented and doesn't appear to be in any acute distress HEENT: Normocephalic. Normal reaction of pupils, equal size, normal range of extraocular motion. No erythema or exudates in the throat. NECK: No masses, no nuchal rigidity. CHEST: Postsurgical LUNGS: Diminished breath sounds HEART: S1 and S2 normal with no audible mumurs or gallops. Regular rhythm, femorals equal on both sides.. ABDOMEN: No hepatosplenomegaly, normal bowel sounds, no guarding or rigidity. SKIN: No rashes CENTRAL NERVOUS SYSTEM: No focal deficits. EXTREMITIES: No cyanosis, clubbing or edema. - Labs CBC & Chem 7: 08/07/18 04:00 08/07/18 04:00 Labs: Abnormal Lab Results - Last 24 Hours (Table) 08/04/18 08/06/18 08/06/18 Range/Units 06:01 17:04 17:24 RBC 3.36 L (3.80-5.40) m/uL Hgb 9.3 L D (11.4-16.0) gm/dL Hct 28.1 L (34.0-46.0) % Sodium (137-145) mmol/L Glucose (74-99) mg/dL POC Glucose (mg/dL) 144 H (75-99) mg/dL AST (14-36) U/L ALT (9-52) U/L Total Protein (6.3-8.2) g/dL Albumin (3.5-5.0) g/dL Crossmatch See Detail 08/06/18 08/06/18 08/06/18 Range/Units 18:06 19:07 20:15 RBC 3.20 L (3.80-5.40) m/uL Hgb 9.0 L (11.4-16.0) gm/dL Hct 27.6 L (34.0-46.0) % Sodium (137-145) mmol/L Glucose (74-99) mg/dL POC Glucose (mg/dL) 136 H 123 H (75-99) mg/dL AST (14-36) U/L ALT (9-52) U/L Total Protein (6.3-8.2) g/dL Albumin (3.5-5.0) g/dL Crossmatch 08/06/18 08/06/18 08/06/18 Range/Units 20:16 21:08 22:09 RBC (3.80-5.40) m/uL Hgb (11.4-16.0) gm/dL Hct (34.0-46.0) % Sodium (137-145) mmol/L Glucose (74-99) mg/dL POC Glucose (mg/dL) 120 H 130 H 118 H (75-99) mg/dL AST (14-36) U/L ALT (9-52) U/L Total Protein (6.3-8.2) g/dL Albumin (3.5-5.0) g/dL Crossmatch 08/06/18 08/06/18 08/07/18 Range/Units 22:54 23:45 02:02 RBC (3.80-5.40) m/uL Hgb (11.4-16.0) gm/dL Hct (34.0-46.0) % Sodium (137-145) mmol/L Glucose (74-99) mg/dL POC Glucose (mg/dL) 128 H 136 H 120 H (75-99) mg/dL AST (14-36) U/L ALT (9-52) U/L Total Protein (6.3-8.2) g/dL Albumin (3.5-5.0) g/dL Crossmatch 08/07/18 08/07/18 08/07/18 Range/Units 04:00 04:00 04:01 RBC 2.79 L (3.80-5.40) m/uL Hgb 7.7 L (11.4-16.0) gm/dL Hct 24.1 L (34.0-46.0) % Sodium 134 L (137-145) mmol/L Glucose 105 H (74-99) mg/dL POC Glucose (mg/dL) 112 H (75-99) mg/dL AST 306 H (14-36) U/L ALT 253 H (9-52) U/L Total Protein 5.0 L (6.3-8.2) g/dL Albumin 3.0 L (3.5-5.0) g/dL Crossmatch 08/07/18 08/07/18 Range/Units 06:09 09:58 RBC (3.80-5.40) m/uL Hgb (11.4-16.0) gm/dL Hct (34.0-46.0) % Sodium (137-145) mmol/L Glucose (74-99) mg/dL POC Glucose (mg/dL) 102 H 115 H (75-99) mg/dL AST (14-36) U/L ALT (9-52) U/L Total Protein (6.3-8.2) g/dL Albumin (3.5-5.0) g/dL Crossmatch Assessment and Plan (1) Ischemic heart disease Current Visit: Yes Status: Acute Code(s): I25.9 - CHRONIC ISCHEMIC HEART DIS EASE, UNSPECIFIED SNOMED Code(s): 774001174 (2) NSTEMI (non-ST elevated myocardial infarction) Current Visit: Yes Status: Acute Code(s): I21.4 - NON-ST ELEVATION (NSTEMI) MYOCARDIAL INFARCTION SNOMED Code(s): 18034658 (3) Essential hypertension Current Visit: Yes Status: Acute Code(s): I10 - ESSENTIAL (PRIMARY) HYPERTENSION SNOMED Code(s): 39869320 (4) Hypercholesterolemia Current Visit: Yes Status: Acute Code(s): E78.00 - PURE HYPERCHOLESTEROLEMIA, UNSPECIFIED SNOMED Code(s): 41245435 Plan: Patient is status post bypass surgery. Clinically stable. Increase activity as tolerated. Patient is going to get albumin. Further comminution depend upon the clinical course.
[2018-08-07] MEDS: INSULIN ASPART (NovoLOG) 100 UNIT/ML VIAL SQ SCH ×2 (17:22→20:46)
[2018-08-07 17:31] LABS: Glucose,Whole Blood 128 mg/dL (75-99)
[2018-08-07] MEDS: SENNOSIDES-DOCUSATE SODIUM 1 EACH TAB PO SCH (20:40)
[2018-08-07 20:54] LABS: Glucose,Whole Blood 121 mg/dL (75-99)
[2018-08-08] MEDS: HEPARIN SODIUM,PORCINE 5,000 UNIT/ML 1 ML VIAL SQ SCH ×4 (00:12→23:42)
[2018-08-08] MEDS: HYDROcodone/APAP 5-325MG 1 EACH TAB PO PRN ×5 (03:32→21:02)
[2018-08-08 04:47] LABS: Basophils % (A) 0 %; Eosinophils # (A) 0.2 k/uL (0-0.7); Eosinophils % (A) 3 %; HGB 7.2 gm/dL (11.4-16.0); Lymphocytes # (A) 1.2 k/uL (1.0-4.8); Lymphocytes % (A) 23 %; MCH 28.1 pg (25.0-35.0); MCHC 32.8 g/dL (31.0-37.0); MCV 85.6 fL (80.0-100.0); Mean Platelet Volume 8.2; Monocytes # (A) 0.2 k/uL (0-1.0); Monocytes % (A) 5 %; Neutrophils # (A) 3.5 k/uL (1.3-7.7); Neutrophils % (A) 68 %; Platelet Count 146 k/uL (150-450); RBC 2.57 m/uL (3.80-5.40); WBC 5.2 k/uL (3.8-10.6)
[2018-08-08 04:53] LABS: Ionized Calcium 5.1 mg/dL (4.5-5.3)
[2018-08-08 05:00] LABS: ALT 92 U/L (9-52); AST 84 U/L (14-36); African American GFR (CKD) >90 (>60 ml/min/1.73 sqM); Alkaline Phosphatase 91 U/L (38-126); Anion Gap 5 mmol/L; Blood Urea Nitrogen 15 mg/dL (7-17); Calcium 8.6 mg/dL (8.4-10.2); Carbon Dioxide 26 mmol/L (22-30); Chloride 102 mmol/L (98-107); Glucose 110 mg/dL (74-99); Sodium 133 mmol/L (137-145); Total Bilirubin 0.5 mg/dL (0.2-1.3); Total Protein 4.8 g/dL (6.3-8.2)
[2018-08-08] MEDS: INSULIN ASPART (NovoLOG) 100 UNIT/ML VIAL SQ SCH ×4 (07:04→21:03)
[2018-08-08 07:08] LABS: Glucose,Whole Blood 99 mg/dL (75-99)
[2018-08-08] MEDS: IPRATROPIUM-ALBUTEROL 3 ML NEB INHALATION SCH ×4 (07:47→20:55)
[2018-08-08] MEDS: MULTIVITAMINS, THERA 1 EACH TAB PO SCH (08:20)
[2018-08-08] MEDS: ASPIRIN 325 MG TAB PO SCH (08:20)
[2018-08-08] MEDS: CLOPIDOGREL 75 MG TAB PO SCH (08:20)
[2018-08-08] MEDS: LORATADINE 10 MG TAB PO SCH (08:20)
[2018-08-08] MEDS: PANTOPRAZOLE 40 MG TABLET PO SCH ×2 (08:20→18:02)
[2018-08-08] MEDS: ASCORBIC ACID 500 MG TAB PO SCH ×2 (08:20→18:01)
[2018-08-08] MEDS: FERROUS SULFATE 325 MG TAB PO SCH ×2 (08:20→18:01)
[2018-08-08] MEDS: MUPIROCIN 2% OINT 22 GM TUBE NASAL SCH ×2 (08:21→21:04)
--- NOTE | 2018-08-08 08:27 | XR ---
EXAMINATION TYPE: XR chest 1V portable DATE OF EXAM: 08/08/2018 COMPARISON: 08/07/2018 HISTORY: Postoperative cardiac surgery TECHNIQUE: Single frontal view of the chest is obtained. FINDINGS: Heart is enlarged and left-sided chest tube. Postsurgical changes are seen with mediastina l drain and. Bilateral consolidation small effusion. No pneumothorax or overt failure. IMPRESSION: 1. Bilateral infiltrate and small effusion. 2. [place]-Ag catheter has been removed with no sizable pneumothorax.
[2018-08-08] MEDS ORDERED: FUROSEMIDE 10 MG/ML 2 ML VIAL IV ONE (09:09)
--- NOTE | 2018-08-08 09:28 | P.PN ---
Subjective Progress Note Date: 08/08/18 This is a 77-year-old female with history of ischemic heart disease with previous stent placement of the proximal LAD who came to the hospital with complaints of a chest pain and unstable angina. Patient had a cardiac catheterization and was found to have triple-vessel disease. Patient underwent aorto coronary bypass surgery yesterday. Patient is sitting up in the chair. No arrhythmias. He will dynamically relatively stable. Urine output is on the low side. Patient is going to get albumin. Patient seemed to be atrial pacing. Otherwise clinically stable. 08/08/2018: This 77-year-old female has undergone aortic coronary bypass surgery. Seemed to be clinically stable. Sitting up in the chair. Complains of soreness in the chest. Doesn't appear in acute distress. Patient's cardiac rhythm seemed to be accelerated junctional rhythm. Urine output is good. Liver enzymes have improved overall. Patient seemed to be stable. We'll going to keep her off beta blockers for now. Objective - Vital Signs Vital signs: Vital Signs Temp 98.1 F 08/08/18 08:00 Pulse 78 08/08/18 09:00 Resp 23 08/08/18 09:00 BP 110/57 08/08/18 09:00 Pulse Ox 96 08/08/18 09:00 Intake & Output 08/07/18 08/08/18 08/08/18 18:59 06:59 18:59 Intake Total 484 408 84 Output Total 1595 694 75 Balance -1111 -286 9 Weight 80.9 kg 83.2 kg Intake: IV 484 308 84 CO/CI 20 LR 395 275 75 Pressure Bags 69 33 9 Intake, IV Titration 0 Amount Insulin Regular 100 unit 0 In Sodium Chloride 0.9% 100 ml @ Per Protocol IV .Q0M [facility] Rx#:[id number] Oral 100 Output: Chest Tube Drainage 270 60 15 Chest Tube Left Left 90 30 5 Pleural/Mediastinal Chest Tube Mediastinal 180 30 10 Urine 1325 634 60 Other: Voiding Method Indwelling Catheter Indwelling Catheter ABP, PAP, CO, CI - Last Documented Arterial Blood Pressure 112/102 Pulmonary Artery Pressure 34/15 Cardiac Output 4.6 Cardiac Index 2.7 - Exam GENERAL EXAM: Patient is alert and oriented and doesn't appear to be in any acute distress HEENT: Normocephalic. Normal reaction of pupils, equal size, normal range of extraocular motion. No erythema or exudates in the throat. NECK: No masses, no nuchal rigidity. CHEST: Postsurgical LUNGS: Diminished breath sounds HEART: S1 and S2 normal with no audible mumurs or gallops. Regular rhythm, femorals equal on both sides.. ABDOMEN: No hepatosplenomegaly, normal bowel sounds, no guarding or rigidity. SKIN: No rashes CENTRAL NERVOUS SYSTEM: No focal deficits. EXTREMITIES: No cyanosis, clubbing or edema. - Labs CBC & Chem 7: 08/08/18 04:40 08/08/18 04:40 Labs: Abnormal Lab Results - Last 24 Hours (Table) 08/07/18 08/07/18 08/07/18 Range/Units 09:58 17:18 20:44 RBC (3.80-5.40) m/uL Hgb (11.4-16.0) gm/dL Hct (34.0-46.0) % Plt Count (150-450) k/uL Sodium (137-145) mmol/L Glucose (74-99) mg/dL POC Glucose (mg/dL) 115 H 128 H 121 H (75-99) mg/dL AST (14-36) U/L ALT (9-52) U/L Total Protein (6.3-8.2) g/dL Albumin (3.5-5.0) g/dL 08/08/18 08/08/18 Range/Units 04:40 04:40 RBC 2.57 L (3.80-5.40) m/uL Hgb 7.2 L (11.4-16.0) gm/dL Hct 22.0 L (34.0-46.0) % Plt Count 146 L (150-450) k/uL Sodium 133 L (137-145) mmol/L Glucose 110 H (74-99) mg/dL POC Glucose (mg/dL) (75-99) mg/dL AST 84 H (14-36) U/L ALT 92 H (9-52) U/L Total Protein 4.8 L (6.3-8.2) g/dL Albumin 3.0 L (3.5-5.0) g/dL Assessment and Plan (1) Ischemic heart disease Current Visit: Yes Status: Acute Code(s): I25.9 - CHRONIC ISCHEMIC HEART DISEASE, UNSPECIFIED SNOMED Code(s): 366553800 (2) NSTEMI (non-ST elevated myocardial infarction) Current Visit: Yes Status: Acute Code(s): I21.4 - NON-ST ELEVATION (NSTEMI) MYOCARDIAL INFARCTION SNOMED Code(s): 15590972 (3) Essential hypertension Current Visit: Yes Status: Acute Code(s): I10 - ESSENTIAL (PRIMARY) HYPERTENSION SNOMED Code(s): 57062296 (4) Hypercholesterolemia Current Visit: Yes Status: Acute Code(s): E78.00 - PURE HYPERCHOLESTEROLEMIA, UNSPECIFIED SNOMED Code(s): 40045602 Plan: Patient is status post bypass surgery. Clinically doing well. Patient is seemed to be in accelerated junctional rhythm. We'll continue current medical therapy. we'll hold beta taina. Incentive spirometry and increase activity as tolerated
--- NOTE | 2018-08-08 09:35 | P.PN ---
Subjective Progress Note Date: 08/08/18 Principal diagnosis: Triple-vessel coronary artery disease, non-ST elevated myocardial infarction this admission with history of coronary artery disease with stent placement to her mid left anterior descending coronary artery in 2002, hypertension, hyperlipidemia, previous tobacco dependance with preoperative FEV1 106% of predicted, gastroesophageal reflux disease, hiatal hernia, family history of premature coronary artery disease with her father being diagnosed at age 55 with a myocardial infarction, history of melanoma skin cancer to her left arm which was removed in September 2017, and obesity. Preoperative urine culture positive for E coli. POD #2 coronary artery bypass grafting 4 vessels with left internal mammary artery to the left anterior descending coronary artery, reverse greater saphenous vein graft to the obtuse marginal coronary artery, reverse greater sa phenous vein graft to the distal obtuse marginal coronary artery and reverse greater saphenous vein graft to the distal right coronary artery. Endoscopic vein harvest of the right greater saphenous vein, intraoperative transesophageal echocardiogram and epi-aortic ultrasound. Postoperative transaminitis, unexpected outcome of surgery. Postoperative acute blood loss anemia, expected outcome due to cardiopulmonary bypass and hemodilution. The patient is currently sitting up in a recliner in no acute distress. Does complain of postsurgical type pain but rarely requests pain medication. Denies shortness of breath. She did have some hypotension and low urine output yesterday which was treated with IV albumin in the morning and low-dose Lasix in the evening. She was A/V paced this morning with rate 80 bpm, currently her pacemaker is set at AAI mode with backup rate 50 bpm, accelerated junctional rhythm on telemetry with rate in the 70s and stable blood pressure. She is actively attempting incentive spirometry with strong cough. She is on no inotropes or pressors Objective - Vital Signs Vital signs: Vital Signs Temp 98.2 F 08/08/18 04:00 Pulse 83 08/08/18 07:00 Resp 20 08/08/18 07:00 BP 130/60 08/08/18 07:00 Pulse Ox 97 08/08/18 07:00 Intake & Output 08/07/18 08/08/18 08/08/18 18:59 06:59 18:59 Intake Total 484 408 28 Output Total 1596 694 75 Balance -1111 -286 -47 Weight 80.9 kg 83.2 kg Intake: IV 484 308 28 CO/CI 20 LR 395 275 25 Pressure Bags 69 33 3 Intake, IV Titration 0 Amount Insulin Regular 100 unit 0 In Sodium Chloride 0.9% 100 ml @ Per Protocol IV .Q0M [facility] Rx#:[id number] Oral 100 Output: Chest Tube Drainage 270 60 15 Chest Tube Left Left 90 30 5 Pleural/Mediastinal Chest Tube Mediastinal 180 30 10 Urine 1325 634 60 Other: Voiding Method Indwelling Catheter Indwelling Catheter ABP, PAP, CO, CI - Last Documented Arterial Blood Pressure 112/102 Pulmonary Artery Pressure 34/15 Cardiac Output 4.6 Cardiac Index 2.7 - Constitutional General appearance: Present: cooperative, no acute distress, obese - Respiratory Details: Lungs sounds clear but diminished bilaterally. Respirations even, nonlabored. Currently on 2 L nasal cannula with oxygen saturation 97%. Only able to achieve 500 mL on incentive spirometry. Strong cough. Mediastinal chest tube to continuous wall suction, 20 mL serosanguineous drainage, 250 mL the last 24 hours. Left pleural chest tube to continuous wall suction, 20 mL serosanguineous drainage overnight, 200 mL in the last hours. No air leaks present. - Cardiovascular Details: S1, S2 present. Regular rate and rhythm, accelerated junctional on telemetry. Sternum stable. A/V epicardial pacemaker wires present, connected to generator, AAI mode with backup rate 50 bpm. Palpable peripheral pulses bilaterally. No edema present. No calf pain or tenderness noted. Right internal jugular Cordis present. Heart hugger in place with patient demonstrating appropriate use. Antiembolism stockings, SCDs present. - Gastrointestinal Gastrointestinal Comment(s): Abdomen soft, nontender, nondistended. Active bowel sounds present 4 quadrants. Tolerating clear liquid diet. Positive flatus, negative bowel movement. - Genitourinary Genitourinary Comment(s): Arias present draining clear, yellow urine. Output overnight 25-45 mL per hour with 1.2 L diuresis after IV Lasix last night. - Integumentary Integumentary Comment(s): Skin is warm and dry with evidence of good perfusion. Anterior chest incision well approximated and covered with dry intact dressing. Right lower extremity EVH site well approximated with Dermabond. - Neurologic Neurologic: Present: CNII-XII intact - Musculoskeletal Musculoskeletal: Present: gait normal, strength equal bilaterally - Psychiatric Psychiatric: Present: A&O x's 3, appropriate affect, intact judgment & insight - Allied health notes Allied health notes reviewed: nursing - Labs CBC & Chem 7: 08/08/18 04:40 08/08/18 04:40 Labs: Abnormal Lab Results - Last 24 Hours (Table) 08/07/18 08/07/18 08/07/18 Range/Units 09:58 17:18 20:44 RBC (3.80-5.40) m/uL Hgb (11.4-16.0) gm/dL Hct (34.0-46.0) % Plt Count (150-450) k/uL Sodium (137-145) mmol/L Glucose (74-99) mg/dL POC Glucose (mg/dL) 115 H 128 H 121 H (75-99) mg/dL AST (14-36) U/L ALT (9-52) U/L Total Protein (6.3-8.2) g/dL Albumin (3.5-5.0) g/dL 08/08/18 08/08/18 Range/Units 04:40 04:40 RBC 2.57 L (3.80-5.40) m/uL Hgb 7.2 L (11.4-16.0) gm/dL Hct 22.0 L (34.0-46.0) % Plt Count 146 L (150-450) k/uL Sodium 133 L (137-145) mmol/L Glucose 110 H (74-99) mg/dL POC Glucose (mg/dL) (75-99) mg/dL AST 84 H (14-36) U/L ALT 92 H (9-52) U/L Total Protein 4.8 L (6.3-8.2) g/dL Albumin 3.0 L (3.5-5.0) g/dL - Imaging and Cardiology Chest x-ray: image reviewed Assessment and Plan Assessment: 1. Severe triple-vessel coronary artery disease, status post urgent coronary artery bypass grafting 4 vessels 2. Non-ST elevated myocardial infarction 3. Ischemic heart disease 4. History of coronary artery disease with previous stent placement to mid LAD in 2002 5. Hypertension 6. Hyperlipidemia 7. Previous tobacco dependence with preoperative FEV1 106% of predicted 8. Gastroesophageal reflux disease 9. History of hiatal hernia 10. History of skin cancer with removal 11. Family history of premature coronary artery disease 12. Obesity 13. Preoperative urine culture positive for E. coli 14. Postoperative transaminitis 15. Postoperative acute blood loss anemia Plan: 1. Continue aspirin, Plavix. Will continue to hold beta taina therapy while junctional rhythm. Continue to hold Lipitor secondary to elevated liver enzymes, will re-institute once liver enzymes normalize. 2. Wean O2 as tolerated. Encourage incentive spirometry 10 times every hour while awake. 3. Increase activity, ambulate as tolerated. PT/OT/cardiac rehab following. 4. Bronchodilators per pulmonology. 5. Will monitor daily labs and x-rays. Electrolyte replacement per protocol. No transfusion. 6. Pain control current medication regimen. Will re-add IV Toradol. 7. Insulin management per primary care service. 8. Will add iron, vitamin C, multivitamin. Will give 20 mg IV lasix. 9. Will discontinue mediastinal chest tubes. Continue left pleural chest tube for another 24 hours. 10. Will discontinue Arias catheter. Bladder scan every 6 hours, may straight cath for greater than 300 mL. 11. GI/DVT prophylaxis. 12. Likely will place transfer orders for 3 [facility] cardiac stepdown. 13. More recommendations to follow as patient progresses. Time with Patient: Greater than 30
--- NOTE | 2018-08-08 11:50 | P.PN ---
Subjective Progress Note Date: 08/08/18 Principal diagnosis: Triple-vessel coronary artery disease, non-ST elevation myocardial infarction, status post CABG 4 vessels postoperative day #2 77-year-old female with non-ST elevation myocardial infarction on admission, hypertension, GERD, coronary artery disease, patient underwent four-vessel CABG, and I saw her yesterday while on mechanical ventilation. Patient was extubated uneventfully within a few hours after she arrived to the ICU. Her postoperative course has been basically uneventful. Except for slightly elevated liver enzymes/transaminases. And this was unexpected. Patient is relatively asymptomatic, she is in the ICU, sitting at a bedside chair, has minimal pain at the surgical site, and the tube insertion sites. Denies any shortness of breath, she is hemodynamically stable not requiring any inotropes or process. Cardiac output is 3.8 cardiac index is 2.2. CVP is 8. Urine output has been marginal, patient was given 500 mL of albumin. And that seems to be helping. Patient was reevaluated today on 08/08/2018, presently sitting in a recliner, in no distress, she is status post CABG postoperative day #2. Has no specific complaints except for minimal pain secondary to surgery. Patient responded well to albumin and fluids for low urine output and hypertension yesterday. Patient is hemodynamically stable, doing fairly with incentive spirometry. She is not requiring any inotropes or process. Hemoglobin is a bit low at 7.2, being add ressed by surgery on the case. Electrodes are normal. Chest x-ray showed minimal atelectasis and small effusion. Strongly doubt infiltrate. Objective - Vital Signs Vital signs: Vital Signs Temp 98.1 F 08/08/18 08:00 Pulse 73 08/08/18 11:36 Resp 17 08/08/18 11:00 BP 111/56 08/08/18 11:00 Pulse Ox 94 L 08/08/18 11:00 Intake & Output 08/07/18 08/08/18 08/08/18 18:59 06:59 18:59 Intake Total 484 408 107 Output Total 1591 672 595 Balance -1111 -286 -488 Weight 80.9 kg 83.2 kg Intake: IV 484 308 107 CO/CI 20 LR 395 275 95 Pressure Bags 69 33 12 Intake, IV Titration 0 Amount Insulin Regular 100 unit 0 In Sodium Chloride 0.9% 100 ml @ Per Protocol IV .Q0M [facility] Rx#:[id number] Oral 100 Output: Chest Tube Drainage 270 60 35 Chest Tube Left Left 90 30 5 Pleural/Mediastinal Chest Tube Mediastinal 180 30 30 Urine 1325 634 560 Other: Voiding Method Indwelling Catheter Indwelling Catheter ABP, PAP, CO, CI - Last Documented Arterial Blood Pressure 112/102 Pulmonary Artery Pressure 34/15 Cardiac Output 4.6 Cardiac Index 2.7 - Exam Physical Exam: Revealed a 77-year-old female in no distress. On 2 L nasal cannu la, O2 saturation is 98%. Head: Atraumatic, normocephalic. HEENT:[Neck is supple.] [No neck masses.] [No thyromegaly.] [No JVD.] Moist mucous membranes noted. Chest: [Diminished breath sounds at the bases, no crackles or rhonchi or wheezes.] Cardiac Exam: Regular rhythm and rate. S1 and S2 present, negative for S3, gallop or murmur. Sternum is stable. Abdomen: [Soft, nontender, no megaly, no rebound, no guarding, normal bowel sounds.] Extremities: [No clubbing, no edema, no cyanosis.] Neurological Exam: [No focal neurologic deficit.], Alert oriented 3. - Labs CBC & Chem 7: 08/08/18 04:40 08/08/18 04:40 Labs: Abnormal Lab Results - Last 24 Hours (Table) 08/07/18 08/07/18 08/08/18 Range/Units 17:18 20:44 04:40 RBC 2.57 L (3.80-5.40) m/uL Hgb 7.2 L (11.4-16.0) gm/dL Hct 22.0 L (34.0-46.0) % Plt Count 146 L (150-450) k/uL Sodium (137-145) mmol/L Glucose (74-99) mg/dL POC Glucose (mg/dL) 128 H 121 H (75-99) mg/dL AST (14-36) U/L ALT (9-52) U/L Total Protein (6.3-8.2) g/dL Albumin (3.5-5.0) g/dL 08/08/18 Range/Units 04:40 RBC (3.80-5.40) m/uL Hgb (11.4-16.0) gm/dL Hct (34.0-46.0) % Plt Count (150-450) k/uL Sodium 133 L (137-145) mmol/L Glucose 110 H (74-99) mg/dL POC Glucose (mg/dL) (75-99) mg/dL AST 84 H (14-36) U/L ALT 92 H (9-52) U/L Total Protein 4.8 L (6.3-8.2) g/dL Albumin 3.0 L (3.5-5.0) g/dL Assessment and Plan Assessment: Impression: 1 status post CABG 4, postoperative day #2 2 non-ST elevation myocardial infarction 3 multiple comorbidities including hypertension, hiatal hernia, GERD without es ophagitis, and coronary artery disease. 4 postoperative atelectasis, expected after CABG. Recommendation: 1 continue aspirin and Plavix. 2 increase activity and ambulate continue incentive spirometry 3 continue bronchodilators 4 continue pain control 5 continue GI and DVT prophylaxis 6 continue to monitor and address sugars as per insulin protocol. 7 continue to monitor daily chest x-ray 8 continue to monitor labs on a daily basis, 9 we'll continue to follow. Time with Patient: Less than 30
[2018-08-08 12:03] LABS: Glucose,Whole Blood 117 mg/dL (75-99)
--- NOTE | 2018-08-08 16:11 | PN ---
PROGRESS NOTE DATE OF SERVICE: 08/08/2018 This 77-year-old woman who was admitted after CAD, CABG is improving significantly. Chest tubes have been removed. No chest pain. No palpitations. No fever. The patient is off insulin drip and on sliding scale at this time. Blood sugar has been well controlled at 99 and 117. On exam, alert and oriented x3. Pulse 93, blood pressure 133/66, respirations 17, temperature 98.6, pulse ox 94% on 2 L. HEENT: Conjunctivae normal. NECK: No jugular venous distention. CARDIOVASCULAR SYSTEM: S1, S2 muffled. RESPIRATORY SYSTEM: Breath sounds diminished at the bases. A few scattered rhonchi and crackles. ABDOMEN: Soft. NERVOUS SYSTEM: No focal deficit. LABS: WBC 5.2, hemoglobin 7.2. ASSESSMENT: 1. Acute [id number]-elevation myocardial infarction, present on admission, status post cardiac catheterization, triple-vessel disease, status post coronary artery bypass grafting. 2. Hypertension. 3. Hyperlipidemia. 4. Gastroesophageal reflux disease. 5. Anemia; normocytic anemia of chronic disease, present on admission. 6. History of hernia. 7. History of skin cancer. 8. History of adenoidectomy. 9. History of coronary artery disease, stent. 10.History of anxiety. 11.Remote history of nicotine dependence. 12.Elevated liver function tests. 13.Escherichia coli urinary tract infection. RECOMMENDATIONS AND DISCUSSION: I recommend to continue current medications, continue with the monitoring, symptomatic treatment. Will continue to monitor. Otherwise, I would also recommend antibiotics for UTI. Further recommendations to follow. MMODL / IJN: [id number] /
[2018-08-08 17:15] LABS: Glucose,Whole Blood 117 mg/dL (75-99)
[2018-08-08 18:20] LABS: Basophils % (A) 0 %; Eosinophils # (A) 0.1 k/uL (0-0.7); Eosinophils % (A) 2 %; HCT 24.9 % (34.0-46.0); HGB 8.3 gm/dL (11.4-16.0); Lymphocytes # (A) 1.9 k/uL (1.0-4.8); Lymphocytes % (A) 26 %; MCH 28.4 pg (25.0-35.0); MCHC 33.4 g/dL (31.0-37.0); MCV 85.1 fL (80.0-100.0); Mean Platelet Volume 7.8; Monocytes # (A) 0.2 k/uL (0-1.0); Monocytes % (A) 3 %; Neutrophils # (A) 4.8 k/uL (1.3-7.7); Neutrophils % (A) 67 %; Platelet Count 233 k/uL (150-450); RBC 2.92 m/uL (3.80-5.40); RDW 13.8 % (11.5-15.5); WBC 7.2 k/uL (3.8-10.6)
[2018-08-08 20:46] LABS: Glucose,Whole Blood 149 mg/dL (75-99)
[2018-08-08] MEDS: SENNOSIDES-DOCUSATE SODIUM 1 EACH TAB PO SCH (21:02)
[2018-08-09] MEDS: HYDROcodone/APAP 5-325MG 1 EACH TAB PO PRN ×5 (01:02→20:37)
[2018-08-09 02:34] LABS: Glucose,Whole Blood 123 mg/dL (75-99)
[2018-08-09] MEDS: SODIUM CHLORIDE 0.9% 1,000 ML IV SCH ×2 (04:46→04:53)
[2018-08-09] MEDS: PANTOPRAZOLE 40 MG TABLET PO SCH ×2 (04:50→07:11)
[2018-08-09] MEDS: ASPIRIN 325 MG TAB PO SCH ×2 (04:50→08:27)
[2018-08-09] MEDS: NITROGLYCERIN OINT 1 INCH/GM PACKET TOPICAL SCH (04:50)
[2018-08-09] MEDS: ATORVASTATIN 80 MG TAB PO SCH (04:51)
[2018-08-09] MEDS: METOPROLOL SUCCINATE (ER) 25 MG TAB.ER.24H PO SCH (04:51)
[2018-08-09] MEDS: MUPIROCIN 2% OINT 22 GM TUBE NASAL SCH ×2 (04:51→08:36)
[2018-08-09] MEDS: METOPROLOL TARTRATE 12.5 MG TAB PO SCH ×3 (04:53→20:37)
[2018-08-09] MEDS: LACTATED RINGERS 1,000 ML IV SCH (04:54)
[2018-08-09 06:12] LABS: HCT 26.3 % (34.0-46.0); HGB 8.6 gm/dL (11.4-16.0); MCH 28.1 pg (25.0-35.0); MCHC 32.9 g/dL (31.0-37.0); MCV 85.3 fL (80.0-100.0); Mean Platelet Volume 7.6; Platelet Count 281 k/uL (150-450); RBC 3.08 m/uL (3.80-5.40); RDW 13.8 % (11.5-15.5); WBC 8.7 k/uL (3.8-10.6)
[2018-08-09 06:20] LABS: Calcium 9.4 mg/dL (8.4-10.2); Potassium 4.1 mmol/L (3.5-5.1)
[2018-08-09] MEDS: INSULIN ASPART (NovoLOG) 100 UNIT/ML VIAL SQ SCH ×3 (06:38→17:50)
[2018-08-09 06:49] LABS: Glucose,Whole Blood 99 mg/dL (75-99)
[2018-08-09] MEDS: FERROUS SULFATE 325 MG TAB PO SCH (07:11)
[2018-08-09] MEDS: ASCORBIC ACID 500 MG TAB PO SCH ×2 (07:11→18:18)
[2018-08-09 08:17] LABS: ALT 99 U/L (9-52); AST 63 U/L (14-36)
--- NOTE | 2018-08-09 08:26 | P.PN ---
Subjective Progress Note Date: 08/09/18 Principal diagnosis: Triple-vessel coronary artery disease, non-ST elevated myocardial infarction this admission with history of coronary artery disease with stent placement to her mid left anterior descending coronary artery in 2002, hypertension, hyperlipidemia, previous tobacco dependance with preoperative FEV1 106% of predicted, gastroesophageal reflux disease, hiatal hernia, family history of premature coronary artery disease with her father being diagnosed at age 55 with a myocardial infarction, history of melanoma skin cancer to her left arm which was removed in September 2017, and obesity. Preoperative urine culture positive for E coli, possible contamination as patient has no urinary tract symptoms, no leukocytosis, has remained afebrile. POD #3 coronary artery bypass grafting 4 vessels with left internal mammary artery to the left anterior descending coronary artery, reverse greater saphenous vein graft to the obtuse marginal coronary artery, reverse greater saphenous vein graft to the distal obtuse marginal coronary artery and reverse greater saphenous vein graft to the distal right coronary artery. Endoscopic vein harvest of the right greater saphenous vein, intraoperative transesophageal echocardiogram and epi-aortic ultrasound. Postoperative transaminitis, unexpected outcome of surgery. Postoperative acute blood loss anemia, expected outcome due to cardiopulmonary bypass and hemodilution. The patient is currently sitting up in the recliner in the intensive care unit in no acute distress. States her post surgical pain gets better every day. Denies shortness of breath. She did ambulate in the hallway 3 times yesterday. Vital signs remain stable on no inotropes or pressors. Mediastinal chest tubes, Cordis, Arias catheter were discontinued yesterday. Currently in normal sinus rhythm. Transfer orders were placed yesterday for 3 S. cardiac stepdown unit, awaiting bed placement. No new complaints. Objective - Vital Signs Vital signs: Vital Signs Temp 98.1 F 08/09/18 05:00 Pulse 94 08/09/18 07:00 Resp 19 08/09/18 07:00 BP 109/55 08/09/18 07:00 Pulse Ox 96 08/09/18 06:00 Intake & Output 08/08/18 08/09/18 08/09/18 18:59 06:59 18:59 Intake Total 130 1610 Output Total 1475 935 Balance -1345 675 Intake: IV 130 20 Invasive Line 5 20 LR 115 Pressure Bags 15 Intake, IV Titration 90 Amount Albumin Human 5% 250 ml 0 In Empty Bag 1 bag @ 250 mls/hr IVPB Q1HR PRN Rx#: [id number] Amiodarone 300 mg In 0 Dextrose 5% in Water 250 ml @ 0.5 MG/MIN 25 mls/hr IV .Q10H PRN Rx#: [id number] Calcium Gluconate 2 gm In 0 Sodium Chloride 0.9% 100 ml @ 100 mls/hr IVPB ONCE PRN Rx#:[id number] Sodium Chloride 0.9% 1, 40 000 ml @ 0 mls/hr IV .[facility] Rx#:[id number] cefTRIAXone 1 gm In 50 Sodium Chloride 0.9% 50 ml @ 100 mls/hr IVPB Q24H [facility] Rx#:[id number] Oral 1500 Output: Chest Tube Drainage 65 35 Chest Tube Left Left 35 35 Pleural/Mediastinal Chest Tube Mediastinal 30 Urine 1410 900 Other: Voiding Method Bedside Commode # Voids 1 ABP, PAP, CO, CI - Last Documented Arterial Blood Pressure 112/102 Pulmonary Artery Pressure 34/15 Cardiac Output 4.6 Cardiac Index 2.7 - Constitutional General appearance: Present: cooperative, no acute distress, obese - Respiratory Details: Lungs sounds clear but diminished bilaterally. Respirations even, nonlabored. Currently on 2 L nasal cannula with oxygen saturation 98%. Only able to achieve 500 mL on incentive spirometry. Strong cough. Left pleural chest tube to continuous wall suction, 10 mL serosanguineous drainage overnight, 90 mL in the last hours. No air leaks present. - Cardiovascular Details: S1, S2 present. Regular rate and rhythm, sinus rhythm on telemetry. Sternum stable. A/V epicardial pacemaker wires present, grounded. Palpable peripheral pulses bilaterally. No edema present. No calf pain or tenderness noted. Heart hugger in place with patient demonstrating appropriate use. Antiembolism stockings, SCDs present. - Gastrointestinal Gastrointestinal Comment(s): Abdomen soft, nontender, nondistended. Active bowel sounds present 4 quadrants. Tolerating clear liquid diet. Positive flatus, negative bowel movement. - Genitourinary Genitourinary Comment(s): Arias discontinued yesterday. Patient continues to void 150-200 mL at a time. - Integumentary Integumentary Comment(s): Skin is warm and dry with evidence of good perfusion. Anterior chest incision well approximated and covered with dry intact dressing. Right lower extremity EVH site well approximated with Dermabond. - Neurologic Neurologic: Present: CNII-XII intact - Musculoskeletal Musculoskeletal: Present: gait normal, strength equal bilaterally - Psychiatric Psychiatric: Present: A&O x's 3, appropriate affect, intact judgment & insight - Allied health notes Allied health notes reviewed: nursing - Labs CBC & Chem 7: 08/09/18 05:46 08/09/18 05:46 Labs: Abnormal Lab Results - Last 24 Hours (Table) 08/08/18 08/08/18 08/08/18 Range/Units 11:51 17:03 17:55 RBC 2.92 L (3.80-5.40) m/uL Hgb 8.3 L (11.4-16.0) gm/dL Hct 24.9 L (34.0-46.0) % Sodium (137-145) mmol/L Chloride (98-107) mmol/L Glucose (74-99) mg/dL POC Glucose (mg/dL) 117 H 117 H (75-99) mg/dL 08/08/18 08/09/18 08/09/18 Range/Units 20:35 02:22 05:46 RBC 3.08 L (3.80-5.40) m/uL Hgb 8.6 L (11.4-16.0) gm/dL Hct 26.3 L (34.0-46.0) % Sodium (137-145) mmol/L Chloride (98-107) mmol/L Glucose (74-99) mg/dL POC Glucose (mg/dL) 149 H 123 H (75-99) mg/dL 08/09/18 Range/Units 05:46 RBC (3.80-5.40) m/uL Hgb (11.4-16.0) gm/dL Hct (34.0-46.0) % Sodium 132 L (137-145) mmol/L Chloride 97 L (98-107) mmol/L Glucose 101 H (74-99) mg/dL POC Glucose (mg/dL) (75-99) mg/dL - Imaging and Cardiology Chest x-ray: image reviewed Assessment and Plan Assessment: 1. Severe triple-vessel coronary artery disease, status post urgent coronary artery bypass grafting 4 vessels 2. Non-ST elevated myocardial infarction 3. Ischemic heart disease 4. History of coronary artery disease with previous stent placement to mid LAD in 2002 5. Hypertension 6. Hyperlipidemia 7. Previous tobacco dependence with preoperative FEV1 106% of predicted 8. Gastroesophageal reflux disease 9. History of hiatal hernia 10. History of skin cancer with removal 11. Family history of premature coronary artery disease 12. Obesity 13. Preoperative urine culture positive for E. coli 14. Postoperative transaminitis 15. Postoperative acute blood loss anemia Plan: 1. Continue aspirin, Plavix. Will restart low-dose beta taina. Continue to hold Lipitor secondary to elevated liver enzymes, will re-institute once liver enzymes normalize. 2. Wean O2 as tolerated. Encourage incentive spirometry 10 times every hour while awake. 3. Increase activity, ambulate as tolerated. PT/OT/cardiac rehab following. 4. Bronchodilators per pulmonology. 5. Will monitor daily labs and x-rays. Electrolyte replacement per protocol. No transfusion. 6. Pain control current medication regimen. 7. Insulin management per primary care service. 8. Will discontinue left pleural chest tube. 9. GI/DVT prophylaxis. 10. Transfer orders placed yesterday for 3 S. cardiac stepdown unit, may transfer when bed available. 11. Discharge planning in progress. Anticipate discharge to home with home care in the next 48 hours. 12. More recommendations to follow as patient progresses. Time with Patient: Greater than 30
[2018-08-09] MEDS: MULTIVITAMINS, THERA 1 EACH TAB PO SCH (08:27)
[2018-08-09] MEDS: CLOPIDOGREL 75 MG TAB PO SCH (08:27)
[2018-08-09] MEDS: LORATADINE 10 MG TAB PO SCH (08:27)
[2018-08-09] MEDS: HEPARIN SODIUM,PORCINE 5,000 UNIT/ML 1 ML VIAL SQ SCH ×2 (08:28→15:05)
[2018-08-09] MEDS: KETOROLAC 30 MG/ML 1 ML VIAL IVP SCH ×3 (08:35→18:46)
[2018-08-09] MEDS: IPRATROPIUM-ALBUTEROL 3 ML NEB INHALATION SCH ×4 (08:39→20:35)
--- NOTE | 2018-08-09 09:04 | XR ---
EXAMINATION TYPE: XR chest 1V portable DATE OF EXAM: 08/09/2018 COMPARISON: Prior chest x-ray 08/08/2018 HISTORY: Status post coronary artery bypass graft TECHNIQUE: Single frontal view of the chest is obtained. FINDINGS: Patient is post median sternotomy, left chest tube remains in place. Median sternal drains are no longer seen. Patchy subsegmental atelectatic changes are present at the lung bases. No sizabl e pneumothorax or pleural effusion. Lung volumes are low and the patient is rotated. Heart remains en larged. IMPRESSION: Interval drain removal. Atelectasis, cardiomegaly, postop changes.
[2018-08-09 12:14] LABS: Glucose,Whole Blood 129 mg/dL (75-99)
[2018-08-09] MEDS ORDERED: FUROSEMIDE 10 MG/ML 2 ML VIAL IV STA (14:27)
--- NOTE | 2018-08-09 16:57 | P.PN ---
Subjective Progress Note Date: 08/09/18 Principal diagnosis: Symptomatic multivessel coronary artery disease 77-year-old female patient who presented with some intermittent chest pain and the patient ruled in for an acute non-STEMI. The patient underwent a cardiac catheterization and the patient was found to have extensive triple-vessel disease. She is known to have hypertension and hyperlipidemia and she has unde rgone previous coronary stenting. The plan is to proceed with cardiac bypass surgery and for that reason a pulmonary consultation was requested. She is a nonsmoker. Most of asthma. Most of emphysema. No long-term oxygen use. She has involvement of ALLERGIES and the patient typically gets worse during this time of the year for which she takes Zyrtec. She is quite congested at this point in time she describes nasal congestion and some occasional cough . No pleurisy and no hemoptysis. The patient has no focal airspace disease on the chest x-ray that was done time of admission and currently she is on room air oxygen. Was at 10.9. Troponin peaked at 2.9. The patient is seen today 08/05/2018 in follow-up on the cardiac care unit. She is sitting up at the bedside. Awake and alert in no acute distress. She is breathing quite a bit easier today as compared to yesterday. Did receive 2 doses of IV Solu-Medrol. Receiving bronchodilators. Denies any chest pain. Remains on a heparin drip. The plan is for probable bypass surgery tomorrow. FEV1 value 106%. Carotid Doppler showed no significant stenosis. A cardiogram reveals preserved left ventricular systolic function with ejection fraction 55- 60%. No significant valvular disease. White count 7.5. Hemoglobin 10.9. Crea tinine 0.76. The patient is seen today 08/06/2018 in follow-up in the intensive care unit in the postoperative period. She did undergo a coronary artery bypass surgery including a THOMAS to the LAD, saphenous vein grafts to the OM1, OM 2, PDA. She is currently intubated on mechanical ventilator with settings of SIMV at a rate of 12, tidal volume 350, FiO2 100% and a PEEP of 5. FiO2 gradually being decreased. Blood gases reveal a P O2 of 284, pCO2 42, pH 7.33. White count 4.5. Hemoglobin 7.4. Sodium 138. Potassium 4.2. Creatinine 0.82. AST 621, ALT 312. PA pressure 27/12. CVP 8. Cardiac output 4.6. Cardiac index 2.7. Currently in sinus rhythm. Chest x-ray reveals left lower lobe atelectasis/effusion. Mediastinal and left pleural chest tubes in place. Lactated Ringer's at 50 MLS per hour. Nitroglycerin drip at 5 g/m. Hemodynamically stable. The patient is seen today 08/09/2018 and follow-up on the selective care unit. She is currently sitting up in a chair at the bedside. She is awake and alert in no acute distress. She is maintaining good O2 saturations in the mid 90s on room air. She's afebrile. Hemodynamically stable. Chest x-ray reveals interval drain removals. There is atelectasis, cardiomegaly and some postop changes. Stable. Urine culture was positive for E. coli. White count 8.7. Hemoglobin 8.6. Platelet count 281,000. Creatinine 0.83. She remains on bronchodilators. On ceftriaxone. Working well with the incentive spirometer. Ambulating with assistance. Objective - Vital Signs Vital signs: Vital Signs Temp 98.0 F 08/09/18 15:02 Pulse 80 08/09/18 15:02 Resp 16 08/09/18 15:02 BP 98/53 08/09/18 15:02 Pulse Ox 95 08/09/18 15:02 Intake & Output 08/08/18 08/09/18 08/09/18 18:59 06:59 18:59 Intake Total 130 1610 500 Output Total 1475 935 Balance -1345 675 500 Weight 77.8 kg Intake: IV 130 20 Invasive Line 5 20 LR 115 Pressure Bags 15 Intake, IV Titration 90 Amount Albumin Human 5% 250 ml 0 In Empty Bag 1 bag @ 250 mls/hr IVPB Q1HR PRN Rx#: [id number] Amiodarone 300 mg In 0 Dextrose 5% in Water 250 ml @ 0.5 MG/MIN 25 mls/hr IV .Q10H PRN Rx#: [id number] Calcium Gluconate 2 gm In 0 Sodium Chloride 0.9% 100 ml @ 100 mls/hr IVPB ONCE PRN Rx#:[id number] Sodium Chloride 0.9% 1, 40 000 ml @ 0 mls/hr IV .[facility] Rx#:[id number] cefTRIAXone 1 gm In 50 Sodium Chloride 0.9% 50 ml @ 100 mls/hr IVPB Q24H [facility] Rx#:[id number] Oral 1500 500 Output: Chest Tube Drainage 65 35 Chest Tube Left Left 35 35 Pleural/Mediastinal Chest Tube Mediastinal 30 Urine 1410 900 Other: Voiding Method Bedside Commode Toilet # Voids 1 2 ABP, PAP, CO, CI - Last Documented Arterial Blood Pressure 112/102 Pulmonary Artery Pressure 34/15 Cardiac Output 4.6 Cardiac Index 2.7 - Exam GENERAL EXAM: Very pleasant 77-year-old female patient. Awake, alert, no acute distress. On room air. HEAD: Normocephalic. EYES: Normal reaction of pupils, equal size. NOSE: Clear with pink turbinates. THROAT: No erythema or exudates. NECK: No masses, no JVD. CHEST: Sternal dressing dry and intact. Heart hugger in place. LUNGS: Equal air entry with crackles in the left base CVS: S1 and S2 normal with an audible murmur, regular rhythm. ABDOMEN: No hepatosplenomegaly, normal bowel sounds, no guarding or rigidity. SPINE: No scoliosis or deformity SKIN: No rashes CENTRAL NERVOUS SYSTEM: No focal deficits, tone is normal in all 4 extremities. EXTREMITIES: There is no peripheral edema. No clubbing, no cyanosis. Peripheral pulses are intact. - Labs CBC & Chem 7: 08/09/18 05:46 08/09/18 05:46 Labs: Abnormal Lab Results - Last 24 Hours (Table) 08/08/18 08/08/18 08/08/18 Range/Units 17:03 17:55 20:35 RBC 2.92 L (3.80-5.40) m/uL Hgb 8.3 L (11.4-16.0) gm/dL Hct 24.9 L (34.0-46.0) % Sodium (137-145) mmol/L Chloride (98-107) mmol/L Glucose (74-99) mg/dL POC Glucose (mg/dL) 117 H 149 H (75-99) mg/dL AST (14-36) U/L ALT (9-52) U/L 08/09/18 08/09/18 08/09/18 Range/Units 02:22 05:46 05:46 RBC 3.08 L (3.80-5.40) m/uL Hgb 8.6 L (11.4-16.0) gm/dL Hct 26.3 L (34.0-46.0) % Sodium 132 L (137-145) mmol/L Chloride 97 L (98-107) mmol/L Glucose 101 H (74-99) mg/dL POC Glucose (mg/dL) 123 H (75-99) mg/dL AST (14-36) U/L ALT (9-52) U/L 08/09/18 08/09/18 Range/Units 05:46 12:12 RBC (3.80-5.40) m/uL Hgb (11.4-16.0) gm/dL Hct (34.0-46.0) % Sodium (137-145) mmol/L Chloride (98-107) mmol/L Glucose (74-99) mg/dL POC Glucose (mg/dL) 129 H (75-99) mg/dL AST 63 H (14-36) U/L ALT 99 H (9-52) U/L Assessment and Plan Assessment: Impression: 1 multivessel symptomatic coronary artery disease post acute non-STEMI. Status post coronary artery bypass grafting utilizing a THOMAS to the LAD, saphenous vein grafts to the OM1, OM 2, PDA. 2 acute non-STEMI 3 environmental ALLERGIES with postnasal drainage 4 hypertension 5 hyperlipidemia 6 history of melanoma resected back in September 2017 7 urinary tract infection secondary to E. coli. Plan: The patient was seen and evaluated by Dr. Garcia. Chest x-ray and labs re viewed. The patient is doing well from a pulmonary standpoint. On room air. Working well with the incentive spirometer. Increase her activity as tolerated. We'll continue to follow and make further recommendations based on her clinical status. I, the cosigning physician, performed a history & physical examination of the patient. Lungs sounds crackles in the left base. Maintaining good O2 saturations in the 90s on room air. I discussed the assessment and plan of care with my nurse practitioner, Elvia Leonard. I attest to the above note as dictated by her.
[2018-08-09 17:01] LABS: Glucose,Whole Blood 115 mg/dL (75-99)
--- NOTE | 2018-08-09 17:41 | PN ---
PROGRESS NOTE DATE OF SERVICE: 08/09/2018 This 77-year-old woman who was admitted with acute bdl-BP-yybapos-elevation myocardial infarction had CAD, CABG. The patient is improving significantly. The patient has a chest tube left. The most recent chest x-ray, which was personally reviewed by me, showed some atelectasis and postoperative changes. On exam, alert and oriented x3. Pulse is 84, blood pressure 109/60, respiration 18, temperature 98.6, pulse ox 94% on 2 L. HEENT: Conjunctivae normal. NECK: No jugular venous distention. CARDIOVASCULAR SYSTEM: S1, S2 muffled. RESPIRATORY SYSTEM: Breath sounds diminished at the bases. Bilateral scattered rhonchi and crackles. Expiratory wheezing also present. ABDOMEN: Soft, non-tender. NERVOUS SYSTEM: No focal deficit. LABS: WBC 8.7, hemoglobin 8.6. Sodium 132. AST and ALT noted. ASSESSMENT: 1. Acute unh-CZ-gxbhwea-elevation myocardial infarction, present on admission, status post cardiac catheterization, triple-vessel disease, status post coronary artery bypass grafting. 2. Hypertension. 3. Hyperlipidemia. 4. History of gastroesophageal reflux disease. 5. Anemia, normocytic; anemia of chronic disease, present on admission. 6. History of hernia. 7. History of skin cancer. 8. History of adenoidectomy. 9. History of coronary artery disease, stent. 10.History of anxiety. 11.Remote history of nicotine dependence. 12.Elevated liver function tests. 13.Escherichia coli urinary tract infection, present on admission. RECOMMENDATIONS AND DISCUSSION: I recommend to continue current medications, continue with the monitoring, symptomatic treatment. Continue with bronchodilators. Continue the short course of antibiotics. Incentive spirometry. Closely follow with Cardiothoracic Surgery, Cardiology, Pulmonology. Further recommendations to follow. MMODL / IJN: [id number] /
[2018-08-09] MEDS: FERROUS SULFATE ORAL ELIXIR 300 MG/5 ML CUP PO SCH (18:17)
[2018-08-09] MEDS: PANTOPRAZOLE 40 MG/10 ML VIAL IVP SCH (18:18)
[2018-08-09] MEDS: SENNOSIDES-DOCUSATE SODIUM 1 EACH TAB PO SCH (20:37)
[2018-08-09 20:57] LABS: Glucose,Whole Blood 130 mg/dL (75-99)
[2018-08-09] MEDS: CYCLOBENZAPRINE 10 MG TAB PO PRN (22:48)
[2018-08-10] MEDS: KETOROLAC 30 MG/ML 1 ML VIAL IVP SCH ×2 (00:16→07:49)
[2018-08-10] MEDS: HEPARIN SODIUM,PORCINE 5,000 UNIT/ML 1 ML VIAL SQ SCH ×4 (00:16→23:17)
[2018-08-10] MEDS: MUPIROCIN 2% OINT 22 GM TUBE NASAL SCH (00:27)
[2018-08-10] MEDS: INSULIN ASPART (NovoLOG) 100 UNIT/ML VIAL SQ SCH ×5 (00:28→21:51)
[2018-08-10 02:24] LABS: Glucose,Whole Blood 129 mg/dL (75-99)
--- NOTE | 2018-08-10 06:24 | XR ---
EXAMINATION TYPE: XR chest 2V DATE OF EXAM: 08/10/2018 HISTORY: post chest tube removal. REFERENCE: Previous study dated 08/09/2018. FINDINGS: There has been a midline sternotomy. The patient's left pleural drain has been removed. I d o not see evidence of pneumothorax. The heart is enlarged. There is bibasilar atelectasis. I suspect small effusions. IMPRESSION: 1. CARDIOMEGALY. 2. BIBASILAR ATELECTASIS. 3. I SUSPECT TINY, BILATERAL EFFUSIONS.
[2018-08-10 06:47] LABS: Glucose,Whole Blood 100 mg/dL (75-99)
[2018-08-10 07:10] LABS: HCT 24.1 % (34.0-46.0); HGB 7.8 gm/dL (11.4-16.0); MCH 27.7 pg (25.0-35.0); MCHC 32.3 g/dL (31.0-37.0); MCV 85.8 fL (80.0-100.0); Platelet Count 304 k/uL (150-450); RBC 2.81 m/uL (3.80-5.40); RDW 13.8 % (11.5-15.5); WBC 6.9 k/uL (3.8-10.6)
[2018-08-10 07:16] LABS: Albumin 3.3 g/dL (3.5-5.0); Potassium 4.2 mmol/L (3.5-5.1); Total Bilirubin 0.5 mg/dL (0.2-1.3); Total Protein 5.5 g/dL (6.3-8.2)
[2018-08-10] MEDS ORDERED: FUROSEMIDE 10 MG/ML 2 ML VIAL IV ONE (08:11)
[2018-08-10] MEDS ORDERED: MAGNESIUM HYDROXIDE 2,400 MG/10 ML CUP PO STA (08:12)
[2018-08-10] MEDS ORDERED: HYDROcodone/APAP 5-325MG 1 EACH TAB PO PRN (08:15)
--- NOTE | 2018-08-10 08:23 | P.PN ---
Subjective Progress Note Date: 08/10/18 Principal diagnosis: Triple-vessel coronary artery disease, non-ST elevated myocardial infarction this admission with history of coronary artery disease with stent placement to her mid left anterior descending coronary artery in 2002, hypertension, hyperlipidemia, previous tobacco dependance with preoperative FEV1 106% of predicted, gastroesophageal reflux disease, hiatal hernia, family history of premature coronary artery disease with her father being diagnosed at age 55 with a myocardial infarction, history of melanoma skin cancer to her left arm which was removed in September 2017, and obesity. Preoperative urine culture positive for E coli, possible contamination as patient has no urinary tract symptoms, no leukocytosis, has remained afebrile. POD #4 coronary artery bypass grafting 4 vessels with left internal mammary artery to the left anterior descending coronary artery, reverse greater saphenous vein graft to the obtuse marginal coronary artery, reverse greater saphenous vein graft to the distal obtuse marginal coronary artery and reverse greater saphenous vein graft to the distal right coronary artery. Endoscopic vein harvest of the right greater saphenous vein, intraoperative transesophageal echocardiogram and epi-aortic ultrasound. Postoperative transaminitis, unexpected outcome of surgery. Postoperative acute blood loss anemia, expected outcome due to cardiopulmonary bypass and hemodilution. The patient is currently sitting up in the recliner on the cardiac stepdown unit in no acute distress. States her post surgical pain is better since discontinuing her chest tubes. Denies shortness of breath. She did ambulate in the hallway yesterday. Vital signs remain stable. Remains in normal sinus rhythm. No new complaints. Objective - Vital Signs Vital signs: Vital Signs Temp 98 F 08/10/18 04:00 Pulse 82 08/10/18 04:00 Resp 16 08/10/18 04:00 BP 110/65 08/10/18 04:00 Pulse Ox 93 L 08/10/18 04:00 Intake & Output 08/09/18 08/10/18 08/10/18 18:59 06:59 18:59 Intake Total 500 300 Output Total 200 Balance 300 300 Weight 77.8 kg 77.8 kg Intake: Oral 500 300 Output: Urine 200 Other: Voiding Method Toilet # Voids 1 1 2 ABP, PAP, CO, CI - Last Documented Arterial Blood Pressure 112/102 Pulmonary Artery Pressure 34/15 Cardiac Output 4.6 Cardiac Index 2.7 - Constitutional General appearance: Present: cooperative, no acute distress, obese - Respiratory Details: Lungs sounds clear but diminished bilaterally. Respirations even, nonlabored. Currently on room air with oxygen saturation 93%. Able to achieve 750 mL on incentive spirometry. Strong non-productive cough. - Cardiovascular Details: S1, S2 present. Regular rate and rhythm, sinus rhythm on telemetry. Sternum stable. A/V epicardial pacemaker wires present, grounded. Palpable peripheral pulses bilaterally. No edema present. No calf pain or tenderness noted. Heart hugger in place with patient demonstrating appropriate use. Antiembolism stockings, SCDs present. - Gastrointestinal Gastrointestinal Comment(s): Abdomen soft, nontender, nondistended. Active bowel sounds present 4 quadrants. Tolerating diet. Positive flatus, negative bowel movement. - Genitourinary Genitourinary Comment(s): Patient continues to void clear yellow urine. - Integumentary Integumentary Comment(s): Skin is warm and dry with evidence of good perfusion. Anterior chest incision well approximated and covered with dry intact dressing. Right lower extremity EVH site well approximated with Dermabond. - Neurologic Neurologic: Present: CNII-XII intact - Musculoskeletal Musculoskeletal: Present: gait normal, strength equal bilaterally - Psychiatric Psychiatric: Present: A&O x's 3, appropriate affect, intact judgment & insight - Allied health notes Allied health notes reviewed: nursing - Labs CBC & Chem 7: 08/10/18 05:51 08/10/18 05:51 Labs: Abnormal Lab Results - Last 24 Hours (Table) 08/09/18 08/09/18 08/09/18 Range/Units 05:46 12:12 16:55 RBC (3.80-5.40) m/uL Hgb (11.4-16.0) gm/dL Hct (34.0-46.0) % Sodium (137-145) mmol/L Chloride (98-107) mmol/L BUN (7-17) mg/dL POC Glucose (mg/dL) 129 H 115 H (75-99) mg/dL AST 63 H (14-36) U/L ALT 99 H (9-52) U/L Total Protein (6.3-8.2) g/dL Albumin (3.5-5.0) g/dL 08/09/18 08/10/18 08/10/18 Range/Units 20:49 02:11 05:51 RBC 2.81 L (3.80-5.40) m/uL Hgb 7.8 L (11.4-16.0) gm/dL Hct 24.1 L (34.0-46.0) % Sodium (137-145) mmol/L Chloride (98-107) mmol/L BUN (7-17) mg/dL POC Glucose (mg/dL) 130 H 129 H (75-99) mg/dL AST (14-36) U/L ALT (9-52) U/L Total Protein (6.3-8.2) g/dL Albumin (3.5-5.0) g/dL 08/10/18 08/10/18 Range/Units 05:51 06:45 RBC (3.80-5.40) m/uL Hgb (11.4-16.0) gm/dL Hct (34.0-46.0) % Sodium 132 L (137-145) mmol/L Chloride 97 L (98-107) mmol/L BUN 19 H (7-17) mg/dL POC Glucose (mg/dL) 100 H (75-99) mg/dL AST 50 H (14-36) U/L ALT 69 H (9-52) U/L Total Protein 5.5 L (6.3-8.2) g/dL Albumin 3.3 L (3.5-5.0) g/dL - Imaging and Cardiology Chest x-ray: report reviewed, image reviewed Assessment and Plan Assessment: 1. Severe triple-vessel coronary artery disease, status post urgent coronary artery bypass grafting 4 vessels 2. Non-ST elevated myocardial infarction 3. Ischemic heart disease 4. History of coronary artery disease with previous stent placement to mid LAD in 2002 5. Hypertension 6. Hyperlipidemia 7. Previous tobacco dependence with preoperative FEV1 106% of predicted 8. Gastroesophageal reflux disease 9. History of hiatal hernia 10. History of skin cancer with removal 11. Family history of premature coronary artery disease 12. Obesity 13. Preoperative urine culture positive for E. coli 14. Postoperative transaminitis 15. Postoperative acute blood loss anemia Plan: 1. Continue aspirin, Plavix, beta taina. Will increase beta taina as tolerated. Continue to hold Lipitor secondary to elevated liver enzymes, will re-institute once liver enzymes normalize. 2. Encourage incentive spirometry 10 times every hour while awake. 3. Increase activity, ambulate as tolerated. PT/OT/cardiac rehab following. 4. Bronchodilators per pulmonology. 5. Will monitor daily labs and x-rays. Electrolyte replacement per protocol. No transfusion. 6. Pain control current medication regimen. 7. Insulin management per primary care service. 8. Will give 20 mg IV Lasix today. 9. GI/DVT prophylaxis. 10. Patient may shower today. 11. Discharge planning in progress. Anticipate discharge to home with home care in the next 24-48 hours. 12. More recommendations to follow as patient progresses. Time with Patient: Greater than 30
[2018-08-10] MEDS: IPRATROPIUM-ALBUTEROL 3 ML NEB INHALATION SCH ×4 (08:29→19:23)
[2018-08-10] MEDS: PANTOPRAZOLE 40 MG/10 ML VIAL IVP SCH ×2 (08:54→18:14)
[2018-08-10] MEDS: FERROUS SULFATE ORAL ELIXIR 300 MG/5 ML CUP PO SCH ×2 (08:59→18:14)
[2018-08-10] MEDS: CLOPIDOGREL 75 MG TAB PO SCH (08:59)
[2018-08-10] MEDS: MULTIVITAMINS, THERA 1 EACH TAB PO SCH (08:59)
[2018-08-10] MEDS: LORATADINE 10 MG TAB PO SCH (08:59)
[2018-08-10] MEDS: ASPIRIN 325 MG TAB PO SCH (08:59)
[2018-08-10] MEDS: METOPROLOL TARTRATE 12.5 MG TAB PO SCH ×2 (08:59→21:59)
[2018-08-10] MEDS: ASCORBIC ACID 500 MG TAB PO SCH ×2 (08:59→18:14)
[2018-08-10 12:21] LABS: Glucose,Whole Blood 116 mg/dL (75-99)
--- NOTE | 2018-08-10 12:27 | PN ---
PROGRESS NOTE Mrs. Camilo underwent aortocoronary bypass surgery by Dr. Martin because of severe CAD. Several years ago, she had LAD PCI performed. Post procedure, she seems a little congested and has gone up in weight. She received additional Lasix. She is maintaining sinus rhythm, resting comfortably, bringing up to 1000 mL on incentive spirometry. Vitals are stable. JVD is 1 cm. S1-S2 heard normally. Short systolic murmur noted. Lungs reveal diminished air entry over both bases. Abdomen and lower extremity exam unchanged. Plan is to continue cautious diuresis, incentive spirometry and pulmonary toilet. Hopefully she will be discharged in the next 24-48 hours. MMODL / IJN: [id number] /
[2018-08-10] MEDS: KETOROLAC 30 MG/ML 1 ML VIAL IVP PRN (14:17)
[2018-08-10] MEDS: ACETAMINOPHEN TAB 500 MG TAB PO PRN (15:59)
[2018-08-10] MEDS: CYCLOBENZAPRINE 10 MG TAB PO PRN (16:00)
[2018-08-10 18:04] LABS: Glucose,Whole Blood 137 mg/dL (75-99)
[2018-08-10 20:48] LABS: Glucose,Whole Blood 165 mg/dL (75-99)
[2018-08-10] MEDS: SENNOSIDES-DOCUSATE SODIUM 1 EACH TAB PO SCH (21:59)
--- NOTE | 2018-08-10 23:57 | PN ---
PROGRESS NOTE DATE OF SERVICE: 08/10/2018. This 77-year-old woman who was admitted after CAD, CABG is improving significantly. Patient complains of dizziness today. No chest pain. No palpitations. No fever. Chest x-ray showed some atelectasis and some CHF. Patient Lasix today. EXAM: Alert and oriented times three. Pulse is 86, blood pressure 107/54. Respirations 20. Temperature normal. Pulse ox 97% on room air. HEENT: Conjunctivae normal. NECK: No jugular venous distention. CARDIOVASCULAR: S1, S2, muffled. RESPIRATIONS: Breath sounds diminished at the bases. A few scattered rhonchi and crackles. ABDOMEN is soft, nontender. LEGS are no edema. No swelling. CENTRAL NERVOUS SYSTEM: No focal deficits. LABS: WBC 6.2, hemoglobin 7.2, sodium 132, glucose 100 and AST is 50 and ALT 69. ASSESSMENT: 1. Acute non ST elevation myocardial infarction present on admission, status post cardiac catheterization, triple-vessel disease, status post coronary artery bypass grafting. 2. Hypertension. 3. Hyperlipidemia. 4. History of gastroesophageal reflux disease. 5. Anemia, normocytic anemia of chronic disease, present on admission. 6. Bilateral atelectasis. 7. History of hernia. 8. History of skin cancer. 9. History of adenoidectomy. 10.History of coronary artery disease/stent. 11.History of anxiety. 12.Remote history of nicotine dependence. 13.Elevated LFTs. 14.E coli urinary tract infection present on admission. RECOMMENDATIONS AND DISCUSSION: Recommend to continue current medications, management and symptomatic treatment. Incentive spirometry. Order orthostatic vitals. Continue to monitor. Follow closely with multiple consultants. Guarded prognosis. Further recommendations to follow. MMODL / IJN: [id number] / ABDIRAHMAN
[2018-08-11] MEDS: ACETAMINOPHEN TAB 500 MG TAB PO PRN ×3 (02:04→23:34)
[2018-08-11] MEDS: CYCLOBENZAPRINE 10 MG TAB PO PRN (02:06)
[2018-08-11 05:57] LABS: Glucose,Whole Blood 113 mg/dL (75-99)
[2018-08-11] MEDS: PANTOPRAZOLE 40 MG/10 ML VIAL IVP SCH ×2 (06:07→17:53)
[2018-08-11] MEDS: ASCORBIC ACID 500 MG TAB PO SCH ×2 (06:08→17:53)
[2018-08-11] MEDS: FERROUS SULFATE ORAL ELIXIR 300 MG/5 ML CUP PO SCH ×2 (06:08→17:53)
[2018-08-11] MEDS: INSULIN ASPART (NovoLOG) 100 UNIT/ML VIAL SQ SCH ×4 (06:18→21:09)
--- NOTE | 2018-08-11 06:42 | XR ---
EXAMINATION TYPE: XR chest 2V DATE OF EXAM: 08/11/2018 HISTORY: Post cardiac surgery. REFERENCE: Previous study dated 08/10/2018. FINDINGS: There has been a midline sternotomy. The heart is mildly enlarged. There is bibasilar atelectasis. There are small effusions. IMPRESSION: CONTINUING POSTOPERATIVE CHANGE.
[2018-08-11 07:30] LABS: HCT 22.3 % (34.0-46.0); HGB 7.5 gm/dL (11.4-16.0); MCH 28.8 pg (25.0-35.0); MCHC 33.6 g/dL (31.0-37.0); MCV 85.7 fL (80.0-100.0); Mean Platelet Volume 7.5; Platelet Count 336 k/uL (150-450); RDW 14.2 % (11.5-15.5); WBC 5.7 k/uL (3.8-10.6)
[2018-08-11 07:42] LABS: Albumin 3.4 g/dL (3.5-5.0); Calcium 9.1 mg/dL (8.4-10.2); Magnesium 2.1 mg/dL (1.6-2.3); Potassium 4.4 mmol/L (3.5-5.1); Total Bilirubin 0.4 mg/dL (0.2-1.3); Total Protein 5.7 g/dL (6.3-8.2)
[2018-08-11] MEDS: IPRATROPIUM-ALBUTEROL 3 ML NEB INHALATION SCH ×4 (07:53→20:30)
[2018-08-11] MEDS: MULTIVITAMINS, THERA 1 EACH TAB PO SCH (09:50)
[2018-08-11] MEDS: METOPROLOL TARTRATE 12.5 MG TAB PO SCH ×2 (09:50→20:37)
[2018-08-11] MEDS: CLOPIDOGREL 75 MG TAB PO SCH (09:50)
[2018-08-11] MEDS: LORATADINE 10 MG TAB PO SCH (09:50)
[2018-08-11] MEDS: ASPIRIN 325 MG TAB PO SCH (09:50)
[2018-08-11] MEDS: HEPARIN SODIUM,PORCINE 5,000 UNIT/ML 1 ML VIAL SQ SCH ×3 (09:51→23:34)
--- NOTE | 2018-08-11 10:01 | P.PN ---
Subjective Progress Note Date: 08/11/18 Principal diagnosis: Triple-vessel coronary artery disease, non-ST elevated myocardial infarction this admission with history of coronary artery disease with stent placement to her mid left anterior descending coronary artery in 2002, hypertension, hyperlipidemia, previous tobacco dependance with preoperative FEV1 106% of predicted, gastroesophageal reflux disease, hiatal hernia, family history of premature coronary artery disease with her father being diagnosed at age 55 with a myocardial infarction, history of melanoma skin cancer to her left arm which was removed in September 2017, and obesity. Preoperative urine culture positive for E coli, possible contamination as patient has no urinary tract symptoms, no leukocytosis, has remained afebrile. POD #5 coronary artery bypass grafting 4 vessels with left internal mammary artery to the left anterior descending coronary artery, reverse greater saphenous vein graft to the obtuse marginal coronary artery, reverse greater saphenous vein graft to the distal obtuse marginal coronary artery and reverse greater saphenous vein graft to the distal right coronary artery. Endoscopic vein harvest of the right greater saphenous vein, intraoperative transesophageal echocardiogram and epi-aortic ultrasound. Postoperative transaminitis, unexpected outcome of surgery. Postoperative acute blood loss anemia, expected outcome due to cardiopulmonary bypass and hemodilution. The patient is currently sitting up in the recliner on the cardiac stepdown unit in no acute distress. Denies pain, shortness of breath. She did ambulate in the hallway yesterday, although she did become dizzy and her oxygen saturation dropped with quick recovery after sitting down. Vital signs currently stable. Remains in normal sinus rhythm. No new complaints, although family expressed concerns about her being discharged to home as they feel she will not be mindful of her sternal precautions and no one is available to stay with her for 12 hours at a time, they are requesting rehab at discharge. Objective - Vital Signs Vital signs: Vital Signs Temp 97.7 F 08/11/18 07:30 Pulse 76 08/11/18 08:03 Resp 16 08/11/18 08:00 BP 102/55 08/11/18 07:30 Pulse Ox 96 08/11/18 07:30 Intake & Output 08/10/18 08/11/18 08/11/18 18:59 06:59 18:59 Intake Total 350 200 210 Output Total 300 Balance 350 200 -90 Weight 77.2 kg Intake: IV 10 Invasive Line 5 10 Intake, IV Titration 50 Amount cefTRIAXone 1 gm In 50 Sodium Chloride 0.9% 50 ml @ 100 mls/hr IVPB Q24H [facility] Rx#:[id number] Oral 300 200 200 Output: Urine 300 Other: Voiding Method Toilet # Voids 2 1 ABP, PAP, CO, CI - Last Documented Arterial Blood Pressure 112/102 Pulmonary Artery Pressure 34/15 Cardiac Output 4.6 Cardiac Index 2.7 - Constitutional General appearance: Present: cooperative, no acute distress - Respiratory Details: Lungs sounds clear but diminished bilaterally. Respirations even, nonlabored. Currently on room air with oxygen saturation 95%. Able to achieve 1000 mL on incentive spirometry. Strong non-productive cough. - Cardiovascular Details: S1, S2 present. Regular rate and rhythm, sinus rhythm on telemetry. Sternum stable. A/V epicardial pacemaker wires present, grounded. Palpable peripheral pulses bilaterally. No edema present. No calf pain or tenderness noted. Heart hugger in place with patient demonstrating appropriate use. Antiembolism stockings, SCDs present. - Gastrointestinal Gastrointestinal Comment(s): Abdomen soft, nontender, nondistended. Active bowel sounds present 4 quadrants. Tolerating diet. Positive bowel movement yesterday 2. - Genitourinary Genitourinary Comment(s): Patient continues to void clear yellow urine. - Integumentary Integumentary Comment(s): Skin is warm and dry with evidence of good perfusion. Anterior chest incision well approximated and covered with dry intact dressing. Right lower extremity EVH site well approximated with Dermabond. - Neurologic Neurologic: Present: CNII-XII intact - Musculoskeletal Musculoskeletal: Present: gait normal, strength equal bilaterally - Psychiatric Psychiatric Comment(s): Patient was a bit sleepy this morning, doesn't arouse to verbal command, is completely oriented and does follow all commands. Psychiatric: Present: A&O x's 3, appropriate affect, intact judgment & insight - Allied health notes Allied health notes reviewed: nursing - Labs CBC & Chem 7: 08/11/18 05:36 08/11/18 05:36 Labs: Abnormal Lab Results - Last 24 Hours (Table) 08/10/18 08/10/18 08/10/18 Range/Units 12:11 18:02 20:45 RBC (3.80-5.40) m/uL Hgb (11.4-16.0) gm/dL Hct (34.0-46.0) % Sodium (137-145) mmol/L Chloride (98-107) mmol/L BUN (7-17) mg/dL Creatinine (0.52-1.04) mg/dL POC Glucose (mg/dL) 116 H 137 H 165 H (75-99) mg/dL AST (14-36) U/L ALT (9-52) U/L Total Protein (6.3-8.2) g/dL Albumin (3.5-5.0) g/dL 08/11/18 08/11/18 08/11/18 Range/Units 05:36 05:36 05:55 RBC 2.60 L (3.80-5.40) m/uL Hgb 7.5 L (11.4-16.0) gm/dL Hct 22.3 L (34.0-46.0) % Sodium 132 L (137-145) mmol/L Chloride 95 L (98-107) mmol/L BUN 18 H (7-17) mg/dL Creatinine 1.08 H (0.52-1.04) mg/dL POC Glucose (mg/dL) 113 H (75-99) mg/dL AST 40 H (14-36) U/L ALT 60 H (9-52) U/L Total Protein 5.7 L (6.3-8.2) g/dL Albumin 3.4 L (3.5-5.0) g/dL - Imaging and Cardiology Chest x-ray: report reviewed, image reviewed Assessment and Plan Assessment: 1. Severe triple-vessel coronary artery disease, status post urgent coronary artery bypass grafting 4 vessels 2. Non-ST elevated myocardial infarction 3. Ischemic heart disease 4. History of coronary artery disease with previous stent placement to mid LAD in 2002 5. Hypertension 6. Hyperlipidemia 7. Previous tobacco dependence with preoperative FEV1 106% of predicted 8. Gastroesophageal reflux disease 9. History of hiatal hernia 10. History of skin cancer with removal 11. Family history of premature coronary artery disease 12. Obesity 13. Preoperative urine culture positive for E. coli 14. Postoperative transaminitis 15. Postoperative acute blood loss anemia Plan: 1. Continue aspirin, Plavix, beta taina. Will increase beta taina as tolerated. Lipitor restarted. 2. Encourage incentive spirometry 10 times every hour while awake. 3. Increase activity, ambulate as tolerated. PT/OT/cardiac rehab following. 4. Bronchodilators per pulmonology. 5. Will monitor daily labs and x-rays. Electrolyte replacement per protocol. No transfusion. 6. Pain control current medication regimen. Meta and Flexeril discontinued. 7. Insulin management per primary care service. 8. No Lasix today. 9. Epicardial pacemaker wires discontinued without incident. Patient tolerated well. Bedrest for 1 hour. 10. GI/DVT prophylaxis. 11. Patient should shower daily. 12. Discharge planning in progress. Dr. Chapman consulted for inpatient rehab per family request. If he approves patient admission, she may be discharged to inpatient rehab tomorrow. 13. More recommendations to follow as patient progresses. Time with Patient: Greater than 30
[2018-08-11] MEDS: KETOROLAC 30 MG/ML 1 ML VIAL IVP PRN ×3 (11:23→23:34)
[2018-08-11 12:40] LABS: Glucose,Whole Blood 111 mg/dL (75-99)
--- NOTE | 2018-08-11 13:28 | P.PN ---
Subjective This is a pleasant 77-year-old female status post 4-vessel bypass grafting with THOMAS to LAD, reverse SVG to OM, reverse SVG to OM and reverse SVG to RCA in the setting of a non-ST elevated myocardial infarction. She also has hypertension, dyslipidemia, melanoma and former nicotine dependence. She complains of mild discomfort at the surgical incision site. She is somewhat short of breath with mild exertion. Although she states this is more related to fatigue and weakness. She denies significant chest pain, dizziness or palpitations. Comes has been placed for evaluation for inpatient rehabilitation. Blood pressure 113/57 heart rate 78 afebrile maintaining oxygen saturation on room air. Laboratory data reviewed, WBC 5.7, hemoglobin 7.5, platelets 336, sodium 132, potassium 4.4, creatinine 1.08 and magnesium 2.1. Chest x-ray this morning reveals no evidence of fluid overload with bilateral small effusions noted. Currently maintained on aspirin 325 mg daily, Plavix 75 mg daily and Lopressor 12.5 mg twice a day. GENERAL: Well-appearing, well-nourished and in no acute distress. NECK: Supple without JVD or thyromegaly. LUNGS: Breath sounds clear to auscultation bilaterally. Respiration equal and unlabored. No wheezes, rales or rhonchi. HEART: Regular rate and rhythm with faint systolic ejection murmur at the left sternal border, no rubs or gallops. S1 and S2 heard. Her current place. EXTREMITIES: Normal range of motion, no edema. No clubbing or cyanosis. Peripheral pulses intact. ASSESSMENT Status post bypass grafting Non-ST elevated myocardial infarction Hypertension Dyslipidemia PLAN Continue current medical regimen. Increase activity as tolerated. Nurse Practitioner note has been reviewed, I agree with a documented findings and plan of care. Patient was seen and examined. Objective - Vital Signs Vital signs: Vital Signs Temp 97.7 F 08/11/18 07:30 Pulse 76 08/11/18 08:03 Resp 16 08/11/18 08:00 BP 102/55 08/11/18 07:30 Pulse Ox 96 08/11/18 07:30 Intake & Output 08/10/18 08/11/18 08/11/18 18:59 06:59 18:59 Intake Total 350 200 210 Output Total 750 Balance 350 200 -540 Weight 77.2 kg Intake: IV 10 Invasive Line 5 10 Intake, IV Titration 50 Amount cefTRIAXone 1 gm In 50 Sodium Chloride 0.9% 50 ml @ 100 mls/hr IVPB Q24H [facility] Rx#:[id number] Oral 300 200 200 Output: Urine 750 Other: Voiding Method Toilet # Voids 2 1 ABP, PAP, CO, CI - Last Documented Arterial Blood Pressure 112/102 Pulmonary Artery Pressure 34/15 Cardiac Output 4.6 Cardiac Index 2.7 - Labs CBC & Chem 7: 08/11/18 05:36 08/11/18 05:36 Labs: Abnormal Lab Results - Last 24 Hours (Table) 08/10/18 08/10/18 08/10/18 Range/Units 12:11 18:02 20:45 RBC (3.80-5.40) m/uL Hgb (11.4-16.0) gm/dL Hct (34.0-46.0) % Sodium (137-145) mmol/L Chloride (98-107) mmol/L BUN (7-17) mg/dL Creatinine (0.52-1.04) mg/dL POC Glucose (mg/dL) 116 H 137 H 165 H (75-99) mg/dL AST (14-36) U/L ALT (9-52) U/L Total Protein (6.3-8.2) g/dL Albumin (3.5-5.0) g/dL 08/11/18 08/11/18 08/11/18 Range/Units 05:36 05:36 05:55 RBC 2.60 L (3.80-5.40) m/uL Hgb 7.5 L (11.4-16.0) gm/dL Hct 22.3 L (34.0-46.0) % Sodium 132 L (137-145) mmol/L Chloride 95 L (98-107) mmol/L BUN 18 H (7-17) mg/dL Creatinine 1.08 H (0.52-1.04) mg/dL POC Glucose (mg/dL) 113 H (75-99) mg/dL AST 40 H (14-36) U/L ALT 60 H (9-52) U/L Total Protein 5.7 L (6.3-8.2) g/dL Albumin 3.4 L (3.5-5.0) g/dL
[2018-08-11 17:37] LABS: Glucose,Whole Blood 107 mg/dL (75-99)
[2018-08-11] MEDS: SENNOSIDES-DOCUSATE SODIUM 1 EACH TAB PO SCH (20:37)
[2018-08-11] MEDS ORDERED: ATORVASTATIN 40 MG TAB PO SCH (21:00)
[2018-08-11 21:08] LABS: Glucose,Whole Blood 121 mg/dL (75-99)
--- NOTE | 2018-08-11 23:34 | PN ---
PROGRESS NOTE DATE OF SERVICE: 08/11/2018 This 77-year-old woman is admitted with CAD, CABG, the patient has some tiredness and weakness. The most recent chest x-ray personally reviewed by me showed some postoperative changes. No chest pain. No palpitations. The inpatient rehab with Dr. Chapman is also being considered. PHYSICAL EXAM: Alert and oriented times three. Pulse 74, blood pressure 105/66, respiration 18, temperature 97.7, pulse ox 98% on room air. HEENT: Conjunctivae normal. Oral mucosa moist. NECK is no jugular venous distention. No carotid bruit. No lymph node enlargement. CARDIOVASCULAR: S1, S2 muffled. RESPIRATIONS: Breath sounds diminished in the bases. Bilateral scattered rhonchi and crackles. ABDOMEN: Soft, nontender. LEGS: No edema. No swelling. NERVOUS SYSTEM: No focal deficits. LABS: WBC 5.6, hemoglobin 7.2, sodium 132. ASSESSMENT: 1. Acute non ST-segment elevation myocardial infarction present on admission, status post cardiac catheterization, triple-vessel disease status post coronary artery disease/ coronary artery bypass grafting. 2. Hypertension. 3. Hyperlipidemia. 4. History of gastroesophageal reflux disease. 5. Anemia, normocytic anemia of chronic change present on admission. 6. Bilateral atelectasis. 7. History of hernia. 8. History of skin cancer. 9. History of adenoidectomy. 10.History of coronary artery disease/stent. 11.History of anxiety. 12.Remote history of nicotine dependence. 13.Elevated LFTs. 14.E coli urinary tract infection present on admission. RECOMMENDATIONS AND DISCUSSION: Recommend to continue current medications, continue to monitor. Symptomatic treatment. Incentive spirometer. Bronchodilators. PT/OT evaluation and DVT prophylaxis. Further recommendations to follow. Closely follow with Cardiology, Cardiothoracic surgery. Further recommendations to follow. MMODL / IJN: [id number] / ABDIRAHMAN
[2018-08-12 02:11] LABS: Glucose,Whole Blood 133 mg/dL (75-99)
[2018-08-12 06:29] LABS: Glucose,Whole Blood 105 mg/dL (75-99)
--- NOTE | 2018-08-12 06:31 | P.CONS ---
History of Present Illness - Chief Complaint Cardiac debility - History of Present Illness I had the opportunity to see patient for inpatient rehab consultation with regard to cardiac debility. She was admitted to [facility] August 02 known cardiac disease. Admitted with chest pain and non-STEMI. Seen by Dr. Au and Elisa. In August 07 patient underwent coronary bypassing which patient reports is 5 vessel. Chest x-rays followed in note postoperative change. PT reports supervision for transfers and gait 80 feet, shortness of breath and fatigues. OT reports supervision for upper/lower dressing and minimal assistance for bathing, toileting, transfers. Previous functional history as elicited from patient: 77-year-old left-handed white female who is lives in modular home with grandson. Grandson works. Patient retired. Describes independent with own cooking, laundry, driving, standing shower and gait without device. Denies tobacco or alcohol. Dr. Miller is regular doctor. Family history father with prostate cancer and [place]. Review of Systems Review of systems: ENT: Denies sneezes or discharge. Eyes: Denies discharge or photophobia. Cardiac: Moderate chest wall discomfort. Pulmonary: Moderate shortness of breath. Breast: Denies discharge or lumps. Gastrointestinal: Denies nausea, emesis, constipation, diarrhea. Genitourinary: Denies discharge or frequency. Musculoskeletal: Denies muscle or bone aches. Neurologic: Moderate generalized weakness. Endocrine: Denies shakes or sweats. Oncology: Denies cancers. Dermatologic: Denies rash, itching, pruritus. ALLERGY/immunology: Denies sneezes, rashes. Past Medical History Past Medical History: Cancer, Chest Pain / Angina, GERD/Reflux, Hyperlipidemia, Hypertension, Skin Disorder Additional Past Medical History / Comment(s): hernia, skin cancer (arm, leg, nose, face) with removal - states they took a lymph node also. States she had melanoma removed from her left arm in September 2017. History of Any Multi-Drug Resistant Organisms: None Reported Past Surgical History: Adenoidectomy, Cholecystectomy, Heart Catheterization With Stent, Hysterectomy Additional Past Surgical History / Comment(s): 1 stent 2002. Bilateral cataract surgery, skin cancer removed from her left arm, right leg, right ear and to her face. Past Anesthesia/Blood Transfusion Reactions: No Reported Reaction Additional Past Anesthesia/Blood Transfusion Reaction / Comm: no blood transfusion. Date of Last Stent Placement:: 2002 Past Psychological History: Anxiety Smoking Status: Former smoker (She reports she quit smoking at age 17) Past Alcohol Use History: Occasional (She drinks about 3 glasses of wine a month.) Past Drug Use History: None Reported - Past Family History Mother Family Medical History: Myocardial Infarction ([place]) (Myocardial infarction at age 97) Father Family Medical History: Myocardial Infarction ([place]) Additional Family Medical History / Comment(s): Her father at age 55 from a myocardial infarction. Medications and Allergies Home Medications Medication Instructions Recorded Confirmed Type Davey Complex 1 tab PO DAILY 08/02/18 08/02/18 History Multivitamin [Multivitamins Adult 2 tab PO DAILY 08/02/18 08/02/18 History Gummies] Ubidecarenone [Co Q-10] 200 mg PO DAILY 08/02/18 08/02/18 History Acetaminophen Tab [Tylenol] 1,000 mg PO Q6HR PRN #120 tab 08/10/18 Rx Aspirin 325 mg PO DAILY #30 tab 08/10/18 Rx Atorvastatin [Lipitor] 40 mg PO HS #30 tab 08/10/18 Rx Clopidogrel [Plavix] 75 mg PO DAILY #30 tab 08/10/18 Rx Loratadine [Claritin] 10 mg PO DAILY #30 tab 08/10/18 Rx Metoprolol Tartrate [Lopressor] 12.5 mg PO BID #30 tab 08/10/18 Rx Pantoprazole Sodium [Protonix] 40 mg PO DAILY #30 tablet. 08/10/18 Rx Sennosides-Docusate Sodium 2 each PO HS #14 tab 08/10/18 Rx [Senokot-S] Allergies Allergy/AdvReac Type Severity Reaction Status Date / Time codeine AdvReac Nausea & Verified 08/02/18 16:24 Vomiting Physical Exam Vitals: Vital Signs Temp Pulse Pulse Resp BP BP Pulse Ox 08/12/18 04:57 98.0 F 71 18 126/60 95 08/12/18 00:51 98.5 F 74 18 114/58 93 L 08/11/18 20:42 93 16 08/11/18 20:30 93 16 08/11/18 20:00 98.0 F 92 18 119/60 99 08/11/18 16:31 76 08/11/18 16:22 74 08/11/18 15:46 97.7 F 73 18 104/61 96 08/11/18 12:10 76 08/11/18 11:58 76 08/11/18 11:31 98.5 F 78 18 113/57 96 08/11/18 08:03 76 08/11/18 08:00 77 16 08/11/18 07:55 72 08/11/18 07:30 97.7 F 77 16 102/55 96 Intake and Output 08/11/18 08/11/18 08/12/18 14:59 22:59 06:59 Intake Total 215 55 Output Total 1050 Balance -835 55 Intake: IV 15 5 Invasive Line 5 15 5 Intake, IV Titration 50 Amount cefTRIAXone 1 gm In 50 Sodium Chloride 0.9% 50 ml @ 100 mls/hr IVPB Q24H [facility] Rx#:[id number] Oral 200 Output: Urine 1050 Other: Voiding Method Toilet Toilet # Voids 1 2 Skin: Good color, texture, turgor. General: Medium to overweight build and comfortable appearance. Head: Normocephalic, atraumatic. Eyes: Symmetric. Pupils equal round. Ears: Symmetric. Hearing within normal limits. Mouth: Clear. Neck: Supple. Carotid without bruit. Cardiac: Regular rate and rhythm. Sternotomy clean and dressed. Wearing harness. Lungs: Clear anteriorly and posteriorly. Abdomen: Soft active nontender. Extremities: Normal tone. Neurological: Mental status: Alert, cooperative, pleasant. Cranial nerves: Symmetric facial tone and trapezius. Motor: Normal strength and isolation all 4 limbs. Sensation: Intact throughout. DTRs: Symmetric and equal throughout. Mobility: Sits and stands with assistance Results CBC & Chem 7: 08/11/18 05:36 08/11/18 05:36 Labs: Abnormal Lab Results - Last 24 Hours (Table) 08/11/18 08/11/18 08/11/18 Range/Units 05:36 05:36 12:33 RBC 2.60 L (3.80-5.40) m/uL Hgb 7.5 L (11.4-16.0) gm/dL Hct 22.3 L (34.0-46.0) % Sodium 132 L (137-145) mmol/L Chloride 95 L (98-107) mmol/L BUN 18 H (7-17) mg/dL Creatinine 1.08 H (0.52-1.04) mg/dL POC Glucose (mg/dL) 111 H (75-99) mg/dL AST 40 H (14-36) U/L ALT 60 H (9-52) U/L Total Protein 5.7 L (6.3-8.2) g/dL Albumin 3.4 L (3.5-5.0) g/dL 08/11/18 08/11/18 08/12/18 Range/Units 17:26 21:07 02:10 RBC (3.80-5.40) m/uL Hgb (11.4-16.0) gm/dL Hct (34.0-46.0) % Sodium (137-145) mmol/L Chloride (98-107) mmol/L BUN (7-17) mg/dL Creatinine (0.52-1.04) mg/dL POC Glucose (mg/dL) 107 H 121 H 133 H (75-99) mg/dL AST (14-36) U/L ALT (9-52) U/L Total Protein (6.3-8.2) g/dL Albumin (3.5-5.0) g/dL Assessment and Plan (1) NSTEMI (non-ST elevated myocardial infarction) Current Visit: Yes Status: Acute Code(s): I21.4 - NON-ST ELEVATION (NSTEMI) MYOCARDIAL INFARCTION SNOMED Code(s): 17087777 Plan: Impression: 1. Cardiac debility. 2. Coronary disease with non-STEMI and recent CABG. 3. Hypertension. 4. Dyslipidemia. 5. History of reflux and cancer. Comments and plan: At this time PT and OT are ongoing. PT reports patient supervision which is technically too good for inpatient rehab. We'll follow therapies today for possible changes to this grading. Should also noted patient prefers discharge or return to home rather than alternative plans.
[2018-08-12 06:32] LABS: HCT 23.1 % (34.0-46.0); HGB 7.3 gm/dL (11.4-16.0); MCH 27.6 pg (25.0-35.0); MCHC 31.8 g/dL (31.0-37.0); MCV 86.9 fL (80.0-100.0); Mean Platelet Volume 6.8; Platelet Count 406 k/uL (150-450); RBC 2.65 m/uL (3.80-5.40); WBC 5.8 k/uL (3.8-10.6)
[2018-08-12] MEDS: INSULIN ASPART (NovoLOG) 100 UNIT/ML VIAL SQ SCH ×3 (06:34→17:13)
[2018-08-12 06:37] LABS: Albumin 3.6 g/dL (3.5-5.0); Calcium 9.4 mg/dL (8.4-10.2); Potassium 4.2 mmol/L (3.5-5.1); Total Bilirubin 0.4 mg/dL (0.2-1.3)
[2018-08-12] MEDS: ASCORBIC ACID 500 MG TAB PO SCH ×2 (06:39→17:40)
[2018-08-12] MEDS: FERROUS SULFATE ORAL ELIXIR 300 MG/5 ML CUP PO SCH ×2 (06:39→17:41)
[2018-08-12] MEDS: PANTOPRAZOLE 40 MG/10 ML VIAL IVP SCH ×2 (06:39→17:42)
[2018-08-12] MEDS: KETOROLAC 30 MG/ML 1 ML VIAL IVP PRN (06:40)
--- NOTE | 2018-08-12 08:12 | XR ---
EXAMINATION TYPE: XR chest 2V DATE OF EXAM: 08/12/2018 COMPARISON: 08/11/2018 HISTORY: 77 year-old female post cardiac surgery TECHNIQUE: PA and lateral views FINDINGS: Median sternotomy wires are present with post-CABG clips in the mediastinum. Heart borderline enlarge d. Improvement in the appearance to the pulmonary vasculature. Continued trace effusions with patchy left basilar opacity. IMPRESSION: Improvement in pulmonary vascular congestion with continued trace effusions and patchy left basilar a telectasis.
[2018-08-12] MEDS: IPRATROPIUM-ALBUTEROL 3 ML NEB INHALATION SCH ×3 (08:32→15:32)
[2018-08-12] MEDS: ASPIRIN 325 MG TAB PO SCH (09:20)
[2018-08-12] MEDS: METOPROLOL TARTRATE 12.5 MG TAB PO SCH (09:20)
[2018-08-12] MEDS: HEPARIN SODIUM,PORCINE 5,000 UNIT/ML 1 ML VIAL SQ SCH ×2 (09:21→17:40)
[2018-08-12] MEDS: CLOPIDOGREL 75 MG TAB PO SCH (09:21)
[2018-08-12] MEDS: MULTIVITAMINS, THERA 1 EACH TAB PO SCH (09:21)
[2018-08-12] MEDS: LORATADINE 10 MG TAB PO SCH (09:21)
[2018-08-12] MEDS ORDERED: FUROSEMIDE 20 MG TAB PO SCH (09:45)
--- NOTE | 2018-08-12 10:41 | P.DS ---
Providers Date of admission: 08/02/18 16:59 Expected date of discharge: 08/12/18 Attending physician: Aaron Martin Consults: 08/02/18 16:59 Consult Physician Urgent Consulting Provider: Isaak Landrum Consult Reason/Comments: nstemi Do you want consulting provider notified?: Yes 08/03/18 15:22 Consult Physician Urgent Consulting Provider: [facility] Consult Reason/Comments: post cath, multi vessel disease Do you want consulting provider notified?: Yes 08/03/18 18:03 Consult Physician Routine Consulting Provider: Cathie Pérez Consult Reason/Comments: Pulmonary Management Do you want consulting provider notified?: Yes Consult to Anesthesia Routine Consulting Provider: Anesthesia,Services Consult Reason/Comments: Cardiac Surgery Pre-Op 08/11/18 09:22 Consult Physician Routine Consulting Provider: Ho Chapman Consult Reason/Comments: inpatient rehab Do you want consulting provider notified?: Yes Primary care physician: Jose Miller [facility] Course: FINAL DIAGNOSIS: 1. Severe triple-vessel coronary artery disease 2. Non-ST elevated myocardial infarction 3. Ischemic heart disease 4. History of coronary artery disease with previous stent placement to the mid LAD in 2002 5. Hypertension 6. Hyperlipidemia 7. Previous tobacco dependence with preoperative FEV1 106% of predicted 8. Gastroesophageal reflux disease 9. History of hiatal hernia 10. History of skin cancer with removal 11. Family history of premature coronary artery disease 12. Obesity 13. Preoperative urine culture positive for E. coli 14. Postoperative transaminitis, resolving 15. Postoperative acute blood loss anemia, resolving PRINCIPAL PROCEDURE: 1. Urgent coronary artery bypass grafting 4 vessels with the left internal mammary artery to the left anterior descending coronary artery,a reverse greater saphenous vein graft to the obtuse marginal coronary artery, a reverse greater saphenous vein graft to the distal obtuse marginal coronary artery, a reverse greater saphenous vein graft to the distal right coronary artery. 2. Endoscopic vein harvesting of the right greater saphenous vein. 3. Intraoperative transesophageal echocardiogram. 4. Epi-aortic ultrasound. HISTORY OF PRESENT ILLNESS: This is a 77-year-old female patient who follows with Dr. Jose Miller on an outpatient basis. She had been experiencing episodes of epigastric type pain and pressure, nausea and lightheadedness. She associated the symptoms with her hiatal hernia but also had symptoms of sinus and lung congestion with frequent cough and reported to [facility] emergency room via EMS. Initially she was treated for GI upset without improvement in her symptoms. A 12-lead EKG was performed demonstrating sinus bradycardia without ischemic changes. Her symptoms did improve with application of Nitropaste. Troponins were drawn which were elevated and she was ruled in for non-STEMI. She was admitted for cardiology workup. She was taken to the Risk Adjustment Specialist by Dr. Au with demonstration of a proximal left anterior descending coronary artery stenosis 50%, mid LAD stenosis 90% at the site of the previous stent, diffuse plaque in the proximal circumflex coronary artery with 90-95% stenosis in the distal circumflex, 70% stenosis to the proximal obtuse marginal branch, and 70-80% stenosis in the proximal portion of the right cor onary artery. Subsequently, for further workup a transthoracic echocardiogram was completed demonstrating normal left ventricular systolic function with EF 55-60%, mild aortic valve stenosis, mild mitral valve regurgitation, and mild tricuspid valve regurgitation. A consultation request was placed for Dr. Zelaya from cardiothoracic surgery. She was recommended to undergo urgent coronary artery bypass surgery. The usual perioperative course was discussed in detail with the patient and her family, all risks and benefits were explained, all questions were answered, and consent was obtained to proceed with surgery. The patient was kept inpatient due to the nature of her disease process, and she was scheduled for surgery at the earliest possible date with Dr. Martin. HOSPITAL COURSE: The patient was brought to the preoperative area on 08/06/2018, prepared in the usual fashion, and subsequently taken to the operating room where Dr. Martin performed an urgent coronary artery bypass grafting 4 vessels with the left internal mammary artery to the left anterior descending coronary artery, a reverse greater saphenous vein graft to the obtuse marginal coronary artery, reverse greater saphenous vein graft to the distal obtuse marginal coronary artery, a reverse greater saphenous vein graft to the distal right coronary artery, endoscopic vein harvesting of the right greater saphenous vein, intraoperative transesophageal echocardiogram, and epi-aortic ultrasound. Upon completion of surgery the patient was transferred to the cardiovascular intensive care unit where she was recovered, monitored hemodynamically, and where she progressed to cardiac rehabilitation phase 1. She was extubated, all lines, tubes, and supportive drips were discontinued when appropriate, and she was transferred to [facility] cardiac stepdown unit for further monitoring and rehabilitation. Her oxygen was titrated down, she continued to work with physical and occupational therapy, she was tolerating an oral diet, her pain was controlled, and she was ready to be discharged to home with [facility] health care services on postoperative day #6. She has received written and verbal instruction regarding her medications, activity restrictions, signs and symptoms requiring physician notification, and her follow-up appointments. COMPLICATIONS: The patient experienced postoperative transaminitis and acute bl ood loss anemia requiring no treatment. CONSULTS: 1. Dr. VIELKA Landrum for cardiology management. 2. Dr. Sinha for medical management. 3. Dr. Pérez for pulmonary and ventilator management. 4. Dr. Chapman for inpatient rehab management. DISCHARGE INSTRUCTIONS: 1. No driving for 4 weeks, or until physician gives their ok. 2. The patient should sleep in their own bed, no medical bed needed. 3. Stairs are not an issue. If the bedroom is upstairs, it is advised that the patient go up at night and down in the morning for the first week. Go slowly, using handrail and take 1 step at a time. 4. JESUS MANUEL hose are to be worn for 30 days or until physician discontinues. 5. Heart hugger is to be worn 100% of the time until physician discontinues.(except when showering) 6. No lifting, pushing, or pulling more than 10 pounds for 12 weeks. The physician will advise of any restriction changes. 7. The patient is expected to continue the prescribed walking program. 8. Continue pain control per as needed orders. 9. Continue with incentive spirometry and splinting/heart hugger until otherwise directed by the physician. 10. Must shower daily using liquid antibacterial soap and a separate white washcloth for each individual incision. 11. Routine sternal incision care. No powders, lotions, ointments on incisions. 12. Please call surgeon/PROCESS CONTROL TECHNICIAN for temp greater than 101 F or purulent drainage from incisions. 13. All prescriptions given by surgeon for 30 days. Refills need to be filled through entry writer/primary care physician. 14. A Red armband has been placed on the patient. It should be worn for 30 days post surgery and will be removed by the cardiac surgeons. If an ER visit is necessary, please make sure the number on the Red armband is called. HOME HEALTH SERVICES TO PROVIDE: RN SKILLED HOME CARE SERVICES FOR POST-OP SURGICAL PATIENTS WITH THE FOLLOWING: Coronary Artery Bypass Surgery (CABG), Mitral Valve Replacement/Repair ( MVR), Aortic Valve Replacement/Repair (AVR) RN TO CONTINUE EDUCATION FROM ``ROAD TO A HEALTH HEART PATIENT EDUCATION MANUAL (GIVEN TO PATIENT IN THE HOSPITAL) MEDICATION RECONCILIATION WITH EDUCATION NEEDED ON FIRST HOME VISIT EMPHASIZE IMPORTANCE OF WEARING BREAST SUPPORT/HEART HUGGER ENCOURAGE USE OF INCENTIVE SPIROMETER 10 X EVERY HOUR WHILE AWAKE ENCOURAGE UTILIZATION OF LOWER EXTREMITY COMPRESSION STOCKINGS/JESUS MANUEL HOSE and ELEVATE LEGS ABOVE LEVEL OF HEART WHILE AT REST. ENCOURAGE AMBULATION 3-5x/day INCREASING TOLERATES, WHILE AVOID EXTREMES IN TEMPERATURE FREQUENCY: RN TO OPEN THE PATIENT WITHIN 24 HOURS OF DISCHARGE FROM REHAB WITH TELEHEALTH INSTALLED AT [facility], RN TO VISIT 2-3 X A WEEK FOR 4 WEEKS ESTABLISHED BY PATIENT NEEDS. LABORATORY: CBC, CMP TO BE DRAWN ON THE THIRD DAY AT REHAB, (RAN STAT) FAX RESULTS TO [phone]. TELEHEALTH PARAMETERS: WEIGHT: NOTIFY MD OF WEIGHT GAIN OF 2 LBS IN 24 HOURS OR 5 LBS IN ONE WEEK HR: NOTIFY MD OF HR <55 BPM OR HR>100 BPM BP: NOTIFY MD IF BP <90/55 OR BP>140/100 O2 SAT: NOTIFY MD IF PO2<93% ON ROOM AIR SEND TELEHEALTH REPORT TO SOCIAL MEDIA CONTENT MANAGER AND CARDIOVASCULAR SURGEON THE FIRST WEEK OF CARE AND THEN BI-WEEKLY. PLEASE ADDITIONALLY COMMUNICATE ANY ABNORMALS AND NEW FINDINGS TO THE SURGEONS OFFICE. Patient Condition at Discharge: Stable Plan - Discharge Summary Discharge Rx Participant: Yes New Discharge Prescriptions: New Aspirin 325 mg PO DAILY #30 tab Loratadine [Claritin] 10 mg PO DAILY #30 tab Atorvastatin [Lipitor] 40 mg PO HS #30 tab Metoprolol Tartrate [Lopressor] 12.5 mg PO BID #30 tab Clopidogrel [Plavix] 75 mg PO DAILY #30 tab Sennosides-Docusate Sodium [Senokot-S] 2 each PO HS #14 tab Acetaminophen Tab [Tylenol] 1,000 mg PO Q6HR PRN #120 tab PRN Reason: Fever And/ Or Pain Furosemide [Lasix] 20 mg PO DAILY #4 tab Continue Ubidecarenone [Co Q-10] 200 mg PO DAILY Multivitamin [Multivitamins Adult Gummies] 2 tab PO DAILY Davey Complex 1 tab PO DAILY Pantoprazole Sodium [Protonix] 40 mg PO DAILY #30 tablet. Discontinued Naproxen Sodium [Aleve] 220 mg PO DAILY PRN PRN Reason: Pain Fexofenadine HCl [Ute Allergy] 180 mg PO DAILY PRN PRN Reason: Allergy Symptoms Aspirin EC [Ecotrin Low Dose] 81 - 162 mg PO QID PRN PRN Reason: Pain Metoprolol Succinate (ER) [Toprol XL] 25 mg PO DAILY Discharge Medication List Davey Complex 1 tab PO DAILY 08/02/18 [History] Multivitamin [Multivitamins Adult Gummies] 2 tab PO DAILY 08/02/18 [History] Ubidecarenone [Co Q-10] 200 mg PO DAILY 08/02/18 [History] Acetaminophen Tab [Tylenol] 1,000 mg PO Q6HR PRN #120 tab 08/10/18 [Rx] Aspirin 325 mg PO DAILY #30 tab 08/10/18 [Rx] Atorvastatin [Lipitor] 40 mg PO HS #30 tab 08/10/18 [Rx] Clopidogrel [Plavix] 75 mg PO DAILY #30 tab 08/10/18 [Rx] Loratadine [Claritin] 10 mg PO DAILY #30 tab 08/10/18 [Rx] Metoprolol Tartrate [Lopressor] 12.5 mg PO BID #30 tab 08/10/18 [Rx] Pantoprazole Sodium [Protonix] 40 mg PO DAILY #30 tablet. 08/10/18 [Rx] Sennosides-Docusate Sodium [Senokot-S] 2 each PO HS #14 tab 08/10/18 [Rx] Furosemide [Lasix] 20 mg PO DAILY #4 tab 08/12/18 [Rx] Follow up Appointment(s)/Referral(s): Isaak Landrum MD [STAFF PHYSICIAN] - 2 Weeks (office will call with appointment) Elvia Leonard NPC [Nurse Practitioner] - 09/06/18 3:00 pm [facility], [NON-STAFF] - Aaron Martin MD [STAFF PHYSICIAN] - 09/06/18 10:00 am Jose Miller MD [Primary Care Provider] - 2 Weeks (please call for appointment as the office was closed) Ambulatory/Diagnostic Orders: Complete Blood Count w/diff [LAB.AMB] Time Frame: 3 Days, Location: None Selected Comprehensive Metabolic Panel [LAB.AMB] Time Frame: 3 Days, Location: None Selected Activity/Diet/Wound Care/Special Instructions: DISCHARGE INSTRUCTIONS: 1. No driving for 4 weeks, or until physician gives their ok. 2. The patient should sleep in their own bed, no medical bed needed. 3. Stairs are not an issue. If the bedroom is upstairs, it is advised that the patient go up at night and down in the morning for the first week. Go slowly, using handrail and take 1 step at a time. 4. JESUS MANUEL hose are to be worn for 30 days or until physician discontinues. 5. Heart hugger is to be worn 100% of the time until physician discontinues.(except when showering) 6. No lifting, pushing, or pulling more than 10 pounds for 12 weeks. The physician will advise of any restriction changes. 7. The patient is expected to continue the prescribed walking program. 8. Continue pain control per as needed orders. 9. Continue with incentive spirometry and splinting/heart hugger until otherwise directed by the physician. 10. Must shower daily using liquid antibacterial soap and a separate white washcloth for each individual incision. 11. Routine sternal incision care. No powders, lotions, ointments on incisions. 12. Please call surgeon/PROCESS CONTROL TECHNICIAN for temp greater than 101 F or purulent drainage from incisions. 13. All prescriptions given by surgeon for 30 days. Refills need to be filled through entry writer/primary care physician. 14. A Red armband has been placed on the patient. It should be worn for 30 days post surgery and will be removed by the cardiac surgeons. If an ER visit is necessary, please make sure the number on the Red armband is called. HOME HEALTH SERVICES TO PROVIDE: RN SKILLED HOME CARE SERVICES FOR POST-OP SURGICAL PATIENTS WITH THE FOLLOWING: Coronary Artery Bypass Surgery (CABG), Mitral Valve Replacement/Repair ( MVR), Aortic Valve Replacement/Repair (AVR) RN TO CONTINUE EDUCATION FROM ``ROAD TO A HEALTH HEART PATIENT EDUCATION MANUAL (GIVEN TO PATIENT IN THE HOSPITAL) MEDICATION RECONCILIATION WITH EDUCATION NEEDED ON FIRST HOME VISIT EMPHASIZE IMPORTANCE OF WEARING BREAST SUPPORT/HEART HUGGER ENCOURAGE USE OF INCENTIVE SPIROMETER 10 X EVERY HOUR WHILE AWAKE ENCOURAGE UTILIZATION OF LOWER EXTREMITY COMPRESSION STOCKINGS/JESUS MANUEL HOSE and ELEVATE LEGS ABOVE LEVEL OF HEART WHILE AT REST. ENCOURAGE AMBULATION 3-5x/day INCREASING TOLERATES, WHILE AVOID EXTREMES IN TEMPERATURE FREQUENCY: RN TO OPEN THE PATIENT WITHIN 24 HOURS OF DISCHARGE FROM REHAB WITH TELEHEALTH INSTALLED AT [facility], RN TO VISIT 2-3 X A WEEK FOR 4 WEEKS ESTABLISHED BY PATIENT NEEDS. LABORATORY: CBC, CMP TO BE DRAWN ON THE THIRD DAY AT REHAB, (RAN STAT) FAX RESULTS TO [phone]. TELEHEALTH PARAMETERS: WEIGHT: NOTIFY MD OF WEIGHT GAIN OF 2 LBS IN 24 HOURS OR 5 LBS IN ONE WEEK HR: NOTIFY MD OF HR <55 BPM OR HR>100 BPM BP: NOTIFY MD IF BP <90/55 OR BP>140/100 O2 SAT: NOTIFY MD IF PO2<93% ON ROOM AIR SEND TELEHEALTH REPORT TO SOCIAL MEDIA CONTENT MANAGER AND CARDIOVASCULAR SURGEON THE FIRST WEEK OF CARE AND THEN BI-WEEKLY. PLEASE ADDITIONALLY COMMUNICATE ANY ABNORMALS AND NEW FINDINGS TO THE SURGEONS OFFICE. Discharge Disposition: HOME WITH HOME HEALTH SERVICES
[2018-08-12] MEDS: ACETAMINOPHEN TAB 500 MG TAB PO PRN (11:34)
[2018-08-12 11:40] LABS: Glucose,Whole Blood 116 mg/dL (75-99)
--- NOTE | 2018-08-12 12:17 | PN ---
PROGRESS NOTE DATE OF SERVICE: 08/12/2018 This 77-year-old woman was admitted with CAD, CABG is improving significantly. Dr. Chapman has seen the patient and thought that the patient is too good for rehab candidate at this time. No chest pain. No palpitations. Chest x-ray is improving. PHYSICAL EXAMINATION: On exam, alert and oriented x3. Pulse 78, blood pressure is 125/61, respiration 18, temp is normal, pulse ox 94% on room air. HEENT: Conjunctivae normal. NECK: No jugular venous distention. CARDIOVASCULAR: S1, S2 muffled. RESPIRATORY: Breath sounds diminished at the bases. A few scattered rhonchi and crackles. ABDOMEN: Soft. LEGS: No edema. No swelling. NERVOUS SYSTEM: No focal deficits. LAB STUDIES: WBC 5.8, hemoglobin 7.3, sodium 134. ASSESSMENT: 1. Acute non ST elevation myocardial infarction present on admission, status post cardiac catheterization, triple-vessel disease and CABG. 2. Hypertension. 3. Hyperlipidemia. 4. History of gastroesophageal reflux disease. 5. Anemia, normocytic anemia of chronic changes, chronic, present on admission. 6. Bilateral atelectasis. 7. History of hernia. 8. History of skin cancer. 9. History of adenoidectomy. 10.History of coronary artery disease, stent. 11.History of anxiety. 12.Remote history of nicotine dependence. 13.Elevated LFTs. 14.Escherichia coli urinary tract infection present on admission, improved. RECOMMENDATIONS AND DISCUSSION: Recommend to continue current medications. Continue symptomatic treatment. Resume the home medications. Closely follow with primary physician, Cardiology, Cardiothoracic Surgery. Further recommendations to follow. Monitor hemoglobin closely in the outpatient setting. MMODL / IJN: [id number] /
[2018-08-12 12:51] VITALS: RESP 17
--- NOTE | 2018-08-12 16:16 | P.PN ---
Subjective Progress Note Date: 08/12/18 This is a 77-year-old female with history of hypertension and hypercholesterolemia and previous stent placement done about several years ago who follows with Dr. VIELKA Landrum regularly. In fact she has seen him about a week ago and she was doing fine at the time. Over the last week. Patient has been having intermittent chest discomfort in the epigastric and chest area. At times she wakes up at night with intermittent pains which she felt could be related to her hiatal hernia. However, last night patient had a prolonged chest tightness that did not go away. Patient was brought to the emergency room by paramedics. She was treated with a GI cocktail in the emergency room without much improvement. Subsequently she was put on Nitropaste with improvement of symptoms. Her cardiac enzymes showed elevation of troponin values suggestive of possible non-STEMI/unstable angina. Patient is advised to have a cardiac catheterization for definitive diagnosis. Meanwhile patient will continue on beta blockers, nitrates, aspirin and heparin. Patient underwent heart catheterization that revealed severe triple vessel disease with moderate disease involving the proximal LAD and critical lesion involving the mid LAD, critical lesion involving the OM branch and distal circumflex and also critical lesion involving the proximal RCA. Consult has been requested for cardiothoracic surgery with tentative plan for surgery on Sunday. This morning, patient is complaining of feeling nasal congestion Echocardiogram is pending. 08/12/2018 Patient seen and examined today, overall doing well. Originally patient was given a go to rehab, she is now been a go home with rehab. She is doing well hemodynamically stable. Objective - Vital Signs Vital signs: Vital Signs Temp 98.2 F 08/12/18 08:00 Pulse 84 08/12/18 15:42 Resp 17 08/12/18 12:00 BP 131/67 08/12/18 12:00 Pulse Ox 97 08/12/18 12:00 Intake & Output 08/11/18 08/12/18 08/12/18 18:59 06:59 18:59 Intake Total 270 Output Total 1050 350 Balance -780 -350 Weight 76.8 kg Intake: IV 20 Invasive Line 5 20 Intake, IV Titration 50 Amount cefTRIAXone 1 gm In 50 Sodium Chloride 0.9% 50 ml @ 100 mls/hr IVPB Q24H [facility] Rx#:[id number] Oral 200 Output: Urine 1050 350 Other: Voiding Method Toilet Toilet Toilet # Voids 1 2 1 ABP, PAP, CO, CI - Last Documented Arterial Blood Pressure 112/102 Pulmonary Artery Pressure 34/15 Cardiac Output 4.6 Cardiac Index 2.7 - Exam GENERAL EXAM: Patient is alert and oriented and doesn't appear to be in any acute distress HEENT: Normocephalic. Normal reaction of pupils, equal size, normal range of extraocular motion. No erythema or exudates in the throat. NECK: No masses, no nuchal rigidity. CHEST: No chest wall deformity. LUNGS: Equal air entry with no crackles or wheeze. HEART: S1 and S2 normal with no audible mumurs or gallops. Regular rhythm, femorals equal on both sides.. ABDOMEN: No hepatosplenomegaly, normal bowel sounds, no guarding or rigidity. SKIN: No rashes CENTRAL NERVOUS SYSTEM: No focal deficits. EXTREMITIES: No cyanosis, clubbing or edema. - Labs CBC & Chem 7: 08/12/18 05:50 08/12/18 05:50 Labs: Abnormal Lab Results - Last 24 Hours (Table) 08/11/18 08/11/18 08/12/18 Range/Units 17:26 21:07 02:10 RBC (3.80-5.40) m/uL Hgb (11.4-16.0) gm/dL Hct (34.0-46.0) % Sodium (137-145) mmol/L Chloride (98-107) mmol/L BUN (7-17) mg/dL Creatinine (0.52-1.04) mg/dL POC Glucose (mg/dL) 107 H 121 H 133 H (75-99) mg/dL AST (14-36) U/L ALT (9-52) U/L Total Protein (6.3-8.2) g/dL 08/12/18 08/12/18 08/12/18 Range/Units 05:50 05:50 06:27 RBC 2.65 L (3.80-5.40) m/uL Hgb 7.3 L (11.4-16.0) gm/dL Hct 23.1 L (34.0-46.0) % Sodium 134 L (137-145) mmol/L Chloride 97 L (98-107) mmol/L BUN 18 H (7-17) mg/dL Creatinine 1.08 H (0.52-1.04) mg/dL POC Glucose (mg/dL) 105 H (75-99) mg/dL AST 40 H (14-36) U/L ALT 53 H (9-52) U/L Total Protein 6.0 L (6.3-8.2) g/dL 08/12/18 Range/Units 11:38 RBC (3.80-5.40) m/uL Hgb (11.4-16.0) gm/dL Hct (34.0-46.0) % Sodium (137-145) mmol/L Chloride (98-107) mmol/L BUN (7-17) mg/dL Creatinine (0.52-1.04) mg/dL POC Glucose (mg/dL) 116 H (75-99) mg/dL AST (14-36) U/L ALT (9-52) U/L Total Protein (6.3-8.2) g/dL Assessment and Plan Plan: 1 multivessel symptomatic coronary artery disease post acute non-STEMI. Status post coronary bypass grafting surgery 2 acute non-STEMI 3 environmental ALLERGIES with postnasal drainage 4 hypertension 5 hyperlipidemia 6 history of melanoma resected back in September 2017 Plan Patient may be discharged home today from our perspective. DNP note has been reviewed, I agree with a documented findings and plan of care. Patient was seen and examined.
[2018-08-12 16:39] LABS: Glucose,Whole Blood 130 mg/dL (75-99)
[2018-08-12 18:18] VITALS: BP 116/57; PULSE 65; TEMP 98.3
--- NOTE | 2018-08-13 14:26 | CDI ---
Documentation Clarification Form Date: 08/13/2018 2:21:00 PM From: Latanya Hart Phone: If questions call Vidya Juárez @ [phone], Hours-8:30 am & 5 pm MEdson Pardo Admit Date: 08/02/2018 4:59:00 PM Patient Name: Jessika Camilo Visit Number: [id number] Discharge Date: 08/12/2018 7:25:00 PM ATTENTION: The Clinical Documentation Specialists (CDI) and [facility] Coding Staff appreciate your assistance in clarifying documentation. Please respond to the clarification below the line at the bottom and electronically sign. The CDI & [facility] Coding staff will review the response and follow-up if needed. Please note: Queries are made part of the Legal Health Record. If you have any questions, please contact the author of this message via ITS. Dr. Misty Joshua CHF is documented in the 08/10 progress note. History/Risk Factors: CAD, NSTEMI, UTI, HTN Clinical Indicators: VS/Pulse OX: p-82, R-16, P-16, BP-94/60, O2 sat-93 BNP: none Echocardiogram Results: 5.Overall left ventricular systolic function is normal with, an EF between 55 - 60 %. Chest X Ray: cardiomegaly, bibasilar atelectasis, tiny bilateral pleural effusions Treatment: IV Lasix In your professional opinion, can you please clarify the acuity and type of CHF if known? TYPE Systolic Heart Failure Diastolic Heart Failure Systolic & Diastolic Heart Failure ACUITY Acute Chronic Acute on Chronic Heart Failure Unable to Determine Other, please specify chronic Diastolic Heart Failure MTDD
== END 2018-08-12 19:25 | disposition home health service (06) | DRG 234 ==
LOC: EC 14:37 → 3SCARD 16:59 → 2SICU 08-06 07:39 → 3SCARD 08-09 09:49
PROVIDERS: ADMIT Internal Medicine; ATTEND Surgery
PROC: 4A023N7 Measurement of Cardiac Sampling and Pressure, Left Heart, Percutaneous Approach (ICD-10-PCS; 2018-08-03)
PROC: B2111ZZ Fluoroscopy of Multiple Coronary Arteries using Low Osmolar Contrast (ICD-10-PCS; 2018-08-03)
PROC: B54DZZZ Ultrasonography of Bilateral Lower Extremity Veins (ICD-10-PCS; 2018-08-03)
PROC: B44HZZZ Ultrasonography of Bilateral Lower Extremity Arteries (ICD-10-PCS; 2018-08-04)
PROC: 021209W Bypass Coronary Artery, Three Arteries from Aorta with Autologous Venous Tissue, Open Approach (ICD-10-PCS; 2018-08-06)
PROC: 06BP4ZZ Excision of Right Saphenous Vein, Percutaneous Endoscopic Approach (ICD-10-PCS; 2018-08-06)
PROC: B246ZZ4 Ultrasonography of Right and Left Heart, Transesophageal (ICD-10-PCS; 2018-08-06)
PROC: 5A1221Z Performance of Cardiac Output, Continuous (ICD-10-PCS; 2018-08-06)
PROC: 05HM33Z Insertion of Infusion Device into Right Internal Jugular Vein, Percutaneous Approach (ICD-10-PCS; 2018-08-06)
PROC: 03HY32Z Insertion of Monitoring Device into Upper Artery, Percutaneous Approach (ICD-10-PCS; 2018-08-06)
PROC: 4A133B1 Monitoring of Arterial Pressure, Peripheral, Percutaneous Approach (ICD-10-PCS; 2018-08-06)
PROC: 4A133J1 Monitoring of Arterial Pulse, Peripheral, Percutaneous Approach (ICD-10-PCS; 2018-08-06)
PROC: 02HQ32Z Insertion of Monitoring Device into Right Pulmonary Artery, Percutaneous Approach (ICD-10-PCS; 2018-08-06)
PROC: 4A133B3 Monitoring of Arterial Pressure, Pulmonary, Percutaneous Approach (ICD-10-PCS; 2018-08-06)
PROC: 4A1239Z Monitoring of Cardiac Output, Percutaneous Approach (ICD-10-PCS; 2018-08-06)
PROC: 02100Z9 Bypass Coronary Artery, One Artery from Left Internal Mammary, Open Approach (ICD-10-PCS; principal; 2018-08-06 08:25)
DX: I21.4 Non-ST elevation (NSTEMI) myocardial infarction (principal); N39.0 Urinary tract infection, site not specified; D62 Acute posthemorrhagic anemia; J98.11 Atelectasis; I50.32 Chronic diastolic (congestive) heart failure; I95.9 Hypotension, unspecified; I11.0 Hypertensive heart disease with heart failure; J43.9 Emphysema, unspecified; D64.9 Anemia, unspecified; I25.110 Atherosclerotic heart disease of native coronary artery with unstable angina pectoris; B96.20 Unspecified Escherichia coli [E. coli] as the cause of diseases classified elsewhere; J45.909 Unspecified asthma, uncomplicated; E78.00 Pure hypercholesterolemia, unspecified; F41.9 Anxiety disorder, unspecified; R09.81 Nasal congestion; K44.9 Diaphragmatic hernia without obstruction or gangrene; K21.9 Gastro-esophageal reflux disease without esophagitis; E78.5 Hyperlipidemia, unspecified; R74.0 Nonspecific elevation of levels of transaminase and lactic acid dehydrogenase [LDH]; T78.40XA Allergy, unspecified, initial encounter; E66.9 Obesity, unspecified; Z68.33 Body mass index [BMI] 33.0-33.9, adult; Z79.82 Long term (current) use of aspirin; Z79.899 Other long term (current) drug therapy; Z74.1 Need for assistance with personal care; Z87.891 Personal history of nicotine dependence; Z95.5 Presence of coronary angioplasty implant and graft; Z90.49 Acquired absence of other specified parts of digestive tract; Z90.710 Acquired absence of both cervix and uterus; Z98.890 Other specified postprocedural states; Z85.820 Personal history of malignant melanoma of skin; Z98.42 Cataract extraction status, left eye; Z98.41 Cataract extraction status, right eye; Z88.5 Allergy status to narcotic agent; Z82.49 Family history of ischemic heart disease and other diseases of the circulatory system; Z80.42 Family history of malignant neoplasm of prostate
CPT/HCPCS: 36415; 36600; 71045; 71046; 80048; 80053; 80061; 80074; 81001; 82330; 82805; 83036; 83735; 84443; 84450; 84460; 84484; 85025; 85027; 85520; 85610; 85730; 86850; 86891; 86900; 86901; 86920; 87070; 87077; 87086; 87186; 93005; 93306; 93458; 93880; 93922; 93923; 93970; 94002; 94150; 94640; 94760; 96365; 96366; 96376; 99285

== ENCOUNTER → 2018-09-20 | Outpatient (CLI) | payer MEDICARE ==
--- NOTE | 2018-09-20 10:54 | US ---
EXAMINATION TYPE: US venous doppler duplex LE RT DATE OF EXAM: 09/20/2018 10:40 AM COMPARISON: NONE CLINICAL HISTORY: [id number] EMBOLISM AND THROMBOSIS OF DEEP VEINS LOWER EXT. Right knee pain SIDE PERFORMED: Right TECHNIQUE: The lower extremity deep venous system is examined utilizing real time linear array sonog argenis with graded compression, doppler sonography and color-flow sonography. VESSELS IMAGED: External Iliac Vein (EIV) Common Femoral Vein Deep Femoral Vein Greater Saphenous Vein * Femoral Vein Popliteal Vein Small Saphenous Vein * Proximal Calf Veins (* superficial vessels) Grayscale, color doppler, spectral doppler imaging performed of the deep veins of the lower extremiti es. There is normal flow, compressibility, vascular waveforms. Right Leg: Negative for DVT IMPRESSION: No sonographic evidence of deep venous thrombosis within the right lower extremity.
== END | disposition home or self-care (01) ==
LOC: RADUSWWP 09:47
PROVIDERS: ATTEND Internal Medicine Interventional Cardiology
DX: I82.409 Acute embolism and thrombosis of unspecified deep veins of unspecified lower extremity (principal); I25.10 Atherosclerotic heart disease of native coronary artery without angina pectoris; Z98.890 Other specified postprocedural states

== ENCOUNTER → 2019-02-04 | Outpatient (CLI) | payer MEDICARE ==
[2019-02-04 17:12] LABS: Chol/HDL Ratio 4.05
== END | disposition home or self-care (01) ==
LOC: LABWHC1 10:28
PROVIDERS: ATTEND Internal Medicine Interventional Cardiology
DX: E78.5 Hyperlipidemia, unspecified (principal); I25.10 Atherosclerotic heart disease of native coronary artery without angina pectoris; I10 Essential (primary) hypertension
CPT/HCPCS: 36415; 80061; 82550; 84450; 84460

== ENCOUNTER → 2019-11-21 | Outpatient (CLI) | payer MEDICARE | END | disposition home or self-care (01) | LOC: LABPAT 14:19 | PROVIDERS: ATTEND Orthopaedic Surgery | DX: Z01.818 Encounter for other preprocedural examination (principal) | CPT/HCPCS: 93005 ==

== ENCOUNTER 2019-11-25 07:55 | Day surgery (SDC) | payer MEDICARE ==
[2019-11-19 12:21] VITALS: BMI 32.2
[~2019-11-25 07:55] MED LIST: ACETAMINOPHEN TAB 500 MG TAB PO ONE; DEXAMETHASONE SOD PHOSPHATE 10 MG/ML 1 ML VIAL IV ONE; GABAPENTIN 300 MG CAP PO ONE; MELOXICAM 7.5 MG TAB PO ONE; MIDAZOLAM 2 MG/2 ML VIAL IV PRN; ONDANSETRON 4 MG/2 ML VIAL IVP ONE; ROPIVACAINE 246.25 MG, EPINEPHrine 0.5 MG, KETOROLAC 30 MG, cloNIDine HCL/PF 80 MCG, WA... MISCELLANE ONE; TRANEXAMIC ACID 1,000 MG in SODIUM CHLORIDE 0.9% 100 ML IVPB ONE
[2019-11-25] MEDS ORDERED: LIDOCAINE 1% (10MG/ML) FOR IV START INTRADERMA ONE (08:40)
[2019-11-25] MEDS: LACTATED RINGERS 1,000 ML IV SCH (08:43)
[2019-11-25] MEDS ORDERED: TRANEXAMIC ACID 1,000 MG/10 ML VIAL ONE (09:29)
[2019-11-25] MEDS ORDERED: PROPOFOL 10 MG/ML 20 ML VIAL IV ONE (09:29)
[2019-11-25] MEDS ORDERED: MIDAZOLAM 2 MG/2 ML VIAL ONE (09:29)
[2019-11-25] MEDS ORDERED: SODIUM CHLORIDE 0.9% 100 ML BAG ONE (09:29)
[2019-11-25] MEDS ORDERED: SUCCINYLCHOLINE CHLORIDE 100 MG/5 ML SYR IV ONE (09:29)
[2019-11-25] MEDS ORDERED: GLYCOPYRROLATE 0.2 MG/ML 2 ML VIAL ONE (09:29)
[2019-11-25] MEDS ORDERED: fentaNYL (PF) 50 MCG/ML 2 ML AMP ONE (09:29)
[2019-11-25] MEDS ORDERED: HEPARIN SODIUM,PORCINE 10,000 UNIT/ML 1 ML VIAL ONE (09:29)
[2019-11-25] MEDS ORDERED: PHENYLEPHRINE-0.9% NACL SYG 1 MG/10 ML SYRINGE ONE (09:29)
[2019-11-25] MEDS ORDERED: SODIUM CHLORIDE 0.9% IRRIG 1,000 ML BTL IRRIGATION ONE (09:29)
[2019-11-25] MEDS ORDERED: LIDOCAINE 1% INJ 10MG/ML (20 ML MDV) ONE (09:29)
[2019-11-25] MEDS ORDERED: HYDROmorphone (PF) 1 MG/ML ONE (09:29)
[2019-11-25] MEDS ORDERED: NALOXONE 0.4 MG/ML 1 ML VIAL IV PRN (09:45)
[2019-11-25] MEDS ORDERED: HYDROcodone/APAP 5-325MG 1 EACH TAB PO PRN (09:45)
[2019-11-25] MEDS ORDERED: MAGNESIUM HYDROXIDE 2,400 MG/10 ML CUP PO PRN (09:45)
[2019-11-25] MEDS ORDERED: diazePAM 5 MG TAB PO PRN (09:45)
[2019-11-25] MEDS ORDERED: HYDROmorphone 0.5 MG/0.5 ML SYRINGE IVP PRN ×3 (09:45)
[2019-11-25] MEDS ORDERED: hydrOXYzine pamoate 25 MG CAP PO PRN (09:45)
[2019-11-25] MEDS ORDERED: ONDANSETRON 4 MG/2 ML VIAL IVP PRN (09:45)
[2019-11-25] MEDS ORDERED: ceFAZolin 3,000 MG in SODIUM CHLORIDE 0.9% IRRIGATIO 3,000 ML IRRIGATION ONE (10:07)
--- NOTE | 2019-11-25 11:01 | P.OP ---
Date of Procedure: 11/25/19 Preoperative Diagnosis: Severe osteoarthritis left hip Postoperative Diagnosis: Severe osteoarthritis left hip Procedure(s) Performed: Left total hip arthroplasty with a direct anterior approach Implants: Lake [employer] nephew Polarstem size 3 standard [employer]hew R3, 3 hole acetabular shell, 48 mm [employer] reflection 6.5 mm cancellus screw, 20 mm 2 [employer] R3, XLPE 20 acetabular liner [employer]hew Oxinium femoral head 32 m, +0 All components were press-fit. The articulation is Oxinium on polyethylene. Anesthesia: GETA Surgeon: Andi Kessler [employer] Mill Operator #1: Aurora Onofre Estimated Blood Loss (ml): 200 (68 mL returned with Cell Saver) Pathology: other (Femoral head) Condition: stable Disposition: PACU Indications for Procedure: After failure of conservative treatment we discussed the surgical and nonsurgical treatment options at length. Patient wishes to proceed with a total hip arthroplasty with a direct anterior approach. Complications specific to this procedure were discussed at length, including but not limited to infection, leg length discrepancy, dislocation, and nerve injury. Covid-19 was also discussed at length with the patient, and they are aware of the current policies and procedures. The patient was given the option of delaying surgery, but they elect to proceed knowing these risks. Patient is aware of all these complications and informed consent was obtained Operative Findings: The operative findings are consistent with severe osteoarthritis the left hip Description of Procedure: Patient was seen and evaluated in the preoperative area, consent was reviewed, and the surgical site was marked with a skin marker. Patient was then brought to the operating room and given prophylactic antibiotics intravenously. 1 g of Tranexamic acid was also given. A general anesthetic was administered by the anesthesia department. The patient was then placed on the [place] table with the bony prominences well-padded. The hip area was then prepped and draped in usual sterile fashion. A universal timeout was then performed, which confirmed the patient's name, surgical site, ALLERGIES, and procedure being performed. Next the incision site was located at 1 cm distal and 1 cm lateral to the anterior superior iliac spine. The skin and subcutaneous tissues were sharply incised. Incision was carefully dissected down to the fascia overlying the tensor fascia elizabeth muscle. This fascia was then incised in line with the incision. Next, using blunt finger dissection, the tensor fascia elizabeth muscle was dissected off its investing fascia. The muscle was then carefully retracted laterally with a cobra retractor over the lateral neck of the femur. Next, the circumflex vessels were identified and cauterized using the AquaMantis device. The anterior hip capsule was then exposed. The capsule was then opened and an inverted T fashion. Cobra retractors were then placed intracapsularly. The proximal femur was then visualized. The femoral neck was then osteotomized appropriate level above the lesser trochanter. Small amount of traction was placed with the [place] table. A small wedge of bone was then removed from the remaining femoral head. Next, using a corkscrew femoral head was easily removed from the acetabulum. On gross visual inspection, the femoral head had complete loss of articular cartilage in multiple periarticular osteophytes. Attention was then turned to the acetabulum. the acetabulum was exposed and any remaining labrum was excised. Sequential reaming of the acetabulum was performed using fluoroscopic guidance. When the appropriate size was reached, a trial was then placed. The position and fit of the trial was checked with fluoroscopy. The trial was then removed. Then, using fluoroscopic guidance, the final implant was impacted at 20 of anteversion and 40 of abduction, and fully seated in the acetabulum. 2 screws were then placed in the acetabulum. Again fluoroscopy was used to check position of the screws. Next, the liner was then impacted, with a 20 elevated liner located in the anterior superior quadrant. Component locking was confirmed. Attention was then directed to the femur. With the aid of the [place] table, the femur was externally rotated to approximately 130, extended, and abducted under the opposite leg. A side hook was then placed under the proximal femur, and the side hook elevator was used to elevate the proximal femur. Retractors were then placed. A capsular release was performed, as well as a release of the conjoined tendon, which afforded excellent visualization of the proximal femur. Next, a box osteotome was used to lateralize the proximal femur. A upper and bottom lacer hand was then used to locate the femoral canal. Sequential broaching was then performed with appropriate size which afforded excellent fixation in the proximal femur. A trial was then placed with appropriate head and neck, and the hip was gently reduced with the aid of the [place] table. Fluoroscopy was then used to check position of the components, as well as to ensure equal leg lengths. The hip was then gently dislocated and the trials were then removed. Final implants were then impacted and the hip was again reduced. Final fluoroscopic x-rays confirmed that the components were in anatomic position, as well as equal leg lengths. The hip was also taken through range of motion, and found to be stable. The hip was then copiously irrigated with antibiotic solution with pulsatile lavage. The hip was then irrigated with Irrisept solution. The soft tissues were then injected with a ropivacaine solution, which consisted of 246.25 mg of ropivacaine, 0.5 mg of epinephrine, 30 mg of Toradol, 80 g of clonidine, and 48.45 mL of sterile water, for a total of 100 mL of fluid injected. A second dose of 1 g of Tranexamic acid was also given. the fascia was then closed with 2-0 strata fix suture. The subcutaneous tissue was closed with 3-0 Vicryl. The subcuticular tissue was closed with 3-0 strata fix suture. The skin was then closed with Dermabond glue and a sterile silver dressing. The patient was then transferred to the recovery room in stable condition. The material assistant JAMILA Balderas was required due to the complexity of surgery, and the need for skilled surgical technology instructor for positioning, draping, exposure, retraction, and closure of the wound.
[2019-11-25] MEDS: HYDROmorphone 1 MG/ML 1 ML SYRINGE IVP ONE ×2 (11:30→11:36)
--- NOTE | 2019-11-25 11:47 | FL ---
Fluoroscopy INDICATION: Pain FINDINGS: Fluoroscopy time: 60 seconds. Images obtained: 2. IMPRESSIONS: 1. Documentation of fluoroscopy.
[2019-11-25] MEDS: fentaNYL (PF) 50 MCG/ML 2 ML AMP IV PRN ×2 (11:48→11:56)
[2019-11-25] MEDS ORDERED: LACTATED RINGERS 1,000 ML IV ONE (12:07)
--- NOTE | 2019-11-25 12:20 | XR ---
EXAMINATION TYPE: XR Hip Limited LT DATE OF EXAM: 11/25/2019 COMPARISON: None HISTORY: Status post left hip surgery TECHNIQUE: Single AP left hip FINDINGS: Femoral and acetabular components of in place. No acute fractures are evident. Postsurgical changes are within soft tissues. IMPRESSION: 1. No acute fracture post left hip replacement.
[2019-11-25] MEDS: SODIUM CHLORIDE 0.9% 1,000 ML IV SCH ×2 (14:15→23:10)
--- NOTE | 2019-11-25 14:30 | P.CONS ---
History of Present Illness - Reason for Consult Perioperative hypotension - History of Present Illness 79-year-old [place] female was admitted for the severe osteoarthritis of the left hip and elective left total hip arthroplasty with direct anterior approach. Patient is still coming out of anesthesia when I evaluated the patient knee although patient doesn't have any surgical drainage in place doesn't have a catheter at this time. Patient to otherwise feels okay denied any pain at this time. Denied any fever chills nausea vomiting, dysuria Review of Systems All other review of systems are negative and review of systems is limited by post anesthesia drowsiness Past Medical History Past Medical History: Cancer, Chest Pain / Angina, GERD/Reflux, Hyperlipidemia, Hypertension, Skin Disorder Additional Past Medical History / Comment(s): hernia, skin cancer (arm, leg, nose, face) with removal - states they took a lymph node also. States she had melanoma removed from her left arm in September 2017. meineres disease, hx recent uti tx with antibiotics History of Any Multi-Drug Resistant Organisms: None Reported Past Surgical History: Appendectomy, Cholecystectomy, Coronary Bypass/CABG, Heart Catheterization With Stent, Hysterectomy, Orthopedic Surgery Additional Past Surgical History / Comment(s): 1 stent 2002. Bilateral cataract surgery, skin cancer removed from her left arm, right leg, right ear and to her face. CABG 5 vessels 07/2019, rt knee arthroscopy Past Anesthesia/Blood Transfusion Reactions: No Reported Reaction Additional Past Anesthesia/Blood Transfusion Reaction / Comm: no blood transfusion. with previous surgery was given medicine to relax and caused pt to feel cold and had shakiness Date of Last Stent Placement:: 2002 Smoking Status: Former smoker - Past Family History Mother Family Medical History: Myocardial Infarction (ID) Father Family Medical History: Myocardial Infarction (ID) Additional Family Medical History / Comment(s): Her father at age 55 from a myocardial infarction. Sister(s) Family Medical History: Cancer Additional Family Medical History / Comment(s): breast cancer Medications and Allergies Home Medications Medication Instructions Recorded Confirmed Type Multivitamin [Multivitamins Adult 1 tab PO DAILY 08/02/18 11/25/19 History Gummies] Ubidecarenone [Co Q-10] 200 mg PO HS 08/02/18 11/25/19 History Atorvastatin [Lipitor] 40 mg PO HS #30 tab 08/10/18 11/25/19 Rx Loratadine [Claritin] 10 mg PO DAILY #30 tab 08/10/18 11/25/19 Rx Sennosides-Docusate Sodium 2 each PO HS #14 tab 08/10/18 11/25/19 Rx [Senokot-S] Acetaminophen [Tylenol Arthritis] 650 mg PO DAILY PRN 11/19/19 11/25/19 History Aspirin [Adult Low Dose Aspirin EC] 81 mg PO DAILY 11/19/19 11/25/19 History Cholecalciferol [Vitamin D3 (25 2,000 unit PO DAILY 11/19/19 11/25/19 History Mcg = 1000 Iu)] Losartan [Cozaar] 25 mg PO DAILY 11/19/19 11/25/19 History Metoprolol Succinate (ER) [Toprol 12.5 mg PO DAILY 11/19/19 11/25/19 History Xl] Omeprazole [PriLOSEC] 20 mg PO AC-BRKFST 11/19/19 11/25/19 History Allergies Allergy/AdvReac Type Severity Reaction Status Date / Time codeine AdvReac Nausea & Verified 11/25/19 08:16 Vomiting Physical Exam Vitals: Vital Signs Temp Pulse Pulse Resp BP Pulse Ox 11/25/19 12:02 62 18 90/52 99 11/25/19 11:47 65 18 144/65 100 11/25/19 11:32 67 16 117/53 100 11/25/19 11:23 99.1 F 74 12 161/67 95 11/25/19 08:10 98.7 F 62 16 159/97 98 Intake and Output 11/24/19 11/25/19 11/25/19 22:59 06:59 14:59 Intake Total 1051 Output Total 200 Balance 851 Intake: IV 1051 Output: Estimated Blood Loss 200 Other: Weight 73.2 kg PHYSICAL EXAMINATION: GENERAL: The patient is drowsy, not in any acute distress. Well developed, well nourished. HEENT: Pupils are round and equally reacting to light. EOMI. No scleral icterus. No conjunctival pallor. Normocephalic, atraumatic. No pharyngeal erythema. No thyromegaly. CARDIOVASCULAR: S1 and S2 present. No murmurs, rubs, or gallops. PULMONARY: Chest is clear to auscultation, no wheezing or crackles. ABDOMEN: Soft, nontender, nondistended, normoactive bowel sounds. No palpable organomegaly. MUSCULOSKELETAL: No joint swelling or deformity. EXTREMITIES: No cyanosis, clubbing, or pedal edema. NEUROLOGICAL: Drowsy SKIN: No rashes. Assessment and Plan Plan: -Hypertension: Expected in the perioperative period hold off on losartan and patient is on very low-dose of metoprolol which will be held as well. -Gastroesophageal reflux disease -Hyperlipidemia -Left hip arthroplasty: Pain management as per primary service and patient is presently on aspirin 325 twice a day for DVT prophylaxis
[2019-11-25 15:12] VITALS: RESP 16
[2019-11-25] MEDS: HYDROcodone/APAP 5-325MG 1 EACH TAB PO PRN (19:27)
[2019-11-25] MEDS ORDERED: ATORVASTATIN 40 MG TAB PO SCH (21:00)
[2019-11-25] MEDS ORDERED: SENNOSIDES-DOCUSATE SODIUM 1 EACH TAB PO SCH (21:00)
[2019-11-25] MEDS: ASPIRIN 325 MG TAB PO SCH (21:13)
[2019-11-26] MEDS: LACTATED RINGERS 1,000 ML IV SCH (02:17)
[2019-11-26 06:01] LABS: Basophils % (A) 0 %; Eosinophils % (A) 0 %; HGB 9.3 gm/dL (11.4-16.0); Lymphocytes # (A) 1.7 k/uL (1.0-4.8); Lymphocytes % (A) 24 %; MCH 28.8 pg (25.0-35.0); MCHC 33.2 g/dL (31.0-37.0); MCV 86.8 fL (80.0-100.0); Mean Platelet Volume 7.2; Monocytes # (A) 0.5 k/uL (0-1.0); Monocytes % (A) 6 %; Neutrophils # (A) 4.9 k/uL (1.3-7.7); Neutrophils % (A) 68 %; Platelet Count 249 k/uL (150-450); RBC 3.23 m/uL (3.80-5.40); RDW 13.2 % (11.5-15.5); WBC 7.2 k/uL (3.8-10.6)
[2019-11-26] MEDS ORDERED: PANTOPRAZOLE 40 MG TABLET PO SCH (07:30)
--- NOTE | 2019-11-26 08:52 | P.DS ---
Providers Expected date of discharge: 11/26/19 Attending physician: Andi Kessler Consults: 11/25/19 09:45 Consult Physician Routine Consulting Provider: Misty Joshua Consult Reason/Comments: medical management Do you want consulting provider notified?: Yes Primary care physician: Jose Miller - Discharge Diagnosis(es) (1) S/P total hip arthroplasty Current Visit: Yes Status: Acute (2) Osteoarthritis of left hip Current Visit: Yes Status: Acute Hospital Course: This is a 79-year-old female with known history of degenerative arthritis of the left hip. The patient presents for evaluation. After discussion and consideration patient elects to proceed with total hip arthroplasty. The patient is seen preoperatively by Dr. Kessler and medically cleared for surgery by their primary care physician. Patient is admitted to [facility] on 11/25/2019 for total hip arthroplasty. The procedure is performed without complication or sequelae. The patient is doing well postoperatively. Labs and vital signs are stable on day of discharge. On day of discharge patient's hip incision is healing well. There is minimal erythema. There is no drainage noted at this time. There is minimal soft tissue swelling to the hip and thigh. Patient has full foot and ankle motion without difficulty or pain. Calf is soft and nontender to palpation. Neurovascular status to the left lower extremity is intact. Patient is d ischarged home in good condition. Opioid start talking form is reviewed and signed at patient bedside. Please see med rec for accurate list of home medications. Plan - Discharge Summary Discharge Rx Participant: Yes New Discharge Prescriptions: New Aspirin 325 mg PO BID #60 tab HYDROcodone/APAP 5-325MG [[place] 5-325] 1 - 2 tab PO Q6HR PRN #48 tab PRN Reason: Pain Sennosides [Senokot] 2 tab PO DAILY PRN #60 tablet PRN Reason: Constipation No Action Ubidecarenone [Co Q-10] 200 mg PO HS Multivitamin [Multivitamins Adult Gummies] 1 tab PO DAILY Loratadine [Claritin] 10 mg PO DAILY #30 tab Atorvastatin [Lipitor] 40 mg PO HS #30 tab Sennosides-Docusate Sodium [Senokot-S] 2 each PO HS #14 tab Losartan [Cozaar] 25 mg PO DAILY Cholecalciferol [Vitamin D3 (25 Mcg = 1000 Iu)] 2,000 unit PO DAILY Metoprolol Succinate (ER) [Toprol Xl] 12.5 mg PO DAILY Aspirin [Adult Low Dose Aspirin EC] 81 mg PO DAILY Omeprazole [PriLOSEC] 20 mg PO AC-BRKFST Acetaminophen [Tylenol Arthritis] 650 mg PO DAILY PRN PRN Reason: Pain Discharge Medication List Multivitamin [Multivitamins Adult Gummies] 1 tab PO DAILY 08/02/18 [History] Ubidecarenone [Co Q-10] 200 mg PO HS 08/02/18 [History] Atorvastatin [Lipitor] 40 mg PO HS #30 tab 08/10/18 [Rx] Loratadine [Claritin] 10 mg PO DAILY #30 tab 08/10/18 [Rx] Sennosides-Docusate Sodium [Senokot-S] 2 each PO HS #14 tab 08/10/18 [Rx] Acetaminophen [Tylenol Arthritis] 650 mg PO DAILY PRN 11/19/19 [History] Aspirin [Adult Low Dose Aspirin EC] 81 mg PO DAILY 11/19/19 [History] Cholecalciferol [Vitamin D3 (25 Mcg = 1000 Iu)] 2,000 unit PO DAILY 11/19/19 [History] Losartan [Cozaar] 25 mg PO DAILY 11/19/19 [History] Metoprolol Succinate (ER) [Toprol Xl] 12.5 mg PO DAILY 11/19/19 [History] Omeprazole [PriLOSEC] 20 mg PO AC-BRKFST 11/19/19 [History] Aspirin 325 mg PO BID #60 tab 11/26/19 [Rx] HYDROcodone/APAP 5-325MG [[place] 5-325] 1 - 2 tab PO Q6HR PRN #48 tab 11/26/19 [Rx] Sennosides [Senokot] 2 tab PO DAILY PRN #60 tablet 11/26/19 [Rx] Follow up Appointment(s)/Referral(s): Andi Kessler DO [Doctor of Osteopathic Medicine] - 2 Weeks Activity/Diet/Wound Care/Special Instructions: Weightbearing as tolerated with walker. Leave dressing intact. Dressing may be removed by home care nurse or by patient in 10 days. May shower with dressing on. Please take aspirin 325mg twice daily for 30 days to prevent blood clots. Recommend use of compression stockings daily until follow up to help prevent swelling and blood clots. May remove at night before sleeping. Please follow-up with [facility] in 2 weeks and call with any questions or concerns, . Discharge Disposition: HOME WITH HOME HEALTH SERVICES
[2019-11-26] MEDS: ASPIRIN 325 MG TAB PO SCH (08:57)
[2019-11-26] MEDS ORDERED: MELOXICAM 7.5 MG TAB PO SCH (09:00)
[2019-11-26] MEDS: HYDROcodone/APAP 5-325MG 1 EACH TAB PO PRN ×2 (09:04→16:02)
[2019-11-26] MEDS: SODIUM CHLORIDE 0.9% 1,000 ML IV SCH (12:24)
--- NOTE | 2019-11-26 14:24 | P.PN ---
Subjective Patient is clinically doing well on the first postoperative day blood pressure still remains low normal. Objective - Vital Signs Vital signs: Vital Signs Temp 98.1 F 11/26/19 07:00 Pulse 60 11/26/19 07:00 Resp 16 11/26/19 07:00 BP 109/60 11/26/19 07:00 Pulse Ox 96 11/26/19 07:00 Intake & Output 11/25/19 11/26/19 11/26/19 18:59 06:59 18:59 Intake Total 1051 Output Total 200 350 Balance 851 -350 Weight 73.2 kg Intake: IV 1051 Output: Urine 350 Estimated Blood Loss 200 - Exam PHYSICAL EXAMINATION: GENERAL: The patient is alert and oriented x3, not in any acute distress. Well developed, well nourished. HEENT: Pupils are round and equally reacting to light. EOMI. No scleral icterus. No conjunctival pallor. Normocephalic, atraumatic. No pharyngeal erythema. No thyromegaly. CARDIOVASCULAR: S1 and S2 present. No murmurs, rubs, or gallops. PULMONARY: Chest is clear to auscultation, no wheezing or crackles. ABDOMEN: Soft, nontender, nondistended, normoactive bowel sounds. No palpable organomegaly. MUSCULOSKELETAL: No joint swelling or deformity. EXTREMITIES: No cyanosis, clubbing, or pedal edema. NEUROLOGICAL: Gross neurological examination did not reveal any focal deficits. SKIN: No rashes. - Labs CBC & Chem 7: 11/26/19 05:37 Labs: Abnormal Lab Results - Last 24 Hours (Table) 11/26/19 Range/Units 05:37 RBC 3.23 L (3.80-5.40) m/uL Hgb 9.3 L (11.4-16.0) gm/dL Hct 28.0 L (34.0-46.0) % Assessment and Plan Plan: -Hypertension: Expected in the perioperative period hold off on losartan until seen by primary care physician patient was asked to check the blood pressure 2-3 times a day and take it to PCPs office where decision regarding continuation of losartan can be made until then patient will hold off on this medication -Gastroesophageal reflux disease -Hyperlipidemia -Left hip arthroplasty: Pain management as per primary service and patient is presently on aspirin 325 twice a day for DVT prophylaxis
[2019-11-26 15:10] VITALS: BP 114/62; PULSE 58; TEMP 98.4
== END 2019-11-26 16:11 | disposition home health service (06) ==
LOC: OR 07:55 → 4SSUR 12:03 → OR 11-26 16:11
PROVIDERS: ATTEND Orthopaedic Surgery
DX: M16.12 Unilateral primary osteoarthritis, left hip (principal); I10 Essential (primary) hypertension; I25.10 Atherosclerotic heart disease of native coronary artery without angina pectoris; E78.5 Hyperlipidemia, unspecified; H91.90 Unspecified hearing loss, unspecified ear; F32.9 Major depressive disorder, single episode, unspecified; E78.00 Pure hypercholesterolemia, unspecified; K21.9 Gastro-esophageal reflux disease without esophagitis; H81.09 Meniere's disease, unspecified ear; Z90.49 Acquired absence of other specified parts of digestive tract; Z97.3 Presence of spectacles and contact lenses; Z85.820 Personal history of malignant melanoma of skin; Z90.710 Acquired absence of both cervix and uterus; Z98.41 Cataract extraction status, right eye; Z98.42 Cataract extraction status, left eye; Z98.890 Other specified postprocedural states; Z88.5 Allergy status to narcotic agent; Z88.8 Allergy status to other drugs, medicaments and biological substances; Z79.82 Long term (current) use of aspirin; Z79.891 Long term (current) use of opiate analgesic; Z79.899 Other long term (current) drug therapy; Z79.02 Long term (current) use of antithrombotics/antiplatelets; Z95.1 Presence of aortocoronary bypass graft; Z87.440 Personal history of urinary (tract) infections; Z95.5 Presence of coronary angioplasty implant and graft; Z87.891 Personal history of nicotine dependence; Z82.49 Family history of ischemic heart disease and other diseases of the circulatory system; Z80.3 Family history of malignant neoplasm of breast
CPT/HCPCS: 93005; 97110; 97161; 97535; 97165; 86891; 86900; 86901; 88305; 85025; 86850; 88311; 73501 ×2; 27130; C1776; J2250; J0171; J1644; J1100; J0690 ×2; J2405; J2001; J3010; J1885; J1170; J2795; J2370; J0330; J2704; J0735

== ENCOUNTER 2020-05-21 13:59 | Emergency (ER) | payer MEDICARE ==
[2020-05-21 14:37] VITALS: BP 166/76; PULSE 62; RESP 18; TEMP 98.5
--- NOTE | 2020-05-21 16:02 | ED ---
Chest Pain HPI - General Chief Complaint: Chest Pain Stated Complaint: Chest Pain Source: patient, family, RN notes reviewed Mode of arrival: wheelchair Limitations: no limitations - History of Present Illness Initial Comments: 79-year-old female complaining of chest pain for approximately 15-20 minutes all sitting at home. She noted the pain started under her right rib cage and migrated towards the center. She noted after the 20th episode she became lightheaded and then on a walk. So she called her family member who then called 911 and brought in the emergency room. She denied any current chest pain shortness of breath headache nausea vomiting diarrhea constipation fever fatigue chills - Related Data Home Medications Medication Instructions Recorded Confirmed Multivitamin [Multivitamins Adult 1 tab PO DAILY 08/02/18 11/25/19 Gummies] Ubidecarenone [Co Q-10] 200 mg PO HS 08/02/18 11/25/19 Acetaminophen [Tylenol Arthritis] 650 mg PO DAILY PRN 11/19/19 11/25/19 Aspirin [Adult Low Dose Aspirin EC] 81 mg PO DAILY 11/19/19 11/25/19 Cholecalciferol [Vitamin D3 (25 2,000 unit PO DAILY 11/19/19 11/25/19 Mcg = 1000 Iu)] Metoprolol Succinate (ER) [Toprol 12.5 mg PO DAILY 11/19/19 11/25/19 XL] Omeprazole [PriLOSEC] 20 mg PO AC-BRKFST 11/19/19 11/25/19 Previous Rx's Medication Instructions Recorded Atorvastatin [Lipitor] 40 mg PO HS #30 tab 08/10/18 Loratadine [Claritin] 10 mg PO DAILY #30 tab 08/10/18 Sennosides-Docusate Sodium 2 each PO HS #14 tab 08/10/18 [Senokot-S] Aspirin 325 mg PO BID #60 tab 11/26/19 HYDROcodone/APAP 5-325MG [Curlew 1 - 2 tab PO Q6HR PRN #48 tab 11/26/19 5-325] Losartan [Cozaar] 25 mg PO DAILY #0 11/26/19 Sennosides [Senokot] 2 tab PO DAILY PRN #60 tablet 11/26/19 Allergies Allergy/AdvReac Type Severity Reaction Status Date / Time codeine AdvReac Nausea & Verified 05/21/20 14:34 Vomiting Review of Systems ROS Statement: Those systems with pertinent positive or pertinent negative responses have been documented in the HPI. ROS Other: All systems not noted in ROS Statement are negative. Past Medical History Past Medical History: Cancer, Chest Pain / Angina, GERD/Reflux, Hyperlipidemia, Hypertension, Skin Disorder Additional Past Medical History / Comment(s): hernia, skin cancer (arm, leg, nose, face) with removal - states they took a lymph node also. States she had melanoma removed from her left arm in September 2017. meineres disease, hx recent uti tx with antibiotics History of Any Multi-Drug Resistant Organisms: None Reported Past Surgical History: Appendectomy, Cholecystectomy, Coronary Bypass/CABG, Heart Catheterization With Stent, Hysterectomy, Orthopedic Surgery Additional Past Surgical History / Comment(s): 1 stent 2002. Bilateral cataract surgery, skin cancer removed from her left arm, right leg, right ear and to her face. CABG 5 vessels 07/2019, rt knee arthroscopy Past Anesthesia/Blood Transfusion Reactions: No Reported Reaction Additional Past Anesthesia/Blood Transfusion Reaction / Comment(s): no blood transfusion. with previous surgery was given medicine to relax and caused pt to feel cold and had shakiness Date of Last Stent Placement:: 2002 Past Psychological History: Anxiety Smoking Status: Former smoker Past Alcohol Use History: Occasional Past Drug Use History: None Reported - Past Family History Mother Family Medical History: Myocardial Infarction ([place]) Father Family Medical History: Myocardial Infarction ([place]) Additional Family Medical History / Comment(s): Her father at age 55 from a myocardial infarction. Sister(s) Family Medical History: Cancer Additional Family Medical History / Comment(s): breast cancer General Exam Limitations: no limitations General appearance: alert, in no apparent distress Head exam: Present: atraumatic, normocephalic, normal inspection Eye exam: Present: normal appearance, PERRL, EOMI. Absent: scleral icterus, conjunctival injection, periorbital swelling Neck exam: Present: normal inspection. Absent: tenderness, meningismus, lymphadenopathy Respiratory exam: Present: normal lung sounds bilaterally. Absent: respiratory distress, wheezes, rales, rhonchi, stridor Cardiovascular Exam: Present: regular rate, normal rhythm, normal heart sounds. Absent: systolic murmur, diastolic murmur, rubs, gallop, clicks Course Vital Signs 05/21/20 14:34 Temperature 98.5 F Pulse Rate 62 Respiratory 18 Rate Blood Pressure 166/76 O2 Sat by Pulse 97 Oximetry Disposition Clinical Impression: Costochondritis Disposition: Left Against Medical Advice Is patient prescribed a controlled substance at d/c from ED?: No Referrals: Jose Miller MD [Primary Care Provider] - 1-2 days Time of Disposition: 18:22
[2020-05-21 16:15] LABS: Basophils # (A) 0.1 k/uL (0-0.2); Basophils % (A) 1 %; Eosinophils # (A) 0.1 k/uL (0-0.7); Eosinophils % (A) 1 %; HCT 39.5 % (34.0-46.0); HGB 13.5 gm/dL (11.4-16.0); Lymphocytes # (A) 2.2 k/uL (1.0-4.8); Lymphocytes % (A) 32 %; MCH 28.1 pg (25.0-35.0); MCHC 34.1 g/dL (31.0-37.0); MCV 82.5 fL (80.0-100.0); Mean Platelet Volume 6.9; Monocytes # (A) 0.3 k/uL (0-1.0); Monocytes % (A) 4 %; Neutrophils # (A) 4.1 k/uL (1.3-7.7); Neutrophils % (A) 60 %; Platelet Count 291 k/uL (150-450); RBC 4.79 m/uL (3.80-5.40); RDW 13.9 % (11.5-15.5); WBC 6.7 k/uL (3.8-10.6)
[2020-05-21 16:21] LABS: Appearance,Urine Clear (Clear); Bilirubin,Urine Negative (Negative); Blood,Urine Negative (Negative); Color,Urine Light Yellow; Glucose,Urine (UA) Negative (Negative); Ketones,Urine Negative (Negative); Leukocyte Esterase,Urine Negative (Negative); Nitrite,Urine Negative (Negative); Protein,Urine Negative (Negative); Specific Gravity,Urine 1.007 (1.001-1.035); Urobilinogen,Urine <2.0 mg/dL (<2.0)
[2020-05-21 16:24] LABS: Albumin 4.8 g/dL (3.5-5.0); Calcium 10.4 mg/dL (8.4-10.2); Potassium 4.4 mmol/L (3.5-5.1); Total Bilirubin 0.7 mg/dL (0.2-1.3); Total Protein 8.1 g/dL (6.3-8.2)
[2020-05-21 16:25] LABS: INR 0.9 (<1.2); Partial Thromboplastin Time 25.1 sec (22.0-30.0)
--- NOTE | 2020-05-21 16:30 | XR ---
EXAMINATION TYPE: XR chest 2V DATE OF EXAM: 05/21/2020 COMPARISON: 08/12/2018 HISTORY: 79-year-old female chest pain TECHNIQUE: PA and lateral views FINDINGS: Median sternotomy wires are present with his CABG clips in the mediastinum. Heart normal size. Mild t ortuosity/ectasia of the thoracic aorta. Mild interstitial prominence. No consolidation or pleural ef fusion. Some surgical clips either in the lateral left breast or left axilla. IMPRESSION: Chronic-appearing changes without acute process seen.
== END 2020-05-21 18:07 | disposition left against medical advice (07) ==
LOC: EC 13:59
DX: M94.0 Chondrocostal junction syndrome [Tietze] (principal); I10 Essential (primary) hypertension; I25.2 Old myocardial infarction; K21.9 Gastro-esophageal reflux disease without esophagitis; E78.5 Hyperlipidemia, unspecified; F41.9 Anxiety disorder, unspecified; Z79.82 Long term (current) use of aspirin; Z79.899 Other long term (current) drug therapy; Z95.1 Presence of aortocoronary bypass graft; Z88.5 Allergy status to narcotic agent; Z95.5 Presence of coronary angioplasty implant and graft; Z85.828 Personal history of other malignant neoplasm of skin; Z98.890 Other specified postprocedural states; Z87.891 Personal history of nicotine dependence
CPT/HCPCS: 36415; 71046; 80053; 81003; 83735; 84484; 85025; 85610; 85730; 93005; 99285

== ENCOUNTER → 2021-08-24 | Outpatient (CLI) | payer MEDICARE ==
[2021-08-24 09:59] LABS: INR 0.9 (<1.2)
[2021-08-24 14:18] LABS: HCT 39.4 % (37.2-46.3); HGB 12.7 g/dL (12.0-15.0); MCH 28.1 pg (27.0-32.0); MCHC 32.2 g/dL (32.0-37.0); MCV 87.2 fL (80.0-97.0); Mean Platelet Volume 10.1 fL (9.5-12.2); NRBC Per 100 WBC 0 /100 WBCS (0.0-0.0); Platelet Count 310 X 10*3/uL (140-440); RBC 4.52 X 10*6/uL (4.10-5.20)
[2021-08-24 14:27] LABS: African American GFR (CKD) 61.6 (60.0-200.0); Albumin 4.6 g/dL (3.8-4.9); Albumin/Globulin Ratio 1.64 (1.60-3.17); Anion Gap 11.1 mmol/L (10.00-18.00); BUN/Creat Ratio 21.9 Ratio (12.00-20.00); Blood Urea Nitrogen 21.9 mg/dL (9.0-27.0); Calcium 10.3 mg/dL (8.7-10.3); Carbon Dioxide 24.9 mmol/L (20.0-27.5); Globulin 2.8 g/dL (1.6-3.3); Non-African American GFR(CKD) 53.2 (60.0-200.0); Potassium 4.4 mmol/L (3.5-5.5); Total Bilirubin 0.4 mg/dL (0.30-1.20); Total Protein 7.4 g/dL (6.2-8.2)
[2021-08-24 14:30] LABS: Appearance,Urine Clear (Clear); Bilirubin,Urine Negative (Negative); Blood,Urine Negative (Negative); Color,Urine Yellow (Yellow); Ketones,Urine Negative (Negative); Nitrite,Urine Negative (Negative); PH, Urine 5.5 (5.0-8.0); Specific Gravity,Urine 1.019 (1.001-1.030); Urobilinogen,Urine 0.2 (0.2,1.0)
[2021-08-24 14:36] LABS: Bacteria,Urine Trace /HPF (None Seen)
== END | disposition home or self-care (01) ==
LOC: LABPAT 08:45
PROVIDERS: ATTEND Orthopaedic Surgery Sports Medicine
DX: Z01.812 Encounter for preprocedural laboratory examination (principal); M17.11 Unilateral primary osteoarthritis, right knee
CPT/HCPCS: 80053; 81001; 85027; 85610; 85730; 87070

== ENCOUNTER 2021-09-01 05:36 | Day surgery (SDC) | payer MEDICARE ==
[~2021-09-01 05:36] MED LIST changes: -ACETAMINOPHEN TAB 500 MG TAB PO ONE; +ACETAMINOPHEN TAB 500 MG TAB PO PRN; -DEXAMETHASONE SOD PHOSPHATE 10 MG/ML 1 ML VIAL IV ONE; -GABAPENTIN 300 MG CAP PO ONE; +GABAPENTIN 300 MG CAP PO PRN; -MELOXICAM 7.5 MG TAB PO ONE; +MELOXICAM 7.5 MG TAB PO PRN; -MIDAZOLAM 2 MG/2 ML VIAL IV PRN; -ONDANSETRON 4 MG/2 ML VIAL IVP ONE; +ONDANSETRON 4 MG/2 ML VIAL IVP PRN; -ROPIVACAINE 246.25 MG, EPINEPHrine 0.5 MG, KETOROLAC 30 MG, cloNIDine HCL/PF 80 MCG, WA... MISCELLANE ONE; -TRANEXAMIC ACID 1,000 MG in SODIUM CHLORIDE 0.9% 100 ML IVPB ONE; +TRANEXAMIC ACID IN NACL,ISO-OS 1,000 MG in SALINE 1 100ML.BAG IVPB PRN
[2021-09-01] MEDS ORDERED: LIDOCAINE 1% (10MG/ML) FOR IV START INTRADERMA PRN (05:42)
[2021-09-01] MEDS ORDERED: ONDANSETRON 4 MG/2 ML VIAL IVP ONE (05:42)
[2021-09-01] MEDS ORDERED: DEXAMETHASONE SOD PHOSPHATE 4 MG/ML 1 ML VIAL IV ONE (05:42)
[2021-09-01] MEDS ORDERED: MIDAZOLAM 2 MG/2 ML VIAL IV PRN (05:42)
[2021-09-01] MEDS: LACTATED RINGERS 1,000 ML IV SCH ×3 (06:12→16:49)
[2021-09-01] MEDS ORDERED: HYDROmorphone 0.5 MG/0.5 ML SYRINGE IVP PRN ×4 (07:00→09:29)
[2021-09-01] MEDS ORDERED: TRANEXAMIC ACID IN NACL,ISO-OS 1,000 MG/100 ML BAG ONE (07:08)
[2021-09-01] MEDS ORDERED: PROPOFOL 10 MG/ML 20 ML VIAL IV ONE (07:08)
[2021-09-01] MEDS ORDERED: ROPIVACAINE 5 MG/ML 30 ML VIAL ONE (07:08)
[2021-09-01] MEDS ORDERED: MIDAZOLAM 2 MG/2 ML VIAL ONE (07:08)
[2021-09-01] MEDS ORDERED: DEXAMETHASONE SOD PHOSPHATE 4 MG/ML 1 ML VIAL ONE (07:08)
[2021-09-01] MEDS ORDERED: ceFAZolin 3,000 MG in SODIUM CHLORIDE 0.9% IRRIGATIO 3,000 ML IRRIGATION ONE (07:15)
[2021-09-01] MEDS ORDERED: NALOXONE 0.4 MG/ML 1 ML VIAL IV PRN (09:29)
[2021-09-01] MEDS ORDERED: traMADol 50 MG TAB PO PRN (09:29)
[2021-09-01] MEDS ORDERED: bisacodyL 10 MG SUPP RECTAL PRN (09:29)
[2021-09-01] MEDS ORDERED: ONDANSETRON 4 MG/2 ML VIAL IVP PRN (09:29)
[2021-09-01] MEDS ORDERED: TEMAZEPAM 15 MG CAP PO PRN (09:29)
[2021-09-01] MEDS ORDERED: diazePAM 5 MG TAB PO PRN (09:29)
[2021-09-01] MEDS ORDERED: NA PHOS,M-B/NA PHOS,DI-BA 133 ML ENEMA RECTAL PRN (09:29)
[2021-09-01] MEDS ORDERED: ACETAMINOPHEN TAB 325 MG TAB PO PRN (09:29)
[2021-09-01] MEDS ORDERED: HYDROcodone/APAP 10-325MG 1 EACH TAB PO PRN (09:29)
[2021-09-01] MEDS ORDERED: MAGNESIUM HYDROXIDE 2,400 MG/10 ML CUP PO PRN (09:29)
[2021-09-01] MEDS ORDERED: ROPIVACAINE 0.2%-NS ON-Q PUMP 2 MG/ML EACH MISCELLANE ONE (09:35)
--- NOTE | 2021-09-01 10:46 | XR ---
EXAMINATION TYPE: XR knee limited RT DATE OF EXAM: 09/01/2021 10:38 AM INDICATION: Patient age:Female; 80 years old; Reason for study: Evaluation for Postop abnormality and alignment; PHH. COMPARISON: None. TECHNIQUE: The Right knee(s) was examined in frontal and cross table lateral projections. FINDINGS: Post surgical changes from total knee arthroplasty with femoral condylar component and tib ial plateau component. Hardware appears intact with appropriate alignment. Soft tissue gas identified which is not unexpected considering recent surgery. No sizable joint effusion. Surgical clips demons trated in the medial soft tissues. There is expected soft tissue swelling of the knee. IMPRESSION: Postsurgical changes from total right knee arthroplasty which appears in appropriate alignment.
[2021-09-01] MEDS: HYDROcodone/APAP 5-325MG 1 EACH TAB PO PRN ×2 (13:55→21:07)
[2021-09-01] MEDS ORDERED: SENNOSIDES 8.6 MG TAB PO PRN (14:13)
--- NOTE | 2021-09-01 20:13 | OP ---
OPERATIVE REPORT DATE OF PROCEDURE: 09/01/2021 SURGEON: Gregorio Cortez M.D. NET MOBILE DEVELOPER: Enrique Roman PA-C PREOPERATIVE DIAGNOSIS: Right knee osteoarthrosis. POSTOPERATIVE DIAGNOSIS: Right knee osteoarthrosis. OPERATION: Right total knee arthroplasty. ANESTHESIA: Spinal with sedation. ESTIMATED BLOOD LOSS: 100 mL. TOURNIQUET: Tourniquet time was 46 minutes at 250 mmHg. COMPLICATIONS: None apparent. DRAINS: None. DISPOSITION: Post-Anesthesia Care Unit INDICATIONS: Manju is a very pleasant 80-year-old female with longstanding history of right knee pain. History and physical examination are consistent with advanced right knee osteoarthrosis. She has been through significant operative management up to this point. Further treatment options were discussed and she decided to go forward with right total knee arthroplasty. The risks of the procedure were discussed with her in detail. These risks include but are not limited to risk of infection, nerve damage, bleeding, pain, and a small risk of deep vein thrombosis which could lead to fatal pulmonary embolism. There is also a risk of loosening of the implant which could require revision operation. The patient understands these risks. All of her questions were answered to her satisfaction. Appropriate informed consent was obtained. DESCRIPTION OF PROCEDURE: The patient was identified in the preoperative holding area. Surgical site was marked by both the patient and myself. She was given 2 grams of Ancef IV for prophylactic purposes. She was then transported to the operative suite. She was placed supine on the operating room table. A spinal anesthetic was then administered and dosed per the anesthesia department without apparent complication. Examination under anesthesia was then performed. The patient was 2 to 3 degrees shy of full extension. She had 95 degrees of flexion, and the medial collateral ligament, lateral collateral ligament and posterior cruciate ligaments were stable. A tourniquet was then placed high on the right upper thigh, well padded in preparation for surgery. The patient's right lower extremity was then prepped and draped in the usual sterile fashion. A standard surgical pause was undertaken to ensure that we were operating on the correct site and that appropriate preoperative antibiotics had been given. All staff in the room were in agreement and we proceeded. The outlines of the patella were marked with a surgical pen. She did have a previous anteromedial incision. This was incorporated into the incision for the surgery. This was marked with a surgical pen. The leg was then exsanguinated with an Esmarch dressing. The knee was then flexed and the tourniquet was inflated to 250 mmHg. The total tourniquet time for the procedure was 46 minutes. The incision was then made with a 10-blade scalpel. Dissection was carried down sharply to the overlying fascia. Great care was taken to minimize the skin flaps. The knee was then exposed using a standard medial parapatellar approach. A small cuff of quadriceps tendon was then left for suturing. She was in a bit of varus preoperatively. A standard medial release was then made. The superficial medial collateral ligament was dissected off of the bone and around to the posterior aspect of the proximal tibia. The medial meniscus was then excised as well. The lateral meniscus was also released anteriorly. The leg was then externally rotated. The patella was everted. The knee was flexed. Retractors were then placed to protect the collateral ligaments. I then proceeded to remove the infrapatellar fat pad. This was excised sharply tangentially with the fibers of the patellar tendon. I then proceeded to remove the peripheral osteophytes. This was done with a rongeur. I then proceeded with distal femoral resection. She did have near-full extension. A planned 9 mm resection was then done. The femoral canal was then entered in the midline of the femur approximately 10 mm anterior to the origin of the posterior cruciate ligament. The jignesh was then advanced down to the center of the femur and placed intramedullary. Based on the preoperative radiographs, the angle between the anatomic and mechanical axis of the femur was approximately 4 to 5 degrees. The valgus angle of the distal femoral cutting guide was then set at 4 degrees for the right knee. The distal femoral cutting guide was then advanced over the intramedullary jignesh. This was seated firmly against the femur. I then, as mentioned, planned to take 9 mm off the distal femur. The cutting block was then secured onto the femur with pins. The jig was then removed. The distal femoral cut was then made through the slot of the block. The pins were then removed and the distal femoral cutting block was removed. The accuracy of the distal femoral cuts was checked with two flat bars. I then proceeded with femoral sizing. The posterior referencing sizing guide was held firmly against the resected distal surface of the femur. The posterior condyles were resting on the posterior plane of the guide. The sizing stylus was then placed onto the anterior femur. The size was measured as a size 6. I then assessed for femoral rotation. The plan was for 3 degrees of external rotation. Three degrees of external rotation was placed onto the jig. These holes were then marked. I then confirmed the rotation by 3 separate methods. This was done using the epicondylar axis as well as Whitesides line and posterior referencing. It was deemed that the external rotation was proper. I then went forward with placing the femoral cutting block. This was placed over the previously placed pin holes. The José Luis wing was then placed onto the anterior slots to ensure that we would not notch the anterior femur with the anterior femoral cut. I then proceeded with the anterior femoral cut. This was flush with the anterior cortex of the femur. The posterior cuts were then made followed by the anterior chamfer cut and then the posterior chamfer cut. The cutting block was then removed. Throughout the resection, the collateral ligaments were protected with retractors. I then placed a trial size 6 femur. It was slightly wide, but the narrow fit very nicely and it fit flush with the distal end of the femur. The drill holes were then made. I then proceeded with the tibial cut. I planned for a cruciate-retaining knee. The guide was placed and set for varus, valgus and for slope. Height was set for an approximate 2 mm resection from the medial tibial plateau, which was the lower side. I was happy with the alignment and the amount of resection. The cutting block was then pinned to the proximal tibia. The alignment jignesh was removed and the proximal tibia was resected with a reciprocating saw. Again this was done with retractors protecting the collateral ligaments as well as the posterior cruciate ligament. I then proceeded to evaluate the flexion and extension gaps. A 10 mm block was then placed. The flexion and extension gaps were equal. I then proceeded with resection of the posterior osteophytes. She had fairly extensive posterior osteophytes and multiple loose bodies. This was done using a curved osteotome. This resected the posterior osteophytes, and the loose bodies were removed at this time as well. Posterior capsule stripping was also done off the posterior aspect of the femur at this time. The osteophytes were then removed. I then proceeded with resection of the patella. The thickness of the patella was measured using the caliper. The thickness was 22 mm. The thickness of the anticipated patellar dome was taken into account. Resection was then performed and confirmed to be equal in 4 quadrants using a caliper. Approximately 14 mm of bone remained after resection. A 29 x 8 standard patellar trial was then placed. The holes were drilled and the trial was then placed. I then proceeded with sizing the tibial plate. A size C tibial plate fit very nicely. I then placed the trial femur, the tibial tray and the patellar button. A 10 mm trial tibial insert was also placed. The components fit very nicely. She had full extension and flexion. The extension and flexion gaps were equal and stable to both varus and valgus stress. The patella tracked appropriately. The tibial tray rotation was then marked with a Bovie. This was externally rotated properly. I then proceeded with tibial preparation. I first drilled the femoral holes and removed the femoral component. The tibial tray was then set for proper external rotation as well as medial and lateral placement onto the tibia. It was then pinned into place. I then proceeded with punching the keel. I then decided to proceed with cementing of all of our components. The knee was thoroughly irrigated with sterile saline solution via pulse lavage. The lateral geniculate artery was then identified and cauterized. All blood was removed from the bone of the tibia, femur and patella with pulse lavage. I then proceeded with cementing. Two packs of antibiotic bone cement were prepared on the back table by the technology services manager. I then proceeded with cementing of the tibia first. The cement was impacted into the keel as well as deeply seated into the bone. A second coat of cement was then placed. The tibia was then impacted into place. Excess cement was removed with Flavio's and Joker's. I then proceeded with cementing of the femoral component. The femoral component was also cemented using standard technique. Excess cement was removed. A 10 mm trial insert was then placed into the knee. It was brought into full extension with a constant axial load placed until the cement had hardened. The patellar component was then cemented. This was held firmly with a compressive device until the cement had dried. When the cement had dried, the knee was taken out of extension. All excess cement was removed from around the prosthesis. I then trialed the knee with a 10 mm insert. Flexion and extension gaps were appropriate. The knee was stable. It came into full extension. I decided to go forward with a 10 mm medial-congruent, cross-linked, cruciate-retaining tibial insert. Polyethylene was then placed onto the tibial tray and locked into place. The knee was then reduced. The knee was again further irrigated with sterile saline solution with antibiotic added. The tourniquet was then deflated. Total tourniquet time for the procedure was 46 minutes at 250 mmHg. The final components were Jay Persona size 6 narrow cruciate-retaining femoral component, a size C tibial tray, a 10 mm medial- congruent, cruciate-retaining polyethylene insert and a 29 x 8 mm patella. I then proceeded with closure. Again the knee was thoroughly irrigated. The quadriceps tendon and the medial retinaculum were reapproximated with #2 Ethibond suture. The extensor mechanism was then closed with a running #2 Quill suture. Subcutaneous tissues were closed with 2-0 Vicryl interrupted suture. The skin was closed with a running 3-0 Quill suture. Dermabond was applied to the incision. Sterile compressive dressings were applied. All sponge and needle counts were deemed correct prior to closure. The patient tolerated the procedure without apparent complication. She was transferred to the recovery room in stable condition. MMODL / IJN: [id number] /
[2021-09-01] MEDS: SENNOSIDES-DOCUSATE SODIUM 1 EACH TAB PO SCH (21:07)
[2021-09-01] MEDS: ASPIRIN 81 MG PO SCH (21:07)
[2021-09-01] MEDS: ATORVASTATIN 10 MG TAB PO SCH (21:07)
--- NOTE | 2021-09-02 00:43 | P.CONS ---
History of Present Illness - Reason for Consult Consult date: 09/01/21 Post right total knee arthroplasty Requesting physician: Gregorio Cortez - Chief Complaint right total knee arthroplasty, CAD post CABG, hypertension, anemia, recurre - History of Present Illness HISTORY OF PRESENT ILLNESS 80-year-old female one of Dr. Kunz patient with past medical history of CAD, post NM, post CABG in 2019 for 5 vessel disease, history of hyperlipidemia and chronic anemia with previous history of melanoma who apparently had left total hip arthroplasty back in 11/26/[address] Andi Kessler successfully with no major complication.has done very well. Patient has been suffering from severe advanced arthritis of the right knee with severe restriction to motion mobility for the last 2 years. Symptoms become much worse lately. Patient had failed conservative management at this point but seen Tavon on schedule elective right total knee arthroplasty. Surgery was done today successfully with no major complication, patient is hemodynamically stable pain is under control. REVIEW OF SYSTEMS Constitutional: No fever, no chills, no night sweats. No weight change. No weakness, fatigue or lethargy. No daytime sleepiness. EENT: No headache. No blurred vision or double vision, no loss of vision. No loss of Hearing, no ringing in the ears, no dizziness. No nasal drainage or congestion. No epistaxis. No sore throat. Lungs: No shortness of breath, cough, no sputum production. No wheezing. Cardiovascular: No chest pain, no lower extremity edema. No palpitations. No paroxysmal nocturnal dyspnea. No orthopnea. No lightheadedness or dizziness. No syncopal episodes. Abdominal: No abdominal pain. No nausea, vomiting. No diarrhea. No constipation. No bloody or tarry stools.. No loss of appetite. Genitourinary: No dysuria, increased frequency, urgency. No urinary retention. Musculoskeletal: significant pain and discomfort in the right knee with the surgical site being clean. Integumentary: No wounds, no lesions. No rash or pruritus. No unusual bruising. No change in hair or nails. Neurologic: No aphasia. No facial droop. No change in mentation. No head injury. No headache. No paralysis. No paresthesia. Psychiatric: No depression. No anxiety. No mood swings. Endocrine: No abnormal blood sugars. No weight change. No excessive sweating or thirst. No cold intolerance. SOCIAL HISTORY she smoke only for few years quit since age 18,no alcoholabuse, she is and lives alone. FAMILY HISTORY patient has 6 children one of them is living with arrhythmia post pacemaker, has 1 sister who had listeria in the past lost her vision. Father age 65 CABG and CAD, mother age 98, ffrom [place]. PHYSICAL EXAMINATION Gen: This is well-developed elderly does not look in any respiratory distress. HEENT: Head is atraumatic, normocephalic. Pupils equal, round. Sclerae is anicte magdalena. NECK: Supple. No JVD. No lymphadenopathy. No thyromegaly. LUNGS: Clear to auscultation. No wheezes or rhonchi. No intercostal retractions. HEART: Regular rate and rhythm, S1, S2 and light systolic murmur Mirapex.. No murmur. ABDOMEN: Soft. Bowel sounds are present. No masses. No tenderness. EXTREMITIES: trace edema decreased pulse status pedis. NEUROLOGICAL: Patient is awake, alert and oriented x3. Cranial nerves 2 through 12 are grossly intact. ASSESSMENT AND PLAN - status post right total knee arthroplasty: Continue to watch patient hemodynamic status carefully, anticoagulation, DVT prophylaxis and pulmonary prophylaxis to be use. - CAD: Post CABG back in 2019 patient is not having any symptoms to seen cardiology regularly. - Hyperlipidemia: Remain on Crestor 5 mg daily. - Hypertension: Remain on metoprolol succinate 25 mg 12.5 mg twice a day. - Mild arrhythmia: Remain on metoprolol. - Severe GERD: Remain on Prilosec 20 mg daily. DVT prophylaxis: early mobilization and knee-high JESUS MANUEL hose. CODE STATUS: Full code. Dr. Cortez thank you very much for the consult 5 [place] any further help to please let me know. Past Medical History Past Medical History: Cancer, Chest Pain / Angina, GERD/Reflux, Hyperlipidemia, Hypertension, Skin Disorder Additional Past Medical History / Comment(s): hernia, skin cancer (arm, leg, nose, face) with removal - states they took a lymph node also. States she had melanoma removed from her left arm in September 2017. meineres disease, hx recent uti tx with antibiotics History of Any Multi-Drug Resistant Organisms: None Reported Past Surgical History: Appendectomy, Cholecystectomy, Coronary Bypass/CABG, Heart Catheterization With Stent, Hysterectomy, Orthopedic Surgery Additional Past Surgical History / Comment(s): 1 stent 2002. Bilateral cataract surgery, skin cancer removed from her left arm, right leg, right ear and to her face. CABG 5 vessels 07/2019, rt knee arthroscopy, total right knee 09/01/2021 Past Anesthesia/Blood Transfusion Reactions: No Reported Reaction Additional Past Anesthesia/Blood Transfusion Reaction / Comm: no blood transfusion. with previous surgery was given medicine to relax and caused pt to feel cold and had shakiness Date of Last Stent Placement:: 2002 Past Psychological History: Anxiety Smoking Status: Former smoker Past Alcohol Use History: Occasional Additional Past Alcohol Use History / Comment(s): smoked as a teenager Past Drug Use History: None Reported - Past Family History Mother Family Medical History: Myocardial Infarction (NM) Father Family Medical History: Myocardial Infarction (NM) Additional Family Medical History / Comment(s): Her father from a myocardial infarction. Sister(s) Family Medical History: Cancer Additional Family Medical History / Comment(s): breast cancer Medications and Allergies Home Medications Medication Instructions Recorded Confirmed Type Multivitamin [Multivitamins Adult 1 tab PO DAILY 08/02/18 09/01/21 History Gummies] Ubidecarenone [Co Q-10] 200 mg PO HS 08/02/18 09/01/21 History Loratadine [Claritin] 10 mg PO DAILY #30 tab 08/10/18 09/01/21 Rx Aspirin [Adult Low Dose Aspirin EC] 81 mg PO DAILY 11/19/19 09/01/21 History Cholecalciferol [Vitamin D3 (25 2,000 unit PO DAILY 11/19/19 09/01/21 History Mcg = 1000 Iu)] Metoprolol Succinate (ER) [Toprol 12.5 mg PO DAILY 11/19/19 09/01/21 History XL] Omeprazole [PriLOSEC] 20 mg PO AC-BRKFST 11/19/19 09/01/21 History Cinnamon Bark [Cinnamon] 1 cap PO DAILY 08/25/21 09/01/21 History Joint Health 1 tab PO DAILY 08/25/21 09/01/21 History Rosuvastatin Calcium [Crestor] 5 mg PO HS 08/25/21 09/01/21 History Sennosides [Senokot] 1 tab PO DAILY PRN 08/25/21 09/01/21 History Allergies Allergy/AdvReac Type Severity Reaction Status Date / Time codeine AdvReac Nausea & Verified 09/01/21 05:55 Vomiting Physical Exam Vitals: Vital Signs Temp Pulse Pulse Resp BP Pulse Ox 09/01/21 14:00 97.8 F 64 16 136/74 96 09/01/21 13:00 58 L 18 168/81 96 09/01/21 12:15 65 18 177/86 99 09/01/21 11:30 62 18 146/65 98 09/01/21 11:10 50 L 17 137/64 96 09/01/21 10:57 51 L 17 144/63 97 09/01/21 10:42 57 L 18 158/67 99 09/01/21 10:27 50 L 17 143/65 100 09/01/21 10:12 57 L 18 138/65 98 09/01/21 09:57 53 L 17 120/65 97 09/01/21 09:42 57 L 18 125/69 99 09/01/21 09:27 51 L 16 112/61 99 09/01/21 09:12 96.8 F L 55 L 16 113/60 97 09/01/21 06:56 55 L 16 155/74 96 09/01/21 06:01 97.8 F 56 L 16 160/83 98 Intake and Output 09/01/21 09/01/21 09/01/21 06:59 14:59 22:59 Intake Total 100 651 Output Total 100 Balance 100 551 Intake: IV 100 651 Output: Estimated Blood Loss 100 Other: Weight 72.2 kg 72.2 kg
[2021-09-02] MEDS: HYDROcodone/APAP 5-325MG 1 EACH TAB PO PRN (04:54)
--- NOTE | 2021-09-02 07:16 | P.ANPRN ---
Procedure Note - Anesthesia - Nerve Block Performed Right Adductor Canal Infusion Time Out Performed: Yes Date of Procedure: 09/01/21 Procedure Start Time: 06:40 Procedure Stop Time: 06:51 Location of Patient: PreOp Indication: Acute Post-Operative Pain, Requested by Surgeon Sedation Type: Sedate with meaningful contact maintained Preparation: Sterile Prep, Sterile Dressing Position: Supine Catheter: Indwelling Needle Types: Pajunk Needle Gauge: 21 Ultrasound used to visualize needle placement: Yes Ultrasound used to observe medication spread: Yes Blood Aspirated: No Pain Paresthesia on Injection Noted: No Resistance on Injection: Normal Image Stored and Saved: Yes Events: Uneventful and Well Tolerated (ropi .5% 20cc)
--- NOTE | 2021-09-02 07:17 | P.ANPRN ---
Procedure Note - Anesthesia - Nerve Block Performed Right Danielck Single Time Out Performed: Yes Date of Procedure: 09/01/21 Procedure Start Time: 06:52 Procedure Stop Time: 06:56 Location of Patient: PreOp Indication: Acute Post-Operative Pain, Requested by Surgeon Sedation Type: Sedate with meaningful contact maintained Preparation: Sterile Prep Position: Supine Needle Types: Pajunk Needle Gauge: 21 Ultrasound used to visualize needle placement: Yes Ultrasound used to observe medication spread: Yes Blood Aspirated: No Pain Paresthesia on Injection Noted: No Resistance on Injection: Normal Image Stored and Saved: Yes Events: Uneventful and Well Tolerated (ropi .5% 20-cc plus dexamethasone 4mg)
--- NOTE | 2021-09-02 07:37 | P.PN ---
Progress Note - Text 09/02/21 717 80-year-old female status post right total knee replacement by Dr. Cortez. Patient has an On-Q pump for postop pain control with the solution running at 8 mL an hour with a VAS of 8. Patient's pain is poorly controlled with On-Q and has been receiving oral and IV narcotics. Dressing clean dry and intact patient to continue with the On-Q pump infusion along with IV narcotics for breakthrough pain
[2021-09-02 08:43] LABS: Basophils # (A) 0.03 X 10*3/uL (0.00-0.10); Basophils % (A) 0.3 %; Eosinophils # (A) 0 X 10*3/uL (0.04-0.35); Eosinophils % (A) 0 %; HCT 35.7 % (37.2-46.3); HGB 11.5 g/dL (12.0-15.0); Immature Grans, Automated 0.5 %; Lymphocytes # (A) 1.83 X 10*3/uL (0.90-5.00); MCH 27.6 pg (27.0-32.0); MCHC 32.2 g/dL (32.0-37.0); MCV 85.8 fL (80.0-97.0); Mean Platelet Volume 10.4 fL (9.5-12.2); Monocytes # (A) 0.68 X 10*3/uL (0.20-1.00); Monocytes % (A) 7.4 %; NRBC Per 100 WBC 0 /100 WBCS (0.0-0.0); Neutrophils # (A) 6.57 X 10*3/uL (1.80-7.70); Neutrophils % (A) 71.8 %; Platelet Count 311 X 10*3/uL (140-440); RBC 4.16 X 10*6/uL (4.10-5.20); RDW 12.8 % (11.5-14.5); WBC 9.16 X 10*3/uL (4.50-10.00)
[2021-09-02] MEDS ORDERED: JOINT HEALTH PO SCH (09:00)
[2021-09-02] MEDS ORDERED: NON FORMULARY DRUG (Aspirin [Adult Low Dose Aspirin Ec] 81 MG Tablet.Dr) PO SCH (09:00)
[2021-09-02] MEDS: ASPIRIN 81 MG PO SCH ×2 (09:12→21:07)
[2021-09-02] MEDS: PANTOPRAZOLE 40 MG TABLET PO SCH (09:12)
[2021-09-02] MEDS: METOPROLOL SUCCINATE (ER) 25 MG TAB.ER.24H PO SCH (09:14)
[2021-09-02] MEDS: LACTATED RINGERS 1,000 ML IV SCH ×3 (09:25→15:52)
--- NOTE | 2021-09-02 11:01 | P.PN ---
Subjective Progress Note Date: 09/02/21 HISTORY OF PRESENT ILLNESS 80-year-old female one of Dr. Kunz patient with past medical history of CAD, post [place], post CABG in 2019 for 5 vessel disease, history of hyperlipidemia and chronic anemia with previous history of melanoma who apparently had left total hip arthroplasty back in 11/26/[address] Andi Kessler successfully with no major complication.has done very well. Patient has been suffering from severe advanced arthritis of the right knee with severe restriction to motion mobility for the last 2 years. Symptoms become much worse lately. Patient had failed conservative management at this point but seen Tavon on schedule elective right total knee arthroplasty. Surgery was done today successfully with no major complication, patient is hemodynamically stable pain is under control. 09/02: Patient states that she is still having pain in the right knee and Qpump infusion increased. She has worked with physical therapy this morning and discharge plan is home with [facility]. She is utilizing incentive spirometry reaching 1240 ML's. Patient has been afebrile, heart rate 60, blood pressure 146/73, pulse ox 97% on room air. Hemoglobin 11.5, WBC 9.1, platelet count 311. Medication reconciliation reviewed in anticipation of possible discharge today. REVIEW OF SYSTEMS Constitutional: No fever, no chills, no night sweats. No weight change. No weakness, fatigue or lethargy. No daytime sleepiness. EENT: No headache. No blurred vision or double vision, no loss of vision. No loss of Hearing, no ringing in the ears, no dizziness. No nasal drainage or congestion. No epistaxis. No sore throat. Lungs: No shortness of breath, cough, no sputum production. No wheezing. Cardiovascular: No chest pain, no lower extremity edema. No palpitations. No paroxysmal nocturnal dyspnea. No orthopnea. No lightheadedness or dizziness. No syncopal episodes. Abdominal: No abdominal pain. No nausea, vomiting. No diarrhea. No constipation. No bloody or tarry stools.. No loss of appetite. Genitourinary: No dysuria, increased frequency, urgency. No urinary retention. Musculoskeletal: significant pain and discomfort in the right knee with the surgical site being clean. Integumentary: No wounds, no lesions. No rash or pruritus. No unusual bruising. No change in hair or nails. Neurologic: No aphasia. No facial droop. No change in mentation. No head injury. No headache. No paralysis. No paresthesia. Psychiatric: No depression. No anxiety. No mood swings. Endocrine: No abnormal blood sugars. No weight change. No excessive sweating or thirst. PHYSICAL EXAMINATION Gen: This is well-developed elderly does not look in any respiratory distress. HEENT: Head is atraumatic, normocephalic. Pupils equal, round. Sclerae is anicteric. NECK: Supple. No JVD. No lymphadenopathy. No thyromegaly. LUNGS: Clear to auscultation. No wheezes or rhonchi. No intercostal retraction s. HEART: Regular rate and rhythm, S1, S2 and light systolic murmur Mirapex.. No murmur. ABDOMEN: Soft. Bowel sounds are present. No masses. No tenderness. EXTREMITIES: trace edema decreased pulse status pedis. Large dressing in place to the right knee, Q pump in place. NEUROLOGICAL: Patient is awake, alert and oriented x3. Cranial nerves 2 through 12 are grossly intact. ASSESSMENT AND PLAN - status post right total knee arthroplasty: Continue to watch patient hemo dynamic status carefully, anticoagulation, DVT prophylaxis and pulmonary prophylaxis to be use. Patient is on aspirin twice daily for DVT prophylaxis. - CAD: Post CABG back in 2019 patient is not having any symptoms to seen cardiology regularly. - Hyperlipidemia: Remain on Crestor 5 mg daily. - Hypertension: Remain on metoprolol succinate 25 mg 12.5 mg twice a day. - Mild arrhythmia: Remain on metoprolol. - Severe GERD: Remain on Prilosec 20 mg daily. DVT prophylaxis: early mobilization and knee-high JESUS MANUEL hose. CODE STATUS: Full code. DISCHARGE PLAN Home with home care Impression and plan of care have been directed as dictated by the signing physician. Manju Boggs nurse practitioner acting as scribe for signing physician. Objective - Vital Signs Vital signs: Vital Signs Temp 97.6 F 09/02/21 08:00 Pulse 60 09/02/21 08:00 Resp 17 09/02/21 08:00 BP 146/73 09/02/21 08:00 Pulse Ox 97 09/02/21 08:00 FiO2 Intake & Output 09/01/21 09/02/21 09/02/21 18:59 06:59 18:59 Intake Total 1201 800 Output Total 700 Balance 501 800 Weight 72.2 kg Intake: IV 651 Oral 550 800 Output: Urine 600 Estimated Blood Loss 100 Other: Voiding Method Bedpan # Voids 1 # Bowel Movements 0 0 - Labs CBC & Chem 7: 09/02/21 06:17
[2021-09-02] MEDS ORDERED: HYDROcodone/APAP 10-325MG 1 EACH TAB PO PRN (11:19)
[2021-09-02] MEDS: MULTIVITAMINS, THERA 1 EACH TAB PO SCH (12:18)
--- NOTE | 2021-09-02 12:36 | P.PN ---
Subjective Progress Note Date: 09/02/21 Principal diagnosis: right TKA Patient is seen at bedside this morning. She is postop day #1 from right total knee arthroplasty. She has pain at the surgical site as expected but denies any new complaints. She denies numbness, tingling or calf pain. Review of systems is negative for fever, chills, chest pain, shortness of breath or other Objective - Vital Signs Vital signs: Vital Signs Temp 97.6 F 09/02/21 08:00 Pulse 60 09/02/21 08:00 Resp 17 09/02/21 08:00 BP 146/73 09/02/21 08:00 Pulse Ox 97 09/02/21 08:00 FiO2 Intake & Output 09/01/21 09/02/21 09/02/21 18:59 06:59 18:59 Intake Total 1201 800 Output Total 700 Balance 501 800 Weight 72.2 kg Intake: IV 651 Oral 550 800 Output: Urine 600 Estimated Blood Loss 100 Other: Voiding Method Bedpan # Voids 1 # Bowel Movements 0 0 - Exam Inspection reveals a benign surgical wound. There is no active bleeding or drainage. Neurovascular status is intact throughout the lower extremity with motor and sensation fully intact. Calf is soft and nontender. 2+ dorsalis pedis pulse and less than 2 second cap refill is present. - Constitutional General appearance: Present: no acute distress - Labs CBC & Chem 7: 09/02/21 06:17 Labs: Abnormal Lab Results - Last 24 Hours (Table) 09/02/21 Range/Units 06:17 Hgb 11.5 L (12.0-15.0) g/dL Hct 35.7 L (37.2-46.3) % Immature Gran # 0.05 H (0.00-0.04) X 10*3/uL Eosinophils # 0 L (0.04-0.35) X 10*3/uL Assessment and Plan (1) Status post total right knee replacement Narrative/Plan: She will continue with routine postop orthopedic protocol including pain management, wound care, PT, DVT prophylaxis and medical management. Expect that she will transfer to home tomorrow Current Visit: Yes Status: Acute Code(s): Z96.651 - PRESENCE OF RIGHT ARTIFICIAL KNEE JOINT SNOMED Code(s): 8726793385014 Time with Patient: Less than 30
[2021-09-02] MEDS: HYDROcodone/APAP 10-325MG 1 EACH TAB PO PRN (15:35)
[2021-09-02] MEDS: ATORVASTATIN 10 MG TAB PO SCH (21:07)
[2021-09-02] MEDS: SENNOSIDES-DOCUSATE SODIUM 1 EACH TAB PO SCH (21:07)
[2021-09-03] MEDS: HYDROcodone/APAP 10-325MG 1 EACH TAB PO PRN ×3 (02:25→11:24)
[2021-09-03] MEDS: LACTATED RINGERS 1,000 ML IV SCH ×3 (02:27→10:26)
[2021-09-03] MEDS: PANTOPRAZOLE 40 MG TABLET PO SCH (08:05)
[2021-09-03] MEDS: METOPROLOL SUCCINATE (ER) 25 MG TAB.ER.24H PO SCH (08:05)
[2021-09-03] MEDS: ASPIRIN 81 MG PO SCH (08:05)
[2021-09-03 08:28] VITALS: BP 131/82; PULSE 74; RESP 17; TEMP 97.9
--- NOTE | 2021-09-03 09:22 | P.DS ---
Providers Expected date of discharge: 09/03/21 Attending physician: Gregorio Cortez Consults: 09/01/21 09:29 Consult Physician Routine Consulting Provider: Jose Cornell Reason/Comments: post op medical management Do you want consulting provider notified?: Yes Primary care physician: Prasanna Kunz MD - Discharge Diagnosis(es) (1) Primary osteoarthritis of right knee Current Visit: Yes Status: Acute (2) Status post total right knee replacement Current Visit: Yes Status: Acute Hospital Course: This is an 80 year-old female last seen in our office with complaints of right knee pain. The patient has a known history of degenerative arthritis of the right knee and presented to discuss options. After discussion and consideration the patient elected to proceed with a right total knee arthroplasty. The patient was seen preoperatively by her primary care physician and cleared for surgery. The patient was admitted to [facility] on 09/01/2021 and underwent a right total knee arthroplasty by Dr. Gregorio Cortez. The procedure was performed without complications or sequelae. The patient was seen and evaluated at bedside today. The patient's pain is well-controlled. The patient has no new complaints today denies any fevers, chills, nausea, vomiting, or shortness of breath. Vital signs are stable. The dressing is clean, dry and intact. Incision looks fine with no erythema or active drainage. Calf is soft and nontender. The patient has full ankle motion without difficulty. The patient's right lower extremity is neurovascularly intact. The patient is orthopedically stable for discharge home today in good condition. Pertinent Studies: Laboratory Tests 09/02/21 06:17 WBC 9.16 RBC 4.16 Hgb 11.5 L Hct 35.7 L Patient Condition at Discharge: Stable Plan - Discharge Summary Discharge Rx Participant: No New Discharge Prescriptions: New Sennosides-Docusate Sodium [Senokot-S] 2 each PO HS tab Aspirin [Adult Low Dose Aspirin EC] 81 mg PO BID #60 tab HYDROcodone/APAP 10-325MG [[place] 10-325] 1 tab PO Q4HR PRN #42 tab PRN Reason: Pain Docusate [Colace] 100 mg PO BID #60 capsule Continue Ubidecarenone [Co Q-10] 200 mg PO HS Multivitamin [Multivitamins Adult Gummies] 1 tab PO DAILY Loratadine [Claritin] 10 mg PO DAILY #30 tab Cholecalciferol [Vitamin D3 (25 Mcg = 1000 Iu)] 2,000 unit PO DAILY Metoprolol Succinate (ER) [Toprol XL] 12.5 mg PO DAILY Omeprazole [PriLOSEC] 20 mg PO AC-BRKFST Sennosides [Senokot] 1 tab PO DAILY PRN PRN Reason: Constipation Rosuvastatin Calcium [Crestor] 5 mg PO HS Joint Health 1 tab PO DAILY Cinnamon Bark [Cinnamon] 1 cap PO DAILY Discontinued Aspirin [Adult Low Dose Aspirin EC] 81 mg PO DAILY Discharge Medication List Multivitamin [Multivitamins Adult Gummies] 1 tab PO DAILY 08/02/18 [History] Ubidecarenone [Co Q-10] 200 mg PO HS 08/02/18 [History] Loratadine [Claritin] 10 mg PO DAILY #30 tab 08/10/18 [Rx] Cholecalciferol [Vitamin D3 (25 Mcg = 1000 Iu)] 2,000 unit PO DAILY 11/19/19 [ History] Metoprolol Succinate (ER) [Toprol XL] 12.5 mg PO DAILY 11/19/19 [History] Omeprazole [PriLOSEC] 20 mg PO AC-BRKFST 11/19/19 [History] Cinnamon Bark [Cinnamon] 1 cap PO DAILY 08/25/21 [History] Joint Health 1 tab PO DAILY 08/25/21 [History] Rosuvastatin Calcium [Crestor] 5 mg PO HS 08/25/21 [History] Sennosides [Senokot] 1 tab PO DAILY PRN 08/25/21 [History] Aspirin [Adult Low Dose Aspirin EC] 81 mg PO BID #60 tab 09/02/21 [Rx] Docusate [Colace] 100 mg PO BID #60 capsule 09/02/21 [Rx] HYDROcodone/APAP 10-325MG [[place] 10-325] 1 tab PO Q4HR PRN #42 tab 09/02/21 [Rx] Sennosides-Docusate Sodium [Senokot-S] 2 each PO HS tab 09/02/21 [Rx] Follow up Appointment(s)/Referral(s): Prasanna Kunz MD [Primary Care Provider] - 1 Week (office closed at time of discharge. Please call Sunday to fern appointment) Gregorio Cortez MD [STAFF PHYSICIAN] - 10 Days (Office not open at time of discharge. Please call Sunday to schedule appointment) Patient Instructions/Handouts: Knee Replacement (DC) Activity/Diet/Wound Care/Special Instructions: Weight bear as tolerated May shower after 3 days if no bleeding Keep wound clean and dry Take meds as directed F/U with Dr. Cortez in office Discharge Disposition: HOME WITH HOME HEALTH SERVICES
--- NOTE | 2021-09-03 11:05 | P.PN ---
Subjective Progress Note Date: 09/03/21 Principal diagnosis: Patient continued to be hemodynamically stable Knee pain Objective - Vital Signs Vital signs: Vital Signs Temp 97.9 F 09/03/21 08:00 Pulse 74 09/03/21 08:00 Resp 17 09/03/21 08:00 BP 131/82 09/03/21 08:00 Pulse Ox 93 L 09/03/21 08:00 FiO2 Intake & Output 09/02/21 09/03/21 09/03/21 18:59 06:59 18:59 Intake Total 1330 Output Total 450 800 Balance 880 -800 Intake: Oral 1330 Output: Urine 450 800 Other: Voiding Method Bedpan # Voids 2 # Bowel Movements 0 - Exam Gen.: in stated age, no acute distress Heart: Normal S1-S2 Lungs: Clear to auscultation bilaterally Abdomen: Soft, no tenderness, positive bowel sounds in all 4 quadrant no guarding or rebound Skin: No new rash Psych: Alert and oriented 3 Neuro: No focal deficit - Labs CBC & Chem 7: 09/02/21 06:17 Assessment and Plan Assessment: 1. Status post right total knee arthroplasty. 2. Coronary artery disease status post CABG. 3. Hypertension. 4. Hyperlipidemia. Patient is in with a number to stable would be continued on cardio protective medication and we will continue with DVT perplexes per primary team. Patient stable from the medical standpoint for discharge
[2021-09-03] MEDS: MULTIVITAMINS, THERA 1 EACH TAB PO SCH (11:24)
== END 2021-09-03 11:47 | disposition home health service (06) ==
LOC: OR 05:36 → 4SSUR 09:11 → OR 09-03 11:47
PROVIDERS: ATTEND Orthopaedic Surgery Sports Medicine
DX: M17.11 Unilateral primary osteoarthritis, right knee (principal); F32.A Depression, unspecified; I51.9 Heart disease, unspecified; I25.10 Atherosclerotic heart disease of native coronary artery without angina pectoris; I49.5 Sick sinus syndrome; E11.9 Type 2 diabetes mellitus without complications; E78.2 Mixed hyperlipidemia; E66.9 Obesity, unspecified; H81.09 Meniere's disease, unspecified ear; I25.2 Old myocardial infarction; K21.9 Gastro-esophageal reflux disease without esophagitis; K44.9 Diaphragmatic hernia without obstruction or gangrene; M16.12 Unilateral primary osteoarthritis, left hip; D64.9 Anemia, unspecified; I49.9 Cardiac arrhythmia, unspecified; F41.9 Anxiety disorder, unspecified; R25.1 Tremor, unspecified; H91.90 Unspecified hearing loss, unspecified ear; Z79.899 Other long term (current) drug therapy; Z85.828 Personal history of other malignant neoplasm of skin; Z88.5 Allergy status to narcotic agent; Z88.8 Allergy status to other drugs, medicaments and biological substances; Z90.49 Acquired absence of other specified parts of digestive tract; Z98.890 Other specified postprocedural states; Z98.42 Cataract extraction status, left eye; Z98.41 Cataract extraction status, right eye; Z97.3 Presence of spectacles and contact lenses; Z95.1 Presence of aortocoronary bypass graft; Z82.49 Family history of ischemic heart disease and other diseases of the circulatory system; Z79.82 Long term (current) use of aspirin; Z68.31 Body mass index [BMI] 31.0-31.9, adult; Z96.649 Presence of unspecified artificial hip joint; Z81.8 Family history of other mental and behavioral disorders; Z80.0 Family history of malignant neoplasm of digestive organs; Z80.3 Family history of malignant neoplasm of breast; Z90.722 Acquired absence of ovaries, bilateral; Z90.710 Acquired absence of both cervix and uterus; Z95.5 Presence of coronary angioplasty implant and graft; Z87.891 Personal history of nicotine dependence
CPT/HCPCS: 97116; 97161; 64999; 64448; 76942; 88305; 85025; 88311; 73560; 27447; C1776; C1713; J2250; J1100; J0690 ×3; J2405; J2795 ×2; J2704; J1170

== ENCOUNTER → 2022-08-29 | Outpatient (CLI) | payer MEDICARE ==
[2022-08-29 16:40] LABS: Basophils # (A) 0.03 X 10*3/uL (0.00-0.10); Basophils % (A) 0.3 %; Eosinophils # (A) 0.01 X 10*3/uL (0.04-0.35); Eosinophils % (A) 0.1 %; HGB 14.6 d/dL (12.0-15.0); Lymphocytes # (A) 1.63 X 10*3/uL (0.90-5.00); Lymphocytes % (A) 14.5 %; MCH 29.1 pg (27.0-32.0); MCV 85.7 FL (80.0-97.0); Monocytes # (A) 0.34 X 10*3/uL (0.20-1.00); NRBC Per 100 WBC 0 X 10*3/uL (0.00-0.01); Neutrophils # (A) 9.13 X 10*3/uL (1.80-7.70); Neutrophils % (A) 80.9 %; Platelet Count 416 X 10*3/uL (140-440); RBC 5.02 X 10*6/uL (4.10-5.20); RDW 13.2 % (11.5-14.5); WBC 11.27 X 10*3/uL (4.50-10.00)
== END | disposition home or self-care (01) ==
LOC: LABWHC1 11:01
PROVIDERS: ATTEND Internal Medicine Interventional Cardiology
DX: I10 Essential (primary) hypertension (principal)
CPT/HCPCS: 36415; 85025

== ENCOUNTER 2023-01-14 07:01 | Observation (INO) | payer MEDICARE ==
[2023-01-14] MEDS ORDERED: MORPHINE SULFATE 4 MG/ML SYRINGE IV STA (07:37)
[2023-01-14 07:53] LABS: Basophils % (A) 1 %; Eosinophils # (A) 0.1 k/uL (0-0.7); Eosinophils % (A) 2 %; HCT 38.5 % (34.0-46.0); HGB 13.1 gm/dL (11.4-16.0); Lymphocytes # (A) 2.1 k/uL (1.0-4.8); Lymphocytes % (A) 43 %; MCH 29.4 pg (25.0-35.0); MCHC 34.1 g/dL (31.0-37.0); MCV 86.1 fL (80.0-100.0); Mean Platelet Volume 7.8; Monocytes # (A) 0.2 k/uL (0-1.0); Monocytes % (A) 5 %; Neutrophils # (A) 2.2 k/uL (1.3-7.7); Neutrophils % (A) 46 %; Platelet Count 283 k/uL (150-450); RBC 4.47 m/uL (3.80-5.40); RDW 13.1 % (11.5-15.5); WBC 4.9 k/uL (3.8-10.6)
[2023-01-14 08:04] LABS: ALT 21 U/L (4-34); AST 33 U/L (14-36); African American GFR (CKD) 86 (>60 ml/min/1.73 sqM); Albumin 4.7 g/dL (3.5-5.0); Alkaline Phosphatase 64 U/L (38-126); Anion Gap 11 mmol/L; Blood Urea Nitrogen 23 mg/dL (7-17); Calcium 10.4 mg/dL (8.4-10.2); Carbon Dioxide 22 mmol/L (22-30); Chloride 105 mmol/L (98-107); Glucose 117 mg/dL (74-99); Lipase 71 U/L (23-300); Magnesium 1.9 mg/dL (1.6-2.3); Non-African American GFR(CKD) 75 (>60 ml/min/1.73 sqM); Potassium 4.1 mmol/L (3.5-5.1); Sodium 138 mmol/L (137-145); Total Bilirubin 0.7 mg/dL (0.2-1.3); Total Protein 7.5 g/dL (6.3-8.2)
[2023-01-14 08:07] LABS: INR 0.9 (<1.2); Partial Thromboplastin Time 25.6 sec (22.0-30.0); Prothrombin Time 10.1 sec (10.0-12.5)
[2023-01-14] MEDS ORDERED: ONDANSETRON 4 MG/2 ML VIAL IVP STA (08:34)
--- NOTE | 2023-01-14 08:34 | ED ---
Chest Pain HPI - General Chief Complaint: Chest Pain Stated Complaint: Chest Pain Time Seen by Provider: 01/14/23 07:05 Source: patient Mode of arrival: wheelchair Limitations: no limitations - History of Present Illness Initial Comments: 82-year-old female with past medical history of coronary artery disease status post CABG, hypertension, hyperlipidemia who presents to the emergency department reporting chest pain. States that she was driving to the airport this morning when she had sudden onset of left-sided breast/chest wall pain. Denies that it is pleuritic in nature. Pain she states goes to her back. No numbness, tingling or weakness in her arms or legs. No associated shortness of breath. Pain comes in waves. States that it will be very sharp in nature and then become dull. At this time she reports only a dull ache. No fevers, chills or cough. Denies reflux as she does have a large history and symptoms do not feel similar. She did not take anything at home for her pain. No recent cardiac evaluation. No other alleviating, Perceptin or modifying factors - Related Data Home Medications Medication Instructions Recorded Confirmed Multivitamin [Multivitamins Adult 1 tab PO DAILY 08/02/18 01/14/23 Gummies] Omeprazole [PriLOSEC] 20 mg PO DAILY 11/19/19 01/14/23 Rosuvastatin Calcium [Crestor] 5 mg PO HS 08/25/21 01/14/23 Acetaminophen Tab [Tylenol Tab] 500 mg PO BID 01/14/23 01/14/23 Aspirin [Adult Low Dose Aspirin EC] 81 mg PO DAILY 01/14/23 01/14/23 Cholecalciferol [Vitamin D3 (25 50 mcg PO DAILY 01/14/23 01/14/23 Mcg = 1000 Iu)] Garlic Extract [Garlic] 400 mg PO HS 01/14/23 01/14/23 Losartan [Cozaar] 25 mg PO DAILY 01/14/23 01/14/23 Ubidecarenone [Coenzyme Q10] 200 mg PO BID 01/14/23 01/14/23 Allergies Allergy/AdvReac Type Severity Reaction Status Date / Time morphine Allergy Unknown Verified 01/14/23 11:35 codeine AdvReac Nausea & Verified 01/14/23 11:35 Vomiting Review of Systems ROS Statement: Those systems with pertinent positive or pertinent negative responses have been documented in the HPI. ROS Other: All systems not noted in ROS Statement are negative. Past Medical History Past Medical History: Cancer, Chest Pain / Angina, GERD/Reflux, Hyperlipidemia, Hypertension, Skin Disorder Additional Past Medical History / Comment(s): hernia, skin cancer (arm, leg, nose, face) with removal - states they took a lymph node also. States she had melanoma removed from her left arm in September 2017. meineres disease, hx recent uti tx with antibiotics History of Any Multi-Drug Resistant Organisms: None Reported Past Surgical History: Appendectomy, Cholecystectomy, Coronary Bypass/CABG, Heart Catheterization With Stent, Hysterectomy, Orthopedic Surgery Additional Past Surgical History / Comment(s): 1 stent 2002. Bilateral cataract surgery, skin cancer removed from her left arm, right leg, right ear and to her face. CABG 5 vessels 07/2019, rt knee arthroscopy, total right knee 09/01/2021 Past Anesthesia/Blood Transfusion Reactions: No Reported Reaction Additional Past Anesthesia/Blood Transfusion Reaction / Comment(s): no blood transfusion. with previous surgery was given medicine to relax and caused pt to feel cold and had shakiness Date of Last Stent Placement:: 2002 Past Psychological History: Anxiety Smoking Status: Former smoker Past Alcohol Use History: Occasional Past Drug Use History: None Reported - Past Family History Mother Family Medical History: Myocardial Infarction ([place]) Father Family Medical History: Myocardial Infarction ([place]) Additional Family Medical History / Comment(s): Her father from a myocardial infarction. Sister(s) Family Medical History: Cancer Additional Family Medical History / Comment(s): breast cancer General Exam Limitations: no limitations General appearance: alert, in no apparent distress Head exam: Present: atraumatic, normocephalic, normal inspection Eye exam: Present: normal appearance, PERRL, EOMI. Absent: scleral icterus, conjunctival injection, periorbital swelling ENT exam: Present: normal exam, mucous membranes moist Neck exam: Present: normal inspection. Absent: tenderness, meningismus, lymphadenopathy Respiratory exam: Present: normal lung sounds bilaterally. Absent: respiratory distress, wheezes, rales, rhonchi, stridor Cardiovascular Exam: Present: regular rate, normal rhythm, normal heart sounds. Absent: systolic murmur, diastolic murmur, rubs, gallop, clicks GI/Abdominal exam: Present: soft, normal bowel sounds. Absent: distended, tenderness, guarding, rebound, rigid Extremities exam: Present: normal inspection, full ROM, normal capillary refill. Absent: tenderness, pedal edema, joint swelling, calf tenderness Back exam: Present: normal inspection Neurological exam: Present: alert, oriented X3, CN II-XII intact Psychiatric exam: Present: normal affect, normal mood Skin exam: Present: warm, dry, intact, normal color. Absent: rash Course Vital Signs 01/14/23 01/14/23 01/14/23 07:05 07:38 07:40 Temperature 98.2 F Pulse Rate 62 60 58 L Respiratory 18 Rate Blood Pressure 182/73 O2 Sat by Pulse 98 97 Oximetry 01/14/23 01/14/23 01/14/23 07:50 08:00 13:08 Temperature Pulse Rate 54 L 61 Respiratory 18 18 Rate Blood Pressure 172/96 107/70 O2 Sat by Pulse 98 98 Oximetry Chest Pain MDM - MDM Was pt. sent in by a medical professional or institution (, PA, [facility], urgent care, hospital, or [place] [facility] care facility...) When possible be specific @ -No Did you speak to anyone other than the patient for history (EMS, parent, family, police, friend...)? What history was obtained from this source @ -Spoke with patient's family member Did you review nursing and triage notes (agree or disagree)? Why? @ -I reviewed and agree with nursing and triage notes Were old charts reviewed (outside hosp., previous admission, EMS record, old EKG, old radiological studies, urgent care reports/EKG's, [place] health care facility records)? Report findings @ -I reviewed notes from 2019 when patient had bypass procedure Differential Diagnosis (chest pain, altered mental status, abdominal pain women, abdominal pain men, vaginal bleeding, weakness, fever, dyspnea, syncope, headache, dizziness, GI bleed, back pain, seizure, CVA, palpatations, mental health, musculoskeletal)? @ -Differential Chest Pain: Stable Angina, Unstable Angina, STEMI, NSTEMI Aortic Dissection, Pneumothorax, Musculoskeletal, Esophageal Spasm GERD, Cholecystitis, Pancreatitis, Zoster, th is is not meant to be an all-inclusive list. EKG interpreted by me (3pts min.). @ -Yes and demonstrates a sinus bradycardia with a rate of 58. UT interval 150. QRS 123. QTC 451. There is a right bundle branch block. No acute ST segment elevation X-rays interpreted by me (1pt min.). @ -Yes and demonstrates no acute process CT interpreted by me (1pt min.). @ -None done U/S interpreted by me (1pt. min.). @ -None done What testing was considered but not performed or refused? (CT, X-rays, U/S, labs)? Why? @ -None What meds were considered but not given or refused? Why? @ -None Did you discuss the management of the patient with other professionals (professionals i.e. DrKyle, PA, [facility], lab, RT, psych nurse, social worker masters, software support specialist, teacher, surveillance sensor officer, case resource manager)? Give summary @ -Spoke with Dr. Whatley for admission Was smoking cessation discussed for >3mins.? @ -No Was critical care preformed (if so, how long)? @ -No Were there social determinants of health that impacted care today? How? (Homelessness, low income, unemployed, alcoholism, drug addiction, transportation, low edu. Level, literacy, decrease access to med. care, care home, rehab)? @ -No Was there de-escalation of care discussed even if they declined (Discuss DNR or withdrawal of care, Hospice)? DNR status @ -No What co-morbidities impacted this encounter? (DM, HTN, Smoking, COPD, CAD, Cancer, CVA, ARF, Chemo, Hep., AIDS, mental health diagnosis, sleep apnea, morbid obesity)? @ -CAD Was patient admitted / discharged? Hospital course, mention meds given and route, prescriptions, significant lab abnormalities, going to OR and other pertinent info. @ -Admitted. Upon arrival patient is placed into room 18. Thorough history and physical exam was performed. She is placed on continuous pulse ox and cardiac monitoring. [address] Jeffrey is her conducted. Patient was given morphine and Zofran for pain and nausea. Chest x-ray was performed. Results are discussed with the patient. Due to large cardiac history recommended admission. Spoke with Dr. Whatley who agreed to admit patient. Undiagnosed new problem with uncertain prognosis? @ -Yes Drug Therapy requiring intensive monitoring for toxicity (Heparin, Nitro, Insulin, Cardizem)? @ -No Were any procedures done? @ -No Diagnosis/symptom? @ -Acute chest pain, history of coronary disease Acute, or Chronic, or Acute on Chronic? @ -Acute Uncomplicated (without systemic symptoms) or Complicated (systemic symptoms)? @ Complicated Side effects of treatment? @ -No Exacerbation, Progression, or Severe Exacerbation? @ -No Poses a threat to life or bodily function? How? (Chest pain, [place], [place], pneumonia, PE, COPD, DKA, ARF, appy, cholecystitis, CVA, Diverticulitis, Homicidal, Suicidal, threat to staff... and all critical care pts) @ -yes patient presents with chest pain Disposition Clinical Impression: Chest pain Disposition: ADMITTED IP TO THIS [facility] Condition: Serious Is patient prescribed a controlled substance at d/c from ED?: No Time of Disposition: 10:13 Decision to Admit Reason: Admit from EC Decision Date: 01/14/23 Decision Time: 10:13
--- NOTE | 2023-01-14 08:37 | XR ---
EXAMINATION TYPE: XR chest 2V DATE OF EXAM: 01/14/2023 8:06 AM CLINICAL INDICATION:Female, 82 years old with history of Chest Pain; [facility] COMPARISON: Chest radiographs from 05/21/2020 TECHNIQUE: XR chest 2V Frontal and lateral views of the chest. FINDINGS: Lungs/Pleura: There is no evidence of pleural effusion, focal consolidation, or pneumothorax. Pulmonary vascularity: Unremarkable. Heart/mediastinum: Cardiomediastinal silhouette is unremarkable. Musculoskeletal: No acute osseous pathology. Midline sternotomy wires are noted. IMPRESSION: No acute cardiopulmonary disease/process.
[2023-01-14] MEDS ORDERED: KETOROLAC 15 MG/ML 1 ML VIAL IVP STA (10:04)
[2023-01-14] MEDS ORDERED: ASPIRIN 81 MG PO STA (10:13)
[2023-01-14] MEDS ORDERED: NALOXONE 0.4 MG/ML 1 ML VIAL IV PRN (10:13)
[2023-01-14] MEDS ORDERED: ACETAMINOPHEN TAB 500 MG TAB PO SCH (13:00)
[2023-01-14] MEDS ORDERED: LOSARTAN 25 MG TAB PO SCH (13:00)
[2023-01-14] MEDS ORDERED: NITROGLYCERIN SL TABS 0.4 MG TAB SUBLINGUAL PRN (13:03)
[2023-01-14] MEDS ORDERED: KETOROLAC 15 MG/ML 1 ML VIAL IVP PRN (13:05)
[2023-01-14] MEDS ORDERED: ACETAMINOPHEN TAB 325 MG TAB PO PRN (13:07)
[2023-01-14] MEDS ORDERED: hydrALAZINE HCL 20 MG/ML 1 ML VIAL IVP PRN (13:08)
--- NOTE | 2023-01-14 13:09 | P.HPIM ---
History of Present Illness H&P Date: 01/14/23 Chief Complaint: Chest pain * 82-year-old lady with past medical history significant for coronary artery disease, history of CABG in 2019, history of anemia, history of melanoma, hyperlipidemia and degenerative joint disease, arthritis presents to the emergency department with complaints of acute onset of left-sided chest pain. Patient was in her usual state of health accompanying her assisted to the airport when she started having acute onset left-sided chest pain., This was associated with left-sided breast pain which was persistent, pain was intractable, patient states pain was spasmodic and sharp, patient did have difficulty in breathing, patient stated that pain radiated to left side to the back. She denied associated fever, chills, nausea, vomiting, abdominal pain, passing out * Workup in ER including basic metabolic panel which showed sodium of 138 potass ium 4.1, dissected 22 BU and 20 creatinine 0.75 calcium of 10.4 * EKG obtained in ER showed sinus bradycardia with T-wave inversion in anterior leads * D-dimer obtained in ER 1.29, stat CT angina chest ordered, initial troponin obtained negative * Chest x-ray obtained in ER negative for acute cardiopulmonary process REVIEW OF SYSTEMS: Chest pain CONSTITUTIONAL: No fever, no malaise, no fatigue. HEENT: No recent visual problems or hearing problems. Denied any sore throat. CARDIOVASCULAR: No chest pain, orthopnea, PND, no palpitations, no syncope. PULMONARY: No shortness of breath, no cough, no hemoptysis. GASTROINTESTINAL: No diarrhea, no nausea, no vomiting, no abdominal pain. NEUROLOGICAL: No headaches, no weakness, no numbness. HEMATOLOGICAL: Denies any bleeding or petechiae. GENITOURINARY: Denies any burning micturition, frequency, or urgency. MUSCULOSKELETAL/RHEUMATOLOGICAL: Denies any joint pain, swelling, or any muscle pain. ENDOCRINE: Denies any polyuria or polydipsia. PHYSICAL EXAMINATION: GENERAL: The patient is alert and oriented x3, not in any acute distress. Well developed, well nourished. HEENT: Pupils are round and equally reacting to light. EOMI. CARDIOVASCULAR: S1 and S2 present. No murmurs, rubs, or gallops. PULMONARY: Chest is clear to auscultation, no wheezing or crackles. ABDOMEN: Soft, nontender, nondistended, normoactive bowel sounds. No palpable organomegaly. MUSCULOSKELETAL: No tenderness on palpation of chest EXTREMITIES: No cyanosis, clubbing, or pedal edema. NEUROLOGICAL: Gross neurological examination did not reveal any focal deficits. SKIN: No rashes. Past Medical History Past Medical History: Cancer, Chest Pain / Angina, GERD/Reflux, Hyperlipidemia, Hypertension, Skin Disorder Additional Past Medical History / Comment(s): hernia, skin cancer (arm, leg, nose, face) with removal - states they took a lymph node also. States she had melanoma removed from her left arm in September 2017. meineres disease, hx recent uti tx with antibiotics History of Any Multi-Drug Resistant Organisms: None Reported Past Surgical History: Appendectomy, Cholecystectomy, Coronary Bypass/CABG, Heart Catheterization With Stent, Hysterectomy, Orthopedic Surgery Additional Past Surgical History / Comment(s): 1 stent 2002. Bilateral cataract surgery, skin cancer removed from her left arm, right leg, right ear and to her face. CABG 5 vessels 07/2019, rt knee arthroscopy, total right knee 09/01/2021 Past Anesthesia/Blood Transfusion Reactions: No Reported Reaction Additional Past Anesthesia/Blood Transfusion Reaction / Comment(s): no blood tra nsfusion. with previous surgery was given medicine to relax and caused pt to feel cold and had shakiness Date of Last Stent Placement:: 2002 Past Psychological History: Anxiety Smoking Status: Former smoker Past Alcohol Use History: Occasional Past Drug Use History: None Reported - Past Family History Mother Family Medical History: Myocardial Infarction ([place]) Father Family Medical History: Myocardial Infarction ([place]) Additional Family Medical History / Comment(s): Her father from a myocardial infarction. Sister(s) Family Medical History: Cancer Additional Family Medical History / Comment(s): breast cancer Medications and Allergies Home Medications Medication Instructions Recorded Confirmed Type Multivitamin [Multivitamins Adult 1 tab PO DAILY 08/02/18 01/14/23 History Gummies] Omeprazole [PriLOSEC] 20 mg PO DAILY 11/19/19 01/14/23 History Rosuvastatin Calcium [Crestor] 5 mg PO HS 08/25/21 01/14/23 History Acetaminophen Tab [Tylenol Tab] 500 mg PO BID 01/14/23 01/14/23 History Aspirin [Adult Low Dose Aspirin EC] 81 mg PO DAILY 01/14/23 01/14/23 History Cholecalciferol [Vitamin D3 (25 50 mcg PO DAILY 01/14/23 01/14/23 History Mcg = 1000 Iu)] Garlic Extract [Garlic] 400 mg PO HS 01/14/23 01/14/23 History Losartan [Cozaar] 25 mg PO DAILY 01/14/23 01/14/23 History Ubidecarenone [Coenzyme Q10] 200 mg PO BID 01/14/23 01/14/23 History Allergies Allergy/AdvReac Type Severity Reaction Status Date / Time morphine Allergy Unknown Verified 01/14/23 11:35 codeine AdvReac Nausea & Verified 01/14/23 11:35 Vomiting Physical Exam Vitals: Vital Signs Temp Pulse Resp BP Pulse Ox 01/14/23 08:00 54 L 18 98 01/14/23 07:50 172/96 01/14/23 07:40 58 L 97 01/14/23 07:38 60 01/14/23 07:05 98.2 F 62 18 182/73 98 Intake and Output 01/13/23 01/14/23 01/14/23 22:59 06:59 14:59 Other: Weight 68.946 kg Results CBC & Chem 7: 01/14/23 07:15 01/14/23 07:15 Labs: Abnormal Lab Results - Last 24 Hours (Table) 01/14/23 01/14/23 Range/Units 07:15 10:30 D-Dimer 1.29 H (<0.60) mg/L FEU BUN 23 H (7-17) mg/dL Glucose 117 H (74-99) mg/dL Calcium 10.4 H (8.4-10.2) mg/dL Assessment and Plan Assessment: Assessment and plan * Coronary artery disease with history of CABG, chest pain * Hypertension * Gastroesophageal reflux disease * Hyperlipidemia * In regards to chest pain, serial troponins ordered, d-dimer elevated, stat CTA chest ordered to rule out dissection pulmonary embolism. Sublingual nitro for chest pain, ALLERGY to morphine/codeine ordered Toradol IV, Tylenol as needed * In regards to history of hypertension continue patient on Cozaar, when necessary IV hydralazine ordered * In regards gastroesophageal reflux disease continue omeprazole * In regards to dyslipidemia continue Crestor * CODE STATUS is full code, will do CPR however no intubation Time with Patient: Greater than 30
[2023-01-14] MEDS: PANTOPRAZOLE 40 MG TABLET PO SCH (13:11)
--- NOTE | 2023-01-14 17:16 | CT ---
EXAMINATION TYPE: CT chest angio for PE CT DLP: 257.8 mGycm, Automated exposure control for dose reduction was used. DATE OF EXAM: 01/14/2023 2:07 PM COMPARISON: Same day chest x-ray CLINICAL INDICATION:Female, 82 years old with history of dyspnea; dyspnea and SOB TECHNIQUE/CONTRAST: CTA scan of the thorax is performed with IV Contrast, patient injected with 52ml mL of Isovue 300, DC P images are created and reviewed these are created on a separate workstation.. FINDINGS: Pulmonary Artery: There is no evidence for a filling defect within the pulmonary vasculature to sugge st acute pulmonary embolism. The pulmonary artery is upper normal in size, 2.9 cm. Heart: The heart is mildly enlarged. Moderate to heavy [place] coronary artery calcifications. Post CA BG changes. Vasculature: Mild atherosclerotic calcifications are present throughout the aorta. No evidence of ane urysm. Mediastinum: No gross evidence of adenopathy. Airway: Large airways are patent. Lower neck: No significant findings. Soft Tissues: Unremarkable. Lungs/Pleura: No evidence of focal consolidation, pleural effusion or pneumothorax. Mild bibasilar at electasis. Musculoskeletal: Mild/moderate degenerative changes of the spine. Sternotomy wires. No acute bony abn ormality. Upper Abdomen: No significant findings. Mild asymmetric elevation of the right hemidiaphragm, likely from eventration. Calcifications of the upper abdominal aorta and branches. Mild/moderate narrowing o f the proximal renal arteries. Gallbladder not seen, likely absent.. IMPRESSION: 1. No evidence of pulmonary embolus or other acute chest process. 2. Mild cardiomegaly. Post CABG changes.
[2023-01-14] MEDS ORDERED: ATORVASTATIN 10 MG TAB PO SCH (21:00)
[2023-01-15] MEDS: PANTOPRAZOLE 40 MG TABLET PO SCH (06:21)
[2023-01-15 07:32] LABS: African American GFR (CKD) 56 (>60 ml/min/1.73 sqM); Anion Gap 9 mmol/L; Blood Urea Nitrogen 27 mg/dL (7-17); Calcium 9.9 mg/dL (8.4-10.2); Carbon Dioxide 24 mmol/L (22-30); Chloride 105 mmol/L (98-107); Glucose 90 mg/dL (74-99); Non-African American GFR(CKD) 49 (>60 ml/min/1.73 sqM); Potassium 4.6 mmol/L (3.5-5.1); Sodium 138 mmol/L (137-145)
[2023-01-15 07:55] VITALS: RESP 15
[2023-01-15] MEDS ORDERED: AMINOPHYLLINE 500 MG/20 ML VIAL IV PRN (08:52)
[2023-01-15] MEDS ORDERED: REGADENOSON 0.4 MG/5 ML SYRINGE IV PRN (08:52)
[2023-01-15] MEDS ORDERED: CAFFEINE CITRATE 60 MG/3 ML VIAL IV PRN (08:52)
[2023-01-15] MEDS ORDERED: CHOLECALCIFEROL 25 MCG (1000 IU) TABLET PO SCH (09:00)
[2023-01-15] MEDS ORDERED: LOSARTAN 50 MG TAB PO SCH (09:00)
[2023-01-15] MEDS ORDERED: ENOXAPARIN 40 MG/0.4 ML SYRINGE SQ SCH (09:00)
[2023-01-15] MEDS ORDERED: ASPIRIN 81 MG PO SCH ×2 (09:00)
[2023-01-15] MEDS: ENOXAPARIN 30 MG/0.3 ML SYRINGE SQ SCH ×3 (09:01→09:18)
[2023-01-15 10:58] LABS: Chol/HDL Ratio 3.76 Ratio; LDL Cholesterol,Calculated 101.5 mg/dL (0.0-131.0)
--- NOTE | 2023-01-15 11:00 | P.CRDCN ---
History of Present Illness Consult date: 01/15/23 Consult reason: chest pain History of present illness: History of present illness: This is an 82-year-old female patient of Dr. VIELKA Landrum with past medical history of coronary artery disease status post bypass grafting in 2019 with THOMAS to LAD, separate the G to OM1, OM 2 and RCA. She has a past medical history of hypertension, dyslipidemia, remote history of tobacco use. Patient presented to the hospital with pain on the left breast owing to her back and up to her neck which she thought the neck was part of a muscle spasm. She also complains of her left arm feeling sore today. The chest pain is currently gone. She states [place] the airport when it started. She has had it on other occasions when she has in bed and has to move onto his right side. Pain was a #3 out of 10. Patient went home and found that her blood pressure was 212 systolic and took a losartan 25 mg daily. She has this prescribed by her PCP and had previously been told not to take it by Dr. Landrum. EKG sinus rhythm, 58 bpm, right bundle branch block Chest x-ray: No acute process CTA of the chest: No evidence of pulmonary embolus or other acute chest process. Mild cardiomegaly area post CABG changes. CBC within normal limits. INR 0.9. Electrolytes normal. BUN 27 creatinine 1.07. Troponins negative 3. Liver function tests are normal. Magnesium 1.9. Lipase 71. Home cardiac medications: Aspirin 81 mg daily, losartan 25 mg daily, ros uvastatin 5 mg at bedtime. Echocardiogram performed 07/2020 in the office revealed EF 55%, moderate c oncentric left ventricular hypertrophy. Mild mitral regurgitation. Mild tricuspid regurgitation. Normal pulmonary artery systolic pressure. Lexiscan stress test performed in the office on 08/2021 revealed normal MPI with normal ejection fraction without stress-induced ischemia. Possibly a soft ti ssue attenuation in the mid anterior wall noted. By EKG criteria there is technically inconclusive stress test with minor resting EKG changes to begin with. Review Of Systems: At the time of my evaluation: Constitutional: No fever, no chills. No weakness, fatigue or lethargy. EENT: No headache. No dizziness. Lungs: No shortness of breath, cough, no sputum production. No wheezing. Cardiovascular: No chest pain, no lower extremity edema. No palpitations. No paroxysmal nocturnal dyspnea. No orthopnea. No lightheadedness or dizziness. No syncopal episodes. Abdominal: No abdominal pain. No nausea, vomiting. Musculoskeletal: No myalgias. No muscle weakness, no frequent falls. Reports left upper arm pain. Integumentary: No wounds. No rash. No unusual bruising. Neurologic: No aphasia. No facial droop. No change in mentation. Physical examination: Gen: This is an 82 year old female. She is resting in bed appears to be comfortable and in no acute distress. VS: reviewed. Blood pressure 152/65, heart rate in the 50s, afebrile, pulse ox 97% on room air. HEENT: Head is atraumatic, normocephalic. Pupils equal, round. Sclerae is anicteric. NECK: Supple. No JVD. LUNGS: Clear to auscultation. No wheezes or rhonchi. No intercostal retractions. HEART: Regular rate and rhythm. No murmur. + Tenderness to left chest wall. ABDOMEN: Soft No tenderness. EXTREMITIES: No pedal edema. No calf tenderness. NEUROLOGICAL: Patient is awake, alert and oriented x3. Assessment: Atypical chest pain most likely musculoskeletal History of coronary artery disease with previous bypass grafting Hypertension Dyslipidemia Plan: Obtain Lexiscan stress test If stress test is within normal limits, patient is cleared for discharge may follow up in the office with Dr. VIELKA Landrum in 2-3 weeks. If stress test is abnormal, may consider adding nitrates. Thank you kindly for this consultation. Nurse practitioner note has been reviewed, I agree with documented findings and plan of care. Patient was seen and examined. Past Medical History Past Medical History: Cancer, Chest Pain / Angina, GERD/Reflux, Hyperlipidemia, Hypertension, Skin Disorder Additional Past Medical History / Comment(s): hernia, skin cancer (arm, leg, nose, face) with removal - states they took a lymph node also. States she had melanoma removed from her left arm in September 2017. meineres disease, hx recent uti tx with antibiotics History of Any Multi-Drug Resistant Organisms: None Reported Past Surgical History: Appendectomy, Cholecystectomy, Coronary Bypass/CABG, Heart Catheterization With Stent, Hysterectomy, Orthopedic Surgery Additional Past Surgical History / Comment(s): 1 stent 2002. Bilateral cataract surgery, skin cancer removed from her left arm, right leg, right ear and to her face. CABG 5 vessels 07/2019, rt knee arthroscopy, total right knee 09/01/2021 Past Anesthesia/Blood Transfusion Reactions: No Reported Reaction Additional Past Anesthesia/Blood Transfusion Reaction / Comment(s): no blood transfusion. with previous surgery was given medicine to relax and caused pt to feel cold and had shakiness Date of Last Stent Placement:: 2002 Past Psychological History: Anxiety Smoking Status: Former smoker Past Alcohol Use History: Occasional Past Drug Use History: None Reported - Past Family History Mother Family Medical History: Myocardial Infarction ([place]) Father Family Medical History: Myocardial Infarction ([place]) Additional Family Medical History / Comment(s): Her father from a myocardial infarction. Sister(s) Family Medical History: Cancer Additional Family Medical History / Comment(s): breast cancer Medications and Allergies Home Medications Medication Instructions Recorded Confirmed Type Multivitamin [Multivitamins Adult 1 tab PO DAILY 08/02/18 01/14/23 History Gummies] Omeprazole [PriLOSEC] 20 mg PO DAILY 11/19/19 01/14/23 History Rosuvastatin Calcium [Crestor] 5 mg PO HS 08/25/21 01/14/23 History Acetaminophen Tab [Tylenol Tab] 500 mg PO BID 01/14/23 01/14/23 History Aspirin [Adult Low Dose Aspirin EC] 81 mg PO DAILY 01/14/23 01/14/23 History Cholecalciferol [Vitamin D3 (25 50 mcg PO DAILY 01/14/23 01/14/23 History Mcg = 1000 Iu)] Garlic Extract [Garlic] 400 mg PO HS 01/14/23 01/14/23 History Losartan [Cozaar] 25 mg PO DAILY 01/14/23 01/14/23 History Ubidecarenone [Coenzyme Q10] 200 mg PO BID 01/14/23 01/14/23 History Allergies Allergy/AdvReac Type Severity Reaction Status Date / Time morphine Allergy Unknown Verified 01/14/23 11:35 codeine AdvReac Nausea & Verified 01/14/23 11:35 Vomiting Physical Exam Vitals: Vital Signs Temp Pulse Pulse Resp BP BP Pulse Ox 01/15/23 07:20 98.2 F 53 L 15 152/65 97 01/15/23 02:00 97.6 F 57 L 16 162/72 98 01/14/23 19:55 98.7 F 59 L 16 131/69 99 01/14/23 15:00 98.5 F 57 L 16 143/78 96 01/14/23 13:08 61 18 107/70 98 Intake and Output 01/14/23 01/15/23 01/15/23 22:59 06:59 14:59 Intake Total 118 Balance 118 Intake: Oral 118 Other: # Voids 1 1 Results 01/14/23 07:15 01/15/23 06:25 Cardiac Enzymes 01/14/23 01/14/23 Range/Units 10:49 14:30 Troponin I <0.012 <0.012 (0.000-0.034) ng/mL Comprehensive Metabolic Panel 01/15/23 Range/Units 06:25 Sodium 138 (137-145) mmol/L Potassium 4.6 (3.5-5.1) mmol/L Chloride 105 (98-107) mmol/L Carbon Dioxide 24 (22-30) mmol/L BUN 27 H (7-17) mg/dL Creatinine 1.07 H (0.52-1.04) mg/dL Glucose 90 (74-99) mg/dL Calcium 9.9 (8.4-10.2) mg/dL Current Medications Generic Name Dose Route Start Last Admin Trade Name Freq PRN Reason Stop Dose Admin Acetaminophen 650 mg 01/14/23 13:07 Acetaminophen Tab 325 Mg Tab PO Q4HR PRN Fever and/ or Pain Aspirin 81 mg 01/15/23 09:00 Aspirin 81 Mg PO DAILY [facility] Atorvastatin Calcium 10 mg 01/14/23 21:00 01/14/23 20:45 Atorvastatin 10 Mg Tab PO 10 mg HS [facility] Administration Cholecalciferol 50 mcg 01/15/23 09:00 Cholecalciferol 25 Mcg (1000 Iu) Tablet PO DAILY [facility]EL Enoxaparin Sodium 30 mg 01/15/23 09:00 Enoxaparin 30 Mg/0.3 Ml Syringe SQ DAILY [facility] Hydralazine HCl 10 mg 01/14/23 13:08 Hydralazine Hcl 20 Mg/Ml 1 Ml Vial IVP Q6HR PRN Blood Pressure - High Ketorolac Tromethamine 15 mg 01/14/23 13:05 01/14/23 16:49 Ketorolac 15 Mg/Ml 1 Ml Vial IVP 01/19/23 13:05 15 mg Q6HR PRN Administration Pain Losartan Potassium 25 mg 01/14/23 13:00 01/14/23 13:11 Losartan 25 Mg Tab PO 25 mg DAILY MICHAEL Administration Naloxone HCl 0.2 mg 01/14/23 10:13 Naloxone 0.4 Mg/Ml 1 Ml Vial IV Q2M PRN Opioid Reversal Nitroglycerin 0.4 mg 01/14/23 13:03 Nitroglycerin Sl Tabs 0.4 Mg Tab SUBLINGUAL Q5M PRN Chest Pain Pantoprazole Sodium 40 mg 01/14/23 13:00 01/15/23 06:21 Pantoprazole 40 Mg Tablet PO 40 mg DAILY@0730 MICHAEL Administration Intake and Output 01/14/23 01/15/23 01/15/23 22:59 06:59 14:59 Intake Total 118 Balance 118 Intake: Oral 118 Other: # Voids 1 1 01/14/23 07:15 01/15/23 06:25
[2023-01-15 11:02] LABS: Basophils # (A) 0.05 X 10*3/uL (0.00-0.10); Basophils % (A) 0.9 %; Eosinophils % (A) 1.9 %; HCT 36.7 % (37.2-46.3); HGB 12.3 g/dL (12.0-15.0); Lymphocytes % (A) 40.8 %; MCH 28.9 pg (27.0-32.0); MCHC 33.5 g/dL (32.0-37.0); MCV 86.4 FL (80.0-97.0); Mean Platelet Volume 9.9 FL (9.5-12.2); Monocytes # (A) 0.47 X 10*3/uL (0.20-1.00); Monocytes % (A) 8.7 %; NRBC Per 100 WBC 0 X 10*3/uL (0.00-0.01); Neutrophils # (A) 2.56 X 10*3/uL (1.80-7.70); Neutrophils % (A) 47.5 %; Platelet Count 297 X 10*3/uL (140-440); RBC 4.25 X 10*6/uL (4.10-5.20); RDW 13.1 % (11.5-14.5); WBC 5.39 X 10*3/uL (4.50-10.00)
--- NOTE | 2023-01-15 12:37 | NM ---
EXAMINATION TYPE: NM stress lexiscan cardiolite DATE OF EXAM: 01/15/2023 COMPARISON: CTA chest one day earlier. CLINICAL INDICATION: Female, 82 years old with history of cp; history of hypertension and hypercholes terolemia along with 5 vessel CABG. TECHNIQUE: After the intravenous administration of 9.6 mCi Tc 99m Sestamibi - Cardiolite resting SPE CT images acquired 80 minutes post injection. The patient received 0.4mg Lexiscan, 25 mCi Tc 99m Sestamibi - Stress images obtained 40 minutes post injection FINDINGS: Review of stress and rest SPECT images demonstrates diminished radiotracer uptake involving the anter olateral left ventricular wall at stress and rest images suspicious for old infarct. No reversible i schemia clearly seen. Gated analysis shows normal wall motion with an estimated left ventricular ejec tion fraction of 71 %. IMPRESSION: Possible old infarct. No scintigraphic evidence for reversible ischemia.
--- NOTE | 2023-01-15 14:43 | CA ---
Lexiscan Nuclear Stress Test Report Name: Jessika Camilo Exam Date: 01/15/2023 11:17 Exam Location: [facility] Ht (in): 69 Wt (lb): 152 BSA: 1.84 Ordering Phys: Edward Boggs Referring Phys: EDWARD BOGGS,, Technologist: Rene Molina Age: 82 Gender: F : 1940 Procedure CPT: Indications: Reflex order-Stress test ICD-10 Codes: Patient History: CP, PALP, ANGINA, HTN, CHOL, FAMILY HX, CATH, CABG (X5), CATH (1 STENT) Medications: SEE CHART Meds past 24 hrs: Pretest Chest Pain: STRESS TEST Lexiscan Protocol Exercise Duration (min:sec): 02:[address] Depressions (mm): Angina Score: [place] Score: Resting HR (bpm): 60 Peak HR (bpm): 87 Resting BP (mmHg): 159 / 58 Peak BP (mmHg): 142 / 62 MPHR: 138 Target HR: 117 % MPHR: 63 METS: 1.0 Total Dose: Peak Dose: Atropine: Double Product: 04105 BP Response: Stress Termination: END OF DOSAGE Stress Symptoms: HEADACHE, CHEST HEAVINESS Stress Summary: ECG ANALYSIS Resting ECG: Stress ECG: CONCLUSIONS At baseline EKG showed normal sinus rhythm, normal axis, right bundle branch block with T-wave inversion V1, V2 and no other significant ST or T wave abnormalities. Patient recieved IV infusion of Lexiscan 0.4mg and at peak infusion EKG showed no significant change from baseline. Conclusions: 1. Normal EKG response to Lexiscan infusion 2. Nuclear imaging to be reported separately. Dr. Kendell Gomez DO (Electronically Signed) Final Date: 15 January 2023 14:42
[2023-01-15 15:31] VITALS: BP 130/67; PULSE 67; TEMP 97.8
--- NOTE | 2023-01-17 06:02 | P.DS ---
Providers Date of admission: 01/14/23 10:17 Expected date of discharge: 01/15/23 Attending physician: Denver Whatley MD Consults: 01/14/23 10:13 Consult Physician Urgent Consulting Provider: [facility] Consult Reason/Comments: chest pain, hx ascad Do you want consulting provider notified?: Yes Primary care physician: Prasanna Kunz MD Hospital Course: Final diagnosis Coronary artery disease with history of CABG, chest pain, ruled out ACS Status post stress test which was normal Elevated d-dimer, rule out PE Hypertension Gastroesophageal reflux disease Hyperlipidemia Obesity with BMI of 30.7 GI prophylaxis DVT prophylaxis Discharge disposition Patient is being discharged in a stable condition with guarded prognosis to home . Patient will follow-up with Dr. Kunz in the outpatient setting upon discharge. Patient is to continue with current medications and outpatient follow-up with cardiology as scheduled. Total time taken is greater than 35 m inutes. Hospital course This is an 82-year-old female who was recently admitted with chest pain being closely monitored. Patient had been on an airplane and developed left-sided chest pain that was sharp and spasmodic on the left and found to have an elevated d-dimer underwent CTA which was negative for PE and demonstrated of post CABG changes otherwise normal. Patient was seen and evaluated by cardiology recommending stress testing and was normal and cleared by cardiology. Patient extremely anxious and adamant about going home although was agreeable to await stress test results. Patient has been instructed to follow-up with cardiology outpatient as well as primary care provider. Please refer to cardiology notes for further HPI. Currently no reports of chest pain, shortness of breath, or palpitations. Patient is afebrile. No reports of nausea or vomiting and patient is tolerating diet. Patient will be discharged home today. Guarded prognosis Physical exam: Gen: This is a 82-year-old female who is awake, alert and oriented 3, well- developed, well-nourished, obese HEENT: Head is atraumatic, normocephalic. Pupils equal, round. Sclerae is anicteric. NECK: Supple. No JVD. No lymphadenopathy. No thyromegaly. LUNGS: Clear to auscultation. No wheezes or rhonchi. No intercostal retractions. Left-sided chest wall tenderness near the axilla and ribs on palpation HEART: Regular rate and rhythm. No murmur. ABDOMEN: Soft. Bowel sounds are present. No masses. No tenderness. EXTREMITIES: No pedal edema. No calf tenderness. NEUROLOGICAL: Patient is awake, alert and oriented x3. Cranial nerves 2 through 12 are grossly intact. Please refer to medication reconciliation sheet for a list of medications. The impression and plan of care has been dictated by Jenny Mccartney, Nurse Practitioner as directed. Dr. Tres MD I have performed a history and examination and MDM of this patient, discussed the same with the dictator, and agree with the dictator's assessment and plan as written ,documented as a scribe. Based on total visit time, I have performed more than 50% of the visit. Patient Condition at Discharge: Fair Plan - Discharge Summary Discharge Rx Participant: No New Discharge Prescriptions: New Losartan [Cozaar] 50 mg PO DAILY #30 tab Continue Multivitamin [Multivitamins Adult Gummies] 1 tab PO DAILY Omeprazole [PriLOSEC] 20 mg PO DAILY Rosuvastatin Calcium [Crestor] 5 mg PO HS Garlic Extract [Garlic] 400 mg PO HS Ubidecarenone [Coenzyme Q10] 200 mg PO BID Cholecalciferol [Vitamin D3 (25 Mcg = 1000 Iu)] 50 mcg PO DAILY Aspirin [Adult Low Dose Aspirin EC] 81 mg PO DAILY Acetaminophen Tab [Tylenol] 500 mg PO BID Discontinued Losartan [Cozaar] 25 mg PO DAILY Discharge Medication List Multivitamin [Multivitamins Adult Gummies] 1 tab PO DAILY 08/02/18 [History] Omeprazole [PriLOSEC] 20 mg PO DAILY 11/19/19 [History] Rosuvastatin Calcium [Crestor] 5 mg PO HS 08/25/21 [History] Acetaminophen Tab [Tylenol] 500 mg PO BID 01/14/23 [History] Aspirin [Adult Low Dose Aspirin EC] 81 mg PO DAILY 01/14/23 [History] Cholecalciferol [Vitamin D3 (25 Mcg = 1000 Iu)] 50 mcg PO DAILY 01/14/23 [History] Garlic Extract [Garlic] 400 mg PO HS 01/14/23 [History] Ubidecarenone [Coenzyme Q10] 200 mg PO BID 01/14/23 [History] Losartan [Cozaar] 50 mg PO DAILY #30 tab 01/15/23 [Rx] Follow up Appointment(s)/Referral(s): Kendell Gomez DO [STAFF PHYSICIAN] - 01/31/23 3:15 pm Prasanna Kunz MD [Primary Care Provider] - 1-2 days Patient Instructions/Handouts: Chest Pain (DC) Activity/Diet/Wound Care/Special Instructions: Activity is limited until follow-up Follow-up with cardiology outpatient in one week Follow-up with primary care provider on discharge Continue taking medications as prescribed Discharge Disposition: HOME SELF-CARE
== END 2023-01-15 16:01 | disposition home or self-care (01) ==
LOC: EC 07:01 → 6NMEDSUR 10:17
PROVIDERS: ADMIT Internal Medicine; ATTEND Internal Medicine
DX: R07.89 Other chest pain (principal); I25.10 Atherosclerotic heart disease of native coronary artery without angina pectoris; I11.9 Hypertensive heart disease without heart failure; I08.1 Rheumatic disorders of both mitral and tricuspid valves; I45.10 Unspecified right bundle-branch block; E78.5 Hyperlipidemia, unspecified; R79.89 Other specified abnormal findings of blood chemistry; R00.1 Bradycardia, unspecified; N64.4 Mastodynia; M54.9 Dorsalgia, unspecified; M54.2 Cervicalgia; M79.602 Pain in left arm; K21.9 Gastro-esophageal reflux disease without esophagitis; H81.09 Meniere's disease, unspecified ear; L98.9 Disorder of the skin and subcutaneous tissue, unspecified; F41.9 Anxiety disorder, unspecified; D64.9 Anemia, unspecified; M19.90 Unspecified osteoarthritis, unspecified site; E66.9 Obesity, unspecified; Z68.30 Body mass index [BMI] 30.0-30.9, adult; Z79.82 Long term (current) use of aspirin; Z79.899 Other long term (current) drug therapy; Z88.5 Allergy status to narcotic agent; Z95.1 Presence of aortocoronary bypass graft; Z85.828 Personal history of other malignant neoplasm of skin; Z85.820 Personal history of malignant melanoma of skin; Z90.710 Acquired absence of both cervix and uterus; Z96.651 Presence of right artificial knee joint; Z87.440 Personal history of urinary (tract) infections; Z87.891 Personal history of nicotine dependence; Z90.49 Acquired absence of other specified parts of digestive tract; Z98.42 Cataract extraction status, left eye; Z98.41 Cataract extraction status, right eye; Z98.890 Other specified postprocedural states; Z82.49 Family history of ischemic heart disease and other diseases of the circulatory system; Z80.3 Family history of malignant neoplasm of breast
CPT/HCPCS: 96376; 96372; 96374; 96375; 99285; 36415; 93005; 93017; 85379; 80061; 80053; 80048; 83690; 83735; 84484; 85025 ×2; 85610; 85730; 87636; 71046; 71275; 78452; G0378 ×2; A9500; J2270; J2405; J1650; J2785; J1885; Q9967

== ENCOUNTER → 2024-06-26 | Outpatient (CLI) | payer MEDICARE ==
[2024-06-26 16:06] LABS: Chol/HDL Ratio 3.93 Ratio; LDL Cholesterol,Calculated 119.5 mg/dL (0.0-131.0)
== END | disposition home or self-care (01) ==
LOC: LABWHC1 09:17
PROVIDERS: ATTEND Internal Medicine Interventional Cardiology
DX: I25.10 Atherosclerotic heart disease of native coronary artery without angina pectoris (principal); E78.5 Hyperlipidemia, unspecified
CPT/HCPCS: 36415; 80061